=== PATIENT | female | born 1940 | race Caucasian/White ===

== ENCOUNTER → 2018-11-02 14:38 | Outpatient (CLI) | payer MEDICARE, SELFPAY ==
--- NOTE | 2018-11-02 14:49 | BI_ITS ---
MAMMOGRAPHY - BILATERAL SCREENING REASON FOR EXAM: Female, 77 years old. Routine annual screening examination. PERTINENT HISTORY: Sister with breast cancer. TECHNIQUE: Digital bilateral breast lorie (3D mammographic acquisition) in the CC and MLO projections. 2-D mediolateral oblique (MLO) and craniocaudad (CC) views of both breasts were obtained. CAD: Full Field Digital Mammography with Computer Added Detection was performed. COMPARISON: Comparison is made with prior outside examination dated June 12, 2016. FINDINGS: Breast Composition: There are scattered areas of fibroglandular density. There are no dominant masses or suspicious calcifications. 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 No other significant abnormalities are identified. There has been no significant change since the prior study. BI/SCREEN MAMM (CAD) W/LORIE BILAT IMPRESSION: Stable bilateral screening mammogram. Yearly follow-up mammogram recommended. (A) ASSESSMENT CATEGORY: BIRADS Category 2: Benign. A letter regarding these results will be sent to the patient by the facility within 30 days. Approximately 10% of breast cancers are not detected by mammography. A normal mammogram should not delay biopsy of a clinically suspicious abnormality. [id number] Electronically Signed: Oren Hill, at 9:24 EDT , Service support ,
== END ==
DX: Z12.31 Encounter for screening mammogram for malignant neoplasm of breast (principal)
CPT/HCPCS: 77063; 77067

== ENCOUNTER → 2018-11-25 16:44 | Outpatient (CLI) | payer MEDICARE, SELFPAY ==
[2018-11-25 15:30] VITALS: BMI 22.9
[2018-11-25 17:15] LABS: Absolute Lymphocyte Count 1.97 X10^3/uL (0.83-4.51); Absolute Neutrophil Count 2.9 X10^3/uL (2.0-7.7); Basophil# 0.03 X10^3/uL; Basophil% 0.5 % (0-1); Eosinophil# 0.65 X10^3/uL; Eosinophils% 10.4 % (0-5); Hematocrit 36.3 % (37-47); Hemoglobin 11.6 g/dL (12.0-15.0); Lymphocyte # 1.97 X10^3/ul (4.0); Lymphocyte % 31.6 % (19-41); Mean Corpuscular Hgb 31.2 pg (27.0-32.0); Mean Corpuscular Volume 97.6 fL (81-99); Mean Platelet Vol. 9.7 fl (6.2-12.0); Monocyte# 0.65 X10^3/uL; Monocyte% 10.4 % (0-10); NRBC Flagged by Analyzer 0 % (0-5); Neutrophil # 2.91 X10^3/uL (2.7-7.7); Neutrophil % 46.8 % (47-70); Platelet Count 276 K/mm3 (150-450); RBC Distribution Width CV 14.8 % (11.6-14.6); RBC Distribution Width SD 53.1 fl (35.1-43.9); Red Blood Count 3.72 M/mm3 (4.2-5.4); White Blood Count 6.2 K/mm3 (4.4-11.0)
[2018-11-25 17:31] LABS: Anion Gap 2 (5-15); BUN 20 mg/dL (7-18); BUN/Creat Ratio 17.1 RATIO (10-20); Calcium,Total 9.4 mg/dL (8.5-10.1); Chloride 102 mmol/L (98-107); Creatinine, Serum 1.17 mg/dL (0.55-1.02); EST Glomerular Filtration Rate 48 mL/min (>60); Est Glom Filt Rate - Afr Amer 58 mL/min (>60); Glucose 220 mg/dL (74-106); Potassium 4.5 mmol/L (3.5-5.1); Sodium Level 134 mmol/L (136-145)
== END ==
PROVIDERS: Family Provider Family Medicine; PCP Family Medicine; Referring Provider Internal Medicine Cardiovascular Disease; Visit Provider Internal Medicine Cardiovascular Disease
DX: I35.2 Nonrheumatic aortic (valve) stenosis with insufficiency (principal); I10 Essential (primary) hypertension
CPT/HCPCS: 36415; 80048; 85025

== ENCOUNTER 2018-11-30 07:00 | Day surgery (SDC) | payer MEDICARE, SELFPAY ==
[2018-11-25 15:30] VITALS: BMI 22.9
[2018-11-30 07:10] LABS: Prothrombin Time Fingerstick 12.5 SEC (11.9-14.4)
[2018-11-30 07:47] VITALS: BMI 22.6
--- NOTE | 2018-11-30 08:48 | PCM.HP.BLA ---
Problem List (1) Nonrheumatic aortic (valve) stenosis with insufficiency Status: Chronic (2) Hyperlipidemia Status: Chronic (3) Essential hypertension Status: Chronic History and Physical Date of Admission: 11/30/18 HPI History of Present Illness Details: Pleasant 77-year-old with a history of hypertension, hyperlipidemia, known valvular heart disease, history of lupus anticoagulant with previous history of deep vein thrombosis on Coumadin. She presents for an evaluation of her aortic valve as well as the shortness of breath. She is scheduled to undergo a right and left heart cath today to evaluate for severe aortic stenosis. She says that she has been having recent worsening dyspnea. She is also had occasional chest tightness which lasts a few minutes its infrequent it is not necessarily with activity. She is also had some sharp chest discomfort. She has no paroxysmal nocturnal dyspnea or pedal edema. She has been compliant with all her medications. As part of her work-up she underwent an echocardiographic evaluation which demonstrated an ejection fraction of 65 to 70% with mild concentric left ventricular hypertrophy her aortic valve was calcified and narrowed with a max gradient of 72 mmHg and a mean gradient of 47 mmHg. There is mild aortic regurgitation and the valve area was 0.8 cm? suggesting severe aortic stenosis. 2+ aortic regurgitation was noted. Her physical exam here today demonstrates a harsh 3/6 to 4/6 systolic murmur noted left sternal border radiating to both carotids. Intake Vital signs: See chart Allergies codeine Allergy (Intermediate, Verified 11/25/18 12:34) Unknown lisinopril Allergy (Intermediate, Verified 11/25/18 12:34) Unknown Medications acetaminophen 325 mg tablet 325 mg PO Q6H PRN 11/24/18 [History Confirmed 11/25/18] atorvastatin 80 mg tablet 40 mg PO QHS tab 11/24/18 [History Confirmed 11/24/18] cholecalciferol (vitamin D3) 5,000 unit tablet 5,000 unit PO DAILY 11/24/18 [History Confirmed 11/25/18] insulin glargine (U-100) 100 unit/mL subcutaneous solution 5 unit SC QHS ml 11/24/18 [History Confirmed 11/25/18] losartan 50 mg-hydrochlorothiazide 12.5 mg tablet 1 tab PO DAILY 11/24/18 [History Confirmed 11/25/18] metformin 1,000 mg tablet 1,000 mg PO BID 11/24/18 [History Confirmed 11/25/18] nifedipine ER 60 mg tablet,extended release 24 hr 60 mg PO DAILY 11/24/18 [History Confirmed 11/25/18] sertraline 100 mg tablet 200 mg PO DAILY tab 11/24/18 [History Confirmed 11/25/18] warfarin 5 mg tablet 5 mg PO .COMPLEX 11/24/18 [History Confirmed 11/25/18] biotin 1 mg capsule 1 mg PO DAILY 11/25/18 [History Confirmed 11/25/18] docosahexanoic acid 300 mg capsule mg PO cap 11/25/18 [History Confirmed 11/25/18] lactobacillus combination no.8 3 billion cell capsule 6,000 mmu cells PO DAILY cap 11/25/18 [History Confirmed 11/25/18] melatonin 5 mg capsule 5 mg PO QHS cap 11/25/18 [History Confirmed 11/25/18] metoprolol succinate ER 25 mg tablet,extended release 24 hr 25 mg PO DAILY 11/25/18 [History Confirmed 11/25/18] vitamin A palmitate 10,000 unit tablet 10,000 unit PO DAILY 11/25/18 [History Confirmed 11/25/18] PFS Medical History Lupus anticoagulant disorder (Chronic 1994) Nonrheumatic aortic (valve) stenosis with insufficiency (Chronic) History of DVT (deep vein thrombosis) (Chronic) Hyperlipidemia (Chronic) Essential hypertension (Chronic) COPD with emphysema (Chronic) Depression (Chronic) Osteoarthritis (Chronic) Osteoporosis (Chronic) Small bowel intussusception (Chronic) Type 2 diabetes mellitus without complication (Chronic) Vitamin B 12 deficiency (Chronic) Surgical History History of appendectomy (Resolved) History of section (Resolved) History of elbow surgery (Resolved ~2011) History of gastric bypass (Resolved) History of hip surgery (Resolved ~2011) History of open reduction and internal fixation (ORIF) procedure (Resolved ~2009) History of tonsillectomy (Resolved) Family History Mother , Age 86 Alzheimers disease Myocardial infarction, Onset Age: 70 CAD (coronary artery disease) Father , Age 68 CAD (coronary artery disease) Hypertension Alcoholism Sister Diabetes Hypertension Sister , 46 Breast cancer Brother Hypertension Cancer bladder and prostate Brother Heart disease AVR Social History (Updated 11/25/18 @ 16:08 by Robert Contreras MD) Smoking Status: Former smoker how long ago did patient quit smokin years ago alcohol intake: current Alcohol type: wine substance use type: does not use ROS Const Const: Negative for fatigue, weakness, headache(s), frequent falls, difficulty sleeping or excessive sweating Eyes Eyes: Negative for loss of peripheral vision, transient loss of vision, blurry vision, double vision or tunnel vision ENT ENT: Negative for headache(s), dizziness, Nosebleed/epistaxis or balance problems Cardio Chest Pain: No Palpitations: No Edema: None Muscle aches with walking: None Resp Respiratory: Negative for SOB with activity, SOB at rest, SOB orthopnea\SOB lying down, Cough or paroxysmal nocturnal dyspnea GI GI: Negative nausea, vomiting, heartburn or black,tarry stools : Negative for hematuria Musc Musc: Negative for muscle aches/ myalgia, muscle weakness, joint pain or balance problems Skin Skin: Negative non-healing lesions, rash or unusual bruising Neuro Neuro: Negative for dizziness, lightheadedness, near syncope, syncope, orthostatic symptoms, frequent falls, headache(s), weakness, blurry vision, double vision or lack of coordination [place] Hematologic/Lymphatic: Negative for easy bleeding or easy bruising Endo Endo: Negative for fatigue, excessive sweating or increased thirst/drinking Psych Psych: Negative for anxiety or depression Allergy Allergy/Immunology: Negative for hives, Negative for rash Cardiology Exam Const Appearance: cooperative, healthy appearing, no acute distress, well developed and well groomed Nutritional Appearance: average body habitus and well nourished Orientation: alert, awake and oriented x3 Head Head: normal to inspection, normocephalic and atraumatic Ears: hearing grossly normal bilaterally and external ears normal Nose: external nose normal, nares normal, nasal mucous membranes and turbinates normal, septum normal, no nasal discharge Face and Sinus: face symmetric Mouth: oral mucosae normal, tongue normal, oropharynx normal and moist mucous membranes Teeth and gingiva: dentition normal Throat: posterior oropharynx normal, tonsils normal and uvula midline Eyes General: appearance normal, both eyes and all related structures Eyelids: eyelids normal Conjunctivae: conjunctivae normal Pupils: PERRL, normal by confrontation and accommodation normal EOM: EOM intact bilaterally Neck Neck: normal visual inspection, trachea midline and no JVD JVD: +5 Carotids: normal carotid upstroke and bounding pulses Chest Chest inspection: normal inspection of the chest, symmetric chest movement and normal respiratory effort Auscultation: Bilateral: Clear to Auscultation Cardio Palpation: normal PMI Rate: regular rate Rhythm: regular rhythm Heart sounds: S1 normal, S2 normal and normal, physiologic split S2; negative rub, gallop or murmur Murmur: Grade 3/6, harsh, early systolic, crescendo and radiates to carotids GI GI: normal to inspection, soft, no hepatosplenomegaly and bowel sounds present Neuro General: alert, awake, oriented x3, gait normal, moves all extremities and no focal sensory deficit Skin Skin: no rashes or lesions noted Extremities Pulses: Normal: Right Femoral Pulse, Left Femoral Pulse, Right Dorsalis Pedis Pulse, Left Dorsalis Pedis Pulse, Right Posterior Tibial Pulse, Left Posterior Tibial Pulse, Right Radial Pulse, Left Radial Pulse Lower Extremity Edema: None: Bilateral Musculoskel Musculoskeletal: No joint tenderness Psych Psychological: normal affect Assessment & Plan 1. Nonrheumatic aortic (valve) stenosis with insufficiency I35.2 Plan She appears to have severe symptomatic aortic stenosis. It was recommended to proceed with a left and right heart catheterization. This is scheduled for today. The risk benefits alternatives have been explained to her she understands and agrees to proceed. It has suggested to her that should we confirm the severe aortic stenosis and evaluate her coronary anatomy she may be a candidate for a TAVR procedure. 2. Essential hypertension I10 Plan She does have history of hypertension which is well controlled on the current medical therapy. No major changes will be made with respect to the above. 3. Hyperlipidemia E78.5 Plan She does have a history of hyperlipidemia and will remain on current podiatry therapy. No other major changes will be made.
--- NOTE | 2018-11-30 09:32 | CL.D_ITS ---
Patient Name: SONNY HOWARD Study Date: 11/30/2018 Performing: Robert Contreras MD Ht: 64.96 inches 165 cm : 1940 Wt: 135.98 lbs 61.68 kg Age: 77 Gender: female BSA: 1.68 PROCEDURE(S) PERFORMED IF50-TEM/LHC/COR DC11-AO ROOT ANGIO WITH HEART CATH CLINICAL PROFILE AND INDICATIONS Indications: Valvular Disease Heart Failure: None Stress/Imaging Stress/Image Study Performed: No CAD Presentations: No Sxs, no angina. CONCLUSIONS Severe calcific aortic stenosis, mild aortic regurgitation, mitral annular calcification, upper gabby l pulmonary pressures. RECOMMENDATIONS TAVR consideration DESCRIPTION OF PROCEDURE The patient arrived to the procedure lab. The risks and benefits of the procedure as well as a full d escription of our services here and current unavailability of surgical backup were fully explained to the patient and/or their significant other prior to the catheterization. The Timeout was completed, verifying the correct patient and procedure. The patient's procedural site was prepped and draped in the usual fashion. Local anesthetic was given subcutaneously to right groin region with Lidocaine 2%. Using a modified Seldinger technique, arterial access was obtained via the right femoral artery, a 5 Fr sheath was inserted. Venous access was obtained via the right femoral vein, a 7Fr sheath was inser otto. A 7Fr thermal dilution catheter was inserted and right heart pressures were recorded, it was the n advanced to PA position for cardiac outputs. Thermal dilution cardiac outputs were then recorded. O 2 saturations were then obtained. The Thermal dilution catheter was then removed. Left Coronary Artery selective angiography was performed in multiple views using a 5 Fr. JL4 catheter. Rig ht Coronary Artery selective angiography was then performed in multiple views using a 5 Fr. 3DRC ([facility]) catheter.The arterial sheath was pulled and manual compression applied until hemostasis is ach ieved.. The venous sheath was then pulled and manual compression applied until hemostasis achieved CORONARY ANGIOGRAPHY DOMINANCE: Right Dominant LEFT HEART ASSESSMENT Left Ventricular Ejection Fraction: by Echo 65 % Normal LV wall motion Normal Left Ventricular systolic function RIGHT HEART ASSESSMENT Thermal CO: 3.9 Thermal CI: 2.32 Reinier CO: 3.93 Reinier CI: 2.34 PW: 24/17 13 PA: 35/5 15 RV: 30/-2 7 RA: 6/4 3 PVR: 41 SVR: 1662 Right Heart pressures - normal LEFT MAIN: Mild calcification LEFT ANTERIOR DESCENDING ARTERY: Mild luminal irregularities CIRCUMFLEX ARTERY: Mild luminal irregularities RIGHT CORONARY ARTERY: Mild luminal irregularities VALVE FINDINGS: Aortic Valve Stenosis - severe Aortic Valve Insufficiency: Grade 2 Mitral Valve Calcification Moderate COMPLICATIONS No Complications PROCEDURE MEDICATIONS Versed 1 mg IV Oxygen: 2 L/min via nasal cannula SUMMARY OF HEMODYNAMIC DATA Time AIR REST ECG 07:42:16 RA 6/4 (3) SV 09:04:16 RV 30/-2, 7 09:04:29 PA 35/5 (15) PA 09:05:02 PW 24/17 (13) PV 09:05:20 PA 36/7 (19) 09:07:58 RV 34/-2, 5 09:08:11 RA 7/4 (2) 09:08:19 AO 121/56 (84) SA 09:10:22 Type SV CO (l/m) CI (l/m/ HR Time AIR REST Thermal 69.60 3.90 2.32 56 07:42:16 Reinier 70.20 3.93 2.34 56 07:42:16 Label % O2 Pres/Loc Time AIR REST AO 95 PV 09:14:38 RA 59 SV 09:14:56 PA 62 PA 09:15:05 Signed By Robert Contreras MD On 11/30/2018 09:32:07 Robert Contreras MD
[2018-11-30 09:36] LABS: Blood Gas Specimen Type VEN; VBG BASE EXCESS -3 mmol/L (-1.0-3.5); VBG Bicarbonate 23 mmol/L (22-26); VBG Oxygen Content 24 mmol/L (23-33); VBG PO2 34 mmHg (25-40); VBG SO2 62 % (50-70); VBG pH 7.36 (7.32-7.42)
[2018-11-30 09:36] LABS: Blood Gas Specimen Type VEN; VBG BASE EXCESS -2 mmol/L (-1.0-3.5); VBG Bicarbonate 24 mmol/L (22-26); VBG Oxygen Content 25 mmol/L (23-33); VBG PO2 32 mmHg (25-40); VBG SO2 59 % (50-70); VBG pCO2 43.2 mmHg (41-51); VBG pH 7.35 (7.32-7.42)
[2018-11-30 09:36] LABS: Base Excess -3 mmol/L (-2 to +2); Bicarbonate 22.7 mmol/L (22-26); Blood Gas Specimen Type ART; PO2 75 mmHG (75-100); SO2 95 % (95-99); Total Carbon Dioxide 24 mmol/L; pCO2 38.8 mmHg (35-45); pH 7.38 (7.35-7.45)
== END 2018-11-30 14:45 | disposition home or self-care (01) ==
LOC: CLSP 07:02
PROVIDERS: Family Provider Family Medicine; PCP Family Medicine; Referring Provider Internal Medicine Cardiovascular Disease; Visit Provider Internal Medicine Cardiovascular Disease
DX: I35.2 Nonrheumatic aortic (valve) stenosis with insufficiency (principal); I34.8 Other nonrheumatic mitral valve disorders; I10 Essential (primary) hypertension; E78.5 Hyperlipidemia, unspecified; D68.62 Lupus anticoagulant syndrome; E11.9 Type 2 diabetes mellitus without complications; Z86.718 Personal history of other venous thrombosis and embolism; Z79.01 Long term (current) use of anticoagulants; Z79.4 Long term (current) use of insulin; Z79.84 Long term (current) use of oral hypoglycemic drugs; Z87.891 Personal history of nicotine dependence; Z79.899 Other long term (current) drug therapy
CPT/HCPCS: 36416; 82803; 85610; 93456; 93567; 99152; 99153; J7040; C1751; C1769; C1894; Q9967

== ENCOUNTER 2019-01-31 17:18 | Inpatient (IN) | payer MEDICARE, OTHER, SELFPAY ==
[2019-01-31] VITALS (9 sets, daily range): BP systolic 100–179; BP diastolic 46–70; PULSE 58–71; RESP 11–18; TEMP 36.4–37.2; O2SAT 95–100; BMI 23.2; BMI 22.8
[2019-01-31] MEDS: 0.9% Normal Saline 1,000 ML 125 ML IV (17:52)
[2019-01-31 17:54] LABS: Absolute Lymphocyte Count 1.63 X10^3/uL (0.83-4.51); Absolute Neutrophil Count 2.7 X10^3/uL (2.0-7.7); Basophil# 0.03 X10^3/uL; Basophil% 0.6 % (0-1); Eosinophil# 0.33 X10^3/uL; Eosinophils% 6.3 % (0-5); Hematocrit 23.9 % (37-47); Hemoglobin 7.5 g/dL (12.0-15.0); Lymphocyte # 1.63 X10^3/ul (4.0); Lymphocyte % 31.2 % (19-41); Mean Corp Hgb Conc 31.4 g/dL (32-36); Mean Corpuscular Hgb 30.2 pg (27.0-32.0); Mean Corpuscular Volume 96.4 fL (81-99); Mean Platelet Vol. 9.4 fl (6.2-12.0); Monocyte# 0.54 X10^3/uL; Monocyte% 10.3 % (0-10); NRBC Flagged by Analyzer 0 % (0-5); Neutrophil # 2.68 X10^3/uL (2.7-7.7); Neutrophil % 51.4 % (47-70); Platelet Count 258 K/mm3 (150-450); RBC Distribution Width SD 52.3 fl (35.1-43.9); Red Blood Count 2.48 M/mm3 (4.2-5.4); White Blood Count 5.2 K/mm3 (4.4-11.0)
[2019-01-31 18:06] LABS: International Normalized Ratio 2.2; Prothrombin Time (Protime)PT. 24.2 SECONDS (11.7-14.9)
[2019-01-31 18:09] LABS: Anion Gap 9 (5-15); BUN 23 mg/dL (7-18); BUN/Creat Ratio 16.7 RATIO (10-20); Calcium,Total 8.5 mg/dL (8.5-10.1); Chloride 106 mmol/L (98-107); Creatinine, Serum 1.38 mg/dL (0.55-1.02); EST Glomerular Filtration Rate 40 mL/min (>60); Est Glom Filt Rate - Afr Amer 48 mL/min (>60); Estimated Creatinine Clearance 31.21 ml/min; Glucose 150 mg/dL (74-106); Potassium 4.3 mmol/L (3.5-5.1); Sodium Level 139 mmol/L (136-145)
--- NOTE | 2019-01-31 18:16 | ED.VISSUMM ---
- ER Visit Summary Date of Service: 01/31/19 Chief Complaint: [Rectal bleeding History of present illness: The patient is a 78-year-old female who presents to the emergency department with rectal bleeding that started 1 week ago. Patient states that time she has a bowel movement she noticed that there is blood in her stool. She denies any abdominal pain. Patient notes feeling lightheaded and somewhat weak. Patient states that with activity her heart started to race. Patient is scheduled to have a TAVR procedure next week at [facility]. Patient's last INR was 3 days ago and it was 2.2. Patient has history of prior DVT, aortic stenosis, COPD, diabetes, hypertension, and high cholesterol.] Physical Examination: [HEENT-PERRLA, EOMI. Cranial nerves II through XII grossly intact. TMs clear. Mucous membranes moist. No adenopathy. Cardiovascular-regular rate and rhythm without murmur or ectopy Lungs-clear to auscultation, chest wall stable without crepitus or subcu emphysema Abdomen-normoactive bowel sounds, soft, nontender, no rebound or rigidity, no peritoneal signs. Rectal exam-patient has maroon stool. No rectal masses noted. No hemorrhoids. No fissures. Extremities-intact ?4, normal range of motion, normal pulses, atraumatic] Test Results: [CBC with differential obtained showed a white count of 5.2, hemoglobin 7.5. Chemistries unremarkable. BUN was 23 and creatinine 1.38. INR was 2.2.] Emergency Department Course and Treatment: [ Stable she was given a liter normal same fluid bolus. Case was discussed with general surgeon on-call Dr. Kenyon Higuera. I will discuss with hospitalist for admission.] Treatment Plan: [Admit] Disposition: [Admit] Impression: [Lower GI bleed Anemia] This note was generated with [employer] dictation software. It may contain incorrect words, spelling, and punctuation that were not noted in review of the chart prior to signing ED Disposition - Plan for ED Patient: [facility]: [facility] [Primary Care Provider] -
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
[2019-01-31 20:57] LABS: Hematocrit 23.3 % (37-47); Hemoglobin 7.6 g/dL (12.0-15.0)
[2019-01-31] MEDS: Atorvastatin Calcium 40 MG Tablet PO (21:08)
[2019-01-31] MEDS: hydroCHLOROthiazide 12.5mg 12.5 MG PO (21:08)
[2019-01-31] MEDS: Losartan Potassium 50 MG Tablet PO (21:08)
[2019-01-31] MEDS: MELATONIN 10 MG TABLET PO (21:15)
--- NOTE | 2019-01-31 22:25 | NURSING ---
21:12 vital signs in the TAR were taken at 22:20. Unable to edit the time.
[2019-02-01] VITALS (16 sets, daily range): BP systolic 150–178; BP diastolic 50–78; PULSE 54–80; RESP 14–18; TEMP 36.6–37.1; O2SAT 95–100
[2019-02-01] MEDS: 0.9% Normal Saline 1,000 ML 125 ML IV ×3 (00:15→17:17)
[2019-02-01] MEDS: Acetaminophen 325 MG Tablet 650 MG PO ×2 (00:21→10:02)
[2019-02-01 00:31] LABS: Bedside Glucose 94 mg/dL (70-110)
--- NOTE | 2019-02-01 01:34 | NURSING ---
On admission, pt reports difficulty swallowing. D/T pt being NPO, unable to complete a traditional bedside dysphagia screen using applesauce. This RN had pt take water from a spoon and take water from a cup. No swallowing issues noted.
[2019-02-01 02:21] LABS: Bedside Glucose 99 mg/dL (70-110)
[2019-02-01 02:28] LABS: Hematocrit 27.1 % (37-47); Hemoglobin 8.8 g/dL (12.0-15.0)
[2019-02-01 05:56] LABS: Absolute Neutrophil Count 2.1 X10^3/uL (2.0-7.7); Basophil# 0.03 X10^3/uL; Basophil% 0.6 % (0-1); Eosinophil# 0.45 X10^3/uL; Eosinophils% 9.1 % (0-5); Hematocrit 27.3 % (37-47); Hemoglobin 8.9 g/dL (12.0-15.0); Lymphocyte % 38.5 % (19-41); Mean Corp Hgb Conc 32.6 g/dL (32-36); Mean Corpuscular Hgb 29.9 pg (27.0-32.0); Mean Corpuscular Volume 91.6 fL (81-99); Mean Platelet Vol. 9.6 fl (6.2-12.0); Monocyte# 0.44 X10^3/uL; Monocyte% 8.9 % (0-10); NRBC Flagged by Analyzer 0 % (0-5); Neutrophil # 2.12 X10^3/uL (2.7-7.7); Neutrophil % 42.9 % (47-70); Platelet Count 235 K/mm3 (150-450); RBC Distribution Width CV 14.7 % (11.6-14.6); RBC Distribution Width SD 49.2 fl (35.1-43.9); Red Blood Count 2.98 M/mm3 (4.2-5.4); White Blood Count 4.9 K/mm3 (4.4-11.0)
[2019-02-01 06:05] LABS: Bedside Glucose 89 mg/dL (70-110)
[2019-02-01 06:15] LABS: Anion Gap 7 (5-15); BUN 20 mg/dL (7-18); BUN/Creat Ratio 18.7 RATIO (10-20); Chloride 110 mmol/L (98-107); Creatinine, Serum 1.07 mg/dL (0.55-1.02); EST Glomerular Filtration Rate 53 mL/min (>60); Est Glom Filt Rate - Afr Amer 64 mL/min (>60); Estimated Creatinine Clearance 40.25 ml/min; Glucose 88 mg/dL (74-106); Potassium 4.1 mmol/L (3.5-5.1); Sodium Level 144 mmol/L (136-145)
[2019-02-01 06:17] LABS: International Normalized Ratio 1.8; Prothrombin Time (Protime)PT. 20.6 SECONDS (11.7-14.9)
[2019-02-01] MEDS: NIFEdipine 60 MG Tablet PO (09:59)
[2019-02-01] MEDS: Sertraline 100 MG Tablet PO ×2 (10:02→21:48)
[2019-02-01] MEDS: Metoprolol(XL)Succ 25 MG Tablet PO (10:04)
--- NOTE | 2019-02-01 10:04 | PN_ITS ---
Patient Problems: Active and Suspected Problems (Last Reviewed 11/25/18 @ 16:01 by Robert Contreras MD) GI bleed (Acute) Acute blood loss anemia (Acute) Subjective: Patient seen and examined. She was admitted with a complaint of weakness, fatigue and maroon colored stools. She symptoms have been going on for about a week. She had assisted palpitations and shortness of breath which worsened with exertion. She has been managed for lower GI bleed. General surgery is on board. Patient has no complaints this morning. States rectal bleeding has not recurred since admission. She still feels weak but denies any lightheadedness, dizziness, palpitation, abdominal pain, diarrhea vomiting. Patient states she is scheduled to have TAVR done at [facility] on account of aortic stenosis in a week's time. Labs and vitals reviewed. Vitals/I&O's: Vital Signs Temp Pulse Resp BP Pulse Ox 98.7 F 54 L 16 178/50 H 98 02/01/19 09:25 02/01/19 09:25 02/01/19 09:25 02/01/19 09:25 02/01/19 09:25 Oxygen Delivery Method Room Air Weight: 136 lb 14.513 oz Body Mass Index (BMI) 22.8 Intake and Output for Last 24 Hours 01/30/19 01/31/19 02/01/19 23:59 23:59 23:59 Intake Total 451.25 / 451.25 1456.00 / 1456.00 Balance 451.25 / 451.25 1456.00 / 1456.00 General: Alert, Oriented x3, Cooperative, No apparent distress, Lethargic HEENT: Atraumatic, PERRLA, EOMI, Normocephalic Oral: Moist Mucosa Neck: Supple, No JVD, Negative Carotid Bruits Lungs: Clear to auscultation, Normal air movement, No rhonchi, No wheeze, No rales Cardiovascular: Regular rate, Regular Rhythm, Normal S1, Normal S2, - - grade 3- 4 ejection systolic murmur loudest in the aortic and pulmonary areas Abdomen: Bowel Sounds Present, Soft, Non Tender, Non-Distended, No Hepato- splenomegaly Extremities: No clubbing, No cyanosis, No edema, Capillary Refill Less than 3 Seconds Skin: No rashes, No breakdown Musculoskeletal: No Tenderness to Palpation of Joints or Extremities Lymphatic: No Cervical, Supraclavicular, or Inguinal Adenopathy Neurological: Cranial nerves II-XII grossly intact, Neuro grossly intact, Motor Exam 5/5 strength throughout Psych/Mental Status: Normal Affect, Appropriate, Alert and oriented to time, place, person, mood and affect Microbiology Past 72 Hours 01/31/19 17:35 Stool Stool Occult Blood (KETAN) - Final Laboratory Results 01/31/19 17:45: WBC 5.2, RBC 2.48 L, Hgb 7.5 L, Hct 23.9 L, MCV 96.4, MCH 30.2, MCHC 31.4 L, RDW Std Deviation 52.3 H, RDW Coeff of Adria 15.0 H, Plt Count 258, MPV 9.4, Immature Gran % (Auto) 0.200, Neut % (Auto) 51.4, Lymph % (Auto) 31.2, [place] % (Auto) 10.3 H, Eos % (Auto) 6.3 H, Baso % (Auto) 0.6, Absolute Neuts (auto) 2.7, Absolute Lymphs (auto) 1.63, Nucleated RBC % 0 01/31/19 17:45: Sodium 139, Potassium 4.3, Chloride 106, Carbon Dioxide 24.0, Anion Gap 9, BUN 23 H, Creatinine 1.38 H, Estim Creat Clear Calc 31.21, Est GFR (MDRD) Af Amer 48 L, Est GFR (MDRD) Non-Af 40 L, BUN/Creatinine Ratio 16.7, Glucose 150 H, Calcium 8.5 01/31/19 17:45: PT 24.2 H, INR 2.2 01/31/19 17:45: Blood Type AB POSITIVE, Antibody Screen NEGATIVE 01/31/19 17:45: Crossmatch See Detail 01/31/19 20:37: Hgb 7.6 L, Hct 23.3 L 01/31/19 21:06: POC Glucose 99 02/01/19 00:24: POC Glucose 94 02/01/19 01:34: Hgb 8.8 L, Hct 27.1 L 02/01/19 05:10: WBC 4.9, RBC 2.98 L, Hgb 8.9 L, Hct 27.3 L, MCV 91.6, MCH 29.9, MCHC 32.6, RDW Std Deviation 49.2 H, RDW Coeff of Adria 14.7 H, Plt Count 235, MPV 9.6, Immature Gran % (Auto) 0.000, Neut % (Auto) 42.9 L, Lymph % (Auto) 38.5, [place] % (Auto) 8.9, Eos % (Auto) 9.1 H, Baso % (Auto) 0.6, Absolute Neuts (auto) 2.1, Absolute Lymphs (auto) 1.90, Nucleated RBC % 0 02/01/19 05:10: PT 20.6 H, INR 1.8 02/01/19 05:10: Sodium 144, Potassium 4.1, Chloride 110 H, Carbon Dioxide 27.0, Anion Gap 7, BUN 20 H, Creatinine 1.07 H, Estim Creat Clear Calc 40.25, Est GFR (MDRD) Af Amer 64, Est GFR (MDRD) Non-Af 53 L, BUN/Creatinine Ratio 18.7, Glucose 88, Calcium 8.0 L 02/01/19 05:10: POC Glucose 89 Current Medications Acetaminophen (Tylenol) 650 mg PO Q6H PRN PRN PRN Reason: Non-cardiac pain (mod-severe) Last Admin: 02/01/19 00:21 Dose: 650 mg Documented by: Albuterol Sulfate (Ventolin Aerosols) 2.5 mg INHALATION Q2H PRN PRN PRN Reason: dyspnea, wheezing Atorvastatin Calcium (Lipitor) 40 mg PO QHS [facility] Last Admin: 01/31/19 21:08 Dose: 40 mg Documented by: Dextrose (D50w Syringe) 0 gm IV X1 PRN; Protocol PRN Reason: Hypoglycemia Glucagon () 1 mg IM .X1 PRN PRN Reason: Hypoglycemia Hydralazine HCl (Apresoline Iv) 10 mg IV Q4H PRN PRN PRN Reason: SBP > 160 Hydrochlorothiazide () 12.5 mg PO QHS [facility] Last Admin: 01/31/19 21:08 Dose: 12.5 mg Documented by: Sodium Chloride () 1,000 mls @ 125 mls/hr IV .Q8H [facility] Last Admin: 02/01/19 09:15 Dose: 125 mls/hr Documented by: Pantoprazole Sodium 40 mg/ (Sodium Chloride) 110 mls @ 330 mls/hr IV Q12 [facility] Last Infusion: 02/01/19 00:40 Dose: Infused Documented by: Sodium Chloride () 250 mls @ 15 mls/hr IV .[id number] PRN PRN Reason: SALINE FLUSH Sodium Chloride () 500 mls @ 15 mls/hr IV .[id number] PRN PRN Reason: SALINE FLUSH Insulin Glargine (Lantus (Bk)) 5 units SC QHS [facility] Last Admin: 01/31/19 21:06 Dose: Not Given Documented by: Insulin Human Lispro (Humalog Kwikpen ([facility])) 0 unit SC Q6 [facility]; Protocol Last Admin: 02/01/19 05:11 Dose: Not Given Documented by: Losartan Potassium (Cozaar) 50 mg PO QHS [facility] Last Admin: 01/31/19 21:08 Dose: 50 mg Documented by: Melatonin (Melatonin) 10 mg PO QHS [facility] Last Admin: 01/31/19 21:15 Dose: 10 mg Documented by: Metoprolol Succinate (Toprol Xl (Beta Mona)) 25 mg PO DAILY [facility] Nifedipine (Procardia Xl) 60 mg PO DAILY [facility] Nitroglycerin (Nitrostat) 0.4 mg SUBLINGUAL Q5M PRN PRN Reason: CARDIAC/CHEST PAIN Ondansetron HCl (Zofran) 4 mg IV Q8H PRN PRN PRN Reason: NAUSEA/VOMITING Sertraline HCl (Zoloft) 100 mg PO BID [facility] Last Admin: 01/31/19 21:12 Dose: Not Given Documented by: Sodium Chloride () 10 - 40 ml IV UD PRN PRN Reason: SALINE FLUSH Medical Necessity - Tobacco Use Smoking Status: Former smoker Tobacco Use: Non-smoker Assessment/Plan All Active Problems (Last Reviewed 11/25/18 @ 16:01 by Robert Contreras MD) GI bleed (Acute) Acute blood loss anemia (Acute) 1. Acute blood loss anemia due to acute upper GI bleed * Hb was 7.5 on admission, and is now 8.9. s/p transfusion of 1 unit of PRBC * on IV pantoprazole 40mg bid * has never had a colonoscopy * general surgery on board; awaiting rec's * 2. Acute upper GI bleed * in light of her moderate to severe aortic stenosis requiring TAVR, Heyde's syndrome is a consideration for the acute GI bleed. * findings of angiodysplasia will strengthen suspicion for Heyde's syndrome, though she will need diagnosis of Von Willebran disease to confirm this. * as under 1. * 3. 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 * INR today is 1.8 * 4. Aortic valve stenosis: * 2D echo(10/23/18) showed moderate to severe aortic stenosis and mild to moderate aortic regurgitation. * scheduled for TAVR in ~ 1 week. Will monitor 5. Type 2 diabetes mellitus: on ISS. Accuchecks ACHS 6. Hypertension: on metoprolol, losartan, hydrochlorothiazide and ferritin. IV hydralazine PRN. 7. CKD stage III: * Creatinine is 1.07 today with a baseline of around 1.1. Will monitor. 8. Hyperlipidemia: On statin. 9. Anxiety and depression: On sertraline. DVT prophylaxis: SCDs. Coumadin on hold. Code Visit Inpatient E&M: 38718 Subs Hosp L3
--- NOTE | 2019-02-01 10:14 | EKG12_ITS ---
Test Reason : TIGHTNESS Blood Pressure : / mmHG Vent. Rate : 061 BPM Atrial Rate : 061 BPM P-R Int : 130 ms QRS Dur : 076 ms QT Int : 446 ms P-R-T Axes : 053 020 067 degrees QTc Int : 448 ms Sinus rhythm with Premature atrial complexes Nonspecific ST abnormality Abnormal ECG Confirmed by DOMINGO GERONIMO, JAIMEE ([id number]), science editor SONG CAO ([id number]) on 02/03/2019 10:56:49 AM Referred By: Lisa Haynes Confirmed By:JAIMEE LANE MD
[2019-02-01 12:20] LABS: Bedside Glucose 106 mg/dL (70-110)
--- NOTE | 2019-02-01 12:56 | CASEMGMT ---
AMINA SAUCEDO assessment: Face to Face with patient for initial transition planning/care coordination assessment. AMINA SAUCEDO introduced self and role at [facility], pt voices understanding and consents to assessment at this time. Pt is lying in bed in no distress at this time. Pt is A/Ox4 at this time and answers all questions appropriately at this time. Pt's daughter is at bedside during assessment. Care providers, pharmacy, and demographics verified at this time. PCP: [facility] Specialists: Diane, cardio; Mike, cardio at [facility]; podiatry and opthamology at [place] Preferred Pharmacy: [facility] Insurance: [facility], [place] Prescription Benefit: [place], [facility] Living Will/HPOA: Pt states has a LW but not HPOA and is aware that the LW is not on file at [facility] at this time. LNOK: Deyanira Best, daughter; Ayaan Reyes, son Living Arrangements: Pt states lives alone on main level of 2 story home and states no concerns at home at this time. Pt states is independent with ADL's. Transportation: Pt states drives self and states no transportation concerns at this time. DME/HHC: Pt states has a cane, grab bars, and shower chair at this time. Pt states no need for any further DME at this time. Pt states has had HHC and been to a SNF while she lived in [place]. Pt states no concerns with going home at time of discharge. Pt states is retired. Pt states does not smoke but does drink a glass of wine daily. Pt states no further concerns/needs at this time. CM to follow for any further discharge planning/needs. Advised pt to ask for CM if any further questions/concerns/needs arise, voices understanding. Pt is inquiring about diet at this time and per Brenda, pt is written to have clear liquid diet at this time and can call cafeteria to order, pt updated and voices understanding. Pt Goal: Home Plan: [place] AMINA SAUCEDO
--- NOTE | 2019-02-01 13:11 | CASEMGMT ---
Clinicals faxed to the [place] transfer center at this time. This RN LEWIS spoke with Cele at [place] transfer center to notify of pt admission to [facility] and that clinicals already faxed, voices understanding. Shawn HUYNH CM
[2019-02-01] MEDS: Electrolyte Solution/Peg's 4000 ML PO (15:55)
[2019-02-01 17:11] LABS: Bedside Glucose 198 mg/dL (70-110)
[2019-02-01] MEDS: Insulin Lispro 100 UNIT/ML INSULN.PEN SC (17:13)
[2019-02-01] MEDS: hydroCHLOROthiazide 12.5mg 12.5 MG PO (21:48)
[2019-02-01] MEDS: MELATONIN 10 MG TABLET PO (21:48)
[2019-02-01] MEDS: Atorvastatin Calcium 40 MG Tablet PO (21:48)
[2019-02-01] MEDS: Losartan Potassium 50 MG Tablet PO (21:49)
[2019-02-01 22:40] LABS: Bedside Glucose 147 mg/dL (70-110)
[2019-02-02] VITALS (16 sets, daily range): BP systolic 113–173; BP diastolic 45–86; PULSE 60–71; RESP 14–18; TEMP 35.8–37.2; O2SAT 95–100; BMI 23.0
[2019-02-02] MEDS: 0.9% Normal Saline 1,000 ML 125 ML IV (01:38)
[2019-02-02 05:09] LABS: Absolute Lymphocyte Count 2.58 X10^3/uL (0.83-4.51); Absolute Neutrophil Count 3.4 X10^3/uL (2.0-7.7); Basophil# 0.04 X10^3/uL; Basophil% 0.6 % (0-1); Eosinophil# 0.47 X10^3/uL; Eosinophils% 6.6 % (0-5); Hematocrit 30.9 % (37-47); Lymphocyte # 2.58 X10^3/ul (4.0); Lymphocyte % 36.4 % (19-41); Mean Corp Hgb Conc 32.4 g/dL (32-36); Mean Corpuscular Volume 92.8 fL (81-99); Mean Platelet Vol. 9.1 fl (6.2-12.0); Monocyte# 0.61 X10^3/uL; Monocyte% 8.6 % (0-10); NRBC Flagged by Analyzer 0 % (0-5); Neutrophil # 3.36 X10^3/uL (2.7-7.7); Neutrophil % 47.5 % (47-70); Platelet Count 266 K/mm3 (150-450); RBC Distribution Width CV 15.3 % (11.6-14.6); RBC Distribution Width SD 51.8 fl (35.1-43.9); Red Blood Count 3.33 M/mm3 (4.2-5.4); White Blood Count 7.1 K/mm3 (4.4-11.0)
[2019-02-02 05:21] LABS: International Normalized Ratio 1.4; Prothrombin Time (Protime)PT. 17.2 SECONDS (11.7-14.9)
[2019-02-02 05:22] LABS: Partial Thromboplast Time 38.5 Seconds (24.1-36.2)
[2019-02-02 05:40] LABS: AST(SGOT) 40 U/L (15-37); Alanine Aminotransfer ALT/SGPT 14 U/L (13-56); Albumin, Serum 3.7 g/dL (3.2-5.0); Alkaline Phosphatase 35 U/L (45-117); Anion Gap 8 (5-15); BUN 12 mg/dL (7-18); BUN/Creat Ratio 11.8 RATIO (10-20); Bilirubin, Direct 0.11 mg/dL (0.00-0.30); Calcium,Total 8.4 mg/dL (8.5-10.1); Chloride 108 mmol/L (98-107); Creatinine, Serum 1.02 mg/dL (0.55-1.02); EST Glomerular Filtration Rate 56 mL/min (>60); Est Glom Filt Rate - Afr Amer 68 mL/min (>60); Estimated Creatinine Clearance 42.22 ml/min; Globulin 3.9 g/dL (2.2-4.2); Glucose 124 mg/dL (74-106); Potassium 3.6 mmol/L (3.5-5.1); Protein, Total 7.6 g/dL (6.4-8.2); Sodium Level 142 mmol/L (136-145)
--- NOTE | 2019-02-02 05:55 | EKG12_ITS ---
Test Reason : AM Blood Pressure : / mmHG Vent. Rate : 070 BPM Atrial Rate : 070 BPM P-R Int : 132 ms QRS Dur : 080 ms QT Int : 428 ms P-R-T Axes : 059 020 060 degrees QTc Int : 462 ms Sinus rhythm with Premature atrial complexes Left ventricular hypertrophy with repolarization abnormality Abnormal ECG When compared with ECG of 01-FEB-2019 10:20, MANUAL COMPARISON REQUIRED, DATA IS UNCONFIRMED Confirmed by ANGÉLICA GERONIMO, SAMIRA ([id number]), clinical editor SONG CAO ([id number]) on 02/05/2019 10:37:00 A M Referred By: Lisa Haynes Confirmed By:PETTY LINDSAY MD
[2019-02-02 06:35] LABS: Bedside Glucose 105 mg/dL (70-110)
--- NOTE | 2019-02-02 07:15 | EGD_PTH ---
PATIENT: SONNY HOWARD LOC: PCU U#:[id number] AGE/SX: 78/F ROOM: [facility] RE01/31/[address]: Dr. Brinda Artis MD : [id number] BED: 1 DIS: 02/03/2019 SPEC #: [id number] RECD: 02/02/19 10:22 STATUS: KALINA PAZ #: [id number] CAREY: 02/02/19 07:[address]: Kenyon Higuera DEPT: SURGICAL PATHOLOGY RECD BY: Joel Brooke ENTERED: 02/02/19 13:36 SP TYPE: EGD BIOPSY [facility] DR: MD Dr. Brinda Albarran MD [facility] Tissues: A - Gastric mucous membrane B - Cecum, NOS Procedures: Surgery Specimen Level IV HEADER OPERATION: Colonoscopy, EGD ([facility]) PRE-OP DIAGNOSIS: GI bleed, anemia TISSUE SUBMITTED: A - Gastric polyp biopsy, B - Cecal polyp biopsy MICROSCOPIC DIAGNOSIS A. Gastric polyp, biopsy: Fundic gland polyp. B. Cecal polyp, biopsy: Polypoid fragment of benign colonic polyp. See comment. AM:gaetano 02/03/19 COMMENT B. Neither hyperplastic nor adenomatous change is identified. Clinical correlation is suggested. MICROSCOPIC DESCRIPTION Slides are reviewed. GROSS DESCRIPTION A - Received in fixative is one container labeled with the patient's name and designated gastric polyp biopsy. The specimen consists of one irregular fragment of light silva soft tissue that measures 0.3 x 0.3 x 0.1 cm. The specimen is totally submitted in one cassette. B - Received in fixative is one container labeled with the patient's name and designated cecal polyp biopsy. The specimen consists of one irregular fragment of light silva soft tissue that measures 0.3 x 0.3 x 0.1 cm. The specimen is totally submitted in one cassette. / SJ:gaetano 02/02/19 TC: CPT: 02756 x2
--- NOTE | 2019-02-02 07:40 | OP.ENDO_ITS ---
02/02/2019 [facility] Re : Upper GI endoscopy procedure for Angy [facility] This procedure was performed on Saturday, February 02, 2019. My impressions and recommendations are as follows: Impressions : - Gastric bypass with a normal-sized pouch and intact staple line. Gastrojejunal anastomosis characterized by healthy appearing mucosa. - A single gastric polyp. Resected and retrieved. - Non-severe reflux esophagitis. Recommendations : - Discharge patient to home. - Resume previous diet. - Return to my office in 1 week. - Continue present medications. My findings are described in the full procedure note, which is enclosed. If I can be of further assistance, please feel free to contact me at Doctor phone number(s): , Work: . Sincerely, Kenyon Higuera MD 02/02/2019 7:40:33 AM This report has been signed electronically.
--- NOTE | 2019-02-02 07:42 | PN.SURG_ITS ---
Patient Problems: Active and Suspected Problems (Last Reviewed 11/25/18 @ 16:01 by Robert Contreras MD) GI bleed (Acute) Acute blood loss anemia (Acute) Subjective: no complaints - Physical Exam General: Alert, Oriented x3, Cooperative Lungs: Clear to auscultation, Normal air movement Cardiovascular: Regular rate, Murmur Abdomen: Bowel Sounds Present, Soft, Non Tender Vital Signs Temp Pulse Resp BP Pulse Ox 98.8 F 63 16 152/65 H 100 02/02/19 06:37 02/02/19 06:37 02/02/19 06:37 02/02/19 06:37 02/02/19 06:37 Oxygen Delivery Method Room Air Weight: 62.823 kg Body Mass Index (BMI) 23.0 Intake and Output for Last 24 Hours 01/31/19 02/01/19 02/02/19 23:59 23:59 23:59 Intake Total 451.25 / 451.25 7426.84 / 7426.84 812.49 / 812.49 Balance 451.25 / 451.25 7426.84 / 7426.84 812.49 / 812.49 Microbiology Past 72 Hours 01/31/19 17:35 Stool Occult Blood (KETAN) - Final Stool Laboratory Tests Past 24 Hrs 02/01/19 02/01/19 02/01/19 10:30 12:55 16:25 WBC RBC Hgb Hct MCV MCH MCHC RDW Std Deviation RDW Coeff of Adria Plt Count MPV Immature Gran % (Auto) Neut % (Auto) Lymph % (Auto) [place] % (Auto) Eos % (Auto) Baso % (Auto) Absolute Neuts (auto) Absolute Lymphs (auto) Nucleated RBC % PT INR APTT Sodium Potassium Chloride Carbon Dioxide Anion Gap BUN Creatinine Estim Creat Clear Calc Est GFR (MDRD) Af Amer Est GFR (MDRD) Non-Af BUN/Creatinine Ratio Glucose Hemoglobin A1c Calcium Total Bilirubin Direct Bilirubin AST ALT Alkaline Phosphatase Troponin I < 0.015 < 0.015 < 0.015 Total Protein Albumin Globulin 02/02/19 02/02/19 02/02/19 04:58 04:58 04:58 WBC 7.1 RBC 3.33 L Hgb 10.0 L Hct 30.9 L MCV 92.8 MCH 30.0 MCHC 32.4 RDW Std Deviation 51.8 H RDW Coeff of Adria 15.3 H Plt Count 266 MPV 9.1 Immature Gran % (Auto) 0.300 Neut % (Auto) 47.5 Lymph % (Auto) 36.4 [place] % (Auto) 8.6 Eos % (Auto) 6.6 H Baso % (Auto) 0.6 Absolute Neuts (auto) 3.4 Absolute Lymphs (auto) 2.58 Nucleated RBC % 0 PT 17.2 H INR 1.4 APTT 38.5 H Sodium 142 Potassium 3.6 Chloride 108 H Carbon Dioxide 26.0 Anion Gap 8 BUN 12 Creatinine 1.02 Estim Creat Clear Calc 42.22 Est GFR (MDRD) Af Amer 68 Est GFR (MDRD) Non-Af 56 L BUN/Creatinine Ratio 11.8 Glucose 124 H Hemoglobin A1c Calcium 8.4 L Total Bilirubin 0.40 Direct Bilirubin 0.11 AST 40 H ALT 14 Alkaline Phosphatase 35 L Troponin I Total Protein 7.6 Albumin 3.7 Globulin 3.9 02/02/19 04:58 WBC RBC Hgb Hct MCV MCH MCHC RDW Std Deviation RDW Coeff of Adria Plt Count MPV Immature Gran % (Auto) Neut % (Auto) Lymph % (Auto) [place] % (Auto) Eos % (Auto) Baso % (Auto) Absolute Neuts (auto) Absolute Lymphs (auto) Nucleated RBC % PT INR APTT Sodium Potassium Chloride Carbon Dioxide Anion Gap BUN Creatinine Estim Creat Clear Calc Est GFR (MDRD) Af Amer Est GFR (MDRD) Non-Af BUN/Creatinine Ratio Glucose Hemoglobin A1c Pending Calcium Total Bilirubin Direct Bilirubin AST ALT Alkaline Phosphatase Troponin I Total Protein Albumin Globulin POC Glucose 02/02/19 02/01/19 02/01/19 06:28 21:37 17:06 POC Glucose 105 147 H 198 H 02/01/19 12:10 POC Glucose 106 Medical Necessity - Tobacco Use Smoking Status: Former smoker Tobacco Use: Non-smoker Assessment/Plan All Active Problems (Last Reviewed 11/25/18 @ 16:01 by Robert Contreras MD) GI bleed (Acute) Acute blood loss anemia (Acute) hematochezia - severe aortic stenosis UPper and lower endoscopy completed - unremarkable post gastric bypass with small polyp in stomach. unremarkable colon with small cecal polyp - no signs of blood or obvious source. would restart diet. if additional bleeding recommend bleeding scan.
--- NOTE | 2019-02-02 07:42 | OP.ENDO_ITS ---
02/02/2019 [facility] Re : Colonoscopy procedure for Angy [facility] This procedure was performed on Saturday, February 02, 2019. My impressions and recommendations are as follows: Impressions : - One small polyp in the cecum, removed with a cold biopsy forceps. Resected and retrieved. - The examination was otherwise normal. - The distal rectum and anal verge are normal on retroflexion view. Recommendations : - Discharge patient to home. - Resume previous diet. - Continue present medications. - Repeat colonoscopy for surveillance based on pathology results. - Return to my office in 1 week. My findings are described in the full procedure note, which is enclosed. If I can be of further assistance, please feel free to contact me at Doctor phone number(s): , Work: . Sincerely, Kenyon Higuera MD 02/02/2019 7:42:18 AM This report has been signed electronically.
[2019-02-02] MEDS: Acetaminophen 325 MG Tablet 650 MG PO (08:51)
[2019-02-02] MEDS: NIFEdipine 60 MG Tablet PO (08:53)
[2019-02-02] MEDS: Sertraline 100 MG Tablet PO ×2 (08:53→21:52)
[2019-02-02] MEDS: Metoprolol(XL)Succ 25 MG Tablet PO (08:54)
--- NOTE | 2019-02-02 11:45 | PN_ITS ---
Patient Problems: Active and Suspected Problems (Last Reviewed 11/25/18 @ 16:01 by Robert Contreras MD) GI bleed (Acute) Acute blood loss anemia (Acute) Subjective: Patient seen and examined this morning. She had no complaints. Melena like stools have not recurred. Review of systems otherwise negative. She had EGD and colonoscopy this morning which was negative and showed unremarkable post gastric bypass with small polyp in stomach and unremarkable colon with small cecal polyp and no evidence of blood obvious source. Labs and vitals reviewed. Vitals/I&O's: Vital Signs Temp Pulse Resp BP Pulse Ox 97.9 F 60 14 155/54 H 97 02/02/19 08:36 02/02/19 08:54 02/02/19 08:36 02/02/19 08:54 02/02/19 11:30 Oxygen Delivery Method Room Air Weight: 138 lb 8 oz Body Mass Index (BMI) 23.0 Intake and Output for Last 24 Hours 01/31/19 02/01/19 02/02/19 23:59 23:59 23:59 Intake Total 451.25 / 451.25 7426.84 / 7426.84 922.49 / 922.49 Balance 451.25 / 451.25 7426.84 / 7426.84 922.49 / 922.49 General: Alert, Oriented x3, Cooperative, No apparent distress HEENT: Atraumatic, PERRLA, EOMI, Normocephalic Oral: Moist Mucosa Neck: Supple, No JVD, Negative Carotid Bruits Lungs: Clear to auscultation, Normal air movement, No rhonchi, No wheeze, No rales Cardiovascular: Regular rate, Regular Rhythm, Normal S1, Normal S2, - - grade 3- 4 ejection systolic murmur loudest in the aortic and pulmonary areas Abdomen: Bowel Sounds Present, Soft, Non Tender, Non-Distended, No Hepato- splenomegaly Extremities: No clubbing, No cyanosis, No edema, Capillary Refill Less than 3 Seconds Skin: No rashes, No breakdown Musculoskeletal: No Tenderness to Palpation of Joints or Extremities Lymphatic: No Cervical, Supraclavicular, or Inguinal Adenopathy Neurological: Cranial nerves II-XII grossly intact, Neuro grossly intact, Motor Exam 5/5 strength throughout Psych/Mental Status: Normal Affect, Appropriate, Alert and oriented to time, place, person, mood and affect Microbiology Past 72 Hours 01/31/19 17:35 Stool Stool Occult Blood (KETAN) - Final Laboratory Results 02/01/19 12:10: POC Glucose 106 02/01/19 12:55: Troponin I < 0.015 02/01/19 16:25: Troponin I < 0.015 02/01/19 17:06: POC Glucose 198 H 02/01/19 21:37: POC Glucose 147 H 02/02/19 04:58: WBC 7.1, RBC 3.33 L, Hgb 10.0 L, Hct 30.9 L, MCV 92.8, MCH 30.0, MCHC 32.4, RDW Std Deviation 51.8 H, RDW Coeff of Adria 15.3 H, Plt Count 266, MPV 9.1, Immature Gran % (Auto) 0.300, Neut % (Auto) 47.5, Lymph % (Auto) 36.4, [place] % (Auto) 8.6, Eos % (Auto) 6.6 H, Baso % (Auto) 0.6, Absolute Neuts (auto) 3.4, Absolute Lymphs (auto) 2.58, Nucleated RBC % 0 02/02/19 04:58: Sodium 142, Potassium 3.6, Chloride 108 H, Carbon Dioxide 26.0, Anion Gap 8, BUN 12, Creatinine 1.02, Estim Creat Clear Calc 42.22, Est GFR (MDRD) Af Amer 68, Est GFR (MDRD) Non-Af 56 L, BUN/Creatinine Ratio 11.8, Glucose 124 H, Calcium 8.4 L, Total Bilirubin 0.40, Direct Bilirubin 0.11, AST 40 H, ALT 14, Alkaline Phosphatase 35 L, Total Protein 7.6, Albumin 3.7, Globulin 3.9 02/02/19 04:58: PT 17.2 H, INR 1.4, APTT 38.5 H 02/02/19 04:58: Hemoglobin A1c 7.0 H 02/02/19 06:28: POC Glucose 105 Current Medications Acetaminophen (Tylenol) 650 mg PO Q6H PRN PRN PRN Reason: Non-cardiac pain (mod-severe) Last Admin: 02/02/19 08:51 Dose: 650 mg Documented by: Albuterol Sulfate (Ventolin Aerosols) 2.5 mg INHALATION Q2H PRN PRN PRN Reason: dyspnea, wheezing Atorvastatin Calcium (Lipitor) 40 mg PO QHS [facility] Last Admin: 02/01/19 21:48 Dose: 40 mg Documented by: Dextrose (D50w Syringe) 0 gm IV X1 PRN; Protocol PRN Reason: Hypoglycemia Glucagon () 1 mg IM .X1 PRN PRN Reason: Hypoglycemia Hydralazine HCl (Apresoline Iv) 10 mg IV Q4H PRN PRN PRN Reason: SBP > 160 Hydrochlorothiazide () 12.5 mg PO QHS [facility] Last Admin: 02/01/19 21:48 Dose: 12.5 mg Documented by: Sodium Chloride () 1,000 mls @ 125 mls/hr IV .Q8H [facility] Last Infusion: 02/02/19 09:28 Dose: 125 mls/hr Documented by: Pantoprazole Sodium 40 mg/ (Sodium Chloride) 110 mls @ 330 mls/hr IV Q12 [facility] Last Infusion: 02/02/19 09:26 Dose: Infused Documented by: Sodium Chloride () 250 mls @ 15 mls/hr IV .[id number] PRN PRN Reason: SALINE FLUSH Sodium Chloride () 500 mls @ 15 mls/hr IV .[id number] PRN PRN Reason: SALINE FLUSH Last Admin: 02/02/19 06:58 Dose: 15 mls/hr Documented by: Insulin Glargine (Lantus (Bkc)) 5 units SC QHS [facility] Last Admin: 02/01/19 21:49 Dose: 5 u Documented by: Insulin Human Lispro (Humalog Kwikpen (Bk)) [facility]; Protocol Last Admin: 02/02/19 06:31 Dose: Not Given Documented by: Losartan Potassium (Cozaar) 50 mg PO QHS [facility] Last Admin: 02/01/19 21:49 Dose: 50 mg Documented by: Melatonin (Melatonin) 10 mg PO QHS [facility] Last Admin: 02/01/19 21:48 Dose: 10 mg Documented by: Metoprolol Succinate (Toprol Xl (Beta Mona)) 25 mg PO DAILY [facility] Last Admin: 02/02/19 08:54 Dose: 25 mg Documented by: Nifedipine (Procardia Xl) 60 mg PO DAILY [facility] Last Admin: 02/02/19 08:53 Dose: 60 mg Documented by: Nitroglycerin (Nitrostat) 0.4 mg SUBLINGUAL Q5M PRN PRN Reason: CARDIAC/CHEST PAIN Ondansetron HCl (Zofran) 4 mg IV Q8H PRN PRN PRN Reason: NAUSEA/VOMITING Sertraline HCl (Zoloft) 100 mg PO BID [facility] Last Admin: 02/02/19 08:53 Dose: 100 mg Documented by: Sodium Chloride () 10 - 40 ml IV UD PRN PRN Reason: SALINE FLUSH Medical Necessity - Tobacco Use Smoking Status: Former smoker Tobacco Use: Non-smoker Assessment/Plan All Active Problems (Last Reviewed 11/25/18 @ 16:01 by Robert Contreras MD) GI bleed (Acute) Acute blood loss anemia (Acute) 1. Acute blood loss anemia due to acute upper GI bleed * source of bleeding is unclear; EGD today showed unremarkable post gastric bypass with small polyp in stomach; colonoscopy showed unremarkable colon with small cecal polyp and no signs of blood or obvious source * swith PPI to PO pantoprazole 40mg daily * to resume diet today; if bleeding recurs, to get bleeding scan. * * 2. Acute upper GI bleed * s/p transfusion of 1 unit of PRBC. * management as under 1. * * 3. 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 * INR today is 1.4 * 4. Aortic valve stenosis: * 2D echo(10/23/18) showed moderate to severe aortic stenosis and mild to moderate aortic regurgitation. * scheduled for TAVR in ~ 1 week. Will monitor 5. Type 2 diabetes mellitus: on ISS. Accuchecks ACHS 6. Hypertension: on metoprolol, losartan, hydrochlorothiazide and ferritin. IV hydralazine PRN. 7. CKD stage III: * Creatinine is 1.02 today with a baseline of around 1.1. Will monitor. 8. Hyperlipidemia: On statin. 9. Anxiety and depression: On sertraline. DVT prophylaxis: SCDs. Coumadin on hold. Code Visit Inpatient E&M: 13140 Subs Hosp L2
[2019-02-02 12:40] LABS: Bedside Glucose 178 mg/dL (70-110)
--- NOTE | 2019-02-02 13:32 | CASEMGMT ---
Call to Sejal at [facility] center to notify her that plan is for pt to be discharged tomorrow and updated clinicals faxed at this time, voices understanding. Shawn HUYNH CM
[2019-02-02] MEDS: Losartan Potassium 50 MG Tablet PO (17:10)
[2019-02-02 17:21] LABS: Bedside Glucose 197 mg/dL (70-110)
[2019-02-02] MEDS: Insulin Lispro 100 UNIT/ML INSULN.PEN SC ×2 (17:30→21:51)
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
--- NOTE | 2019-02-02 20:26 | PCM.PN.SRG ---
Patient Problems: Active and Suspected Problems (Last Reviewed 11/25/18 @ 16:01 by Robert Contreras MD) GI bleed (Acute) Acute blood loss anemia (Acute) Subjective: missed note for 02/01-patient tolerated transfusion well no shortness of breath or chest pain. - Physical Exam General: Alert, Oriented x3, Cooperative HEENT: Atraumatic, PERRLA, EOMI, Normocephalic Neck: Supple, No JVD Lungs: Clear to auscultation, Normal air movement Cardiovascular: Regular rate, Murmur Abdomen: Bowel Sounds Present, Soft, Non Tender Extremities: No edema, Capillary Refill Less than 3 Seconds Skin: No rashes, No breakdown Musculoskeletal: No Tenderness to Palpation of Joints or Extremities Neurological: Cranial nerves II-XII grossly intact Psych/Mental Status: Normal Affect, Appropriate Vital Signs Temp Pulse Resp BP Pulse Ox 98.4 F 66 15 173/86 H 99 02/02/19 17:02 02/02/19 19:08 02/02/19 17:02 02/02/19 17:02 02/02/19 17:02 Oxygen Delivery Method Room Air Weight: 62.823 kg Body Mass Index (BMI) 23.0 Intake and Output for Last 24 Hours 01/31/19 02/01/19 02/02/19 23:59 23:59 23:59 Intake Total 451.25 / 451.25 7426.84 / 7426.84 1650.49 / 1650.49 Balance 451.25 / 451.25 7426.84 / 7426.84 1650.49 / 1650.49 Microbiology Past 72 Hours 01/31/19 17:35 Stool Occult Blood (KETAN) - Final Stool Laboratory Tests Past 24 Hrs 02/02/19 02/02/19 02/02/19 04:58 04:58 04:58 WBC 7.1 RBC 3.33 L Hgb 10.0 L Hct 30.9 L MCV 92.8 MCH 30.0 MCHC 32.4 RDW Std Deviation 51.8 H RDW Coeff of Adria 15.3 H Plt Count 266 MPV 9.1 Immature Gran % (Auto) 0.300 Neut % (Auto) 47.5 Lymph % (Auto) 36.4 Ellis % (Auto) 8.6 Eos % (Auto) 6.6 H Baso % (Auto) 0.6 Absolute Neuts (auto) 3.4 Absolute Lymphs (auto) 2.58 Nucleated RBC % 0 PT 17.2 H INR 1.4 APTT 38.5 H Sodium 142 Potassium 3.6 Chloride 108 H Carbon Dioxide 26.0 Anion Gap 8 BUN 12 Creatinine 1.02 Estim Creat Clear Calc 42.22 Est GFR (MDRD) Af Amer 68 Est GFR (MDRD) Non-Af 56 L BUN/Creatinine Ratio 11.8 Glucose 124 H Hemoglobin A1c Calcium 8.4 L Total Bilirubin 0.40 Direct Bilirubin 0.11 AST 40 H ALT 14 Alkaline Phosphatase 35 L Total Protein 7.6 Albumin 3.7 Globulin 3.9 02/02/19 04:58 WBC RBC Hgb Hct MCV MCH MCHC RDW Std Deviation RDW Coeff of Adria Plt Count MPV Immature Gran % (Auto) Neut % (Auto) Lymph % (Auto) Ellis % (Auto) Eos % (Auto) Baso % (Auto) Absolute Neuts (auto) Absolute Lymphs (auto) Nucleated RBC % PT INR APTT Sodium Potassium Chloride Carbon Dioxide Anion Gap BUN Creatinine Estim Creat Clear Calc Est GFR (MDRD) Af Amer Est GFR (MDRD) Non-Af BUN/Creatinine Ratio Glucose Hemoglobin A1c 7.0 H Calcium Total Bilirubin Direct Bilirubin AST ALT Alkaline Phosphatase Total Protein Albumin Globulin POC Glucose 02/02/19 02/02/19 02/02/19 17:15 12:26 06:28 POC Glucose 197 H 178 H 105 02/01/19 21:37 POC Glucose 147 H Medical Necessity - Tobacco Use Smoking Status: Former smoker Tobacco Use: Non-smoker Assessment/Plan All Active Problems (Last Reviewed 11/25/18 @ 16:01 by Robert Contreras MD) GI bleed (Acute) Acute blood loss anemia (Acute) hematochezia - severe aortic stenosis the patient hemoglobin responded appropriately to transfusion. She notes no further significant bleeding we will plan for bowel preparation today and plan for upper and lower endoscopy in the morning. The patient does have risk, benefits, possible competition alternatives and consents to the planned procedure. This will be performed with monitored anesthetic care.
[2019-02-02] MEDS: Atorvastatin Calcium 40 MG Tablet PO (21:52)
[2019-02-02] MEDS: hydroCHLOROthiazide 12.5mg 12.5 MG PO (21:52)
[2019-02-02] MEDS: MELATONIN 10 MG TABLET PO (21:56)
[2019-02-02 22:11] LABS: Bedside Glucose 229 mg/dL (70-110)
[2019-02-03] VITALS (7 sets, daily range): BP systolic 131–148; BP diastolic 60–73; PULSE 61–90; RESP 14–18; TEMP 36.6–36.9; O2SAT 95–97
[2019-02-03 05:40] LABS: Absolute Lymphocyte Count 1.47 X10^3/uL (0.83-4.51); Basophil# 0.03 X10^3/uL; Basophil% 0.7 % (0-1); Eosinophil# 0.51 X10^3/uL; Eosinophils% 11.4 % (0-5); Hematocrit 25.8 % (37-47); Hemoglobin 8.3 g/dL (12.0-15.0); Lymphocyte # 1.47 X10^3/ul (4.0); Lymphocyte % 32.9 % (19-41); Mean Corp Hgb Conc 32.2 g/dL (32-36); Mean Corpuscular Hgb 29.9 pg (27.0-32.0); Mean Corpuscular Volume 92.8 fL (81-99); Mean Platelet Vol. 9.5 fl (6.2-12.0); Monocyte# 0.45 X10^3/uL; Monocyte% 10.1 % (0-10); NRBC Flagged by Analyzer 0 % (0-5); Neutrophil % 44.7 % (47-70); Platelet Count 214 K/mm3 (150-450); RBC Distribution Width CV 15.2 % (11.6-14.6); RBC Distribution Width SD 51.8 fl (35.1-43.9); Red Blood Count 2.78 M/mm3 (4.2-5.4); White Blood Count 4.5 K/mm3 (4.4-11.0)
[2019-02-03 05:56] LABS: Anion Gap 7 (5-15); BUN 11 mg/dL (7-18); Calcium,Total 8.3 mg/dL (8.5-10.1); Chloride 109 mmol/L (98-107); EST Glomerular Filtration Rate 58 mL/min (>60); Est Glom Filt Rate - Afr Amer 70 mL/min (>60); Estimated Creatinine Clearance 43.07 ml/min; Glucose 145 mg/dL (74-106); Potassium 3.7 mmol/L (3.5-5.1); Sodium Level 141 mmol/L (136-145)
[2019-02-03 06:41] LABS: Bedside Glucose 112 mg/dL (70-110)
[2019-02-03] MEDS: NIFEdipine 60 MG Tablet PO (09:34)
[2019-02-03] MEDS: Metoprolol(XL)Succ 25 MG Tablet PO (09:34)
[2019-02-03] MEDS: Sertraline 100 MG Tablet PO (09:34)
[2019-02-03] MEDS: 0.9% NaCl Peripheral Flush Adult/Peds IV (09:47)
--- NOTE | 2019-02-03 09:48 | PCM.DC ---
- Discharge Diagnoses Current Active Problems: Current Active and Chronic Problems (Last Reviewed 11/25/18 @ 16:01 by Robert Contreras MD) GI bleed (Acute) Acute blood loss anemia (Acute) Diabetes mellitus, type II (Chronic) Allergies/Adverse Reactions: Allergies codeine Allergy (Intermediate, Verified 01/31/19 17:23) Unknown lisinopril Allergy (Intermediate, Verified 01/31/19 17:23) Unknown seasonal Allergy (Uncoded 01/31/19 19:48) Other Medications to take at Discharge atorvastatin 80 mg tablet 40 mg PO QHS tab 11/24/18 cholecalciferol (vitamin D3) 5,000 unit tablet 5,000 unit PO DAILY 11/24/18 insulin glargine (U-100) 100 unit/mL subcutaneous solution 5 unit SC QHS ml 11/24/18 losartan 50 mg-hydrochlorothiazide 12.5 mg tablet 1 tab PO QHS 11/24/18 metformin 1,000 mg tablet 1,000 mg PO BID 11/24/18 nifedipine ER 60 mg tablet,extended release 24 hr 60 mg PO DAILY 11/24/18 sertraline 100 mg tablet 100 mg PO BID tab 11/24/18 warfarin 5 mg tablet 7.5 mg PO QHS 11/24/18 biotin 1 mg capsule 1 mg PO DAILY 11/25/18 metoprolol succinate ER 25 mg tablet,extended release 24 hr 25 mg PO DAILY 11/25/18 Acetaminophen [Tylenol] 1,000 mg PO PRN PRN 01/31/19 DiphenhydrAMINE [Benadryl] 10 mg PO QHS 01/31/19 Melatonin 10 mg PO QHS 01/31/19 Vitamin A 10,000 unit PO DAILY 01/31/19 Primary Care Physician: [facility],[place] [Primary Care Provider] - Test Results: Test results from this visit will be discussed in further detail at your follow-up appointment, if applicable.
--- NOTE | 2019-02-03 10:00 | PCM.DC ---
- Discharge Diagnoses Current Active Problems: Current Active and Chronic Problems (Last Reviewed 11/25/18 @ 16:01 by Robert Contreras MD) GI bleed (Acute) Acute blood loss anemia (Acute) Diabetes mellitus, type II (Chronic) You will use the following diet at home:: Cardiac Your food should be the consistency of: Regular Your liquids should be the consistency of: Regular/Thin Discharge Activity: Return to Normal Activity Weight Bearing Status: Weight bearing as tolerated Instructions: When You Have Gastrointestinal (GI) Bleeding, Anemia Additional Instructions: please follow up with the cardiac surgeons for your TAVR surgery. If bleeding recurs, stop coumadin, call your primary doctor and go to the nearest ED Allergies/Adverse Reactions: Allergies codeine Allergy (Intermediate, Verified 01/31/19 17:23) Unknown lisinopril Allergy (Intermediate, Verified 01/31/19 17:23) Unknown seasonal Allergy (Uncoded 01/31/19 19:48) Other Medications to take at Discharge atorvastatin 80 mg tablet 40 mg PO QHS tab 11/24/18 cholecalciferol (vitamin D3) 5,000 unit tablet 5,000 unit PO DAILY 11/24/18 insulin glargine (U-100) 100 unit/mL subcutaneous solution 5 unit SC QHS ml 11/24/18 losartan 50 mg-hydrochlorothiazide 12.5 mg tablet 1 tab PO QHS 11/24/18 metformin 1,000 mg tablet 1,000 mg PO BID 11/24/18 nifedipine ER 60 mg tablet,extended release 24 hr 60 mg PO DAILY 11/24/18 sertraline 100 mg tablet 100 mg PO BID tab 11/24/18 warfarin 5 mg tablet 7.5 mg PO QHS 11/24/18 biotin 1 mg capsule 1 mg PO DAILY 11/25/18 metoprolol succinate ER 25 mg tablet,extended release 24 hr 25 mg PO DAILY 11/25/18 Acetaminophen [Tylenol] 1,000 mg PO PRN PRN 01/31/19 DiphenhydrAMINE [Benadryl] 10 mg PO QHS 01/31/19 Melatonin 10 mg PO QHS 01/31/19 Vitamin A 10,000 unit PO DAILY 01/31/19 Primary Care Physician: [facility],[place] [Primary Care Provider] - Please follow up with your Primary Care Physician in: one week Test Results: Test results from this visit will be discussed in further detail at your follow-up appointment, if applicable. Please Follow Up With: Kenyon Higuera MD When: 1-2 weeks Proposed Discharge Date: 02/03/19
--- NOTE | 2019-02-03 10:04 | DS.PCM_ITS ---
Discharge Date and Diagnosis - Problem List Patient Problems: Active and Suspected Problems (Last Reviewed 11/25/18 @ 16:01 by Robert Contreras MD) GI bleed (Acute) Acute blood loss anemia (Acute) Date of Admission: 01/31/19 Date of Discharge: 02/03/19 - Primary Discharge Diagnosis Active and Suspected Problems (Last Reviewed 11/25/18 @ 16:01 by Robert Contreras MD) GI bleed (Acute) Acute blood loss anemia (Acute) - Secondary Discharge Diagnosis Chronic Problems (Last Reviewed 11/25/18 @ 16:01 by Robert Contreras MD) Diabetes mellitus, type II (Chronic) Lupus anticoagulant disorder (Chronic 1994) Nonrheumatic aortic (valve) stenosis with insufficiency (Chronic) History of DVT (deep vein thrombosis) (Chronic) Hyperlipidemia (Chronic) Essential hypertension (Chronic) Hospital Course and Treatment general surgery- DR Higuera Operations: None Procedures: None, Colonoscopy, EGD Summary of Care Provided: The patient is a 78 year old F with a PMH as listed. She was admitted through the ED on 01/31/19 with a complaint of weakness, fatigue, maroon colored stools and bright red bleeding per rectum. Symptoms had been ongoing for a few days prior to admission. She had associated shortness of breath with worsening fatigue and weakness. Hemoglobin was 7.5 on admission. She was admitted and managed for lower GI bleed of unclear etiology. General surgery was consulted and she was started on IV pantoprazole 40 mg twice daily. She was transfused 1 unit of packed red blood cells and hemoglobin went up to 8.9. Coumadin was held on admission. She had EGD and colonoscopy on 02/02/2019. EGD showed unremarkable post gastric bypass with small polyp in stomach and unremarkable colon. Colonoscopy was small cecal polyp and no evidence of obvious bleeding source. Patient remained stable and hemoglobin remained stable as well. Hemoglobin was 8.3 on day of discharge. Her Coumadin was resumed on day of discharge. INR was 1.8 on day of discharge. She is follow-up with her primary care doctor and general surgery within 1 week. Of note, patient said she was scheduled to have a TAVR procedure at [place] and has had to cancel her pre-op appointment as she was in hospital. She was counseled to reschedule the preop appointment in order to be able to go for the TAVR procedure. Patient was discharged on 02/03/2019. Patient seen and examined prior to discharge. She had no complaints and felt well. She was eager to go home. Review of systems otherwise negative. Labs and vitals reviewed. Home medication reviewed and reconciled. On Examination Vital Signs Height 5 ft 5 in Weight: 138 lb 8 oz Weight in Pounds 138.5 lbs Pulse Ox 97 Temperature 98.3 F Pulse Rate 72 Respiratory Rate 14 Blood Pressure [BP] 150/57 Blood Pressure 131/60 Blood Pressure Position [BP] Sitting Blood Pressure Position Semi-Fowlers [] General: Alert, Oriented x3, Cooperative, No apparent distress HEENT: Atraumatic, PERRLA, EOMI, Normocephalic Oral: Moist Mucosa Neck: Supple, No JVD, Negative Carotid Bruits Lungs: Clear to auscultation, Normal air movement, No rhonchi, No wheeze, No rales Cardiovascular: Regular rate, Regular Rhythm, Normal S1, Normal S2, - - grade 3- 4 ejection systolic murmur loudest in the aortic and pulmonary areas Abdomen: Bowel Sounds Present, Soft, Non Tender, Non-Distended, No Hepato- splenomegaly Extremities: No clubbing, No cyanosis, No edema, Capillary Refill Less than 3 Seconds Skin: No rashes, No breakdown Musculoskeletal: No Tenderness to Palpation of Joints or Extremities Lymphatic: No Cervical, Supraclavicular, or Inguinal Adenopathy Neurological: Cranial nerves II-XII grossly intact, Neuro grossly intact, Motor Exam 5/5 strength throughout Psych/Mental Status: Normal Affect, Appropriate, Alert and oriented to time, place, person, mood and affect Plan as above. Patient counselled that the source of her bleeding could not be adduced from the EGD or colonoscopy; general surgery ok with resuming coumadin; if bleeding recurred, patient would benefit from a GI bleeding scan. Patient also counseled to stop Coumadin immediately if bleeding gastric care and to call her primary care doctor and/or go to the nearest emergency room. Patient Problems: Active and Suspected Problems (Last Reviewed 11/25/18 @ 16:01 by Robert Contreras MD) GI bleed (Acute) Acute blood loss anemia (Acute) - Physical Exam Vital Signs Temp Pulse Resp BP Pulse Ox 98.3 F 72 14 131/60 H 97 02/03/19 09:27 02/03/19 09:34 02/03/19 09:27 02/03/19 09:34 02/03/19 09:27 Oxygen Delivery Method Room Air Weight: 138 lb 8 oz Body Mass Index (BMI) 23.0 Intake and Output for Last 24 Hours 02/01/19 02/02/19 02/03/19 23:59 23:59 23:59 Intake Total 7426.84 / 7426.84 2120.49 / 2120.49 240 / 240 Balance 7426.84 / 7426.84 2120.49 / 2120.49 240 / 240 Microbiology Past 72 Hours 01/31/19 17:35 Stool Occult Blood (KETAN) - Final Stool Laboratory Tests Past 24 Hrs 02/03/19 02/03/19 04:52 04:52 WBC 4.5 RBC 2.78 L Hgb 8.3 L Hct 25.8 L MCV 92.8 MCH 29.9 MCHC 32.2 RDW Std Deviation 51.8 H RDW Coeff of Adria 15.2 H Plt Count 214 MPV 9.5 Immature Gran % (Auto) 0.200 Neut % (Auto) 44.7 L Lymph % (Auto) 32.9 [place] % (Auto) 10.1 H Eos % (Auto) 11.4 H Baso % (Auto) 0.7 Absolute Neuts (auto) 2.0 Absolute Lymphs (auto) 1.47 Nucleated RBC % 0 Sodium 141 Potassium 3.7 Chloride 109 H Carbon Dioxide 25.0 Anion Gap 7 BUN 11 Creatinine 1.00 Estim Creat Clear Calc 43.07 Est GFR (MDRD) Af Amer 70 Est GFR (MDRD) Non-Af 58 L BUN/Creatinine Ratio 11.0 Glucose 145 H Calcium 8.3 L POC Glucose 02/03/19 02/02/19 02/02/19 06:35 21:38 17:15 POC Glucose 112 H 229 H 197 H 02/02/19 12:26 POC Glucose 178 H Discharge Diet: Low fat/ Low Cholesterol Discharge Activity: Return to Normal Activity Weight Bearing Status: Weight bearing as tolerated Home Medications: Medications to take at Discharge atorvastatin 80 mg tablet 40 mg PO QHS tab 11/24/18 cholecalciferol (vitamin D3) 5,000 unit tablet 5,000 unit PO DAILY 11/24/18 insulin glargine (U-100) 100 unit/mL subcutaneous solution 5 unit SC QHS ml 11/24/18 losartan 50 mg-hydrochlorothiazide 12.5 mg tablet 1 tab PO QHS 11/24/18 metformin 1,000 mg tablet 1,000 mg PO BID 11/24/18 nifedipine ER 60 mg tablet,extended release 24 hr 60 mg PO DAILY 11/24/18 sertraline 100 mg tablet 100 mg PO BID tab 11/24/18 warfarin 5 mg tablet 7.5 mg PO QHS 11/24/18 biotin 1 mg capsule 1 mg PO DAILY 11/25/18 metoprolol succinate ER 25 mg tablet,extended release 24 hr 25 mg PO DAILY 11/25/18 Acetaminophen [Tylenol] 1,000 mg PO PRN PRN 01/31/19 DiphenhydrAMINE [Benadryl] 10 mg PO QHS 01/31/19 Melatonin 10 mg PO QHS 01/31/19 Vitamin A 10,000 unit PO DAILY 01/31/19 [facility] Physician: [facility] [Primary Care Provider] - Please follow up with your Primary Care Physician in: one week Please Follow Up With: Kenyon Higuera MD When: 1-2 weeks Patient Instructions: When You Have Gastrointestinal (GI) Bleeding, Anemia Disposition: Home Minutes spent on discharge:: 40 Patient Condition:: Stable Medical Necessity - Tobacco Use Smoking Status: Former smoker Tobacco Use: Non-smoker Meaningful Use Info Meaningful Use Diagnoses (Choose all that apply): None applicable Code Visit Inpatient E&M: 43774 Disch Hosp
[2019-02-03] MEDS: Mag Hydrox/Al Hydrox/Simeth 30 ML UDC PO (10:47)
[2019-02-03] MEDS: Acetaminophen 325 MG Tablet 650 MG PO (10:49)
--- NOTE | 2019-02-03 11:15 | PHA.DC.MR ---
Pharmacy Service has performed discharge medication reconciliation for this patient. Home Medications atorvastatin 80 mg tablet 40 mg PO QHS tab 11/24/18 cholecalciferol (vitamin D3) 5,000 unit tablet 5,000 unit PO DAILY 11/24/18 insulin glargine (U-100) 100 unit/mL subcutaneous solution 5 unit SC QHS ml 11/24/18 losartan 50 mg-hydrochlorothiazide 12.5 mg tablet 1 tab PO QHS 11/24/18 metformin 1,000 mg tablet 1,000 mg PO BID 11/24/18 nifedipine ER 60 mg tablet,extended release 24 hr 60 mg PO DAILY 11/24/18 sertraline 100 mg tablet 100 mg PO BID tab 11/24/18 warfarin 5 mg tablet 7.5 mg PO QHS 11/24/18 biotin 1 mg capsule 1 mg PO DAILY 11/25/18 metoprolol succinate ER 25 mg tablet,extended release 24 hr 25 mg PO DAILY 11/25/18 Acetaminophen [Tylenol] 1,000 mg PO PRN PRN 01/31/19 DiphenhydrAMINE [Benadryl] 10 mg PO QHS 01/31/19 Melatonin 10 mg PO QHS 01/31/19 Vitamin A 10,000 unit PO DAILY 01/31/19 The patient's discharge medication list was reviewed for discrepancies and discrepancies were resolved.
[2019-02-03] MEDS: Insulin Lispro 100 UNIT/ML INSULN.PEN SC (11:43)
[2019-02-03 11:46] LABS: Bedside Glucose 219 mg/dL (70-110)
--- NOTE | 2019-02-03 13:39 | PN.SURG_ITS ---
Patient Problems: Active and Suspected Problems (Last Reviewed 11/25/18 @ 16:01 by Robert Contreras MD) GI bleed (Acute) Acute blood loss anemia (Acute) Subjective: no complaints, no further bleeding - Physical Exam Neck: Supple, No JVD, Negative Carotid Bruits Lungs: Clear to auscultation, Normal air movement Cardiovascular: Regular rate, Murmur Abdomen: Bowel Sounds Present, Soft, Non Tender Vital Signs Temp Pulse Resp BP Pulse Ox 98.3 F 72 14 131/60 H 97 02/03/19 09:27 02/03/19 09:34 02/03/19 09:27 02/03/19 09:34 02/03/19 09:27 Oxygen Delivery Method Room Air Weight: 62.823 kg Body Mass Index (BMI) 23.0 Intake and Output for Last 24 Hours 02/01/19 02/02/19 02/03/19 23:59 23:59 23:59 Intake Total 7426.84 / 7426.84 2543.16 / 2543.16 870 / 870 Balance 7426.84 / 7426.84 2543.16 / 2543.16 870 / 870 Microbiology Past 72 Hours 01/31/19 17:35 Stool Occult Blood (KETAN) - Final Stool Laboratory Tests Past 24 Hrs 02/03/19 02/03/19 04:52 04:52 WBC 4.5 RBC 2.78 L Hgb 8.3 L Hct 25.8 L MCV 92.8 MCH 29.9 MCHC 32.2 RDW Std Deviation 51.8 H RDW Coeff of Adria 15.2 H Plt Count 214 MPV 9.5 Immature Gran % (Auto) 0.200 Neut % (Auto) 44.7 L Lymph % (Auto) 32.9 Stewart % (Auto) 10.1 H Eos % (Auto) 11.4 H Baso % (Auto) 0.7 Absolute Neuts (auto) 2.0 Absolute Lymphs (auto) 1.47 Nucleated RBC % 0 Sodium 141 Potassium 3.7 Chloride 109 H Carbon Dioxide 25.0 Anion Gap 7 BUN 11 Creatinine 1.00 Estim Creat Clear Calc 43.07 Est GFR (MDRD) Af Amer 70 Est GFR (MDRD) Non-Af 58 L BUN/Creatinine Ratio 11.0 Glucose 145 H Calcium 8.3 L POC Glucose 02/03/19 02/03/19 02/02/19 11:39 06:35 21:38 POC Glucose 219 H 112 H 229 H 02/02/19 17:15 POC Glucose 197 H Medical Necessity - Tobacco Use Smoking Status: Former smoker Tobacco Use: Non-smoker Assessment/Plan All Active Problems (Last Reviewed 11/25/18 @ 16:01 by Robert Contreras MD) GI bleed (Acute) Acute blood loss anemia (Acute) hematochezia - severe aortic stenosis Upper and lower endoscopy completed - unremarkable post gastric bypass with small polyp in stomach. unremarkable colon with small cecal polyp - no signs of blood or obvious source. would restart diet. if additional bleeding recommend bleeding scan. Ok to restart anticoagulants
== END 2019-02-03 17:02 | disposition home or self-care (01) | DRG 378 ==
LOC: ED 18:47 → PCU 18:50
PROVIDERS: Anesthesiology; Surgery; Admitting Provider Family Medicine; Emergency Provider Emergency Medicine; Referring Provider Family Medicine; Visit Provider Student in an Organized Health Care Education/Training Program
PROC: 0DJD8ZZ Inspection of Lower Intestinal Tract, Via Natural or Artificial Opening Endoscopic (ICD-10-PCS; CPT 45378; principal; 2019-02-02 07:10)
DX: K92.1 Melena (principal); D62 Acute posthemorrhagic anemia; D68.62 Lupus anticoagulant syndrome; K31.7 Polyp of stomach and duodenum; D12.0 Benign neoplasm of cecum; K21.0 Gastro-esophageal reflux disease with esophagitis; I12.9 Hypertensive chronic kidney disease with stage 1 through stage 4 chronic kidney disease, or unspecified chronic kidney disease; N18.3 Chronic kidney disease, stage 3 (moderate); E11.22 Type 2 diabetes mellitus with diabetic chronic kidney disease; I35.2 Nonrheumatic aortic (valve) stenosis with insufficiency; E78.5 Hyperlipidemia, unspecified; F32.9 Major depressive disorder, single episode, unspecified; F41.9 Anxiety disorder, unspecified; J43.9 Emphysema, unspecified; Z86.718 Personal history of other venous thrombosis and embolism; Z98.84 Bariatric surgery status; Z87.891 Personal history of nicotine dependence; Z79.4 Long term (current) use of insulin; Z79.84 Long term (current) use of oral hypoglycemic drugs; Z79.01 Long term (current) use of anticoagulants; Z79.899 Other long term (current) drug therapy
CPT/HCPCS: 36415; 80048; 80076; 82274; 82962; 83036; 84484; 85014; 85018; 85025; 85610; 85730; 86850; 86900; 86901; 86920; 88305; 93005; 97116; 97162; 97166; 97802; 99284; J7030; J7040; P9016; A4216; J2405

== ENCOUNTER → 2019-03-16 12:27 | Outpatient (CLI) | payer MEDICARE, SELFPAY ==
[2019-03-16 07:57] VITALS: BMI 22.6
[2019-03-16 13:38] LABS: Absolute Lymphocyte Count 1.73 X10^3/uL (0.83-4.51); Absolute Neutrophil Count 3.2 X10^3/uL (2.0-7.7); Basophil# 0.04 X10^3/uL; Basophil% 0.7 % (0-1); Eosinophils% 6.7 % (0-5); Hematocrit 30.6 % (37-47); Hemoglobin 9.7 g/dL (12.0-15.0); Lymphocyte # 1.73 X10^3/ul (4.0); Lymphocyte % 28.8 % (19-41); Mean Corp Hgb Conc 31.7 g/dL (32-36); Mean Corpuscular Volume 88.4 fL (81-99); Mean Platelet Vol. 10.1 fl (6.2-12.0); Monocyte# 0.63 X10^3/uL; Monocyte% 10.5 % (0-10); NRBC Flagged by Analyzer 0 % (0-5); Neutrophil # 3.19 X10^3/uL (2.7-7.7); Platelet Count 221 K/mm3 (150-450); RBC Distribution Width SD 51.2 fl (35.1-43.9); Red Blood Count 3.46 M/mm3 (4.2-5.4)
[2019-03-16 14:01] LABS: Anion Gap 8 (5-15); BUN 18 mg/dL (7-18); BUN/Creat Ratio 14.6 RATIO (10-20); Calcium,Total 9.1 mg/dL (8.5-10.1); Chloride 105 mmol/L (98-107); Creatinine, Serum 1.23 mg/dL (0.55-1.02); EST Glomerular Filtration Rate 45 mL/min (>60); Est Glom Filt Rate - Afr Amer 55 mL/min (>60); Glucose 140 mg/dL (74-106); Potassium 4.5 mmol/L (3.5-5.1); Sodium Level 138 mmol/L (136-145)
== END ==
PROVIDERS: Referring Provider Internal Medicine Cardiovascular Disease; Visit Provider Internal Medicine Cardiovascular Disease
DX: R55 Syncope and collapse (principal)
CPT/HCPCS: 36415; 80048; 85025

== ENCOUNTER 2019-06-06 04:27 | Emergency (ER) | payer MEDICARE, SELFPAY ==
[2019-03-16 07:57] VITALS: BMI 22.6
[2019-06-06 04:28] VITALS: BP 208/90; PULSE 72; RESP 18; TEMP 36.8; O2SAT 95; BMI 23.2
--- NOTE | 2019-06-06 04:55 | ED.VISSUMM ---
- ER Visit Summary Date of Service: 06/06/19 Chief Complaint: Fall History of Present Illness: The patient is a 78 F who presents after a fall that occurred tonight. Patient states she fell in her bathroom and hit the left side of her chest on the toilet. Patient states she was unable to get up after the fall. Patient complains of pain over the left side of her chest. Patient describes it as sharp, aching, and throbbing. Patient states the pain is worse with breathing. Patient denies any paresthesias or weakness. Patient denies any head injury or loss of consciousness. Patient denies any cough. Physical Examination: Vital signs are stable except for an elevated blood pressure of 208/90. Patient is afebrile. Patient is in no acute distress. Oral mucosa is pink and moist. Neck is supple. Trachea is midline. There is no JVD. Heart was regular rate and rhythm. Lungs are diminished bilaterally. There is reproducible tenderness over the left lateral chest wall. There is no bony crepitance or step-off. There is no deformity. Abdomen is soft. Bowel sounds are normal. There is no tenderness. Cranial nerves II through XII are intact. There are no focal motor or sensory deficits noted. Test Results: X-rays of left ribs were obtained. There are fractures of the fifth through ninth ribs. These were interpreted by the radiologist and reviewed by myself. Emergency Department Course and Treatment: Patient was given 2 doses of morphine here. Patient was still having some pain on reevaluation. Patient was given a dose of fentanyl and morphine. Patient's blood pressure elevation was felt to be due to her pain. Due to the multiple rib fractures, patient will need to be transferred for a trauma evaluation. Patient requested to go to [place]. Case was discussed with the emergency physician at [place]. Patient will be transferred there. Patient and family understand and are agreeable with the plan. All questions were answered. Disposition: Transfer to [place] Impression: 1. Acute multiple rib fractures This note was generated with Piazza dictation software. It may contain incorrect words, spelling, and punctuation that were not noted in review of the chart prior to signing ED Disposition - Plan for ED Patient: Disposition: [facility] Diagnosis: Multiple rib fractures involving four or more ribs Instructions: FALL, Mechanical Referrals: [facility] [Primary Care Provider] -
[2019-06-06] MEDS: Morphine 4 MG/ML Syringe IV ×2 (05:01→05:30)
--- NOTE | 2019-06-06 05:05 | RAD_ITS ---
STUDY: X-RAY - UNILATERAL RIBS ( LEFT ) WITH CHEST REASON FOR EXAM: Female, 78 years old. fall, hit left side on toilet, rib pain TECHNIQUE - RIBS: 2 view(s) of the ribs. TECHNIQUE - CHEST: Single frontal view of the chest. COMPARISON: None. FINDINGS - RIBS: There are acute traumatic fractures in the lateral segments of the left fifth through ninth ribs. There is minimal lateral displacement at the fifth and seventh rib fracture sites and more prominent lateral displacement at the sixth rib fracture site. There is no significant displacement of the eighth or ninth ribs. FINDINGS - CHEST: The lungs are clear and expanded. There is no demonstrated pleural abnormality. There is mild cardiac enlargement. There is an aortic valve prosthesis (TAVR). Normal mediastinum and kathie. Normal visualized pulmonary arteries. There is atherosclerotic calcification of the aortic arch with tortuosity. There is thoracic dextroscoliosis. Normal visualized clavicles and shoulders. There is no demonstrated abnormality of the visualized soft tissue structures of the upper abdomen. RAD/Ribs Uni Min 3V w/PA Chest IMPRESSION: RIBS: Acute fractures of the left fifth through ninth ribs. CHEST: Mild cardiomegaly. No evidence for acute cardiopulmonary pathology. No visualized pneumothorax or pleural effusion. Electronically Signed: Jose J Aguirre MD at 6:03 EST , Service support ,
--- NOTE | 2019-06-06 06:09 | ED.RN ---
pt wants glucose checked as she thinks it's getting low. Results recorded. PT also request more pain meds. MD to reeval.
[2019-06-06 06:15] LABS: Bedside Glucose 252 mg/dL (70-110)
[2019-06-06] MEDS: Morphine 2 MG/ML Syringe IV (06:45)
[2019-06-06] MEDS: 0.9% Normal Saline 1,000 ML 1000 ML IV (06:45)
[2019-06-06] MEDS: fentaNYL 100 MCG/2 ML Ampul 50 MCG IV (06:45)
[2019-06-06 06:46] VITALS: BP 202/92; PULSE 85; RESP 16; O2SAT 93
[2019-06-06 06:58] VITALS: BP 202/94; PULSE 82; RESP 16; O2SAT 93
== END 2019-06-06 07:48 | disposition short-term general hospital (02) ==
PROVIDERS: Emergency Provider Emergency Medicine
DX: S22.42XA Multiple fractures of ribs, left side, initial encounter for closed fracture (principal); W18.39XA Other fall on same level, initial encounter; Y93.9 Activity, unspecified; Y92.002 Bathroom of unspecified non-institutional (private) residence as the place of occurrence of the external cause
CPT/HCPCS: 71101; 82962; 96361; 96374; 96375; 96376; 99285; J7030; A4216

== ENCOUNTER → 2019-07-15 16:12 | Outpatient (CLI) | payer MEDICARE, SELFPAY ==
[2019-07-15 15:26] VITALS: BMI 23.2
[2019-07-15 17:30] LABS: Absolute Lymphocyte Count 2.24 X10^3/uL (0.83-4.51); Absolute Neutrophil Count 3.4 X10^3/uL (2.0-7.7); Basophil# 0.04 X10^3/uL; Basophil% 0.6 % (0-1); Eosinophil# 0.71 X10^3/uL; Eosinophils% 9.8 % (0-5); Hematocrit 40.7 % (37-47); Hemoglobin 12.9 g/dL (12.0-15.0); Lymphocyte # 2.24 X10^3/ul (4.0); Lymphocyte % 30.8 % (19-41); Mean Corp Hgb Conc 31.7 g/dL (32-36); Mean Corpuscular Hgb 30.9 pg (27.0-32.0); Mean Corpuscular Volume 97.6 fL (81-99); Mean Platelet Vol. 10.5 fl (6.2-12.0); Monocyte# 0.81 X10^3/uL; Monocyte% 11.1 % (0-10); NRBC Flagged by Analyzer 0 % (0-5); Neutrophil # 3.44 X10^3/uL (2.7-7.7); Neutrophil % 47.3 % (47-70); POSITIVE MORPHOLOGY YES; Platelet Count 248 K/mm3 (150-450); RBC Distribution Width CV 18.6 % (11.6-14.6); RBC Distribution Width SD 66.9 fl (35.1-43.9); Red Blood Count 4.17 M/mm3 (4.2-5.4); White Blood Count 7.3 K/mm3 (4.4-11.0)
[2019-07-15 17:41] LABS: Differential Indicated SCAN CRITERIA MET
[2019-07-15 18:06] LABS: ALB/GLOB Ratio 0.7 RATIO (0.9-2.4); AST(SGOT) 69 U/L (15-37); Alanine Aminotransfer ALT/SGPT 17 U/L (13-56); Albumin, Serum 3.3 g/dL (3.2-5.0); Alkaline Phosphatase 91 U/L (45-117); Anion Gap 7 (5-15); BUN 18 mg/dL (7-18); BUN/Creat Ratio 14.5 RATIO (10-20); Calcium,Total 8.8 mg/dL (8.5-10.1); Chloride 103 mmol/L (98-107); Creatinine, Serum 1.24 mg/dL (0.55-1.02); EST Glomerular Filtration Rate 45 mL/min (>60); Est Glom Filt Rate - Afr Amer 54 mL/min (>60); Globulin 4.5 g/dL (2.2-4.2); Glucose 218 mg/dL (74-106); Potassium 4.5 mmol/L (3.5-5.1); Protein, Total 7.8 g/dL (6.4-8.2); Sodium Level 137 mmol/L (136-145); Thyroid Stim Hormone (TSH) 7.78 uIU/mL (0.358-3.74)
[2019-07-15 18:58] LABS: Anisocytosis 1+; Platelet Estimate ADEQUATE (ADEQ); Red Cell Morphology N CHROM NORMAL (NORM C&C)
== END ==
PROVIDERS: PCP Family Medicine; Referring Provider Physician Assistant Medical; Visit Provider Physician Assistant Medical
DX: I10 Essential (primary) hypertension (principal); E78.5 Hyperlipidemia, unspecified; K92.2 Gastrointestinal hemorrhage, unspecified; Z95.3 Presence of xenogenic heart valve
CPT/HCPCS: 36415; 80053; 84443; 85025

== ENCOUNTER → 2020-01-19 17:05 | Outpatient (CLI) | payer MEDICARE, SELFPAY ==
[2019-07-15 15:26] VITALS: BMI 23.2
--- NOTE | 2020-01-19 15:45 | EMB_PTH ---
PATIENT: SONNY HOWARD [facility] U#:[id number] AGE/SX: 84/F ROOM: RE01/19/[address]: Dr. Dilip Oconnell MD : [id number] BED: DIS: SPEC #: [id number] RECD: 01/19/20 17:27 STATUS: KALINA PAZ #: [id number] CAREY: 01/19/20 15:[address]: Dilip Oconnell DEPT: SURGICAL PATHOLOGY RECD BY: Matt Adame ENTERED: 01/20/20 08:18 SP TYPE: ENDOM BX/C MISAEL DR: Dr. Alonzo Collado, DO Tissues: Endometrium, NOS Procedures: Surgery Specimen Level IV HEADER OPERATION: Endometrial biopsy PRE-OP DIAGNOSIS: N95.0 TISSUE SUBMITTED: Endometrial biopsy MICROSCOPIC DIAGNOSIS Endometrial biopsy: Fragments of benign endometrial tissue with marked acute and chronic inflammation, consistent with pyometra and chronic endometritis. SJ:gaetano 01/21/20 COMMENT Case has been reviewed in consultation with Dr. Byrd who concurs with the above diagnosis. IDC:AM MICROSCOPIC DESCRIPTION Slides are reviewed. GROSS DESCRIPTION Received in fixative is one container labeled with the patient's name and designated endometrial biopsy. The specimen consists of multiple irregular fragments of white to chalky yellow tissue that in aggregate measure 2 x 1 x <0.1 cm. The specimen is totally submitted in one cassette. / AM:gaetano 01/20/20 TC:2 CPT: 35345
== END ==
PROVIDERS: PCP Family Medicine; Visit Provider Obstetrics & Gynecology
DX: N95.0 Postmenopausal bleeding (principal)
CPT/HCPCS: 88305

== ENCOUNTER → 2020-02-15 14:15 | Outpatient (CLI) | payer MEDICARE, SELFPAY ==
[2019-07-15 15:26] VITALS: BMI 23.2
--- NOTE | 2020-02-15 14:16 | ECHOCS_ITS ---
Reason For Study: Valve replacement eval Procedure This was a 2D Doppler, Color Flow transthoracic echocardiogram. The study was technically difficult. Contrast injection was performed. Exam performed in department. Left Ventricle Normal LV size. Moderate concentric left ventricular hypertrophy. Left ventricular systolic function is normal. The estimated ejection fraction is 65 %. Stage 1 diastolic dysfunction. No regional wall motion abnormalities noted. Right Ventricle Normal right ventricle. Normal systolic function. Atria Normal left atrium. Normal right atrium. Mitral Valve There is moderate mitral annular calcification. Tricuspid Valve Normal tricuspid valve. Mild (1+) tricuspid valve insufficiency. Pulmonary artery systolic pressure is 34 mmHg. Aortic Valve Calculated aortic valve area (continuity equation) is 1.6 cm2. Stable appearing bioprosthetic aortic valve apparatus. Pulmonic Valve Normal pulmonic valve. Great Vessels Mildly dilated aortic root. The pulmonary artery is normal size. Normal inferior vena cava. Pericardium/Pleural No pericardial effusion. Medication 22 gauge I.V. with prn adaptor inserted into right arm. Diluted definity 3ml given slow IV push to enhance endocardial definition. MMode/2D Measurements & Calculations LVIDd: 3.9 cm IVSd: 1.4 cm LVOT diam: 1.8 cm LVIDs: 2.3 cm LVPWd: 1.5 cm RVDd: 3.9 cm FS: 39.4 % LVOT area: 2.6 cm2 Ao root diam: 3.5 cm LAV(MOD-bp): 77.3 ml LVAd ap4: 18.0 cm2 LA dimension: 4.0 cm LAV(MOD-bp) Indexed: 49.3 ml/m2 EDV(MOD-sp4): 43.6 ml LAV(MOD-sp2): 81.7 ml EDV(sp4-el): 44.2 ml LAV(MOD-sp4): 62.0 ml LVAs ap4: 8.9 cm2 ESV(MOD-sp4): 13.6 ml ESV(sp4-el): 12.7 ml EF(MOD-sp4): 68.8 % EF(sp4-el): 71.3 % SV(MOD-sp4): 30.0 ml SV(sp4-el): 31.5 ml LA A4 area: 19.6 cm2 RA A4 area: 16.7 cm2 Time Measurements MV dec time: 0.60 sec Doppler Measurements & Calculations MV E max sam: 101.4 cm/sec Lat Peak E' Sam: 3.7 cm/sec Med Peak E' Sam: 3.3 cm/sec MV A max sam: 148.8 cm/sec E/E' lat: 27.6 E/E' med: 30.8 MV E/A: 0.68 MV V2 max: 196.5 cm/sec MV P1/2t max sam: 153.1 cm/sec Ao V2 max: 199.9 cm/sec MV max P.4 mmHg MV P1/2t: 131.2 msec Ao max P.0 mmHg MV V2 mean: 86.8 cm/sec MV dec slope: 341.9 cm/sec2 Ao V2 mean: 132.0 cm/sec MV mean P.9 mmHg MVA(P1/2t): 1.7 cm2 Ao mean P.2 mmHg MV V2 VTI: 70.6 cm Ao V2 VTI: 44.0 cm MVA(VTI): 1.1 cm2 KAMERON(I,D): 1.8 cm2 KAMERON(V,D): 1.6 cm2 LV V1 max: 125.6 cm/sec SV(LVOT): 79.3 ml PA V2 max: 85.7 cm/sec LV V1 max P.3 mmHg LV V1 mean P.5 mmHg LV V1 mean: 87.9 cm/sec LV V1 VTI: 30.8 cm TR max sam: 268.2 cm/sec PI dec slope: 92.5 cm/sec2 TR max P.8 mmHg Interpretation Summary Normal LV size. Moderate concentric left ventricular hypertrophy. Left ventricular systolic function is normal. The estimated ejection fraction is 65 %. Stage 1 diastolic dysfunction. Stable appearing bioprosthetic aortic valve apparatus. Ordering Physician: Robert Contreras Referring Physician: blair oviedo Performed By: Bharath Acevedo RCS
== END ==
PROVIDERS: PCP Family Medicine; Referring Provider Internal Medicine Cardiovascular Disease; Visit Provider Internal Medicine Cardiovascular Disease
DX: R55 Syncope and collapse (principal); I35.2 Nonrheumatic aortic (valve) stenosis with insufficiency; I10 Essential (primary) hypertension; E78.5 Hyperlipidemia, unspecified; D68.62 Lupus anticoagulant syndrome; K92.2 Gastrointestinal hemorrhage, unspecified; Z95.3 Presence of xenogenic heart valve; Z86.718 Personal history of other venous thrombosis and embolism
CPT/HCPCS: 93306; Q9957; A4216; C8929

== ENCOUNTER 2020-02-21 11:48 | Day surgery (SDC) | payer MEDICARE, SELFPAY ==
[2019-07-15 15:26] VITALS: BMI 23.2
[2020-02-15 13:48] VITALS: BMI 20.5
[2020-02-17 11:20] LABS: Hematocrit 35.6 % (37-47); Mean Corp Hgb Conc 30.9 g/dL (32-36); Platelet Count 177 K/mm3 (150-450); RBC Distribution Width CV 14.6 % (11.6-14.6); RBC Distribution Width SD 52.5 fl (35.1-43.9); Red Blood Count 3.67 M/mm3 (4.2-5.4); White Blood Count 4.9 K/mm3 (4.4-11.0)
[2020-02-17 11:43] LABS: International Normalized Ratio 2.1; Prothrombin Time (Protime)PT. 23.1 SECONDS (11.7-14.9)
[2020-02-17 11:56] LABS: Partial Thromboplast Time 41.4 Seconds (24.1-36.2)
[2020-02-17 12:08] LABS: ALB/GLOB Ratio 0.7 RATIO (0.9-2.4); AST(SGOT) 161 U/L (15-37); Alanine Aminotransfer ALT/SGPT 57 U/L (13-56); Albumin, Serum 3.4 g/dL (3.2-5.0); Alkaline Phosphatase 65 U/L (45-117); Anion Gap 5 (5-15); BUN 29 mg/dL (7-18); BUN/Creat Ratio 19.2 RATIO (10-20); Chloride 106 mmol/L (98-107); Creatinine, Serum 1.51 mg/dL (0.55-1.02); EST Glomerular Filtration Rate 36 mL/min (>60); Est Glom Filt Rate - Afr Amer 43 mL/min (>60); Globulin 4.6 g/dL (2.2-4.2); Glucose 86 mg/dL (74-106); Potassium 3.8 mmol/L (3.5-5.1); Sodium Level 140 mmol/L (136-145)
--- NOTE | 2020-02-19 12:08 | PCM.HP.BLA ---
History and Physical Date of Admission: 02/21/20 Surgical History and Physical Angy Reyes, a 79 year old female 2 0 0 0 2, presents for D and C and hysteroscopy on February 21, 2020 at 11:00. -- [employer] Bleeding -- Angy presents here today with concerns regarding post menopausal bleeding periodically since May 2019. 79 y.o. G 2 P 2 post-menopausal non-smoker reports that she fell in May and broke 5 ribs and while in the hospital had her first episode of a yellow/brownish colored vaginal discharge and since that time has had periodic reddish colored vaginal discharge. PMB which began . Angy claims it started suddenly and has been present after a fall(broke 5 ribs). It occurs intermittantly. It is located in the vagina. Angy characterizes it to be non-radiating. Angy characterizes the quality spotting to light flow. Severity is moderate and very concerned. Additional comments are: Recent EMBx benign and inconclusive. MEDICATIONS HISTORY: Current medications prescribed by our practice are: 1. Lovenox 30 mg/0.3 mL subcutaneous syringe, as directed 1 dose sq every morning and stop after Friday then one dose on Friday Patient is also takin. atorvastatin 40 mg tablet, One tablet by mouth once daily 2. biotin 1,000 mcg chewable tablet, 1 to 3 tablets daily 3. chromium picolinate 1,000 mcg tablet, One tablet by mouth daily 4. folic acid 400 mcg tablet, One tablet by mouth daily 5. Lantus U-100 Insulin 100 unit/mL subcutaneous solution, 10 units in am 6. levothyroxine 25 mcg tablet, One tablet by mouth once daily 7. losartan 50 mg-hydrochlorothiazide 12.5 mg tablet, half a pill daily 8. metoprolol succinate ER 25 mg tablet,extended release 24 hr, One tablet by mouth once daily 9. Reclast 5 mg/100 mL intravenous piggyback, Infusion 01/12/2020 10. ropinirole 0.25 mg tablet, One tablet by mouth at bedtime 11. sertraline 100 mg tablet, One tablet by mouth 2 x daily 12. Vitamin D3 125 mcg (5,000 unit) tablet, One tablet by mouth daily 13. warfarin 7.5 mg tablet, One tablet by mouth daily 14. 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),Osteoporosis Accidents - None Hospitalizations - surgery Review of Systems: GENERAL - Denies fever, or chills SKIN - Denies skin changes EYES - Denies visual changes EARS - Denies difficulty hearing NOSE - Denies nasal congestion or bleeding MOUTH - Denies sore throat or difficulty swallowing NECK - Denies pain or swelling RESPIRATORY - Denies shortness of breath or wheezing CARDIOVASCULAR - Denies palpitations or chest pain GASTROINTESTINAL - Denies nausea, vomiting, diarrhea, constipation GENITOURINARY - Denies dysuria, frequency of urination, incontinence of urine MUSCULOSKELETAL - Denies joint or muscle pain NEUROLOGICAL - Denies localized numbness or weakness PSYCHIATRIC - Denies depression or anxiety ENDOCRINE - Denies heat or cold intolerance, weight loss or gain HEMATO-IMMUNOLOGIC - Denies excesive bleeding with cuts SOCIAL HISTORY: Alcohol Use - wine Smoking - Never Diet - no special diet Lifestyle - moderate stress lifestyle and Exercise - active Seat Belt Use - always Employer - Retired Illicit Drug Use - None Sexual Activity - Children Name(s) - 2 children Control - postmenopausal FAMILY HISTORY: MENSTRUAL HISTORY: LMP Known?- Postmenopausal PAST PREGNANCIES: Total Pregnancies - 2; Full Term Pregnancies - 2; Premature - 0; Abortions, Induced - 0; Abortions, Spontaneous - 0; Ectopics - 0; Multiple Births - 0; Living Children - 2 SURGICAL HISTORY: 1. Appendectomy 1952 2. Tonsillectomy + Adenoidectomy 1947 3. Gastric Bypass 2000 4. C-Sections 1995, 1997 5. 5 fractured Ribs with one Rib perforating L Lung 05/2019 ; - Fell in her bathroom hitting her toilet 6. Aortic Valve Replacement 02/2019 7. Fractured Left Wrist -- pins placed 2008 ; - Post Fall 8. Fractured L Femur and L Elbow repaired w/ pins + plates 2011 ; - Post Fall PHYSICAL EXAM BP- 140/90 Sitting, Right arm, regular cuff Temp- 98.2 Weight- 122.19668 lbs Height- 63.50 inch BMI:21.35 CONSTITUTIONAL - NAD, well nourished, and well developed SKIN - No rash, lesions, or ulcers HEENT - Normocephalic, PERRLA, EOMI NECK - No nodes, no nuchal rigidity and thyroid normal size and texture LYMPH NODES - Palpation of lymph nodes in neck and groins within normal limits LUNGS - CTA x2 without wheezes, crackles or rales CARDIAC - Regular rate and rhythm without rubs, murmurs, or gallops BREAST - No dominant masses, no tenderness, no axillary adenopathy, no nipple discharge, no skin changes ABDOMEN - Without hepatosplenomegaly, distention, masses, rebound, or guarding; normal bowel sounds; no hernias EXTREMITIES - No edema or calf tenderness NEUROLOGICAL - Cranial nerves II-XII grossly intact PSYCHIATRIC - A and O to time, place, person, mood and affect External Genitial Vagina - non-tender without lesions Urethra/Urethral Meatus - non-tender Bladder - non-tender Vagina - loss of rugae Cervix - without cervical motion tenderness and has normal size and features without evident lesions and small caliiper upper vagina Uterus - 5-6 cm in size, mobile and nontender Adnexa - clear without massess or tenderness ASSESSMENT/PLAN: 1. Postmenopausal Bleeding Reviewed benign EMBx. Reviewed pelvic u/s showing fluid in uterus with possible mass. Discussed options of repeating EMBx or u/s or D and C and pt desires the D and C and H/S. Discussed surgery and RBAs and all questions answered. Will need cardiac clearance. On coumadin for aortic valve replacement. Lovenox bridge started 5 days ago.
[2020-02-21] VITALS (8 sets, daily range): BP systolic 130–174; BP diastolic 61–78; PULSE 57–71; RESP 14–16; TEMP 36.4–36.9; O2SAT 97–100; BMI 22.4
[2020-02-21 12:16] LABS: Prothrombin Time Fingerstick 15.2 SEC (11.9-14.4)
[2020-02-21 13:10] LABS: Bedside Glucose 132 mg/dL (70-110)
--- NOTE | 2020-02-21 13:30 | EMB_PTH ---
PATIENT: SONNY HOWARD [place] [facility] [place][id number] AGE/SX: 79/F ROOM: RE02/21/[address]: Dr. Dilip Oconnell MD : [id number] BED: DIS: 02/21/2020 SPEC #: [id number] RECD: 02/21/20 15:06 STATUS: KALINA PAZ #: [id number] CAREY: 02/21/20 13:[address]: Dilip Oconnell DEPT: SURGICAL PATHOLOGY RECD BY: Matt Adame ENTERED: 02/22/20 08:15 SP TYPE: ENDOM BX/C MISAEL DR: Dr. Alonzo Collado, DO Tissues: A - Endometrium, NOS B - Endocervical Procedures: Surgery Specimen Level IV HEADER OPERATION: Hysteroscopy, D & C PRE-OP DIAGNOSIS: Postmenopausal bleeding TISSUE SUBMITTED: A - Endometrial cervical curettings, B - Endocervical curettings MICROSCOPIC DIAGNOSIS A. Endometrial curettings: Fragments of benign endometrial tissue showing inactive endometrium with marked chronic inflammation consistent with marked chronic endometritis. Fragments of blood clots. B. Endocervical curettings: Fragments of benign endometrial tissue showing inactive endometrium with marked chronic inflammation and mild acute inflammation consistent with marked chronic endometritis and mild acute endometritis. Detached fragments of purulent material consistent with pyometra. SJ:gaetano 02/23/20 COMMENT Please make reference to previous specimen ([id number]) endometrial biopsy with diagnosis of fragments of benign endometrial tissue with marked acute and chronic inflammation consistent with pyometra and chronic endometritis. Case has been reviewed in consultation with Dr. Byrd who concurs with the above diagnosis. IDC:AM MICROSCOPIC DESCRIPTION Slides are reviewed. GROSS DESCRIPTION A - Received in fixative is one container labeled with the patient's name and designated endometrial curettings. The specimen consists of multiple irregular fragments of red-silva soft tissue that in aggregate measure 1.2 x 1 x <0.1 cm. The specimen is totally submitted in one cassette. B - Received in fixative is one container labeled with the patient's name and designated endocervical curettings. The specimen consists of multiple irregular fragments of light silva soft tissue that in aggregate measure 1.6 x 0.5 x <0.1 cm. The specimen is totally submitted in one cassette. / AM:gaetano 02/22/20 TC:2 CPT: 62623 x2
[2020-02-21] MEDS: Cefotetan 2 GM in 0.9% NS 100 ML IV (14:12)
--- NOTE | 2020-02-21 14:17 | PCM.OPRPT ---
Report of Operation Date of Procedure: 02/21/20 Pre-Operative Diagnosis: Postmenopausal Bleeding Post-Operative Diagnosis: Postmenopausal Bleeding Surgery/Procedure Performed:: Diagnostic Hysteroscopy, Dilation and Curettage Description of Surgical Findings:: 6 cm atrophic endometrial cavity, small cervix, small vagina with atrophy. Some purulent discharge noted from the cervix upon dilation before the curetting. Type of Anesthesia:: MAC Anesthesiologist: Dorothy Dhillon Specimen's removed: Endocervical and endometrial curettings Estimated Blood Loss (mL): Minimal Fluids Replaced: Crystalloid Description of Procedure: Surgeon: Dilip Oconnell MD, FACOG Indications: This is a 79 year old patient who has the above diagnosis. The patient has been counseled regarding the risk and indications of this procedure including the possibility of bleeding, infection, and injury to surrounding structures such as bowel bladder. All questions were answered and we consider the patient well-informed. Procedure: The patient was taken to the operating room where after induction of general anesthesia, she was placed in the dorsolithotomy position and prepped and draped in the usual sterile fashion. The bladder was drained of approximately 100 cc of clear yellow urine with a catheter. Anterior cervix was grasped with the tenaculum and dilated to about 4-5 mm. Endocervical curettings were obtained. A 3 mm hysteroscope was placed in the uterus of the above findings were noted. Cervix was dilated to about 5-6 mm and uterus was gently curetted removing all contents. Hysteroscope was reinserted and all material was noted to be removed. In the course of the procedure approximately 100 cc of saline distending media was used and virtually all of this was recovered. Patient tolerated procedure well was taken to recovery room in satisfactory condition sponge instrument and needle counts were all reportedly correct. Estimated blood loss for the case was minimal. Specimens to pathology was endometrial and endocervical curettings Complications: None Grafts/Implants Used: None - Complications None - Admit VTE Documentation VTE Present on Admission: Yes VTE Mechan Device Prophylaxis: SCD's VTE Pharm Prophylaxis ordered?: Yes
[2020-02-21] MEDS: Lactated Ringers 1,000 ML 100 ML IV (14:44)
--- NOTE | 2020-02-21 14:46 | DCINST_ITS ---
Discharge Diet: No Restrictions Discharge Activity: Return to Normal Activity, May Shower, May Take a Tub Bath May resume sexual activity in: 2 weeks Call your doctor if you observe: Fever of 101 or Higher, Inability to urinate, Inability to have a bowel movement, Using more than one pad per hour Additional Instructions: Restart Coumadin this evening. Last dose of Lovenox in a.m. tomorrow. Allergies/Adverse Reactions: Allergies codeine Allergy (Intermediate, Verified 02/21/20 12:12) Unknown lisinopril Allergy (Intermediate, Verified 02/21/20 12:12) Unknown seasonal Allergy (Uncoded 02/21/20 12:12) Other Medications to take at Discharge atorvastatin 80 mg tablet 40 mg PO QHS tab 11/24/18 cholecalciferol (vitamin D3) 125 mcg (5,000 unit) tablet 5,000 unit PO DAILY 11/24/18 warfarin 5 mg tablet 7.5 mg PO QHS 11/24/18 Acetaminophen [Tylenol] 1,000 mg PO PRN PRN 01/31/19 sertraline 100 mg tablet 200 mg PO BID tab 03/15/19 metoprolol succinate 25 mg tablet,extended release 24 hr 25 mg PO DAILY #90 tab 03/16/19 alogliptin 6.25 mg tablet 6.25 mg PO DAILY 02/15/20 insulin glargine 100 unit/mL subcutaneous solution 10 unit SC QAM ml 02/15/20 losartan 50 mg-hydrochlorothiazide 12.5 mg tablet 0.5 tab PO QHS tab 02/15/20 zoledronic kurf-ngsmjqeh-ldhud 5 mg/100 mL in mannitol 5 %-water intravenous piggybck See Rx Instructions .ROUTE .COMPLEX 02/15/20 Biotin 1 mg PO DAILY 02/17/20 Bromfenac Sodium [Bromsite] 5 ml OP DAILY 02/17/20 Calcium Carb/Mag Ox/Zinc Sulf [Cvs Wwlvtft-Fzdraaxcv-Wpr Cplt] 2 ea PO DAILY 02/17/20 Chromium Picolinate 200 mcg PO DAILY 02/17/20 Levothyroxine [Synthroid] 25 mcg PO DAILY 02/17/20 Ropinirole HCl [Requip] 0.25 mg PO QHS 02/17/20 Vit A/Vit C/Vit E/Zinc/Copper [Preservision Areds Softgel] 2 ea PO DAILY 02/17/20 Primary Care Physician: Alonzo Collado DO [Primary Care Provider] - Test Results: Test results from this visit will be discussed in further detail at your follow- up appointment, if applicable. Please Follow Up With: Dilip Oconnell MD When: 2 to 3 weeks
== END 2020-02-21 16:59 | disposition home or self-care (01) ==
LOC: SDC 11:49 → AC 11:50
PROVIDERS: Anesthesiology; PCP Family Medicine; Referring Provider Obstetrics & Gynecology; Visit Provider Obstetrics & Gynecology
PROC: 0UDB8ZZ Extraction of Endometrium, Via Natural or Artificial Opening Endoscopic (ICD-10-PCS; CPT 58558; principal; 2020-02-21 13:20)
DX: N95.0 Postmenopausal bleeding (principal); Z20.828 Contact with and (suspected) exposure to other viral communicable diseases; M81.0 Age-related osteoporosis without current pathological fracture; I10 Essential (primary) hypertension; E11.9 Type 2 diabetes mellitus without complications; D68.62 Lupus anticoagulant syndrome; Z98.84 Bariatric surgery status; Z79.899 Other long term (current) drug therapy; Z79.01 Long term (current) use of anticoagulants; Z79.4 Long term (current) use of insulin; Z86.718 Personal history of other venous thrombosis and embolism; Z95.2 Presence of prosthetic heart valve; K21.9 Gastro-esophageal reflux disease without esophagitis; E78.00 Pure hypercholesterolemia, unspecified; Z87.891 Personal history of nicotine dependence
CPT/HCPCS: 00952; 58558; 36415; 36416; 80053; 82962; 85027; 85610; 85730; 86850; 86900; 86901; 87635; 88305; C9803; J7120; U0003

== ENCOUNTER → 2020-04-18 14:05 | Outpatient (CLI) | payer MEDICARE, SELFPAY ==
[2020-02-21 12:17] VITALS: BMI 22.4
--- NOTE | 2020-04-18 14:09 | US_ITS ---
STUDY: RENAL ULTRASOUND - COMPLETE REASON FOR EXAM: Female, 79 years old. UTI TECHNIQUE: Ultrasound evaluation of the kidneys was performed with real-time and static ledesma-scale imaging. COMPARISON: None available. FINDINGS: RIGHT KIDNEY: The right kidney is atrophic. The right kidney measures 8.7 cm. There is diffuse thinning of the renal cortex. There is no right renal mass or cyst. There is small nonobstructing right renal stones, measuring up to 3 mm. There is no right hydronephrosis. DISTAL RIGHT URETER: There is non-visualization of the distal right ureter. There is no demonstrated right ureterovesical junction calculus. There is a visualized right ureteral jet. LEFT KIDNEY: The left kidney is atrophic. The left kidney measures 8.9 cm. There is diffuse thinning of the renal cortex. There is no left renal mass or cyst. There is small nonobstructing left renal stones, measuring up to 3 mm. There is no left hydronephrosis. DISTAL LEFT URETER: There is non-visualization of the distal left ureter. There is no demonstrated left ureterovesical junction calculus. There is a visualized left ureteral jet. AORTA: No evidence of abdominal aortic aneurysm. I.V.C.: The IVC is patent. BLADDER: Urinary bladder wall appears thickened, but this is likely due to underdistention. US/Kidney and Bladder IMPRESSION: Bilateral atrophic kidneys. Bilateral subcentimeter nonobstructing renal collecting system stones. No hydronephrosis. Thickened appearance of the urinary bladder wall which is likely due to underdistention. However, cystitis cannot be excluded. Electronically Signed: Janak Lozano, at 22:40 EST Tel , Service support ,
== END ==
PROVIDERS: PCP Family Medicine; Referring Provider Urology; Visit Provider Urology
DX: N39.0 Urinary tract infection, site not specified (principal)
CPT/HCPCS: 76770

== ENCOUNTER 2021-01-14 18:40 | Observation (INO) | payer MEDICARE, SELFPAY ==
[2021-01-14 18:41] VITALS: BP 137/66; PULSE 82; RESP 16; TEMP 36.6; O2SAT 97; BMI 233.7
--- NOTE | 2021-01-14 19:13 | EKG12_ITS ---
Test Reason : BLOODY STOL Blood Pressure : / mmHG Vent. Rate : 069 BPM Atrial Rate : 069 BPM P-R Int : 136 ms QRS Dur : 078 ms QT Int : 434 ms P-R-T Axes : 067 028 060 degrees QTc Int : 465 ms Normal sinus rhythm Normal ECG Confirmed by DOMINGO GERONIMO, JAIMEE ([id number]), website/blog editor SONG CAO ([id number]) on 01/16/2021 8:53:41 AM Referred By: NASIMA Confirmed By:JAIMEE LANE MD
--- NOTE | 2021-01-14 19:51 | ED.VIS.GI ---
HPI HPI - GI History of Present Illness Chief Complaint: GI Bleed Narrative Narrative: 80-year-old female presenting with concern for blood in her stool. She states she has had 3 bloody bowel movements over the last 24 hours. She states she feels generally weak and rundown. She denies lightheadedness or dizziness. Patient states that she was recently treated for a sinusitis with a Z-Rojelio. Patient states this started about 2 weeks ago. Currently she feels improved but she does have a little bit of a cough leftover. She states it has clear sputum. She states she initially had body aches but these have resolved. She denies chest pain or shortness of breath. Patient has not had a fever. She states he was vaccinated for COVID-19. [facility] Medical History (Updated 01/14/21 @ 21:[address] Davidson Dial MD) COPD with emphysema Depression Diabetes mellitus, type II Essential hypertension GI bleed (01/2019) History of DVT (deep vein thrombosis) Hyperlipidemia Lupus anticoagulant disorder (1994) Nonrheumatic aortic (valve) stenosis with insufficiency Osteoarthritis Osteoporosis Small bowel intussusception Type 2 diabetes mellitus without complication Vitamin B 12 deficiency Home Medications atorvastatin 80 mg tablet 40 mg PO QHS tab 11/24/18 [History Last Taken 01/29/19 23:00] cholecalciferol (vitamin D3) 125 mcg (5,000 unit) tablet 5,000 unit PO DAILY 11/24/18 [History Last Taken 01/30/19 11:00] warfarin 5 mg tablet 7.5 mg PO QHS 11/24/18 [History Last Taken 01/30/19 23:00] acetaminophen 1,000 mg PO PRN PRN 01/31/19 [History Last Taken 01/30/19 23:00] sertraline 100 mg tablet 200 mg PO BID tab 03/15/19 [History Last Taken Unknown] metoprolol succinate 25 mg tablet,extended release 24 hr 25 mg PO DAILY #90 tab 03/16/19 [Rx Last Taken 02/21/20 09:00 25 MG] alogliptin 6.25 mg tablet 6.25 mg PO DAILY 02/15/20 [History Last Taken Unknown] insulin glargine 100 unit/mL subcutaneous solution 10 unit SC QAM ml 02/15/20 [History Last Taken Unknown] losartan 50 mg-hydrochlorothiazide 12.5 mg tablet 0.5 tab PO QHS tab 02/15/20 [History Last Taken Unknown] zoledronic acid 5 mg/100 mL in mannitol 5 %-water intravenous piggybck See Rx Instructions .ROUTE .COMPLEX 02/15/20 [History Last Taken Unknown] biotin 1 mg PO DAILY 02/17/20 [History Last Taken Unknown] bromfenac 5 ml OP DAILY 02/17/20 [History Last Taken Unknown] calcium carb-mag ox-zinc sulf 2 ea PO DAILY 02/17/20 [History Last Taken Unknown] chromium picolinate 200 mcg PO DAILY 02/17/20 [History Last Taken Unknown] levothyroxine 25 mcg PO DAILY 02/17/20 [History Last Taken 02/21/20 09:00 25 MCG] ropinirole 0.25 mg PO QHS 02/17/20 [History Last Taken Unknown] vitamins A,C,D-gmip-hwlusx 2 ea PO DAILY 02/17/20 [History Last Taken Unknown] Allergy/AdvReac Type Severity Reaction Status Date / Time codeine Allergy Intermediate Unknown Verified 01/14/21 18:41 lisinopril Allergy Intermediate Unknown Verified 01/14/21 18:41 seasonal Allergy Other Uncoded 01/14/21 18:41 Family History Mother , Age 86 Alzheimers disease Myocardial infarction, Onset Age: 70 CAD (coronary artery disease) Father , Age 68 CAD (coronary artery disease) Hypertension Alcoholism Sister Diabetes Hypertension Sister , 46 Breast cancer Brother Hypertension Cancer bladder and prostate Brother Heart disease AVR Surgical History History of aortic valve replacement with bioprosthetic valve (02/15/19) History of appendectomy History of section History of elbow surgery (2011) History of gastric bypass History of hip surgery (2011) History of open reduction and internal fixation (ORIF) procedure (2009) History of right and left heart catheterization (11/30/18) History of tonsillectomy Social History Smoking Status: Former smoker how long ago did patient quit smokin years ago alcohol intake: current Alcohol type: wine substance use type: does not use ROS ROS ED Constitutional Constitutional ED: Denies chills or fever(s) ENT ENT ED: Denies rhinorrhea or sore throat Cardiovascular Cardiovascular: Denies chest pain or palpitations Respiratory/Chest Respiratory/Chest: Reports cough; Denies dyspnea Gastrointestinal Gastrointestinal: Reports melena and other Details: Blood in stool ; Denies abdominal pain, nausea or vomiting Genitourinary Genitourinary ED: Denies dysuria or hematuria Musculoskeletal Musculoskeletal: Reports myalgias; Denies arthralgias Integumentary Denies Abrasions or rash Neurologic Neurologic: Denies headache(s) or paresthesias EXAM Physical Exam Const Vital Signs: 01/14/21 18:41 Temperature 97.8 F Temperature Source Temporal Pulse Rate 82 Respiratory Rate 16 Blood Pressure 137/66 H Blood Pressure Mean 89 Pulse Ox 97 Oxygen Delivery Method Room Air Positive well nourished General Appearance ED: NAD and pallor HEENT Reports moist mucous membranes normocephalic and atraumatic Eyes PERRL and EOMs intact bilaterally Resp normal respiratory effort and clear to auscultation bilaterally Cardio regular rate and regular rhythm GI non-tender and non-distended GI Narrative: Small amount of maroon stool on digital rectal exam. No hemorrhoids palpated or visualized. Palpation: soft Neuro Sensorium / Orientation: alert, oriented to person, oriented to place and oriented to time Motor Exam: strength 5/5 throughout Psych mental status grossly normal and thought process normal Skin General Skin Exam: pallor Rashes: no rashes MDM MDM MDM Narrative Medical decision making narrative: Patient presented for concern for GI bleed. She states she is had bloody stools at home. She is on Coumadin. She also describes a sinusitis that was recently treated with a Z-Rojelio. She still has a mild cough however this is improved. She was not tested for COVID-19 at that time. I did obtain a chest x-ray which on my interpretation shows a probable left retrocardiac opacity and the radiologist does agree. This could be infiltrate. Patient is coughing but she does not have an elevated white count. Her vital signs are completely normal. Hemoglobin is down to 8.4. Renal function is at baseline. Discussed with Dr. Barron who stated that it was okay for the patient to stay at [facility]. Since the patient has normal vitals and is not actively having bloody stools here in the ED we will withhold her Coumadin and monitor her. Discussed with the hospitalist that if she has any bloody stools or drops her hemoglobin that her Coumadin should be reversed. Based on patient's lab work I do not believe she needs antibiotics. Her Covid testing was negative. Patient will be admitted in stable condition. Impression: 1. Left retrocardiac opacity 2. Lower GI bleed stable 3. Blood loss anemia Lab Data Attestation: I reviewed the patient's lab results. Labs: Laboratory Results - last 24 hr 01/14/21 01/14/21 01/14/21 19:15 19:55 19:55 WBC RBC Hgb Hct MCV MCH MCHC RDW Std Deviation RDW Coeff of Adria Plt Count MPV Immature Gran % (Auto) Neut % (Auto) Lymph % (Auto) [place] % (Auto) Eos % (Auto) Baso % (Auto) Absolute Neuts (auto) Absolute Lymphs (auto) Nucleated RBC % Differential Comment Hypochromasia Anisocytosis PT 50.4 H INR 5.7 H* Sodium Potassium Chloride Carbon Dioxide Anion Gap BUN Creatinine Estim Creat Clear Calc Est GFR (MDRD) Af Amer Est GFR (MDRD) Non-Af BUN/Creatinine Ratio Glucose Calcium Total Bilirubin AST ALT Alkaline Phosphatase Troponin I High Sens Total Protein Albumin Globulin Albumin/Globulin Ratio Procalcitonin 0.06 Blood Type AB POSITIVE Antibody Screen NEGATIVE 01/14/21 01/14/21 19:55 19:55 WBC 6.7 RBC 3.17 L Hgb 8.4 L Hct 27.1 L MCV 85.5 MCH 26.5 L MCHC 31.0 L RDW Std Deviation 63.5 H RDW Coeff of Adria 20.5 H Plt Count 283 MPV 9.9 Immature Gran % (Auto) 1.000 H Neut % (Auto) 64.0 Lymph % (Auto) 21.3 [place] % (Auto) 8.7 Eos % (Auto) 4.9 Baso % (Auto) 0.1 Absolute Neuts (auto) 4.3 Absolute Lymphs (auto) 1.43 Nucleated RBC % 0 Differential Comment SCANNED Hypochromasia 1+ Anisocytosis 2+ PT INR Sodium 137 Potassium 3.6 Chloride 103 Carbon Dioxide 25.0 Anion Gap 9 BUN 29 H Creatinine 1.30 H Estim Creat Clear Calc 29.50 Est GFR (MDRD) Af Amer 51 L Est GFR (MDRD) Non-Af 42 L BUN/Creatinine Ratio 22.3 H Glucose 219 H Calcium 8.7 Total Bilirubin 0.30 AST 49 H ALT 20 Alkaline Phosphatase 82 Troponin I High Sens 29 Total Protein 7.7 Albumin 2.9 L Globulin 4.8 H Albumin/Globulin Ratio 0.6 L Procalcitonin Blood Type Antibody Screen Radiography Diagnostic Testing: Radiology Impression Chest X-Ray 01/14/21 20:20 IMPRESSION: Small patchy left retrocardiac opacity concerning for pneumonia in the appropriate setting. Hyperexpanded lungs compatible with chronic obstructive pulmonary disease. at 2055 Reported and signed by: Latrell Joshi MD Electronically Signed: Latrell Joshi MD at 20:53 EDT Tel , Service support , Discharge Plan Disposition Disposition: Acute Care Hospital [facility] Discharge Date/Time: 01/14/21 23:10
[2021-01-14 20:15] LABS: Absolute Lymphocyte Count 1.43 X10^3/uL (0.83-4.51); Absolute Neutrophil Count 4.3 X10^3/uL (2.0-7.7); Basophil# 0.01 X10^3/uL; Basophil% 0.1 % (0-1); Eosinophil# 0.33 X10^3/uL; Eosinophils% 4.9 % (0-5); Hematocrit 27.1 % (37-47); Hemoglobin 8.4 g/dL (12.0-15.0); Lymphocyte # 1.43 X10^3/ul (0.83-4.51); Lymphocyte % 21.3 % (19-41); Mean Corpuscular Hgb 26.5 pg (27.0-32.0); Mean Corpuscular Volume 85.5 fL (81-99); Mean Platelet Vol. 9.9 fl (6.2-12.0); Monocyte# 0.58 X10^3/uL; Monocyte% 8.7 % (0-10); NRBC Flagged by Analyzer 0 % (0-5); Neutrophil # 4.28 X10^3/uL (2.7-7.7); POSITIVE MORPHOLOGY YES; Platelet Count 283 K/mm3 (150-450); RBC Distribution Width CV 20.5 % (11.6-14.6); RBC Distribution Width SD 63.5 fl (35.1-43.9); Red Blood Count 3.17 M/mm3 (4.2-5.4); White Blood Count 6.7 K/mm3 (4.4-11.0)
--- NOTE | 2021-01-14 20:20 | RAD_ITS ---
HISTORY: cough EXAMINATION/TECHNIQUE: XR Chest 1 View: COMPARISON: 06/06/2019 FINDINGS: LINES/DEVICES: None. LUNGS: Lungs symmetrically hyperexpanded. Small patchy left retrocardiac opacity. Unremarkable interstitium. No effusion. No pneumothorax. MEDIASTINUM: No cardiomegaly. Aortic atherosclersosis. MUSCULOSKELETAL: No acute osseous finding. Lateral curvature of the thoracolumbar spine. RAD/Chest 1 View (Portable) IMPRESSION: Small patchy left retrocardiac opacity concerning for pneumonia in the appropriate setting. Hyperexpanded lungs compatible with chronic obstructive pulmonary disease. at 2055 Reported and signed by: Latrell Joshi MD Electronically Signed: Latrell Joshi MD at 20:53 EDT Tel , Service support ,
[2021-01-14 20:30] LABS: Prothrombin Time (Protime)PT. 50.4 SECONDS (11.7-14.9)
[2021-01-14 20:37] LABS: ALB/GLOB Ratio 0.6 RATIO (0.9-2.4); AST(SGOT) 49 U/L (15-37); Alanine Aminotransfer ALT/SGPT 20 U/L (13-56); Albumin, Serum 2.9 g/dL (3.2-5.0); Alkaline Phosphatase 82 U/L (45-117); Anion Gap 9 (5-15); BUN 29 mg/dL (7-18); BUN/Creat Ratio 22.3 RATIO (10-20); Calcium,Total 8.7 mg/dL (8.5-10.1); Chloride 103 mmol/L (98-107); EST Glomerular Filtration Rate 42 mL/min (>60); Est Glom Filt Rate - Afr Amer 51 mL/min (>60); Globulin 4.8 g/dL (2.2-4.2); Glucose 219 mg/dL (74-106); Potassium 3.6 mmol/L (3.5-5.1); Protein, Total 7.7 g/dL (6.4-8.2); Sodium Level 137 mmol/L (136-145); Troponin-I HS 29 pg/mL (3.0-54.0)
--- NOTE | 2021-01-14 21:36 | HP.PCM.HOS_ITS ---
HPI - General General Date of Admission: 01/14/21 HPI Narrative SONNY HOWARD, is a 80 F with a significant history of bovine aortic valve replacement; lupus anticoagulant and DVT who presents to emergency department with bloody bowel movements. Last 24 hours prior to presentation patient has had 3 bowel movements. She has had nausea that she attributed to Ozempic that she was put on a few weeks ago. Associated with her symptoms is fatigue. Of further she has a productive cough that was started about a week ago. Also about 2 weeks ago she had a sinus infection and body aches. She was started on Z-Rojelio that was later discontinued. In 2018 she had an episode of GI bleed. Colonoscopy by Dr. Higuera showed polyps that was removed. [facility] Medical History (Updated 01/14/21 @ 23:35 by Keena Fink) Depression Diabetes mellitus, type II Essential hypertension GI bleed (01/2019) History of DVT (deep vein thrombosis) Hyperlipidemia Lupus anticoagulant disorder (1994) Nonrheumatic aortic (valve) stenosis with insufficiency Osteoarthritis Osteoporosis Small bowel intussusception Vitamin B 12 deficiency Home Medications atorvastatin 80 mg tablet 40 mg PO QHS tab 11/24/18 [History Last Taken 01/29/19 23:00] cholecalciferol (vitamin D3) 125 mcg (5,000 unit) tablet 5,000 unit PO DAILY 11/24/18 [History Last Taken 01/30/19 11:00] warfarin 5 mg tablet 7.5 mg PO QHS 11/24/18 [History Last Taken 01/30/19 23:00] acetaminophen 1,000 mg PO PRN PRN 01/31/19 [History Last Taken 01/30/19 23:00] sertraline 100 mg tablet 200 mg PO BID tab 03/15/19 [History Last Taken Unknown] metoprolol succinate 25 mg tablet,extended release 24 hr 25 mg PO DAILY #90 tab 03/16/19 [Rx Last Taken 02/21/20 09:00 25 MG] alogliptin 6.25 mg tablet 6.25 mg PO DAILY 02/15/20 [History Last Taken Unknown] insulin glargine 100 unit/mL subcutaneous solution 10 unit SC QAM ml 02/15/20 [History Last Taken Unknown] losartan 50 mg-hydrochlorothiazide 12.5 mg tablet 0.5 tab PO QHS tab 02/15/20 [History Last Taken Unknown] zoledronic acid 5 mg/100 mL in mannitol 5 %-water intravenous piggybck See Rx Instructions .ROUTE .COMPLEX 02/15/20 [History Last Taken Unknown] biotin 1 mg PO DAILY 02/17/20 [History Last Taken Unknown] bromfenac 5 ml OP DAILY 02/17/20 [History Last Taken Unknown] calcium carb-mag ox-zinc sulf 2 ea PO DAILY 02/17/20 [History Last Taken Unknown] chromium picolinate 200 mcg PO DAILY 02/17/20 [History Last Taken Unknown] levothyroxine 25 mcg PO DAILY 02/17/20 [History Last Taken 02/21/20 09:00 25 MCG] ropinirole 0.25 mg PO QHS 02/17/20 [History Last Taken Unknown] vitamins A,C,Y-cmhr-soeqxo 2 ea PO DAILY 02/17/20 [History Last Taken Unknown] Allergy/AdvReac Type Severity Reaction Status Date / Time codeine Allergy Intermediate Unknown Verified 01/14/21 18:41 lisinopril Allergy Intermediate Unknown Verified 01/14/21 18:41 seasonal Allergy Other Uncoded 01/14/21 18:41 Family History Mother , Age 86 Alzheimers disease Myocardial infarction, Onset Age: 70 CAD (coronary artery disease) Father , Age 68 CAD (coronary artery disease) Hypertension Alcoholism Sister Diabetes Hypertension Sister , 46 Breast cancer Brother Hypertension Cancer bladder and prostate Brother Heart disease AVR Surgical History History of aortic valve replacement with bioprosthetic valve (02/15/19) History of appendectomy History of section History of elbow surgery (2011) History of gastric bypass History of hip surgery (2011) History of open reduction and internal fixation (ORIF) procedure (2009) History of right and left heart catheterization (11/30/18) History of tonsillectomy Social History Smoking Status: Former smoker how long ago did patient quit smokin years ago alcohol intake: current Alcohol type: wine substance use type: does not use ROS ROS Narrative Constitutional: Denies anorexia and change in weight Eyes: Reports redness of her right eye that she noticed when at emergency department. Denies blurry vision, change in vision, discharge from eye(s), double vision, eye pain, loss of vision or other HEENT: Denies abnormal hearing, dysphagia, ear pain, epistaxis, headache(s), hearing loss, nasal congestion, nasal discharge, post nasal drip, sinus pressure, sore throat or other Cardiovascular: Denies chest pain. Denies dyspnea on exertion, orthopnea and paroxysmal nocturnal dyspnea Respiratory/Chest: Reports productive cough. Denies shortness of breath Gastrointestinal: Reports nausea without vomiting. Denies abdominal pain, coffee ground emesis, dyspepsia, hematemesis. Reports hematochezia Genitourinary: Denies burning urination, difficulty urinating, dysuria, hematuria, nocturia, urinary frequency, urinary hesitancy, urinary incontinence, urinary urgency or other Musculoskeletal: Denies arthralgias, back pain, joint pain, joint stiffness, joint swelling, myalgias, neck pain or other Neurologic: Denies abnormal gait, abnormal speech, confusion, disequilibrium, dizziness, focal weakness, headache(s), numbness, paresthesias, seizure-like activity, seizures, syncope, tingling, tremor(s) or other Psychiatric: Denies anxiety, depression, homicidal ideation, suicidal ideation or other Endocrinology: Denies change in body appearance, cold intolerance, excessive sweating, heat intolerance, polydipsia, polyuria or other Hematologic/Lymphatic: Denies anemia, easy bruising, lymphadenopathy or other Integumentary: Denies rashes Allergic/Immunologic: Denies rhinitis, hives, eczema, asthma or other Vital Signs Vital Signs Vital Signs: 01/14/21 18:41 Temperature 97.8 F Temperature Source Temporal Pulse Rate 82 Respiratory Rate 16 Blood Pressure 137/66 H Blood Pressure Mean 89 Pulse Ox 97 Oxygen Delivery Method Room Air Weight Weight: 598.747 kg Body Mass Index (BMI) 233.7 Physical Exam Narrative Physical exam: General: Well-nourished, well-developed. Head: Normocephalic, atraumatic, no tenderness Eyes: Injection of right conjunctiva. PERRLA, EOMI ENT, no trauma, moist mucous membranes, no rhinorrhea Neck: Nontender, full range of motion, no spinal tenderness, deformities, step- off CVS: Regular rate and rhythm. S1-S2 present. No murmur, gallop or rub. Respiratory : clear to auscultation bilaterally, chest wall nontender, no wheezing Abdomen: Soft, nontender, nondistended, normal bowel sounds, no masses : Deferred Back: Nontender, no CVA tenderness, no midline spinal tenderness, deformities, step-offs Extremities: Nontender full range of motion, no trauma Skin: Normal color, no trauma, abrasions Neuro: Alert, oriented, cranial nerves II through XII grossly intact. Psychiatry: Normal mood. Normal affect. Not depressed. Not anxious. Results Lab / Micro Data Result Diagrams: 01/14/21 19:55 01/14/21 19:55 Radiology Impression Chest X-Ray 01/14/21 20:20 IMPRESSION: Small patchy left retrocardiac opacity concerning for pneumonia in the appropriate setting. Hyperexpanded lungs compatible with chronic obstructive pulmonary disease. at 2055 Reported and signed by: Latrell Joshi MD Electronically Signed: Latrell Joshi MD at 20:53 EDT Tel , Service support , Assessment & Plan Assessment/Plan (1) Acute GI bleeding: PLAN: Acute GI bleed Emergent department doctor denies any hemorrhoids or masses on rectal examination. H&H is 8.4/1.1. Her H&H in 2019 was 12.9/40.7 and 11.0/35.6. MCV is 85.5 Her BUN is 29. Her BUN a year ago was 29. With normal blood pressure and no lightheadedness, near-syncope or syncope it is more likely lower GI bleed. Will trend H&H. Admit pending significantly case with general surgery who recommended against reversing INR unless patient begins to have ion rectal bleeding or unless H&H drops significantly again. Hold Coumadin. Trend H&H. Gentle IV fluids. N.p.o. except meds. General surgery consult. CKD stage IIIa Likely secondary diabetes mellitus Stable Trend BMP. Diabetes mellitus Patient with hyperglycemia on presentation Home basal insulin held. Accu-Chek every 6 hours correction scale insulin ordered. N.p.o. this time. Resume basal insulin if blood glucose remains persistently high. DVT prophylaxis: Not indicated since patient is supratherapeutic on Coumadin. Charges/Coding Visit Charges Inpatient E&M: 35647 Init Hosp L3
[2021-01-14 22:42] LABS: International Normalized Ratio 5.7
[2021-01-14 22:44] VITALS: BP 139/71; PULSE 63; RESP 16; TEMP 36.1; O2SAT 100
[2021-01-14 22:58] LABS: Differential Indicated SCAN CRITERIA MET
[2021-01-14 22:59] LABS: Anisocytosis 2+; Differential Comment SCANNED; Hypochromasia 1+
[2021-01-14 23:06] VITALS: BMI 22.8
[2021-01-14 23:06] LABS: Procalcitonin 0.06 ng/mL (0.00-0.09)
[2021-01-14 23:10] VITALS: BP 172/79; PULSE 69; RESP 18; TEMP 37.1; O2SAT 99
[2021-01-15] VITALS (16 sets, daily range): BP systolic 130–176; BP diastolic 59–80; PULSE 57–82; RESP 16–18; TEMP 36.3–37.7; O2SAT 96–99
[2021-01-15] MEDS: 0.9% Normal Saline 1,000 ML 75 ML IV ×2 (00:26→16:30)
[2021-01-15] MEDS: MELATONIN 3 MG TABLET PO (00:26)
[2021-01-15 00:41] LABS: Bedside Glucose 126 mg/dL (70-110)
[2021-01-15] MEDS: Ondansetron 4 MG/2 ML Vial IV (00:44)
[2021-01-15] MEDS: Benzonatate 100 MG Capsule PO ×3 (00:44→21:46)
[2021-01-15] MEDS: Levothyroxine 25 MCG TABLET PO (05:04)
[2021-01-15] MEDS: Acetaminophen 500 MG Tablet 1000 MG PO ×4 (05:04→21:43)
[2021-01-15 06:25] LABS: Hematocrit 24.1 % (37-47); Hemoglobin 7.4 g/dL (12.0-15.0)
[2021-01-15 06:32] LABS: Prothrombin Time (Protime)PT. 38.9 SECONDS (11.7-14.9)
[2021-01-15 06:41] LABS: Bedside Glucose 126 mg/dL (70-110)
[2021-01-15 06:42] LABS: International Normalized Ratio 4.1
[2021-01-15 06:58] LABS: Anion Gap 7 (5-15); BUN 26 mg/dL (7-18); BUN/Creat Ratio 23.2 RATIO (10-20); Calcium,Total 8.3 mg/dL (8.5-10.1); Chloride 106 mmol/L (98-107); Creatinine, Serum 1.12 mg/dL (0.55-1.02); EST Glomerular Filtration Rate 50 mL/min (>60); Est Glom Filt Rate - Afr Amer 61 mL/min (>60); Estimated Creatinine Clearance 34.24 ml/min; Glucose 152 mg/dL (74-106); Potassium 3.9 mmol/L (3.5-5.1); Sodium Level 136 mmol/L (136-145)
--- NOTE | 2021-01-15 07:52 | EX.PCM.CON.S ---
Assessment & Plan Assessment/Plan (1) Acute GI bleeding: (2) Supratherapeutic INR: (3) Lupus anticoagulant disorder: (4) History of DVT (deep vein thrombosis): (5) History of aortic valve replacement with bioprosthetic valve: PLAN: Due to patient's hemoglobin dropped from 11-8 0.4-7.4 and INR 4.1 we will plan to reverse her INR with vitamin K/FFP in order 1 unit packed red blood cells. We will plan to do colonoscopy once patient has been closer to 1.4. We will not plan to do the prep until she receives the FFP/vitamin K as likely she could just bleed more with the prep before to reverse. Patient is agreeable with plan. If unable to do any prep today okay for full's today then clears tomorrow. I have discussed the above with the patient. I have offered the patient EGD & colonoscopy for evaluation. I have explained the risks/benefits of the procedure and described the procedure. I have discussed the risks with the patient, including but not limited to: infection, bleeding, perforation of the GI tract requiring emergency surgery, inability to complete the procedure, injury to any internal organs, complications of anesthesia, etc. - the patient understands and agrees to proceed. I have answered all the patient's questions to the patient's satisfaction and the patient has no further questions. Will await repeat INR prior to any bowel prep. Jaky Barron M.D. Pager: [phone] [facility] [address] [place] [address], [address] [place] [address] Office: [phone] HPI Consult Data Date of Consult: 01/16/21 HPI Narrative HPI Narrative: SONNY HOWARD, is a 80 F who presents to the ER due to blood per rectum. Patient states she had 2 bowel movements on Friday and one yesterday states there is quite a bit of blood maroon in color. Patient states she previously had something like this few years ago and did have an EGD and colonoscopy at that time by Dr. Higuera (01/2019) and only had a couple polyps no obvious cause of bleeding. Patient arrived to the ER her INR was 5.7, hemoglobin 11. Currently INR is 4.1 and hemoglobin is down to 7.4. Patient denies any bowel movements overnight. Patient is on Coumadin due to DVT in the mid and patient was found to have lupus anticoagulant at that time and has been on Coumadin since then. Patient denies any abdominal pain nausea or vomiting. [facility] Medical History (Updated 01/15/21 @ 08:[address] Jaky Barron MD) Depression Diabetes mellitus, type II Essential hypertension GI bleed (01/2019) History of DVT (deep vein thrombosis) Hyperlipidemia Lupus anticoagulant disorder (1994) Nonrheumatic aortic (valve) stenosis with insufficiency Osteoarthritis Osteoporosis Small bowel intussusception Vitamin B 12 deficiency Home Medications atorvastatin 80 mg tablet 40 mg PO QHS tab 11/24/18 [History Last Taken 01/13/21 22:00] warfarin 5 mg tablet 7.5 mg PO SUMOWETHFRSA 11/24/18 [History Last Taken 01/12/21 20:00] acetaminophen 1,000 mg PO Q6H 01/31/19 [History Last Taken 01/13/21 22:00] sertraline 100 mg tablet 100 mg PO BID tab 03/15/19 [History Last Taken 01/14/21 12:00] calcium carb-mag ox-zinc sulf 3 tab PO DAILY 02/17/20 [History Last Taken 01/13/21 08:00] levothyroxine 25 mcg PO DAILY 02/17/20 [History Last Taken 01/14/21 08:00] ropinirole 0.25 mg PO QHS PRN 02/17/20 [History Last Taken Unknown] ascorbate calcium (vitamin C) 500 mg PO DAILY 01/14/21 [History Last Taken Unknown] cholecalciferol (vitamin D3) [Vitamin D3] 2,000 unit PO DAILY 01/14/21 [History Last Taken 01/13/21 08:00] d-mannose 500 mg PO TID 01/14/21 [History Last Taken 01/13/21 08:00] insulin glargine [Lantus U-100 Insulin] 10 unit SUBCUT DAILY 01/14/21 [History Last Taken 01/14/21 17:00] losartan-hydrochlorothiazide 1 tab PO DAILY 01/14/21 [History Last Taken 01/14/21 08:00] melatonin 5 mg PO QHS 01/14/21 [History Last Taken 01/13/21 22:00] metoprolol succinate 25 mg PO DAILY 01/14/21 [History Last Taken 01/14/21 08:00] vit C,T-Dt-pasng-lutein-zeaxan [PreserVision AREDS-2] 2 tab PO DAILY 01/14/21 [History Last Taken 01/13/21 08:00] warfarin 5 mg PO TU 01/14/21 [History Last Taken Unknown] tramadol 50 mg PO Q6H PRN 01/15/21 [History Last Taken Unknown] zoledronic owhv-ufphxujr-kvvwa [Reclast] ea IV Q12M 01/15/21 [History Last Taken Unknown] Allergy/AdvReac Type Severity Reaction Status Date / Time codeine Allergy Intermediate itchy Verified 01/14/21 23:59 lisinopril Allergy Intermediate coughing Verified 01/14/21 23:59 seasonal Allergy Other Uncoded 01/14/21 18:41 Family History (Updated 01/14/21 @ 23:37 by Keena Fink) Mother , Age 86 CAD (coronary artery disease) Alzheimers disease Myocardial infarction, Onset Age: 70 Father , Age 68 CAD (coronary artery disease) Alcoholism Hypertension Sister Diabetes Hypertension Breast cancer Sister , 46 No problems noted. Brother Cancer bladder and prostate Hypertension Heart disease Brother No problems noted. Surgical History History of aortic valve replacement with bioprosthetic valve (02/15/19) History of appendectomy History of section History of elbow surgery (2011) History of gastric bypass History of hip surgery (2011) History of open reduction and internal fixation (ORIF) procedure (2009) History of right and left heart catheterization (11/30/18) History of tonsillectomy Social History (Updated 01/14/21 @ 23:43 by Keena Fink) adopted: No household members: none housing: assisted living facility number of children: 2 financial difficulty paying for basics: not very hard service: Yes current occupational status: retired current occupational exposures/hazards: No pets and animals: No leisure activities: reading and other history of recent travel: No sexually active: No do you think of yourself as: straight/heterosexual current gender identity: female Smoking Status: Former smoker Tobacco: How many years used: 8 how long ago did patient quit smokin years ago alcohol intake: current Alcohol type: wine details: wine substance use type: does not use diet: diabetic well-balanced diet: about half the time during the past year weight has: remained stable what type of physical activity do you participate in: none mitali/anabaptism: Pentecostalism do you feel safe at home: Yes ROS Constitutional Constitutional: Denies chills ENT HEENT: Denies headache(s) Cardiovascular Cardiovascular: Denies chest pain Respiratory/Chest Respiratory/Chest: Denies shortness of breath at rest Gastrointestinal Gastrointestinal: Reports melena and rectal bleeding; Denies abdominal pain, constipation, diarrhea, heartburn or hematemesis Genitourinary Genitourinary: Denies burning urination Musculoskeletal Musculoskeletal: Denies joint pain Integumentary Integumentary: Denies rash Neurologic Neurologic: Denies focal weakness Endocrine Endocrinology: Denies palpitations Hematologic/Lymphatic Hematologic/Lymphatic: Reports anemia, easy bleeding and easy bruising Physical Exam Const alert, oriented x3 and no apparent distress HEENT normocephalic and head/scalp atraumatic Resp normal respiratory effort Cardio regular rate GI soft to palpation and non-tender; Negative for non-distended Palpation: Negative for guarding Extremity no clubbing, cyanosis or edema Neuro CN's II-XII intact bilaterally Psych mental status grossly normal Lab / Micro Data Result Diagrams: 01/16/21 05:44 01/16/21 05:44 Labs: Laboratory Results - last 24 hr 01/14/21 19:15: Procalcitonin 0.06 01/14/21 19:55: PT 50.4 H, INR 5.7 H* 01/14/21 19:55: Blood Type AB POSITIVE, Antibody Screen NEGATIVE 01/14/21 19:55: WBC 6.7, RBC 3.17 L, Hgb 8.4 L, Hct 27.1 L, MCV 85.5, MCH 26.5 L, MCHC 31.0 L, RDW Std Deviation 63.5 H, RDW Coeff of Adria 20.5 H, Plt Count 283, MPV 9.9, Immature Gran % (Auto) 1.000 H, Neut % (Auto) 64.0, Lymph % (Auto) 21.3, [place] % (Auto) 8.7, Eos % (Auto) 4.9, Baso % (Auto) 0.1, Absolute Neuts (auto) 4.3, Absolute Lymphs (auto) 1.43, Nucleated RBC % 0, Differential Comment SCANNED, Hypochromasia 1+, Anisocytosis 2+ 01/14/21 19:55: Sodium 137, Potassium 3.6, Chloride 103, Carbon Dioxide 25.0, Anion Gap 9, BUN 29 H, Creatinine 1.30 H, Estim Creat Clear Calc 29.50, Est GFR (MDRD) Af Amer 51 L, Est GFR (MDRD) Non-Af 42 L, BUN/Creatinine Ratio 22.3 H, Glucose 219 H, Calcium 8.7, Total Bilirubin 0.30, AST 49 H, ALT 20, Alkaline Phosphatase 82, Troponin I High Sens 29, Total Protein 7.7, Albumin 2.9 L, Globulin 4.8 H, Albumin/Globulin Ratio 0.6 L 01/15/21 00:32: POC Glucose 126 H 01/15/21 05:56: PT 38.9 H, INR 4.1 H* 01/15/21 05:56: Sodium 136, Potassium 3.9, Chloride 106, Carbon Dioxide 23.0, Anion Gap 7, BUN 26 H, Creatinine 1.12 H, Estim Creat Clear Calc 34.24, Est GFR (MDRD) Af Amer 61, Est GFR (MDRD) Non-Af 50 L, BUN/Creatinine Ratio 23.2 H, Glucose 152 H, Calcium 8.3 L 01/15/21 05:56: Hgb 7.4 L, Hct 24.1 L 01/15/21 06:31: POC Glucose 126 H Micro: Microbiology 01/14/21 Unknown Stool Stool Occult Blood (KETAN) - Final Occult Blood Positive 01/14/21 19:15 Nasal Secretion SARS-CoV-2 Antigen (Rapid) - Final Radiology Impression Chest X-Ray 01/14/21 20:20 IMPRESSION: Small patchy left retrocardiac opacity concerning for pneumonia in the appropriate setting. Hyperexpanded lungs compatible with chronic obstructive pulmonary disease. at 2054 Reported and signed by: Latrell Joshi MD Electronically Signed: Latrell Joshi MD at 20:53 EDT Tel , Service support , Procedure Criteria Type of Procedure Procedure Type: Elective Elective Risks - COVID COVID Risk Discussion: The surgeon/proceduralist and patient have discussed in detail the risk of exposure to and/or potential harm posed by the COVID-19 virus with having a surgery/procedure at this time versus the risk of delaying the surgery/procedure. It is not possible to know either the risk of delaying the surgery or procedure or chance of getting an infection with perfect accuracy, but a joint decision was made between the patient and the surgeon/proceduralist to proceed at this time with the scheduled surgery/procedure as indicated on the consent form. Charges/Coding Visit Charges Inpatient E&M: 53056 Init Hosp L3
[2021-01-15] MEDS: Multivitamin (Healthy Eyes) Capsule 2 CAP PO (09:37)
[2021-01-15] MEDS: hydroCHLOROthiazide 12.5mg 12.5 MG PO (09:37)
[2021-01-15] MEDS: Cholecalciferol (VIT D3) 25 MCG TABLET (1,000 UNITS) 50 MCG PO (09:37)
[2021-01-15] MEDS: Sertraline 100 MG Tablet PO ×2 (09:37→21:42)
[2021-01-15] MEDS: Losartan Potassium 25 MG Tablet PO (09:37)
[2021-01-15] MEDS: Metoprolol(XL)Succ 25 MG Tablet PO (09:37)
--- NOTE | 2021-01-15 11:14 | PN.HOSP_ITS ---
Subjective Subjective Patient seen and examined. She was admitted with a complaint of painless lower GI bleed in the setting of supratherapeutic INR. She still complains of lower GI bleed this morning and had several episodes overnight and this morning. There was no associated clots and was painless. She denies any lightheadedness or dizziness, palpitations, chest pain, nausea vomiting. Review of systems is otherwise negative. Hemoglobin is dropped to 7.4 today from 8.4 yesterday. INR is still elevated at 4.1 today. Objective Data Objective Data Vital Signs: Vital Signs Temp Pulse Resp BP Pulse Ox 98.9 F 82 18 130/66 H 96 01/15/21 10:27 01/15/21 10:27 01/15/21 10:27 01/15/21 10:27 01/15/21 10:27 Oxygen Delivery Method Room Air Weight: 129 lb 3.054 oz Body Mass Index (BMI) 22.8 Intake & Output: Intake and Output for Last 24 Hours 01/13/21 01/14/21 01/15/21 23:59 23:59 23:59 Intake Total 767.25 / 767.25 Output Total 450 / 450 Balance 317.25 / 317.25 Lab / Micro Data Result Diagrams: 01/15/21 05:56 01/15/21 05:56 Labs: Laboratory Results - last 24 hr 01/14/21 19:15: Procalcitonin 0.06 01/14/21 19:55: PT 50.4 H, INR 5.7 H* 01/14/21 19:55: Blood Type AB POSITIVE, Antibody Screen NEGATIVE 01/14/21 19:55: WBC 6.7, RBC 3.17 L, Hgb 8.4 L, Hct 27.1 L, MCV 85.5, MCH 26.5 L , MCHC 31.0 L, RDW Std Deviation 63.5 H, RDW Coeff of Adria 20.5 H, Plt Count 283, MPV 9.9, Immature Gran % (Auto) 1.000 H, Neut % (Auto) 64.0, Lymph % (Auto) 21.3, [place] % (Auto) 8.7, Eos % (Auto) 4.9, Baso % (Auto) 0.1, Absolute Neuts (auto) 4.3, Absolute Lymphs (auto) 1.43, Nucleated RBC % 0, Differential Comment SCANNED, Hypochromasia 1+, Anisocytosis 2+ 01/14/21 19:55: Sodium 137, Potassium 3.6, Chloride 103, Carbon Dioxide 25.0, Anion Gap 9, BUN 29 H, Creatinine 1.30 H, Estim Creat Clear Calc 29.50, Est GFR (MDRD) Af Amer 51 L, Est GFR (MDRD) Non-Af 42 L, BUN/Creatinine Ratio 22.3 H, Glucose 219 H, Calcium 8.7, Total Bilirubin 0.30, AST 49 H, ALT 20, Alkaline Phosphatase 82, Troponin I High Sens 29, Total Protein 7.7, Albumin 2.9 L, Globulin 4.8 H, Albumin/Globulin Ratio 0.6 L 01/14/21 19:55: Crossmatch See Detail 01/15/21 00:32: POC Glucose 126 H 01/15/21 05:56: PT 38.9 H, INR 4.1 H* 01/15/21 05:56: Sodium 136, Potassium 3.9, Chloride 106, Carbon Dioxide 23.0, Anion Gap 7, BUN 26 H, Creatinine 1.12 H, Estim Creat Clear Calc 34.24, Est GFR (MDRD) Af Amer 61, Est GFR (MDRD) Non-Af 50 L, BUN/Creatinine Ratio 23.2 H, Glucose 152 H, Calcium 8.3 L 01/15/21 05:56: Hgb 7.4 L, Hct 24.1 L 01/15/21 06:31: POC Glucose 126 H Micro: Microbiology 01/14/21 Unknown Stool Stool Occult Blood (KETAN) - Final Occult Blood Positive 01/14/21 19:15 Nasal Secretion SARS-CoV-2 Antigen (Rapid) - Final Radiography Diagnostic Testing: Radiology Impression Chest X-Ray 01/14/21 20:20 IMPRESSION: Small patchy left retrocardiac opacity concerning for pneumonia in the appropriate setting. Hyperexpanded lungs compatible with chronic obstructive pulmonary disease. at 2055 Reported and signed by: Latrell Joshi MD Electronically Signed: Latrell Joshi MD at 20:53 EDT Tel , Service support , Physical Exam Const alert, oriented x3 and no apparent distress Exam Limitations: no limitations HEENT head/scalp atraumatic and moist oral mucous membranes Head and Scalp: normocephalic Eyes PERRL, EOMs intact bilaterally and conjunctivae normal Resp normal respiratory effort, no retractions, no use of accessory muscles and clear to auscultation bilaterally Cardio regular rate, regular rhythm, S1 normal heart sound, S2 normal heart sound, no murmurs and no gallops GI normal to inspection, nondistended, normoactive bowel sounds, soft to palpation, non-tender and non-distended Extremity normal to inspection, full ROM and no clubbing, cyanosis or edema Peripheral Pulses: Yes pulses 2+ throughout Skin no rashes or lesions noted Neuro oriented x3, CN's II-XII intact bilaterally and moves all extremities Sensorium / Orientation: awake and alert Psych affect normal Assessment & Plan Assessment/Plan (1) Acute GI bleeding: (2) Supratherapeutic INR: PLAN: #Acute lower GI bleed * etiology is unclear. She does have an elevated INR; it was 5.7 on admission and is now down to 4.1 * to receive FFPs and IV vitamin K today * patient typed and crossed. Transfuse if Hb <7 * general surgery on board. coumadin on hold * IV PPI * hydrate with IVF * will need colonoscopy #Hypertension: on losartan HCTZ as well as metoprolol #CKD stage 3A: stable #Type 2 Diabetes mellitus * lantus held. ISS. Accuchecks ACHS * #Acute on chronic anemia * Hb today is 7.4, was 8.4 on admission. * type and screen. Transfuse if Hb <7 * coumadin on hold. * DVT prophylaxis: not indicated o/a of supratherapeutic INR. Charges/Coding Visit Charges Inpatient E&M: 32064 [facility] Hosp L3
[2021-01-15 12:20] LABS: Bedside Glucose 169 mg/dL (70-110)
[2021-01-15] MEDS: Insulin Lispro 100 UNIT/ML INSULN.PEN SC (12:21)
[2021-01-15] MEDS: DiphenhydrAMINE 50 MG/ML Syringe 25 MG IV (13:37)
[2021-01-15] MEDS: 0.9% Saline Lock 10 ML Syringe IV (13:37)
[2021-01-15 16:30] LABS: Bedside Glucose 93 mg/dL (70-110)
[2021-01-15 17:29] LABS: Hematocrit 27.8 % (37-47); Hemoglobin 8.7 g/dL (12.0-15.0)
[2021-01-15] MEDS: MELATONIN 10 MG TABLET 5 MG PO (21:42)
[2021-01-15] MEDS: Atorvastatin Calcium 40 MG Tablet PO (21:42)
[2021-01-15 22:41] LABS: Bedside Glucose 165 mg/dL (70-110)
--- NOTE | 2021-01-15 23:51 | PCS.PANDOC ---
PANDEMIC DOCUMENTATION INITIATED: Date: 12/25/2020 Time: 190
[2021-01-16 00:39] LABS: Hemoglobin 9.1 g/dL (12.0-15.0)
[2021-01-16] MEDS: 0.9% Normal Saline 1,000 ML 75 ML IV (05:10)
[2021-01-16] MEDS: Levothyroxine 25 MCG TABLET PO (05:10)
[2021-01-16] MEDS: Acetaminophen 500 MG Tablet 1000 MG PO ×3 (05:11→21:09)
[2021-01-16 05:15] VITALS: BP 165/61; PULSE 63; RESP 18; TEMP 36.8; O2SAT 96
[2021-01-16 05:26] LABS: Bedside Glucose 151 mg/dL (70-110)
[2021-01-16 06:30] LABS: Absolute Lymphocyte Count 0.95 X10^3/uL (0.83-4.51); Absolute Neutrophil Count 3.5 X10^3/uL (2.0-7.7); Basophil# 0.02 X10^3/uL; Basophil% 0.4 % (0-1); Eosinophil# 0.29 X10^3/uL; Eosinophils% 5.5 % (0-5); Hematocrit 27.7 % (37-47); Hemoglobin 8.7 g/dL (12.0-15.0); Lymphocyte # 0.95 X10^3/ul (0.83-4.51); Lymphocyte % 18.1 % (19-41); Mean Corp Hgb Conc 31.4 g/dL (32-36); Mean Corpuscular Hgb 27.5 pg (27.0-32.0); Mean Corpuscular Volume 87.7 fL (81-99); Mean Platelet Vol. 9.9 fl (6.2-12.0); Monocyte# 0.44 X10^3/uL; Monocyte% 8.4 % (0-10); NRBC Flagged by Analyzer 0 % (0-5); Neutrophil # 3.53 X10^3/uL (2.7-7.7); Platelet Count 242 K/mm3 (150-450); RBC Distribution Width CV 19.4 % (11.6-14.6); Red Blood Count 3.16 M/mm3 (4.2-5.4); White Blood Count 5.3 K/mm3 (4.4-11.0)
[2021-01-16 07:06] LABS: Anion Gap 4 (5-15); BUN 19 mg/dL (7-18); Calcium,Total 8.4 mg/dL (8.5-10.1); Chloride 108 mmol/L (98-107); EST Glomerular Filtration Rate 64 mL/min (>60); Est Glom Filt Rate - Afr Amer 77 mL/min (>60); Estimated Creatinine Clearance 42.62 ml/min; Glucose 140 mg/dL (74-106); Sodium Level 137 mmol/L (136-145)
[2021-01-16 07:07] LABS: International Normalized Ratio 1.3; Prothrombin Time (Protime)PT. 15.4 SECONDS (11.7-14.9)
--- NOTE | 2021-01-16 08:33 | PCM.PN.SRG ---
Subjective Subjective Patient did get vitamin K and 1 unit FFP and 1 unit packed red blood cells. Patient's INR is 1.4, no further bowel movements overnight. Patient's hemoglobin is 8.7. Objective Data Objective Data Vital Signs: Vital Signs Temp Pulse Resp BP Pulse Ox 98.2 F 63 18 165/61 H 96 01/16/21 05:15 01/16/21 05:15 01/16/21 05:15 01/16/21 05:15 01/16/21 05:15 Oxygen Delivery Method Room Air Weight: 129 lb 3.054 oz Body Mass Index (BMI) 22.8 Intake & Output: Intake and Output for Last 24 Hours 01/14/21 01/15/21 01/16/21 23:59 23:59 23:59 Intake Total 3462.25 / 3462.25 1700 / 1700 Output Total 1575 / 1575 500 / 500 Balance 1887.25 / 1887.25 1200 / 1200 Lab / Micro Data Result Diagrams: 01/16/21 05:44 01/16/21 05:44 Labs: Laboratory Results - last 24 hr 01/14/21 19:55: Crossmatch See Detail 01/15/21 12:14: POC Glucose 169 H 01/15/21 16:24: POC Glucose 93 01/15/21 17:15: Hgb 8.7 L, Hct 27.8 L 01/15/21 21:38: POC Glucose 165 H 01/16/21 00:22: Hgb 9.1 L, Hct 29.0 L 01/16/21 05:13: POC Glucose 151 H 01/16/21 05:44: PT 15.4 H, INR 1.3 01/16/21 05:44: WBC 5.3, RBC 3.16 L, Hgb 8.7 L, Hct 27.7 L, MCV 87.7, MCH 27.5, MCHC 31.4 L, RDW Std Deviation 61.0 H, RDW Coeff of Adria 19.4 H, Plt Count 242, MPV 9.9, Immature Gran % (Auto) 0.600, Neut % (Auto) 67.0, Lymph % (Auto) 18.1 L, [place] % (Auto) 8.4, Eos % (Auto) 5.5 H, Baso % (Auto) 0.4, Absolute Neuts (auto) 3.5, Absolute Lymphs (auto) 0.95, Nucleated RBC % 0 01/16/21 05:44: Sodium 137, Potassium 4.0, Chloride 108 H, Carbon Dioxide 25.0, Anion Gap 4 L, BUN 19 H, Creatinine 0.90, Estim Creat Clear Calc 42.62, Est GFR (MDRD) Af Amer 77, Est GFR (MDRD) Non-Af 64, BUN/Creatinine Ratio 21.0 H, Glucose 140 H, Calcium 8.4 L Micro: Microbiology 01/14/21 Unknown Stool Stool Occult Blood (KETAN) - Final Occult Blood Positive 01/14/21 19:15 Nasal Secretion SARS-CoV-2 Antigen (Rapid) - Final Physical Exam Narrative Abdomen: Soft, nondistended, nontender, no peritoneal signs. Assessment & Plan Assessment/Plan (1) Acute GI bleeding: (2) Supratherapeutic INR: (3) Lupus anticoagulant disorder: (4) History of DVT (deep vein thrombosis): (5) History of aortic valve replacement with bioprosthetic valve: PLAN: We will plan for bowel prep today for EGD and colonoscopy for tomorrow. Discussed procedure with patient patient no further question this time. Jaky Barron M.D. Pager: [phone] [facility] [address] [place] [address], [facility], [address] [place] [address] Office: [phone] Charges/Coding Visit Charges Inpatient E&M: 04709 Subs Hosp L2
--- NOTE | 2021-01-16 10:09 | CASEMGMT ---
Social Work Note YUMIKO reviewed chart. Pt is listed as being from [facility]. SW in to speak with pt. SW introduced self and role at [facility]. Pt confirms she came from [facility], states she moved there in November 09, 2020. Pt confirms plan is to return when medically cleared. Pt states her daughter will be able to transport her back. SW faxed clinicals to [facility]. Plan: Return to [facility] when medically cleared Minnie Foote [employer]
[2021-01-16 10:17] VITALS: BP 156/73; PULSE 63; RESP 17; TEMP 37.1; O2SAT 94
[2021-01-16 10:26] VITALS: PULSE 64
[2021-01-16] MEDS: Sertraline 100 MG Tablet PO ×2 (10:26→21:09)
[2021-01-16] MEDS: Cholecalciferol (VIT D3) 25 MCG TABLET (1,000 UNITS) 50 MCG PO (10:26)
[2021-01-16] MEDS: Metoprolol(XL)Succ 25 MG Tablet PO (10:26)
[2021-01-16] MEDS: hydroCHLOROthiazide 12.5mg 12.5 MG PO (10:27)
[2021-01-16] MEDS: Losartan Potassium 25 MG Tablet PO (10:27)
[2021-01-16] MEDS: Multivitamin (Healthy Eyes) Capsule 2 CAP PO (10:27)
[2021-01-16 11:55] LABS: Bedside Glucose 176 mg/dL (70-110)
--- NOTE | 2021-01-16 13:08 | PN.HOSP_ITS ---
Subjective Subjective Patient seen and examined. She didnt have any more rectal bleeding overnight. She has no other complaints. Review of systems otherwise negative. Objective Data Objective Data Vital Signs: Vital Signs Temp Pulse Resp BP Pulse Ox 98.7 F 64 17 156/73 H 94 01/16/21 10:17 01/16/21 10:26 01/16/21 10:17 01/16/21 10:17 01/16/21 10:17 Oxygen Flow Rate (L/min) 95 Oxygen Delivery Method Room Air Weight: 129 lb 3.054 oz Body Mass Index (BMI) 22.8 Intake & Output: Intake and Output for Last 24 Hours 01/14/21 01/15/21 01/16/21 23:59 23:59 23:59 Intake Total 3462.25 / 3462.25 1700 / 1700 Output Total 1575 / 1575 500 / 500 Balance 1887.25 / 1887.25 1200 / 1200 Lab / Micro Data Result Diagrams: 01/16/21 05:44 01/16/21 05:44 Labs: Laboratory Results - last 24 hr 01/14/21 19:55: Crossmatch See Detail 01/15/21 16:24: POC Glucose 93 01/15/21 17:15: Hgb 8.7 L, Hct 27.8 L 01/15/21 21:38: POC Glucose 165 H 01/16/21 00:22: Hgb 9.1 L, Hct 29.0 L 01/16/21 05:13: POC Glucose 151 H 01/16/21 05:44: PT 15.4 H, INR 1.3 01/16/21 05:44: WBC 5.3, RBC 3.16 L, Hgb 8.7 L, Hct 27.7 L, MCV 87.7, MCH 27.5, MCHC 31.4 L, RDW Std Deviation 61.0 H, RDW Coeff of Adria 19.4 H, Plt Count 242, MPV 9.9, Immature Gran % (Auto) 0.600, Neut % (Auto) 67.0, Lymph % (Auto) 18.1 L , [place] % (Auto) 8.4, Eos % (Auto) 5.5 H, Baso % (Auto) 0.4, Absolute Neuts (auto) 3.5, Absolute Lymphs (auto) 0.95, Nucleated RBC % 0 01/16/21 05:44: Sodium 137, Potassium 4.0, Chloride 108 H, Carbon Dioxide 25.0, Anion Gap 4 L, BUN 19 H, Creatinine 0.90, Estim Creat Clear Calc 42.62, Est GFR (MDRD) Af Amer 77, Est GFR (MDRD) Non-Af 64, BUN/Creatinine Ratio 21.0 H, Glucose 140 H, Calcium 8.4 L 01/16/21 11:47: POC Glucose 176 H Micro: Microbiology 01/14/21 Unknown Stool Stool Occult Blood (KETAN) - Final Occult Blood Positive 01/14/21 19:15 Nasal Secretion SARS-CoV-2 Antigen (Rapid) - Final Physical Exam Const alert, oriented x3 and no apparent distress Exam Limitations: no limitations HEENT head/scalp atraumatic and moist oral mucous membranes Head and Scalp: normocephalic Eyes PERRL, EOMs intact bilaterally and conjunctivae normal Neck no lymphadenopathy Resp normal respiratory effort, no retractions, no use of accessory muscles and clear to auscultation bilaterally Cardio regular rate, regular rhythm, S1 normal heart sound, S2 normal heart sound, no murmurs and no gallops GI normal to inspection, nondistended, normoactive bowel sounds, soft to palpation, non-tender and non-distended Extremity normal to inspection, full ROM and no clubbing, cyanosis or edema Skin no rashes or lesions noted Neuro oriented x3, CN's II-XII intact bilaterally and moves all extremities Sensorium / Orientation: awake and alert Psych affect normal Assessment & Plan Assessment/Plan (1) Acute GI bleeding: (2) Supratherapeutic INR: PLAN: #Acute lower GI bleed * etiology is unclear; INR was supratherapeutic so this could be the etiology * INR is down to 1.3 now * Hb today is 8.7 * to receive FFPs and IV vitamin K * patient typed and crossed. Transfuse if Hb <7 * general surgery on board. coumadin on hold * IV PPI * hydrate with IVF * to be prepped for colonoscopy tomorrow #Supratherapeutic INR * INR was 5.7 on admission, and trended down to 4.1; is down to 1.3. * #Hypertension: on losartan HCTZ as well as metoprolol #CKD stage 3A: stable #Type 2 Diabetes mellitus * lantus held. ISS. Accuchecks ACHS * #History of DVT: * coumadin on hold. * Says she was told she has a history of lupus anticoagulant, and needed to continue anticoagulation. * continue holding coumadin for now. #Acute on chronic anemia * Hb today is 8.7 * type and screen. Transfuse if Hb <7 * coumadin on hold. * DVT prophylaxis: SCDs Charges/Coding Visit Charges Inpatient E&M: 13548 Subs Hosp L2
[2021-01-16] MEDS: Bisacodyl 5 MG Tablet 20 MG PO (14:51)
[2021-01-16] MEDS: Benzonatate 100 MG Capsule PO ×2 (14:54→21:08)
--- NOTE | 2021-01-16 15:20 | CASEMGMT ---
Pt screened using [facility] Palliative Care Screening Tool due to strata 3, pt did not meet criteria.
[2021-01-16] MEDS: Polyethylene Glycol 3350 BOWEL PREP PO (16:13)
[2021-01-16] MEDS: Insulin Lispro 100 UNIT/ML INSULN.PEN SC ×2 (17:01→21:15)
[2021-01-16 17:03] VITALS: BP 154/73; PULSE 66; RESP 18; TEMP 36.8; O2SAT 97
[2021-01-16 17:10] LABS: Bedside Glucose 249 mg/dL (70-110)
[2021-01-16 20:40] VITALS: PULSE 58
[2021-01-16] MEDS: Atorvastatin Calcium 40 MG Tablet PO (21:09)
[2021-01-16 21:21] LABS: Bedside Glucose 267 mg/dL (70-110)
[2021-01-16 21:30] VITALS: BP 172/86; PULSE 58; RESP 18; TEMP 36.8; O2SAT 96
[2021-01-17] VITALS (12 sets, daily range): BP systolic 137–192; BP diastolic 63–91; PULSE 65–98; RESP 16–18; TEMP 36.4–36.8; O2SAT 95–100
[2021-01-17] MEDS: MELATONIN 10 MG TABLET 5 MG PO (00:07)
[2021-01-17] MEDS: 0.9% Normal Saline 1,000 ML 75 ML IV ×2 (03:12→10:45)
[2021-01-17] MEDS: hydrALAZINE 20 MG/ML Vial 10 MG IV (04:21)
--- NOTE | 2021-01-17 06:00 | EKG12_ITS ---
Test Reason : AM EKG Blood Pressure : / mmHG Vent. Rate : 078 BPM Atrial Rate : 078 BPM P-R Int : 140 ms QRS Dur : 078 ms QT Int : 416 ms P-R-T Axes : 064 004 044 degrees QTc Int : 474 ms Normal sinus rhythm Nonspecific ST abnormality Abnormal ECG Confirmed by DOMINGO GERONIMO, JAIMEE ([id number]), editor school photograph SONG CAO ([id number]) on 01/18/2021 9:40:12 AM Referred By: DURGA Confirmed By:JAIMEE LANE MD
[2021-01-17 06:34] LABS: Absolute Lymphocyte Count 1.43 X10^3/uL (0.83-4.51); Basophil# 0.03 X10^3/uL; Basophil% 0.5 % (0-1); Eosinophil# 0.34 X10^3/uL; Eosinophils% 5.5 % (0-5); Hematocrit 30.6 % (37-47); Hemoglobin 9.7 g/dL (12.0-15.0); Lymphocyte # 1.43 X10^3/ul (0.83-4.51); Mean Corp Hgb Conc 31.7 g/dL (32-36); Mean Corpuscular Hgb 27.5 pg (27.0-32.0); Mean Corpuscular Volume 86.7 fL (81-99); Mean Platelet Vol. 9.7 fl (6.2-12.0); Monocyte# 0.41 X10^3/uL; Monocyte% 6.6 % (0-10); NRBC Flagged by Analyzer 0 % (0-5); Neutrophil # 3.95 X10^3/uL (2.7-7.7); Neutrophil % 63.6 % (47-70); Platelet Count 301 K/mm3 (150-450); RBC Distribution Width CV 19.3 % (11.6-14.6); RBC Distribution Width SD 59.9 fl (35.1-43.9); Red Blood Count 3.53 M/mm3 (4.2-5.4); White Blood Count 6.2 K/mm3 (4.4-11.0)
[2021-01-17 06:41] LABS: Bedside Glucose 175 mg/dL (70-110)
[2021-01-17 06:54] LABS: Anion Gap 6 (5-15); BUN 11 mg/dL (7-18); BUN/Creat Ratio 11.6 RATIO (10-20); Calcium,Total 8.7 mg/dL (8.5-10.1); Chloride 108 mmol/L (98-107); Creatinine, Serum 0.95 mg/dL (0.55-1.02); EST Glomerular Filtration Rate 60 mL/min (>60); Est Glom Filt Rate - Afr Amer 73 mL/min (>60); Estimated Creatinine Clearance 40.37 ml/min; Glucose 199 mg/dL (74-106); International Normalized Ratio 1.1; Potassium 3.8 mmol/L (3.5-5.1); Prothrombin Time (Protime)PT. 13.7 SECONDS (11.7-14.9); Sodium Level 137 mmol/L (136-145)
[2021-01-17 07:03] LABS: Partial Thromboplast Time 43.2 Seconds (24.1-36.2)
[2021-01-17 07:09] LABS: Thyroid Stim Hormone (TSH) 3.48 uIU/mL (0.358-3.74)
[2021-01-17 08:16] LABS: Hemoglobin A1c 7.8 % (3.8-5.6)
--- NOTE | 2021-01-17 09:35 | NURSING ---
pt remains off unit
--- NOTE | 2021-01-17 09:54 | OP.CCLET_ITS ---
01/17/2021 Alonzo Collado Re : Upper GI endoscopy procedure for Angy Reyes Stephanie Collado This procedure was performed on Sunday, January 17, 2021. My impressions and recommendations are as follows: Impressions : - Z-line variable, 40 cm from the incisors. - Normal examined jejunum. - No gross lesions in the stomach. - Normal esophagus. - No specimens collected. Recommendations : - Discharge patient to home. - Resume previous diet. - Continue present medications. My findings are described in the full procedure note, which is enclosed. If I can be of further assistance, please feel free to contact me at Doctor phone number(s): , Work: . Sincerely, MD Jaky Conti MD 01/17/2021 9:54:24 AM This report has been signed electronically.
--- NOTE | 2021-01-17 09:54 | OP.EGD_ITS ---
Patient Name: Angy Reyes Procedure Date: 01/17/2021 9:05 AM Date of : 1940 Age: 80 Procedure: Upper GI endoscopy Indications: Occult blood in stool Providers: Jaky Barron MD Medicines: Monitored Anesthesia Care Patient Profile: This is a 80 year old female. She is status post laparoscopic gastric bypass. Complications: No immediate complications. Procedure: Pre-Anesthesia Assessment: - Prior to the procedure, a History and Physical was performed, and patient medications and allergies were reviewed. The patient's tolerance of previous anesthesia was also reviewed. The risks and benefits of the procedure and the sedation options and risks were discussed with the patient. All questions were answered, and informed consent was obtained. Prior Anticoagulants: The patient has taken Coumadin (warfarin), last dose was 3 days prior to procedure. ASA Grade Assessment: Per anesthesia. After reviewing the risks and benefits, the patient was deemed in satisfactory condition to undergo the procedure. After obtaining informed consent, the endoscope was passed under direct vision. Throughout the procedure, the patient's blood pressure, pulse, and oxygen saturations were monitored continuously. The Endoscope was introduced through the mouth, and advanced to the jejunum. The upper GI endoscopy was accomplished without difficulty. The patient tolerated the procedure well. Scope In: 9:15:57 AM Scope Out: 9:17:21 AM Total Procedure Duration Time 0 hours 1 minute 24 seconds Findings: The Z-line was variable and was found 40 cm from the incisors. The examined jejunum was normal. No gross lesions were noted in the anastomosis. The examined esophagus was normal. Impression: - Z-line variable, 40 cm from the incisors. - Normal examined jejunum. - No gross lesions in the stomach. - Normal esophagus. - No specimens collected. Recommendation: - Discharge patient to home. - Resume previous diet. - Continue present medications. Procedure Code(s): --- Professional --- 24193, Esophagogastroduodenoscopy, flexible, transoral; diagnostic, including collection of specimen(s) by brushing or washing, when performed (separate procedure) Diagnosis Code(s): --- Professional --- K22.8, Other specified diseases of esophagus R19.5, Other fecal abnormalities CPT copyright 2017 [employer] [place] [employer]. All rights reserved. The codes documented in this report are preliminary and upon instructional materials director review may be revised to meet current compliance requirements. MD Jaky Conti MD 01/17/2021 9:54:24 AM This report has been signed electronically. Number of Addenda: 0 Note Initiated On: 01/17/2021 9:05 AM
--- NOTE | 2021-01-17 09:59 | OP.CCLET_ITS ---
01/17/2021 Alonzo Collado Re : Colonoscopy procedure for Angy Peoplesjimmy Collado This procedure was performed on Sunday, January 17, 2021. My impressions and recommendations are as follows: Impressions : - Hemorrhoids found on perianal exam. - One less than 5 mm polyp in the cecum, removed with a cold biopsy forceps. Resected and retrieved. - Non-bleeding internal hemorrhoids. - The examination was otherwise normal. Recommendations : - Discharge patient to home. - Resume previous diet. - Continue present medications. - Await pathology results. - Repeat colonoscopy in 5 years for surveillance based on pathology results. My findings are described in the full procedure note, which is enclosed. If I can be of further assistance, please feel free to contact me at Doctor phone number(s): , Work: . Sincerely, MD Jaky Conti MD 01/17/2021 9:58:29 AM This report has been signed electronically.
--- NOTE | 2021-01-17 09:59 | OP.COLON_ITS ---
Patient Name: Angy Reyes Procedure Date: 01/17/2021 9:19 AM Date of : 1940 Age: 80 Procedure: Colonoscopy Indications: Gastrointestinal occult blood loss, Acute post hemorrhagic anemia Providers: Jaky Barron MD Medicines: Monitored Anesthesia Care Patient Profile: This is a 80 year old female. She is status post laparoscopic gastric bypass. Last Colonoscopy: January 2019. Complications: No immediate complications. Procedure: Pre-Anesthesia Assessment: - Prior to the procedure, a History and Physical was performed, and patient medications and allergies were reviewed. The patient's tolerance of previous anesthesia was also reviewed. The risks and benefits of the procedure and the sedation options and risks were discussed with the patient. All questions were answered, and informed consent was obtained. Prior Anticoagulants: The patient has taken Coumadin (warfarin), last dose was 3 days prior to procedure. ASA Grade Assessment: Per anesthesia. After reviewing the risks and benefits, the patient was deemed in satisfactory condition to undergo the procedure. After I obtained informed consent, the scope was passed under direct vision. Throughout the procedure, the patient's blood pressure, pulse, and oxygen saturations were monitored continuously. The colonoscope was introduced through the anus and advanced to the cecum, identified by the appendiceal orifice, ileocecal valve and palpation. The colonoscopy was performed without difficulty. The patient tolerated the procedure well. The quality of the bowel preparation was good. Scope In: 9:20:09 AM Scope Withdrawal Time 0 hours 9 minutes 15 seconds Scope Out: 9:47:25 AM Total Procedure Duration Time 0 hours 27 minutes 16 seconds Findings: Hemorrhoids were found on perianal exam. A less than 5 mm polyp was found in the cecum. The polyp was sessile. The polyp was removed with a cold biopsy forceps. Resection and retrieval were complete. Non-bleeding internal hemorrhoids were found. The hemorrhoids were Grade I (internal hemorrhoids that do not prolapse). The exam was otherwise without abnormality. Impression: - Hemorrhoids found on perianal exam. - One less than 5 mm polyp in the cecum, removed with a cold biopsy forceps. Resected and retrieved. - Non-bleeding internal hemorrhoids. - The examination was otherwise normal. Recommendation: - Discharge patient to home. - Resume previous diet. - Continue present medications. - Await pathology results. - Repeat colonoscopy in 5 years for surveillance based on pathology results. Procedure Code(s): --- Professional --- 72248, Colonoscopy, flexible; with biopsy, single or multiple Diagnosis Code(s): --- Professional --- K64.0, First degree hemorrhoids D12.0, Benign neoplasm of cecum R19.5, Other fecal abnormalities D62, Acute posthemorrhagic anemia CPT copyright 2017 [employer]. All rights reserved. The codes documented in this report are preliminary and upon computational geneticist review may be revised to meet current compliance requirements. MD Jaky Conti MD 01/17/2021 9:58:29 AM This report has been signed electronically. Number of Addenda: 0 Note Initiated On: 01/17/2021 9:19 AM
--- NOTE | 2021-01-17 10:15 | COLBX_PTH ---
PATIENT: SONNY HOWARD LOC: MS3 U#:[id number] AGE/SX: 80/F [place] [facility] [place]14[place]: Dr. Brinda Artis MD : 1940 BED: 1 DIS: 01/17/2021 SPEC #: [id number] RECD: 01/17/21 11:10 STATUS: KALINA MULLEN #: [id number] CAREY: 01/17/21 10:[address]: Brinda Artis DEPT: SURGICAL PATHOLOGY RECD BY: Keila Cuevas ENTERED: 01/17/21 12:57 SP TYPE: COLON BX OTHR DR: DO Dr. Davidson Saba MD Dr. Tamera Robotham, MD Tissues: Cecum, NOS Procedures: Surgery Specimen Level IV HEADER OPERATION: Colonoscopy, EGD ([facility] [place]) PRE-OP DIAGNOSIS: Acute GI bleeding TISSUE SUBMITTED: Cecum MICROSCOPIC DIAGNOSIS Cecum, biopsy: Fragments of tubular adenoma. AM:am 01/18/21 MICROSCOPIC DESCRIPTION Slides are reviewed. GROSS DESCRIPTION Received is one container labeled with the patient name and designated cecum. The specimen consists of one irregular fragment of light silva soft tissue that measures x x cm. The specimen is totally submitted in one cassette. /AM:am 01/17/21 TC:5 CPT:05928
[2021-01-17] MEDS: Losartan Potassium 25 MG Tablet PO (10:37)
[2021-01-17] MEDS: Multivitamin (Healthy Eyes) Capsule 2 CAP PO (10:37)
[2021-01-17] MEDS: Metoprolol(XL)Succ 25 MG Tablet PO (10:37)
[2021-01-17] MEDS: Sertraline 100 MG Tablet PO (10:38)
[2021-01-17] MEDS: Cholecalciferol (VIT D3) 25 MCG TABLET (1,000 UNITS) 50 MCG PO (10:38)
[2021-01-17] MEDS: hydroCHLOROthiazide 12.5mg 12.5 MG PO (10:38)
[2021-01-17] MEDS: Acetaminophen 500 MG Tablet 1000 MG PO (10:39)
--- NOTE | 2021-01-17 11:03 | NURSING ---
bp elevated, started back on scheduled b/p meds (npo since midnight) pt given yogurt to eat and meds-taking water without difficulty amb to BR for void/stool-no visible blood
[2021-01-17 11:10] LABS: Bedside Glucose 164 mg/dL (70-110)
--- NOTE | 2021-01-17 11:58 | CASEMGMT ---
Addendum entered by Minnie Foote 01/17/21 14:41: Pt is being discharged back to [facility] today, pt will need new COVID test. YUMIKO placed a call to [facility] and spoke with Jayleen and updated her that pt will be discharged back to [facility] today. Jayleen states understanding. SW in to speak with pt. Pt's daughter Deyanira present at [facility]. YUMIKO updated pt and Deyanira that pt can discharge back to [facility] today and Deyanira is able to transport pt once pt's COVID test results are available. Pt and Deyanira state understanding. YUMIKO faxed discharge summary, COVID test/tool to Jayleen at [facility]. YUMIKO wrote on fax coversheet that pt's daughter is here at [facility] to transport pt. Plan: Return to [facility], daughter to transport pt. Original Note: Social Work Note YUMIKO placed a call to [facility] and spoke with Jayleen. Jayleen states pt will need COVID test on day of discharge and states that it is ok for pt's daughter to transport her back to [facility]. YUMIKO faxed updated clinicals to [facility]. Plan: Return to [facility] once medically cleared Minnie Foote NAVAL DESIGNER, WAREHOUSE ANALYST
--- NOTE | 2021-01-17 13:49 | PCM.DC.SUM ---
Providers Date of Admission: 01/14/21 Primary Care Physician: Dr. Alonzo Collado, Consultations 01/14/21 23:47 Consult: General Surgery Routine Consulting Provider: Jaky Barron Reason for Consult: GI bleed EMERGENT Consult: No MD Notified: Yes Date Notified: 01/14/21 Time Notified: 21:34 Method of Notification: Provider Initiated Comments:: notified by ER MD per report Reason For Visit: ACUTE LOWER GI BLEED Diagnosis Discharge Diagnosis (1) Acute GI bleeding: Status: Acute Code(s): K92.2 - Gastrointestinal hemorrhage, unspecified (2) Supratherapeutic INR: Status: Acute Code(s): R79.1 - Abnormal coagulation profile Medications at Discharge Home Medications atorvastatin 80 mg tablet 40 mg PO QHS tab 11/24/18 warfarin 5 mg tablet 7.5 mg PO SUMOWETHFRSA 11/24/18 acetaminophen 1,000 mg PO Q6H 01/31/19 sertraline 100 mg tablet 100 mg PO BID tab 03/15/19 calcium carb-mag ox-zinc sulf 3 tab PO DAILY 02/17/20 levothyroxine 25 mcg PO DAILY 02/17/20 ropinirole 0.25 mg PO QHS PRN 02/17/20 PreserVision AREDS-2 2 tab PO DAILY 01/14/21 ascorbate calcium (vitamin C) 500 mg PO DAILY 01/14/21 cholecalciferol (vitamin D3) [Vitamin D3] 2,000 unit PO DAILY 01/14/21 d-mannose 500 mg PO TID 01/14/21 insulin glargine 10 unit SUBCUT DAILY 01/14/21 losartan-hydrochlorothiazide 1 tab PO DAILY 01/14/21 melatonin 5 mg PO QHS 01/14/21 metoprolol succinate 25 mg PO DAILY 01/14/21 warfarin 5 mg PO TU 01/14/21 tramadol 50 mg PO Q6H PRN 01/15/21 zoledronic [id number]-[id number] [Reclast] ea IV Q12M 01/15/21 Hospital Course Operations None Procedures Colonoscopy Summary of Care Provided Minutes Spent on Discharge: 45 Hospital Course: Patient is a 80 y/o F with a PMH as outlined who was admitted via the ED with a complaint of bloody bowel movement which started about 24 hours prior to admission. She had associated nausea adn fatigue as well as a productive cough. SHe was on coumadin. She was admitted and managed for acute lower GI bleed. General surgery was consulted. INR was also supratherapeutic. INR was subsequently reversed with vitamin K and FFPs as bleeding continued. She was also transfused with 2 units of PRBCs. She had colonoscopy and EGD on 01/17/2021: EGD was normal, and colonoscopy showed hemorrhoids <5mm in the polyp which was removed with a cold biopsy forcep, but was otherwise normal. Patient remained stable and was discharged home. Per general surgery, she could resume her coumadin due to her history of blood clots due to lupus anticoagulant. If bleeding recurred, then anticoagulant may need to be stopped. Patient seen and examined. She had no complaints and felt well after procedure. Review of systems was otherwise negative. Labs and vitals reviewed. Home meds reviewed and reconciled. Physical Exam Const alert, oriented x3 and no apparent distress General Appearance: cooperative, comfortable and well kempt Exam Limitations: no limitations HEENT normocephalic, head/scalp atraumatic and moist oral mucous membranes Eyes PERRL, EOMs intact bilaterally and conjunctivae normal Neck no lymphadenopathy Resp normal respiratory effort, no retractions, no use of accessory muscles and clear to auscultation bilaterally Cardio regular rate, regular rhythm, S1 normal heart sound, S2 normal heart sound, no murmurs and no gallops GI normal to inspection, nondistended, normoactive bowel sounds, soft to palpation, non-tender and non-distended Extremity normal to inspection, full ROM and no clubbing, cyanosis or edema Skin no rashes or lesions noted Neuro oriented x3, CN's II-XII intact bilaterally and moves all extremities Sensorium / Orientation: awake and alert Psych affect normal Weight / BMI Weight Weight: 129 lb 3.054 oz Body Mass Index (BMI) 22.8 ABG / Lab / Microbiology Data Result Diagrams: 01/17/21 06:05 01/17/21 06:05 Laboratory: Laboratory Results - last 24 hr 01/16/21 17:00: POC Glucose 249 H 01/16/21 21:13: POC Glucose 267 H 01/17/21 06:03: POC Glucose 175 H 01/17/21 06:05: PT 13.7, INR 1.1 01/17/21 06:05: WBC 6.2, RBC 3.53 L, Hgb 9.7 L, Hct 30.6 L, MCV 86.7, MCH 27.5, MCHC 31.7 L, RDW Std Deviation 59.9 H, RDW Coeff of Adria 19.3 H, Plt Count 301, MPV 9.7, Immature Gran % (Auto) 0.800, Neut % (Auto) 63.6, Lymph % (Auto) 23.0, [place] % (Auto) 6.6, Eos % (Auto) 5.5 H, Baso % (Auto) 0.5, Absolute Neuts (auto) 4.0, Absolute Lymphs (auto) 1.43, Nucleated RBC % 0 01/17/21 06:05: Sodium 137, Potassium 3.8, Chloride 108 H, Carbon Dioxide 23.0, Anion Gap 6, BUN 11, Creatinine 0.95, Estim Creat Clear Calc 40.37, Est GFR (MDRD) Af Amer 73, Est GFR (MDRD) Non-Af 60, BUN/Creatinine Ratio 11.6, Glucose 199 H, Calcium 8.7 01/17/21 06:05: APTT 43.2 H 01/17/21 06:05: TSH 3.48 01/17/21 06:05: Hemoglobin A1c 7.8 H 01/17/21 10:41: POC Glucose 164 H Microbiology: Microbiology 01/14/21 Unknown Stool Stool Occult Blood (KETAN) - Final Occult Blood Positive 01/14/21 19:15 Nasal Secretion SARS-CoV-2 Antigen (Rapid) - Final D/C Instructions Discharge Diet: Low fat / Low cholesterol Discharge Activity: Return to Normal Activity Weight Bearing Status: Weight bearing as tolerated Call your doctor if you observe: Shortness of breath, Dizziness, Chest pain and - (rectal bleeding) Meaningful Use Info Meaningful Use Diagnoses (Choose all that apply): None applicable Discharge Plan Admission Admit Date/Time: 01/14/21 21:35 Primary Reason for Your Visit: lower GI bleed Attending Provider: Brinda Artis Primary Care Provider: Alonzo Collado Consulting Providers: Jaky Barron Instructions Patient Instructions: Bleeding Gastrointestinal, Understanding Rectal Bleeding, ED Lower GI Bleeding (Stable) Additional Instructions / Restrictions: resume coumadin today. Follow up with PCP in 1-2 days to check INR. Target INR is 2-3. If bleeding recurs, to call PCP or go to the ED Discharge Orders/Prescriptions Prescriptions: Continued atorvastatin 80 mg tablet 40 mg PO QHS RF: 0 warfarin 5 mg tablet 7.5 mg PO SUMOWETHFR RF: 0 sertraline 100 mg tablet 100 mg PO BID RF: 0 acetaminophen 500 MG tablet 1,000 mg PO Q6H RF: 0 levothyroxine 25 MCG tablet 25 mcg PO DAILY RF: 0 ropinirole 0.25 MG tablet 0.25 mg PO QHS PRN (Reason: restless legs) RF: 0 calcium carb-mag ox-zinc sulf 1 EACH tablet 3 tab PO DAILY RF: 0 warfarin 5 mg Tablet 5 mg PO TU RF: 0 losartan-hydrochlorothiazide 50-12.5 mg Tablet 1 tab PO DAILY RF: 0 ascorbate calcium (vitamin C) 500 mg Capsule 500 mg PO DAILY RF: 0 insulin glargine 100 unit/mL Cartridge 10 unit SUBCUT DAILY RF: 0 cholecalciferol (vitamin D3) [Vitamin D3] 25 mcg (1,000 unit) Tablet 2,000 unit PO DAILY RF: 0 PreserVision AREDS-2 250-90-40-1 mg Capsule 2 tab PO DAILY RF: 0 d-mannose 500 mg Capsule 500 mg PO TID RF: 0 melatonin 5 mg Tablet 5 mg PO QHS RF: 0 metoprolol succinate 25 mg tablet extended release 24 hr 25 mg PO DAILY RF: 0 zoledronic fehc-wkvwetws-roora [Reclast] 5 mg/100 mL Piggyback IV Q12M RF: 0 tramadol 50 mg tablet 50 mg PO Q6H PRN (Reason: Pain) RF: 0 Referrals / Follow Up: Alonzo Collado DO [Primary Care Provider] - Within 2 Weeks Jaky Barron MD [STAFF PHYSICIAN] - Within 2 Weeks Disposition Disposition (needs filled in before D/C Order can be placed): Home, Self Care Charges/Coding Visit Charges Inpatient E&M: 96528 Disch Hosp
== END 2021-01-17 17:00 | disposition home or self-care (01) | DRG 378 ==
LOC: ED 20:07 → MS3 22:29
PROVIDERS: Anesthesiology; Surgery; Admitting Provider Hospitalist; Emergency Provider Student in an Organized Health Care Education/Training Program; PCP Family Medicine; Visit Provider Student in an Organized Health Care Education/Training Program
PROC: 0DJD8ZZ Inspection of Lower Intestinal Tract, Via Natural or Artificial Opening Endoscopic (ICD-10-PCS; CPT 45378; principal; 2021-01-17 10:10)
DX: K92.1 Melena (principal); J43.9 Emphysema, unspecified; E11.22 Type 2 diabetes mellitus with diabetic chronic kidney disease; E11.65 Type 2 diabetes mellitus with hyperglycemia; K56.1 Intussusception; D68.32 Hemorrhagic disorder due to extrinsic circulating anticoagulants; D68.62 Lupus anticoagulant syndrome; Z79.4 Long term (current) use of insulin; N18.31 Chronic kidney disease, stage 3a; D62 Acute posthemorrhagic anemia; T45.515A Adverse effect of anticoagulants, initial encounter; M19.90 Unspecified osteoarthritis, unspecified site; F32.9 Major depressive disorder, single episode, unspecified; E78.5 Hyperlipidemia, unspecified; I12.9 Hypertensive chronic kidney disease with stage 1 through stage 4 chronic kidney disease, or unspecified chronic kidney disease; D12.0 Benign neoplasm of cecum; K64.0 First degree hemorrhoids; Z79.899 Other long term (current) drug therapy; Z86.718 Personal history of other venous thrombosis and embolism; Z79.01 Long term (current) use of anticoagulants; Z87.891 Personal history of nicotine dependence; Z95.3 Presence of xenogenic heart valve; Z98.84 Bariatric surgery status
CPT/HCPCS: 43235; 45380; 36415; 71045; 80048; 80053; 82274; 82962; 83036; 84145; 84443; 84484; 85014; 85018; 85025; 85610; 85730; 86850; 86900; 86901; 86920; 87426; 88305; 93005; 96361; 96365; 96375; 97802; 99218; 99284; J7030; J7040; P9016; P9017; A4216; G0378; J2405; J3490

== ENCOUNTER 2021-04-09 14:32 | Inpatient (IN) | payer OTHER, SELFPAY ==
[2021-04-09] VITALS (10 sets, daily range): BP systolic 123–161; BP diastolic 47–107; PULSE 63–86; RESP 13–20; TEMP 36.4–36.7; O2SAT 97–100; BMI 23.9; BMI 23.4
--- NOTE | 2021-04-09 16:12 | EKG12_ITS ---
Test Reason : GENERAL Blood Pressure : / mmHG Vent. Rate : 066 BPM Atrial Rate : 066 BPM P-R Int : 134 ms QRS Dur : 080 ms QT Int : 448 ms P-R-T Axes : 002 032 057 degrees QTc Int : 469 ms Normal sinus rhythm Nonspecific ST and T wave abnormality Abnormal ECG Confirmed by DOMINGO GERONIMO, JAIMEE ([id number]), writer editor SONG CAO ([id number]) on 04/10/2021 8:35:48 AM Referred By: EDITH Confirmed By:JAIMEE LANE MD
--- NOTE | 2021-04-09 16:13 | EX.ED.DYSGE1 ---
HPI History of Present Illness Chief Complaint: General Illness Informant: patient and family Onset/Context/Timing Onset: Weeks Context: Gradual Onset Timing: Continuous Current Severity: Mild Maximum Severity: Mild Narrative Narrative: 72-year-old female extensive past medical history of diabetes, hypertension, prior GI bleed requiring transfusion for which they did endoscopy and could not find a specific source. She had a prior DVT many years ago for which she is on Coumadin due to lupus anticoagulant. She is also had a prior cardiac valve repaired. Patient states she just been generally weak. She says been going on for quite some times weeks to months she is gotten worse. Last couple days she has felt somewhat dizzy. No headache. No chest pain. No shortness of breath. No cough. No fever or chills. No vomiting or diarrhea. No dysuria. No shortness of breath. Prior similar symptoms: Yes Recent Illness/Hospitalization: No PFSH PFS Medical History Acute GI bleeding Depression Diabetes mellitus, type II Essential hypertension GI bleed (01/2019) History of DVT (deep vein thrombosis) HTN (hypertension) Hyperlipidemia Lupus anticoagulant disorder (1994) Nonrheumatic aortic (valve) stenosis with insufficiency Osteoarthritis Osteoporosis Small bowel intussusception Supratherapeutic INR Vitamin B 12 deficiency Home Medications atorvastatin 80 mg tablet 40 mg PO QHS tab 11/24/18 [History Last Taken 01/13/21 22:00] warfarin 5 mg tablet 7.5 mg PO SUMOWETHFRSA 11/24/18 [History Last Taken 01/12/21 20:00] acetaminophen 1,000 mg PO Q6H 01/31/19 [History Last Taken 01/13/21 22:00] sertraline 100 mg tablet 100 mg PO BID tab 03/15/19 [History Last Taken 01/14/21 12:00] calcium carb-mag ox-zinc sulf 3 tab PO DAILY 02/17/20 [History Last Taken 01/13/21 08:00] levothyroxine 25 mcg PO DAILY 02/17/20 [History Last Taken 01/14/21 08:00] ropinirole 0.25 mg PO QHS PRN 02/17/20 [History Last Taken Unknown] PreserVision AREDS-2 2 tab PO DAILY 01/14/21 [History Last Taken 01/13/21 08:00] ascorbate calcium (vitamin C) 500 mg PO DAILY 01/14/21 [History Last Taken Unknown] cholecalciferol (vitamin D3) [Vitamin D3] 2,000 unit PO DAILY 01/14/21 [History Last Taken 01/13/21 08:00] d-mannose 500 mg PO TID 01/14/21 [History Last Taken 01/13/21 08:00] insulin glargine 10 unit SUBCUT DAILY 01/14/21 [History Last Taken 01/14/21 17:00] losartan-hydrochlorothiazide 1 tab PO DAILY 01/14/21 [History Last Taken 01/14/21 08:00] melatonin 5 mg PO QHS 01/14/21 [History Last Taken 01/13/21 22:00] metoprolol succinate 25 mg PO DAILY 01/14/21 [History Last Taken 01/14/21 08:00] warfarin 5 mg PO TU 01/14/21 [History Last Taken Unknown] tramadol 50 mg PO Q6H PRN 01/15/21 [History Last Taken Unknown] zoledronic [id number]-[id number] [Reclast] ea IV Q12M 01/15/21 [History Last Taken Unknown] Allergy/AdvReac Type Severity Reaction Status Date / Time codeine Allergy Intermediate itchy Verified 04/09/21 14:36 lisinopril Allergy Intermediate coughing Verified 04/09/21 14:36 seasonal Allergy Other Uncoded 04/09/21 14:36 Family History Mother , Age 86 CAD (coronary artery disease) Alzheimers disease Myocardial infarction, Onset Age: 70 Father , Age 68 CAD (coronary artery disease) Alcoholism Hypertension Sister Diabetes Hypertension Breast cancer Sister , 46 No problems noted. Brother Cancer bladder and prostate Hypertension Heart disease Brother No problems noted. Surgical History History of aortic valve replacement with bioprosthetic valve (02/15/19) History of appendectomy History of section History of elbow surgery (2011) History of gastric bypass History of hip surgery (2011) History of open reduction and internal fixation (ORIF) procedure (2009) History of right and left heart catheterization (11/30/18) History of tonsillectomy Social History adopted: No household members: none housing: assisted living facility number of children: 2 current occupational status: retired current occupational exposures/hazards: No pets and animals: No leisure activities: reading and other history of recent travel: No sexually active: No Smoking Status: Former smoker Tobacco: How many years used: 8 how long ago did patient quit smokin years ago alcohol intake: current Alcohol type: wine details: wine substance use type: does not use diet: diabetic well-balanced diet: about half the time during the past year weight has: remained stable what type of physical activity do you participate in: none mitali/restoration: [employer] do you feel safe at home: Yes ROS ROS ED ROS Narrative Fatigue. Review of Systems ROS Unobtainable: Denies due to encephalopathy Constitutional Constitutional ED: Denies fever(s) Eyes Eyes: Denies change in vision ENT ENT ED: Denies ear pain Cardiovascular Cardiovascular: Denies chest pain Respiratory/Chest Respiratory/Chest: Denies cough or dyspnea Gastrointestinal Gastrointestinal: Denies abdominal pain, diarrhea, nausea or vomiting Genitourinary Genitourinary ED: Denies dysuria Musculoskeletal Musculoskeletal: Denies myalgias Integumentary Denies rash Neurologic Neurologic: Denies headache(s) Psychiatric Psychiatric: Denies depression Endocrine Endocrinology: Denies polyuria Allergic/Immunologic Allergic/Immunologic ED: Denies urticaria EXAM Physical Exam Narrative Exam Narrative: 72-year-old female no acute distress vital signs stable afebrile. Pulse ox 9% on room air no hypoxia. HEENT exam unremarkable. Moist remembers. Neck nontender no JVD. Lungs clear to auscultation bilaterally. Heart regular rate and rhythm. Rate about 80. Abdomen soft nontender normal bowel sounds no peritoneal signs. Moving all 4 extremities. Calves are nontender without edema or cords. Neurologically she is awake and alert with no focal motor deficits. Benign exam. She is slightly pale. Const Vital Signs: 04/09/21 14:33 04/09/21 16:34 04/09/21 16:54 Temperature 97.5 F L Temperature Source Temporal Pulse Rate 79 64 Respiratory Rate 20 H 18 Respiratory Effort Normal Non-Labored Respiratory Pattern Normal Blood Pressure 130/47 H 136/56 H Blood Pressure Mean 74 82 Pulse Ox 100 100 Oxygen Delivery Method Room Air Room Air Positive well nourished and well developed; Negative for obese, cachectic, contractures or unkempt General Appearance ED: well developed, NAD and pallor; Negative for unkempt, cachectic, contractures, cyanotic or diaphoretic Nutritional Appearance: Negative for cachectic or obese HEENT Reports moist mucous membranes Negative for trauma Eyes PERRL and EOMs intact bilaterally General Eye ED: Yes pale conjunctiva Neck no lymphadenopathy, supple and no JVD General: Negative for tenderness Chest Wall inspection of chest normal and palpation of chest normal Resp normal respiratory effort and clear to auscultation bilaterally Effort and Inspection: Negative for pain with movement Auscultation: Negative for rales, rhonchi or wheezes Cardio regular rate, regular rhythm, S1 normal heart sound, S2 normal heart sound and no murmurs GI normal to inspection, nondistended, normoactive bowel sounds, non-tender, non-distended and no masses Inspection: Negative for abdominal distention Auscultation: normoactive bowel sounds Palpation: soft; Negative for tender, guarding or rebound tenderness present Back/Spine no CVA tenderness General Back: Negative for CVA tenderness Cervical Spine: Negative for cervical spine tenderness Thoracic Spine / Upper Back: Negative for thoracic spinal tenderness Extremity normal to inspection General Extremety ED: Negative for edema or tenderness General Extremity: Negative for edema Psych mental status grossly normal Appearance: Negative for unkempt Mood & Affect: Negative for depressed or tearful Skin no rashes or lesions noted and no wounds General Skin Exam: pallor; Negative for jaundice MDM MDM MDM Narrative Medical decision making narrative: 80-year-old female no acute distress. Complaining of generalized fatigue. Sterile prior history of similar with anemia. You should be worked screening labs. Her physical exam is benign. Repeat patient is doing well at 5:40 PM. Rectal exam is grossly negative no black or melanotic stool. Patient will be given 2 units of packed red blood cells. Hospitalist will admit the patient. And we did give her vitamin K due to her coagulopathy due to being on Coumadin. Lab Data Attestation: I reviewed the patient's lab results. Lab results narrative: CBC showed a white count 6.3. Hemoglobin was 5.4 with hematocrit of 18.5 and platelets of 242. Electrolytes showed a gap of 8 BUN of 33 creatinine 1.54. Glucose of 160. Liver enzymes unremarkable. Urinalysis negative. Patient is on Coumadin her INR is 3.9. Labs: Laboratory Results - last 24 hr 04/09/21 04/09/21 04/09/21 16:10 16:30 16:30 WBC 6.3 RBC 2.45 L Hgb 5.4 L* Hct 18.5 L MCV 75.5 L MCH 22.0 L MCHC 29.2 L RDW Std Deviation 47.4 H RDW Coeff of Adria 17.3 H Plt Count 242 MPV 10.4 Immature Gran % (Auto) 0.500 Neut % (Auto) 67.5 Lymph % (Auto) 18.3 L Calloway % (Auto) 9.9 Eos % (Auto) 3.5 Baso % (Auto) 0.3 Absolute Neuts (auto) 4.3 Absolute Lymphs (auto) 1.16 Nucleated RBC % 0.6 Differential Comment SCANNED Diff Path Review May foll Polychromasia 1+ Hypochromasia 2+ Anisocytosis 2+ Microcytosis 1+ Macrocytosis 1+ PT INR Sodium 137 Potassium 3.5 Chloride 106 Carbon Dioxide 23.0 Anion Gap 8 BUN 33 H Creatinine 1.54 H Estim Creat Clear Calc 24.91 Est GFR (MDRD) Af Amer 42 L Est GFR (MDRD) Non-Af 35 L BUN/Creatinine Ratio 21.4 H Glucose 160 H Calcium 8.7 Total Bilirubin 0.40 AST 26 ALT 16 Alkaline Phosphatase 84 Total Protein 7.5 Albumin 3.2 Globulin 4.3 H Albumin/Globulin Ratio 0.7 L Urine Color Yellow Urine Clarity Clear Urine pH 5.0 Ur Specific Dennison 1.015 Urine Protein 15 H Urine Glucose (UA) Normal Urine Ketones Negative Urine Occult Blood Negative Urine Nitrite Negative Urine Bilirubin Negative Urine Urobilinogen Normal Ur Leukocyte Esterase 25 H Urine RBC 0 SEEN Urine WBC 0 SEEN Ur Squamous Epith Cells 0 SEEN Urine Bacteria 0 SEEN Urine Mucus 0 SEEN Crossmatch 04/09/21 04/09/21 16:30 16:30 WBC RBC Hgb Hct MCV MCH MCHC RDW Std Deviation RDW Coeff of Adria Plt Count MPV Immature Gran % (Auto) Neut % (Auto) Lymph % (Auto) Calloway % (Auto) Eos % (Auto) Baso % (Auto) Absolute Neuts (auto) Absolute Lymphs (auto) Nucleated RBC % Differential Comment Diff Path Review Polychromasia Hypochromasia Anisocytosis Microcytosis Macrocytosis PT 37.2 H INR 3.9 Sodium Potassium Chloride Carbon Dioxide Anion Gap BUN Creatinine Estim Creat Clear Calc Est GFR (MDRD) Af Amer Est GFR (MDRD) Non-Af BUN/Creatinine Ratio Glucose Calcium Total Bilirubin AST ALT Alkaline Phosphatase Total Protein Albumin Globulin Albumin/Globulin Ratio Urine Color Urine Clarity Urine pH Ur Specific Dennison Urine Protein Urine Glucose (UA) Urine Ketones Urine Occult Blood Urine Nitrite Urine Bilirubin Urine Urobilinogen Ur Leukocyte Esterase Urine RBC Urine WBC Ur Squamous Epith Cells Urine Bacteria Urine Mucus Crossmatch See Detail Radiography Chest X-Ray - ED: 1 View, Read by ED Physician, Heart, Lungs, Mediastinum, Bony Structures, No Acute Disease and Chronic Changes Diagnostic Testing: Clinical Impression(s) from Imaging Studies Chest X-Ray 04/09/21 17:05 IMPRESSION: There are no acute findings. Electronically Signed: Nagi Harper MD at 17:21 EST , Service support , Chest x-ray, portable, single view shows no acute abnormality. Normal cardiac silhouette mediastinum. No infiltrate. No CHF. Interpreted by myself. Rhythm Strip Rhythm Strip: Sinus Rhythm Rate: 66 Ectopy: None EKG Initial EKG: Attestation: I personally reviewed and interpreted this EKG as follows: Interpretation: Sinus Rhythm and No Acute Injury Pattern Comments: Normal sinus rhythm rate of 66 no acute signs of [place] nor ischemia. Prior EKG tracings: not available for review Discharge Plan Dx/Rx/DC Orders Clinical Impression: Fatigue, Acute anemia, Transfusion of blood during current hospitalisation Disposition Disposition: Acute Care Hospital [facility]
[2021-04-09 16:48] LABS: Absolute Lymphocyte Count 1.16 X10^3/uL (0.83-4.51); Absolute Neutrophil Count 4.3 X10^3/uL (2.0-7.7); Basophil# 0.02 X10^3/uL; Basophil% 0.3 % (0-1); Eosinophil# 0.22 X10^3/uL; Eosinophils% 3.5 % (0-5); Hematocrit 18.5 % (37-47); Lymphocyte # 1.16 X10^3/ul (0.83-4.51); Lymphocyte % 18.3 % (19-41); Mean Corp Hgb Conc 29.2 g/dL (32-36); Mean Corpuscular Volume 75.5 fL (81-99); Mean Platelet Vol. 10.4 fl (6.2-12.0); Monocyte# 0.63 X10^3/uL; Monocyte% 9.9 % (0-10); NRBC Flagged by Analyzer 0.6 % (0-5); Neutrophil # 4.28 X10^3/uL (2.7-7.7); Neutrophil % 67.5 % (47-70); POSITIVE COUNT YES; Platelet Count 242 K/mm3 (150-450); RBC Distribution Width CV 17.3 % (11.6-14.6); RBC Distribution Width SD 47.4 fl (35.1-43.9); Red Blood Count 2.45 M/mm3 (4.2-5.4); White Blood Count 6.3 K/mm3 (4.4-11.0)
[2021-04-09 16:53] LABS: Bacteria 0 SEEN /hpf (None Seen); Mucous, Urine 0 SEEN /hpf (<or=2+); Red Blood Cells-Urine 0 SEEN /hpf (0-5); Squamous Epithelial Cells - UA 0 SEEN /hpf (5-10); White Blood Cells 0 SEEN /hpf (0-5)
[2021-04-09 16:55] LABS: Differential Indicated SCAN CRITERIA MET; Hemoglobin 5.4 g/dL (12.0-15.0)
[2021-04-09 16:55] LABS: Color, Urine Yellow (Yellow); Glucose, Dipstick Normal (Normal); Ketone-Dipstick Negative (Negative); Leukocyte Esterase-Dipstick 25 /ul (Negative); Nitrite-Dipstick Negative (Negative); Occult Blood-Urine Negative /ul (Negative); Protein-Dipstick 15 mg/dl (Negative); Specific Gravity, Urine 1.015 (1.002-1.030); Urine Bilirubin Dipstick Negative (Negative); Urine Clarity Clear (Clear); Urine Urobilinogen Normal (Normal)
[2021-04-09 16:56] LABS: ALB/GLOB Ratio 0.7 RATIO (0.9-2.4); AST(SGOT) 26 U/L (15-37); Alanine Aminotransfer ALT/SGPT 16 U/L (13-56); Albumin, Serum 3.2 g/dL (3.2-5.0); Alkaline Phosphatase 84 U/L (45-117); Anion Gap 8 (5-15); BUN 33 mg/dL (7-18); BUN/Creat Ratio 21.4 RATIO (10-20); Calcium,Total 8.7 mg/dL (8.5-10.1); Chloride 106 mmol/L (98-107); Creatinine, Serum 1.54 mg/dL (0.55-1.02); EST Glomerular Filtration Rate 35 mL/min (>60); Est Glom Filt Rate - Afr Amer 42 mL/min (>60); Estimated Creatinine Clearance 24.91 ml/min; Globulin 4.3 g/dL (2.2-4.2); Glucose 160 mg/dL (74-106); Potassium 3.5 mmol/L (3.5-5.1); Protein, Total 7.5 g/dL (6.4-8.2); Sodium Level 137 mmol/L (136-145)
[2021-04-09 16:57] LABS: International Normalized Ratio 3.9; Prothrombin Time (Protime)PT. 37.2 SECONDS (11.7-14.9)
--- NOTE | 2021-04-09 17:05 | RAD_ITS ---
STUDY: X-RAY CHEST REASON FOR EXAM: Female, 80 years old. CHEST PAIN weakness TECHNIQUE: XR Chest 1 View COMPARISON: 9.5. FINDINGS: There is no demonstrated pleural abnormality. Healed left rib fractures. TAVR. Normal size heart. Normal mediastinum and kathie. Normal visualized pulmonary arteries. There is atherosclerotic calcification of the aortic arch with tortuosity. There are diffuse degenerative changes of the visualized thoracic spine. There is degenerative osteoarthritis of the bilateral shoulders. There is no demonstrated abnormality of the visualized soft tissue structures of the upper abdomen. RAD/Chest 1 View (Portable) IMPRESSION: There are no acute findings. Electronically Signed: Nagi Harper MD at 17:21 EST , Service support ,
[2021-04-09 17:15] LABS: Anisocytosis 2+; Differential Comment SCANNED; Hypochromasia 2+; Macrocytosis 1+; Microcytosis 1+; Polychromasia 1+
--- NOTE | 2021-04-09 17:32 | HP.PCM.HOS_ITS ---
HPI - General General Date of Admission: 04/09/21 Date of Service: 04/09/21 Chief Complaint: Dyspnea, fatigue, dizziness x 2 weeks. HPI Narrative The patient is a 80 y/o F w/ PMHx: Hypothyroidism, HTN, HLD, Diabetes mellitus type II, Anxiety and Depression, Hx lupus anticoagulant disorder with Hx VTE, Valvular Heart Disease s/p AV replacement with bioprosthetic valve who presents to the [facility] ED on 04/09/21 with history of 2 weeks of significantly progressing worsened shortness of breath, worse with any exertion and significantly incre ased fatigue with on day of presentation patient inability to even go to her doctor's visit secondary to the severity of her symptoms prompting eventual ED evaluation. She denies any history of any black or bright red blood in her stools. She denies any hematemesis. She does not chronically take iron. She has had admissions similar to her current presentation and been scoped previously with 8 most recent follow-up in December [address] Barron with no acute findings per report at that time. Work-up in the ED included T 97.5, heart rate 79, BP 130/47, respiratory rate 20, on her percent room air, CBC with WBC 6.3, hemoglobin 5.4, MCV 75.5, platelet 242 without marked shift, coags with INR 3.9, PT 37.2, CMP with BUN/creat 33/1.54, glucose 160 otherwise not marked, hepatic profile, urinalysis unremarkable, chest x-ray with no acute cardiopulmonary findings. T+C 4 units w/ planned 2 u to be initiated initially as well as IV vitamin K for reversal. ED physician did discuss case with gastroenterology who will evaluate the patient and agreed with reversal as well as PRBC administration. [facility] Medical History Acute GI bleeding Depression Diabetes mellitus, type II Essential hypertension GI bleed (01/2019) History of DVT (deep vein thrombosis) HTN (hypertension) Hyperlipidemia Lupus anticoagulant disorder (1994) Nonrheumatic aortic (valve) stenosis with insufficiency Osteoarthritis Osteoporosis Small bowel intussusception Supratherapeutic INR Vitamin B 12 deficiency Home Medications atorvastatin 80 mg tablet 40 mg PO QHS tab 11/24/18 [History Last Taken 01/13/21 22:00] warfarin 5 mg tablet 7.5 mg PO SUMOWETHFRSA 11/24/18 [History Last Taken 01/12/21 20:00] acetaminophen 1,000 mg PO Q6H 01/31/19 [History Last Taken 01/13/21 22:00] sertraline 100 mg tablet 100 mg PO BID tab 03/15/19 [History Last Taken 01/14/21 12:00] calcium carb-mag ox-zinc sulf 3 tab PO DAILY 02/17/20 [History Last Taken 01/13/21 08:00] levothyroxine 25 mcg PO DAILY 02/17/20 [History Last Taken 01/14/21 08:00] ropinirole 0.25 mg PO QHS PRN 02/17/20 [History Last Taken Unknown] PreserVision AREDS-2 2 tab PO DAILY 01/14/21 [History Last Taken 01/13/21 08:00] ascorbate calcium (vitamin C) 500 mg PO DAILY 01/14/21 [History Last Taken Unknown] cholecalciferol (vitamin D3) [Vitamin D3] 2,000 unit PO DAILY 01/14/21 [History Last Taken 01/13/21 08:00] d-mannose 500 mg PO TID 01/14/21 [History Last Taken 01/13/21 08:00] insulin glargine 10 unit SUBCUT DAILY 01/14/21 [History Last Taken 01/14/21 17:00] losartan-hydrochlorothiazide 1 tab PO DAILY 01/14/21 [History Last Taken 01/14/21 08:00] melatonin 5 mg PO QHS 01/14/21 [History Last Taken 01/13/21 22:00] metoprolol succinate 25 mg PO DAILY 01/14/21 [History Last Taken 01/14/21 08:00] warfarin 5 mg PO TU 01/14/21 [History Last Taken Unknown] tramadol 50 mg PO Q6H PRN 01/15/21 [History Last Taken Unknown] zoledronic fray-hdpfhrlj-aieve [Reclast] ea IV Q12M 01/15/21 [History Last Taken Unknown] Allergy/AdvReac Type Severity Reaction Status Date / Time codeine Allergy Intermediate itchy Verified 04/09/21 14:36 lisinopril Allergy Intermediate coughing Verified 04/09/21 14:36 seasonal Allergy Other Uncoded 11/29/21 14:36 Family History Mother , Age 86 CAD (coronary artery disease) Alzheimers disease Myocardial infarction, Onset Age: 70 Father , Age 68 CAD (coronary artery disease) Alcoholism Hypertension Sister Diabetes Hypertension Breast cancer Sister , 46 No problems noted. Brother Cancer bladder and prostate Hypertension Heart disease Brother No problems noted. Surgical History History of aortic valve replacement with bioprosthetic valve (02/15/19) History of appendectomy History of section History of elbow surgery (2011) History of gastric bypass History of hip surgery (2011) History of open reduction and internal fixation (ORIF) procedure (2009) History of right and left heart catheterization (11/30/18) History of tonsillectomy Social History adopted: No household members: none housing: assisted living facility number of children: 2 current occupational status: retired current occupational exposures/hazards: No pets and animals: No leisure activities: reading and other history of recent travel: No sexually active: No Smoking Status: Former smoker Tobacco: How many years used: 8 how long ago did patient quit smokin years ago alcohol intake: current Alcohol type: wine details: wine substance use type: does not use diet: diabetic well-balanced diet: about half the time during the past year weight has: remained stable what type of physical activity do you participate in: none mitali/adventism: Anabaptism do you feel safe at home: Yes ROS ROS Narrative Admission Review of Systems: CONSTITUTIONAL: No weight loss, fever, chills, + weakness or fatigue. HEENT: Eyes: No visual loss, blurred vision, double vision or yellow sclerae. Ears, Nose, Throat: No hearing loss, sneezing, congestion, runny nose or sore throat. SKIN: No rash or itching, lesions, wounds. CARDIOVASCULAR: No chest pain, chest pressure or chest discomfort, palpitations, edema, orthopnea, syncopal events. RESPIRATORY:+ shortness of breath, No cough or sputum, wheezing, hemoptysis. GASTROINTESTINAL: No anorexia, nausea, vomiting or diarrhea, abdominal pain, melena, BRBPR. GENITOURINARY: No dysuria, frequency, urgency or retention. NEUROLOGICAL: + LH, Dizziness. No headache, syncope, paralysis, ataxia, numbness or tingling in the extremities, focal weakness, change in bowel or bladder control, seizure. MUSCULOSKELETAL: + muscle, back pain, joint pain or stiffness. HEMATOLOGIC: + anemia, bleeding or bruising. LYMPHATICS: No enlarged nodes. No history of splenectomy. PSYCHIATRIC: + history of depression or anxiety. ENDOCRINOLOGIC: No reports of sweating, cold or heat intolerance. No polyuria or polydipsia. ALLERGIES: No history of asthma, hives, eczema or rhinitis. Vital Signs Vital Signs Vital Signs: 04/09/21 14:33 04/09/21 16:34 04/09/21 16:54 Temperature 97.5 F L Temperature Source Temporal Pulse Rate 79 64 Respiratory Rate 20 H 18 Respiratory Effort Normal Non-Labored Respiratory Pattern Normal Blood Pressure 130/47 H 136/56 H Blood Pressure Mean 74 82 Pulse Ox 100 100 Oxygen Delivery Method Room Air Room Air Weight Weight: 135 lb Body Mass Index (BMI) 23.9 Physical Exam Narrative Physical Examination: General: Awake, alert, oriented x 3 and cooperative, seated upright in the ED bed, significantly pale appearing. Skin: Pale color, normal turgor, no icterus, no cyanosis. HEENT: AT/NC, EOMI, PERRLA, moderately dry MM, no carotid bruits or JVD noted. Lungs: CTA bilaterally, moderate effort, mild decrease BL bases, no rales, ronchi or wheezing. Heart: Regular rate and rhythm; no gallop, rub audible, + SM. Abdomen: Soft, NTTP, ND, mildly hyperactive BS, no HSM. Extremities: No cyanosis, clubbing, or edema. Neurological: Patient awake, alert, oriented as noted, cognitive function appears baseline intact; pupils equally reactive to light and accommodation, cranial nerves II-XII grossly normal, moving all 4 extremities, no focal deficits, strength moderately to severely global decrease secondary to acute presentation. Psychiatric: Affect appears fatigued, flat, no acute evidence of depressive or anxiety feelings. Results Lab / Micro Data Result Diagrams: 04/09/21 16:30 04/09/21 16:30 Labs: Laboratory Results - last 24 hr 04/09/21 16:10: Urine Color Yellow, Urine Clarity Clear, Urine pH 5.0, Ur Specific [place] 1.015, Urine Protein 15 H, Urine Glucose (UA) Normal, Urine Ketones Negative, Urine Occult Blood Negative, Urine Nitrite Negative, Urine Bilirubin Negative, Urine Urobilinogen Normal, Ur Leukocyte Esterase 25 H, Urine RBC 0 SEEN, Urine WBC 0 SEEN, Ur Squamous Epith Cells 0 SEEN, Urine Bacteria 0 SEEN, Urine Mucus 0 SEEN 04/09/21 16:30: WBC 6.3, RBC 2.45 L, Hgb 5.4 L*, Hct 18.5 L, MCV 75.5 L, MCH 22.0 L, MCHC 29.2 L, RDW Std Deviation 47.4 H, RDW Coeff of Adria 17.3 H, Plt Count 242, MPV 10.4, Immature Gran % (Auto) 0.500, Neut % (Auto) 67.5, Lymph % (Auto) 18.3 L, [place] % (Auto) 9.9, Eos % (Auto) 3.5, Baso % (Auto) 0.3, Absolute Neuts (auto) 4.3, Absolute Lymphs (auto) 1.16, Nucleated RBC % 0.6, Differential Comment SCANNED, Diff Path Review May foll, Polychromasia 1+, Hypochromasia 2+, Anisocytosis 2+, Microcytosis 1+, Macrocytosis 1+ 04/09/21 16:30: Sodium 137, Potassium 3.5, Chloride 106, Carbon Dioxide 23.0, Anion Gap 8, BUN 33 H, Creatinine 1.54 H, Estim Creat Clear Calc 24.91, Est GFR (MDRD) Af Amer 42 L, Est GFR (MDRD) Non-Af 35 L, BUN/Creatinine Ratio 21.4 H, Glucose 160 H, Calcium 8.7, Total Bilirubin 0.40, AST 26, ALT 16, Alkaline Phosphatase 84, Total Protein 7.5, Albumin 3.2, Globulin 4.3 H, Albumin/Globulin Ratio 0.7 L 04/09/21 16:30: PT 37.2 H, INR 3.9 04/09/21 16:30: Crossmatch See Detail Rhythm Strip Rhythm Strip: Sinus Rhythm Rate: 66 Ectopy: None Radiology Impression Chest X-Ray 04/09/21 17:05 IMPRESSION: There are no acute findings. Electronically Signed: Nagi Harper MD at 17:21 EST , Service support , Assessment & Plan Assessment/Plan (1) Acute anemia: PLAN: The patient is a 80 y/o F w/ PMHx: Hypothyroidism, HTN, HLD, Diabetes mellitus type II, Anxiety and Depression, Hx lupus anticoagulant disor teressa with Hx VTE, Valvular Heart Disease s/p AV replacement with bioprosthetic valve who presents to the [facility] ED on 04/09/21 with history of 2 weeks of significantly progressing worsened shortness of breath, worse with any exertion and significantly increased fatigue with on day of presentation patient inability to even go to her doctor's visit secondary to the severity of her symptoms prompting eventual ED evaluation. #1. Acute GI Bleed w/ resultant Acute Blood Loss Anemia on Chronic: Admission Hgb 5.4, most recently prior 01/17/2021 9.7, will admit to PCU given stable VS, maintain on IVFs. Admission INR 3.9, ED initiating reversal with IV vitamin K, will trend INRs, obtain serial H+Hs, obtain T+S w/ cross for PRBC administration to be continued per ED initiation, maintain on IV PPI, gastroenterology consulted and pending. #2. Acute renal insufficiency on CKD stage III, unclear subtype: Secondary to #1 does note. Admission BUN/Cr [], prior baseline creatinine noted to be 0.9-1.0 primarily although has been elevated transiently up to 1.2,. Will administer blood as noted above #1, hydrate with IV fluids in the interim, will temporarily hold any nephrotoxic regimen and repeat CMP in AM. Resume medications if function appropriate at that time. #3. Hx Remote DVT (30 years prior) w/ Lupus Anticoagulant disorder: Holding Coumadin, reversing, given serial episodes of GI bleed may require discontinuation. Given history of several presentations with significant anemia, depending on GI evaluation may need to consider deferral of anticoagulant therapy and potential filter if appropriate. #4. Diabetes mellitus type II: Hold oral home regimen, continue home insulin regimen however if concern with lower blood sugars may decrease by one half, n.p.o. status secondary to #1, given presentation every 6 hours accu checks w/ ISS. #5. Hypertension: Continue home regimen including metoprolol with hold parameters as needed, holding patient losartan hydrochlorothiazide given mild renal function increase, resume once appropriate, PRN hydralazine. #6. Hyperlipidemia: We will continue patient on statin therapy. #7. Valvular heart disease: 02/15/2020 echocardiogram with normal LV size, moderate concentric LVH, LV systolic function normal, EF 65%, stage I diastolic dysfunction, stable appearing bioprosthetic aortic valve apparatus. #8. Hypothyroidism: We will continue patient home Synthroid regimen. #9. Anxiety and depression: We will continue patient home sertraline regimen. #10. Restless leg syndrome: We will continue patient home nightly Requip regimen regimen. #11. DVT prophylaxis: SCDs, reversing Coumadin as noted, trend INR. #12. CODE status: Patient ALEJANDRA is her daughter who is present and living will is not currently in place but recommended she discuss these items with case management/social work for assistance in setting up to which she is amenable. Discussed CODE status at length including difference between FULL code, DNR-CCA and DNR-CC status. Following discussions about the differences in these status, requested DNR-CCA, no intubation status. Advanced Care Planning Face to Face Time: 16 minutes. Charges/Coding Visit Charges Inpatient E&M: 64941 Init Hosp L3 Procedures Hospitalists Procedures: 72639 Advncd Care Plan 30 Min
--- NOTE | 2021-04-09 18:52 | EX.PCM.CON.G ---
HPI Consult Data Date of Consult: 04/09/21 HPI Narrative HPI Narrative: SONNY HOWARD, is a 80 F who presents with worsening shortness of breath and fatigue. She has a history of lupus anticoagulant disorder, type 2 diabetes, DVT, CAD, anxiety, valvular heart disease status post AV replacement with bioprosthetic valve. She has had 2 other presentations like this and when she was discovered to be severely anemic causing her shortness of breath and fatigue. However at that time she had lower GI bleeding. She underwent evaluation back in December 2020 with an EGD and colonoscopy. No etiology of her acute blood loss anemia was seen. She is that is post gastric bypass but does not know what type of gastric bypass procedure she had. In the ED her INR was discovered to be 3.9 with a PTT of 37.2. BUN/creatinine ratio is 33/1.5, hemoglobin 5.4 with a low MCV of 75.5 and a platelet count of 242. PFSH Medical History Acute GI bleeding Depression Diabetes mellitus, type II Essential hypertension GI bleed (01/2019) History of DVT (deep vein thrombosis) HTN (hypertension) Hyperlipidemia Lupus anticoagulant disorder (1994) Nonrheumatic aortic (valve) stenosis with insufficiency Osteoarthritis Osteoporosis Small bowel intussusception Supratherapeutic INR Vitamin B 12 deficiency Home Medications acetaminophen 1,000 mg PO Q6H 01/31/19 [History Last Taken 04/09/21 12:00] sertraline 100 mg tablet 100 mg PO BID tab 03/15/19 [History Last Taken 04/09/21] calcium carb-mag ox-zinc sulf 3 tab PO DAILY 02/17/20 [History Last Taken 04/08/21] levothyroxine 25 mcg PO DAILY 02/17/20 [History Last Taken 04/09/21] ropinirole 0.25 mg PO QHS PRN 02/17/20 [History Last Taken Unknown] PreserVision AREDS-2 1 tab PO BID 01/14/21 [History Last Taken 04/09/21] losartan-hydrochlorothiazide 1 tab PO DAILY 01/14/21 [History Last Taken 04/09/21] metoprolol succinate 25 mg PO DAILY 01/14/21 [History Last Taken 04/09/21] atorvastatin 20 mg PO QHS 04/09/21 [History Last Taken 04/08/21] cholecalciferol (vitamin D3) 25 mcg PO BID 04/09/21 [History Last Taken 04/09/21] glipizide 2.5 mg PO DAILY 04/09/21 [History Last Taken 04/09/21] insulin glargine [Lantus Solostar U-100 Insulin] 10 unit SUBCUT DAILY 04/09/21 [History Last Taken 04/09/21] warfarin 7.5 mg PO DAILY 04/09/21 [History Last Taken 04/08/21] Allergy/AdvReac Type Severity Reaction Status Date / Time codeine Allergy Intermediate itchy Verified 04/09/21 14:36 lisinopril Allergy Intermediate coughing Verified 04/09/21 14:36 seasonal Allergy Other Uncoded 04/09/21 14:36 Family History Mother , Age 86 CAD (coronary artery disease) Alzheimers disease Myocardial infarction, Onset Age: 70 Father , Age 68 CAD (coronary artery disease) Alcoholism Hypertension Sister Diabetes Hypertension Breast cancer Sister , 46 No problems noted. Brother Cancer bladder and prostate Hypertension Heart disease Brother No problems noted. Surgical History History of aortic valve replacement with bioprosthetic valve (02/15/19) History of appendectomy History of section History of elbow surgery (2011) History of gastric bypass History of hip surgery (2011) History of open reduction and internal fixation (ORIF) procedure (2009) History of right and left heart catheterization (11/30/18) History of tonsillectomy Social History adopted: No household members: none housing: assisted living facility number of children: 2 current occupational status: retired current occupational exposures/hazards: No pets and animals: No leisure activities: reading and other history of recent travel: No sexually active: No Smoking Status: Former smoker Tobacco: How many years used: 8 how long ago did patient quit smokin years ago alcohol intake: current Alcohol type: wine details: wine substance use type: does not use diet: diabetic well-balanced diet: about half the time during the past year weight has: remained stable what type of physical activity do you participate in: none mitali/confucianist: Religious do you feel safe at home: Yes ROS Review of Systems ROS Unobtainable: other Constitutional Constitutional: Denies fatigue, fever(s), poor appetite, weight gain or weight loss ENT HEENT: Denies mouth lesions Cardiovascular Cardiovascular: Denies abdominal bloating, abdominal edema or abdominal pain Respiratory/Chest Respiratory/Chest: Denies change in mental status, change in phlegm color, chest congestion or chest tightness Gastrointestinal Gastrointestinal: Denies belching, bloating, change in bowel habits, change in stool character, chewing difficulty, coffee ground emesis, constipation, cramping, diarrhea, dyspepsia, dysphagia, early satiety, excessive flatus, fecal incontinence, heartburn, hematemesis, hematochezia, hemorrhoids, loose stools, melena, nausea, odynophagia, rectal bleeding, tenesmus, vomiting or weight changes Genitourinary Genitourinary: Denies abdominal discomfort, burning urination or itching Musculoskeletal Musculoskeletal: Reports as per HPI; Denies muscle weakness or myalgias Integumentary Integumentary: Denies jaundice Neurologic Neurologic: Denies lack of coordination or weakness Psychiatric Psychiatric: Denies confusion, depression, memory loss, mood swings, paranoia or suicidal ideation Endocrine Endocrinology: Denies systems reviewed and no addt'l complaints, except as documented Hematologic/Lymphatic Hematologic/Lymphatic: Denies anemia, easy bleeding, easy bruising or lymphadenopathy Allergic/Immunologic Allergic/Immunologic: Denies systems reviewed and no addt'l complaints, except as documented Physical Exam Const alert General Appearance: cooperative Orientation / Consciousness: oriented to person HEENT hearing grossly normal bilaterally Head and Scalp: normal to inspection Face and Sinus: face symmetric Nose: external nose normal Mouth: oral and palatal mucosa normal Eyes conjunctivae normal General Eye: normal appearance of both eyes Neck full ROM General: normal visual inspection Lymph Lymphatic: no lymphadenopathy noted Chest inspection of chest normal and palpation of chest normal Chest: symmetrical chest wall rise Resp normal respiratory effort Effort and Inspection: able to speak in complete sentences Cardio regular rate GI non-distended Percussion: normal to percussion Rectal Exam: deferred Neuro Speech: speech normal Gait (Neuro): normal gait Lab / Micro Data Result Diagrams: 04/09/21 16:30 04/09/21 16:30 Labs: Laboratory Results - last 24 hr 04/09/21 16:10: Urine Color Yellow, Urine Clarity Clear, Urine pH 5.0, Ur Specific [place] 1.015, Urine Protein 15 H, Urine Glucose (UA) Normal, Urine Ketones Negative, Urine Occult Blood Negative, Urine Nitrite Negative, Urine Bilirubin Negative, Urine Urobilinogen Normal, Ur Leukocyte Esterase 25 H, Urine RBC 0 SEEN, Urine WBC 0 SEEN, Ur Squamous Epith Cells 0 SEEN, Urine Bacteria 0 SEEN, Urine Mucus 0 SEEN 04/09/21 16:30: WBC 6.3, RBC 2.45 L, Hgb 5.4 L*, Hct 18.5 L, MCV 75.5 L, MCH 22.0 L, MCHC 29.2 L, RDW Std Deviation 47.4 H, RDW Coeff of Adria 17.3 H, Plt Count 242, MPV 10.4, Immature Gran % (Auto) 0.500, Neut % (Auto) 67.5, Lymph % (Auto) 18.3 L, [place] % (Auto) 9.9, Eos % (Auto) 3.5, Baso % (Auto) 0.3, Absolute Neuts (auto) 4.3, Absolute Lymphs (auto) 1.16, Nucleated RBC % 0.6, Differential Comment SCANNED, Diff Path Review May foll, Polychromasia 1+, Hypochromasia 2+, Anisocytosis 2+, Microcytosis 1+, Macrocytosis 1+ 04/09/21 16:30: Sodium 137, Potassium 3.5, Chloride 106, Carbon Dioxide 23.0, Anion Gap 8, BUN 33 H, Creatinine 1.54 H, Estim Creat Clear Calc 24.91, Est GFR (MDRD) Af Amer 42 L, Est GFR (MDRD) Non-Af 35 L, BUN/Creatinine Ratio 21.4 H, Glucose 160 H, Calcium 8.7, Total Bilirubin 0.40, AST 26, ALT 16, Alkaline Phosphatase 84, Total Protein 7.5, Albumin 3.2, Globulin 4.3 H, Albumin/Globulin Ratio 0.7 L 04/09/21 16:30: Blood Type AB POSITIVE, Antibody Screen NEGATIVE 04/09/21 16:30: PT 37.2 H, INR 3.9 04/09/21 16:30: Crossmatch See Detail Rhythm Strip Rhythm Strip: Sinus Rhythm Rate: 66 Ectopy: None Radiology Impression Chest X-Ray 04/09/21 17:05 IMPRESSION: There are no acute findings. Electronically Signed: Nagi Harper MD at 17:21 EST , Service support , Assessment & Plan Assessment/Plan (1) Near syncope: PLAN: Likely secondary to blood loss anemia. 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 This will need to be treated. I will discuss this with the patient and patient's family to see if they want any endoscopic procedures during this hospital stay..
--- NOTE | 2021-04-09 20:26 | PCS.PANDOC ---
PANDEMIC DOCUMENTATION INITIATED: Date: 12/25/2020 Time: 190
[2021-04-09 20:41] LABS: Bedside Glucose 96 mg/dL (70-110)
[2021-04-09] MEDS: MELATONIN 3 MG TABLET PO (22:01)
[2021-04-09] MEDS: Sertraline 100 MG Tablet PO (22:01)
[2021-04-09] MEDS: 0.9% Normal Saline 1,000 ML 100 ML IV (22:35)
[2021-04-09] MEDS: DiphenhydrAMINE 25 MG Capsule PO (22:43)
[2021-04-10] VITALS (19 sets, daily range): BP systolic 130–180; BP diastolic 52–83; PULSE 62–77; RESP 16–18; TEMP 36.1–36.9; O2SAT 95–100
[2021-04-10 00:26] LABS: Bedside Glucose 207 mg/dL (70-110)
[2021-04-10] MEDS: 0.9% Saline Lock 10 ML Syringe IV ×5 (02:14→21:13)
[2021-04-10] MEDS: hydrALAZINE 20 MG/ML Vial 10 MG IV ×2 (02:19→15:44)
[2021-04-10] MEDS: Acetaminophen 325 MG Tablet 650 MG PO ×3 (03:21→15:44)
[2021-04-10 03:59] LABS: Hematocrit 29.5 % (37-47); Hemoglobin 9.5 g/dL (12.0-15.0)
[2021-04-10 04:04] LABS: International Normalized Ratio 1.5; Prothrombin Time (Protime)PT. 17.7 SECONDS (11.7-14.9)
[2021-04-10 04:16] LABS: ALB/GLOB Ratio 0.8 RATIO (0.9-2.4); AST(SGOT) 25 U/L (15-37); Alanine Aminotransfer ALT/SGPT 15 U/L (13-56); Albumin, Serum 3.1 g/dL (3.2-5.0); Alkaline Phosphatase 64 U/L (45-117); Anion Gap 8 (5-15); BUN 30 mg/dL (7-18); BUN/Creat Ratio 23.8 RATIO (10-20); Calcium,Total 8.6 mg/dL (8.5-10.1); Chloride 109 mmol/L (98-107); Creatinine, Serum 1.26 mg/dL (0.55-1.02); EST Glomerular Filtration Rate 44 mL/min (>60); Est Glom Filt Rate - Afr Amer 53 mL/min (>60); Estimated Creatinine Clearance 30.44 ml/min; Globulin 4.1 g/dL (2.2-4.2); Glucose 126 mg/dL (74-106); Potassium 3.8 mmol/L (3.5-5.1); Protein, Total 7.2 g/dL (6.4-8.2); Sodium Level 139 mmol/L (136-145)
[2021-04-10] MEDS: Levothyroxine 25 MCG TABLET PO (05:37)
[2021-04-10 06:06] LABS: Bedside Glucose 97 mg/dL (70-110)
--- NOTE | 2021-04-10 06:34 | PCM.PN.HOSP ---
Subjective Subjective Patient overnight with no acute events per self and per nursing report. Patient notes feeling improved with less dyspnea and fatigue since initial presentation status post PRBC administration with admission hemoglobin 5.4 and repeat following administration 9.5, this a.m. 8.8. Patient did have evaluation per gastroenterology with planned endoscopy. Patient denies fevers, chills, nausea, emesis, abdominal pain, chest pain. Objective Data Objective Data Vital Signs: Vital Signs Temp Pulse Resp BP Pulse Ox 98.1 F 74 16 154/60 H 96 04/10/21 05:36 04/10/21 05:36 04/10/21 05:36 04/10/21 05:36 04/10/21 05:36 Oxygen Delivery Method Room Air Weight: 133 lb 13.129 oz Body Mass Index (BMI) 23.4 Intake & Output: Intake and Output for Last 24 Hours 04/08/21 04/09/21 04/10/21 23:59 23:59 23:59 Intake Total 567.17 / 667.17 500 / 500 Balance 567.17 / 667.17 500 / 500 Lab / Micro Data Result Diagrams: 04/10/21 06:42 04/10/21 03:15 Labs: Laboratory Results - last 24 hr 04/09/21 16:10: Urine Color Yellow, Urine Clarity Clear, Urine pH 5.0, Ur Specific Tolar 1.015, Urine Protein 15 H, Urine Glucose (UA) Normal, Urine Ketones Negative, Urine Occult Blood Negative, Urine Nitrite Negative, Urine Bilirubin Negative, Urine Urobilinogen Normal, Ur Leukocyte Esterase 25 H, Urine RBC 0 SEEN, Urine WBC 0 SEEN, Ur Squamous Epith Cells 0 SEEN, Urine Bacteria 0 SEEN, Urine Mucus 0 SEEN 04/09/21 16:30: WBC 6.3, RBC 2.45 L, Hgb 5.4 L*, Hct 18.5 L, MCV 75.5 L, MCH 22.0 L, MCHC 29.2 L, RDW Std Deviation 47.4 H, RDW Coeff of Adria 17.3 H, Plt Count 242, MPV 10.4, Immature Gran % (Auto) 0.500, Neut % (Auto) 67.5, Lymph % (Auto) 18.3 L, Navarro % (Auto) 9.9, Eos % (Auto) 3.5, Baso % (Auto) 0.3, Absolute Neuts (auto) 4.3, Absolute Lymphs (auto) 1.16, Nucleated RBC % 0.6, Differential Comment SCANNED, Diff Path Review May foll, Polychromasia 1+, Hypochromasia 2+, Anisocytosis 2+, Microcytosis 1+, Macrocytosis 1+ 04/09/21 16:30: Sodium 137, Potassium 3.5, Chloride 106, Carbon Dioxide 23.0, Anion Gap 8, BUN 33 H, Creatinine 1.54 H, Estim Creat Clear Calc 24.91, Est GFR (MDRD) Af Amer 42 L, Est GFR (MDRD) Non-Af 35 L, BUN/Creatinine Ratio 21.4 H, Glucose 160 H, Calcium 8.7, Total Bilirubin 0.40, AST 26, ALT 16, Alkaline Phosphatase 84, Total Protein 7.5, Albumin 3.2, Globulin 4.3 H, Albumin/Globulin Ratio 0.7 L 04/09/21 16:30: Blood Type AB POSITIVE, Antibody Screen NEGATIVE 04/09/21 16:30: PT 37.2 H, INR 3.9 04/09/21 16:30: Crossmatch See Detail 04/09/21 20:32: POC Glucose 96 04/10/21 00:19: POC Glucose 207 H 04/10/21 03:15: Hgb 9.5 L, Hct 29.5 L 04/10/21 03:15: PT 17.7 H, INR 1.5 04/10/21 03:15: Sodium 139, Potassium 3.8, Chloride 109 H, Carbon Dioxide 22.0, Anion Gap 8, BUN 30 H, Creatinine 1.26 H, Estim Creat Clear Calc 30.44, Est GFR (MDRD) Af Amer 53 L, Est GFR (MDRD) Non-Af 44 L, BUN/Creatinine Ratio 23.8 H, Glucose 126 H, Calcium 8.6, Total Bilirubin 0.30, AST 25, ALT 15, Alkaline Phosphatase 64, Total Protein 7.2, Albumin 3.1 L, Globulin 4.1, Albumin/Globulin Ratio 0.8 L 04/10/21 05:35: POC Glucose 97 Radiography Diagnostic Testing: Radiology Impression Chest X-Ray 04/09/21 17:05 IMPRESSION: There are no acute findings. Electronically Signed: Nagi Harper MD at 17:21 EST , Service support , Rhythm Strip Rhythm Strip: Sinus Rhythm Rate: 66 Ectopy: None Physical Exam Narrative Physical Examination: General: Awake, alert, oriented x 3 and cooperative, seated upright in the PCU bed, improved appearance. Skin: Improved normalized color, normal turgor, no icterus, no cyanosis. HEENT: AT/NC, EOMI, PERRLA, MMM. Lungs: CTA bilaterally, moderate effort, mild decrease BL bases, no rales, ronchi or wheezing. Heart: Regular rate and rhythm; no gallop, rub audible, + SM. Abdomen: Soft, NTTP, ND, normalized BS. Extremities: No cyanosis, clubbing, or edema. Neurological: Patient awake, alert, oriented as noted, cognitive function appears baseline intact; pupils equally reactive to light and accommodation, cranial nerves II-XII grossly normal, moving all 4 extremities, no focal deficits, strength improved, moderately to severely global decrease secondary to acute presentation. Psychiatric: Affect appears less fatigued, more interactive, no acute evidence of depressive or anxiety feelings. Assessment & Plan Assessment/Plan (1) Acute anemia: PLAN: The patient is a 80 y/o F w/ PMHx: Hypothyroidism, HTN, HLD, Diabetes mellitus type II, Anxiety and Depression, Hx lupus anticoagulant disorder with Hx VTE, Valvular Heart Disease s/p AV replacement with bioprosthetic valve who presents to the [facility] ED on 04/09/21 with history of 2 weeks of significantly progressing worsened shortness of breath, worse with any exertion and significantly increased fatigue with on day of presentation patient inability to even go to her doctor's visit secondary to the severity of her symptoms prompting eventual ED evaluation. #1. Acute GI Bleed w/ resultant Acute Blood Loss Anemia on Chronic: Admission Hgb 5.4, most recently prior 01/17/2021 9.7. Patient admitted to PCU, maintained on monitor, judicious hydration, admission INR 3.9 with vitamin K administered in the ED, a.m. 04/10/2021 INR repeat 1.5, administered 2 unit PRBC, will continue serial H+Hs, maintain on IV PPI, gastroenterology consulted and following with planned endoscopy. #2. Acute renal insufficiency on CKD stage III, unclear subtype: Secondary to #1 does note. Admission BUN/Cr 33/1.54, prior baseline creatinine noted to be 0.9-1.0 primarily although has been elevated transiently up to 1.2. Administered blood as noted above #1, hydrated judiciously with IV fluids in the interim, temporarily held nephrotoxic regimen. 04/10/21 BUN/Cr 30/1.26. #3. 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 Given history of several presentations with significant anemia, depending on GI evaluation may need to consider deferral of anticoagulant therapy and potential filter if appropriate. #4. Diabetes mellitus type II: Hold oral home regimen, continue home insulin regimen however if concern with lower blood sugars may decrease by one half, n.p.o. status secondary to #1, given presentation every 6 hours accu checks w/ ISS. #5. Hypertension: Continue home regimen including metoprolol with hold parameters as needed, holding patient losartan hydrochlorothiazide given mild renal function increase, resume once appropriate, PRN hydralazine. #6. Hyperlipidemia: We will continue patient on statin therapy. #7. Valvular heart disease: 02/15/2020 echocardiogram with normal LV size, moderate concentric LVH, LV systolic function normal, EF 65%, stage I diastolic dysfunction, stable appearing bioprosthetic aortic valve apparatus. #8. Hypothyroidism: We will continue patient home Synthroid regimen. #9. Anxiety and depression: We will continue patient home sertraline regimen. #10. Restless leg syndrome: We will continue patient home nightly Requip regimen regimen. #11. DVT prophylaxis: SCDs, reversedCoumadin as noted, 04/10/21 repeat INR 1.5. #12. CODE status: Patient ALEJANDRA is her daughter who is present. DNR-CCA, no intubation status. Charges/Coding Visit Charges Inpatient E&M: 30572 Subs Hosp L2
[2021-04-10] MEDS: 0.9% Normal Saline 1,000 ML 100 ML IV ×2 (09:53→21:11)
[2021-04-10] MEDS: Sertraline 100 MG Tablet PO ×2 (09:54→21:11)
[2021-04-10] MEDS: Metoprolol(XL)Succ 25 MG Tablet PO (10:02)
[2021-04-10 10:34] LABS: Absolute Lymphocyte Count 1.09 X10^3/uL (0.83-4.51); Absolute Neutrophil Count 2.6 X10^3/uL (2.0-7.7); Basophil# 0.03 X10^3/uL; Basophil% 0.6 % (0-1); Eosinophils% 8.6 % (0-5); Hematocrit 29.3 % (37-47); Hemoglobin 8.8 g/dL (12.0-15.0); Lymphocyte # 1.09 X10^3/ul (0.83-4.51); Lymphocyte % 23.4 % (19-41); Mean Corpuscular Hgb 25.3 pg (27.0-32.0); Mean Corpuscular Volume 84.2 fL (81-99); Mean Platelet Vol. 9.7 fl (6.2-12.0); Monocyte% 10.7 % (0-10); NRBC Flagged by Analyzer 0.4 % (0-5); Neutrophil # 2.63 X10^3/uL (2.7-7.7); Neutrophil % 56.5 % (47-70); Platelet Count 175 K/mm3 (150-450); RBC Distribution Width CV 18.8 % (11.6-14.6); RBC Distribution Width SD 58.1 fl (35.1-43.9); Red Blood Count 3.48 M/mm3 (4.2-5.4); White Blood Count 4.7 K/mm3 (4.4-11.0)
[2021-04-10 10:40] LABS: Bedside Glucose 91 mg/dL (70-110)
[2021-04-10 12:31] LABS: Bedside Glucose 81 mg/dL (70-110)
[2021-04-10 13:15] LABS: Pathologist Review Reviewed
--- NOTE | 2021-04-10 14:12 | CASEMGMT ---
Patient is from [facility]. YUMIKO faxed updates to [facility]. YUMIKO spoke with patient and her daughter and they confirmed the [facility] Patient's daughter will transport her via private vehicle. YUMIKO will keep [facility] updated. Plan: d/c back to [facility] Laine Whitmore MSW [facility]
--- NOTE | 2021-04-10 15:41 | SUR.PREOP ---
This RN spoke with Director at [facility] pt had negative result rapid COVID test completed on 04/07
--- NOTE | 2021-04-10 18:02 | NURSING ---
off floor for scope at this time
[2021-04-10 18:30] LABS: Bedside Glucose 91 mg/dL (70-110)
--- NOTE | 2021-04-10 19:28 | OP.EGD_ITS ---
Patient Name: Angy Reyes Procedure Date: 04/10/2021 6:57 PM Date of : 1940 Age: 80 Procedure: Upper GI endoscopy Indications: Hematochezia Providers: Ulysses Parker DO Medicines: See the Anesthesia note for documentation of the administered medications Patient Profile: This is a 80 year old female. Refer to note in patient chart for documentation of history and physical. Patient has symptoms. She is status post colonoscopy (normal) within the past three months. The patient is status-post Lea-en-Y surgery. Complications: No immediate complications. Procedure: Pre-Anesthesia Assessment: - Prior to the procedure, a History and Physical was performed, and patient medications and allergies were reviewed. The patient is competent. The risks and benefits of the procedure and the sedation options and risks were discussed with the patient. All questions were answered and informed consent was obtained. Patient identification and proposed procedure were verified by the physician in the pre-procedure area. Mental Status Examination: alert and oriented. Airway Examination: normal oropharyngeal airway and neck mobility. Respiratory Examination: clear to auscultation. CV Examination: normal. Prophylactic Antibiotics: The patient does not require prophylactic antibiotics. Prior Anticoagulants: The patient has taken no previous anticoagulant or antiplatelet agents. ASA Grade Assessment: II - A patient with mild systemic disease. After reviewing the risks and benefits, the patient was deemed in satisfactory condition to undergo the procedure. The anesthesia plan was to use moderate sedation / analgesia (conscious sedation). Immediately prior to administration of medications, the patient was re-assessed for adequacy to receive sedatives. The heart rate, respiratory rate, oxygen saturations, blood pressure, adequacy of pulmonary ventilation, and response to care were monitored throughout the procedure. The physical status of the patient was re-assessed after the procedure. After obtaining informed consent, the endoscope was passed under direct vision. Throughout the procedure, the patient's blood pressure, pulse, and oxygen saturations were monitored continuously. The Endoscope was introduced through the and advanced to the. The gastroscope was introduced through the mouth, and advanced to the afferent and efferent jejunal loops. The upper GI endoscopy was accomplished without difficulty. The patient tolerated the procedure well. Moderate Sedation: Moderate (conscious) sedation was administered by the endoscopy nurse and supervised by the endoscopist. The patient's oxygen saturation, heart rate, blood pressure and response to care were monitored. Total physician intraservice time was 15 minutes. Moderate (conscious) sedation was administered by the endoscopy nurse and supervised by the endoscopist. The patient's oxygen saturation, heart rate, blood pressure and response to care were monitored. Total physician intraservice time was 15 minutes. Scope In: 7:08:14 PM Scope Out: 7:18:52 PM Total Procedure Duration Time 0 hours 10 minutes 38 seconds Findings: The examined esophagus was normal. 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 The gastrojejunal anastomosis was characterized by friable mucosa. This was traversed. The jejunojejunal anastomosis was characterized by erythema, friable mucosa, a hemorrhagic appearance and ulceration. The qgcfjqkv-mi-cgdjwgu limb was examined 120 cm from anastomosis and was characterized by ulceration. Coagulation for hemostasis using heater probe was successful. Estimated blood loss was minimal. The examined jejunum was normal. Impression: - Normal esophagus. - Lea-en-Y gastrojejunostomy with gastrojejunal anastomosis characterized by friable mucosa. Treated with a heater probe. - Normal examined jejunum. - No specimens collected. Recommendation: - [facility]. - Resume previous diet today. - Continue present medications. - Return to my office in 2 weeks. Procedure Code(s): --- Professional --- 21246, Esophagogastroduodenoscopy, flexible, transoral; with control of bleeding, any method G0500, Moderate sedation services provided by the same physician or other qualified health home care physical therapist performing a gastrointestinal endoscopic service that sedation supports, requiring the presence of an independent trained observer to assist in the monitoring of the patient's level of consciousness and physiological status; initial 15 minutes of intra-service time; patient age 5 years or older (additional time may be reported with 23833, as appropriate) G0500, Moderate sedation services provided by the same physician or other qualified health home care physical therapist performing a gastrointestinal endoscopic service that sedation supports, requiring the presence of an independent trained observer to assist in the monitoring of the patient's level of consciousness and physiological status; initial 15 minutes of intra-service time; patient age 5 years or older (additional time may be reported with 71337, as appropriate) CPT copyright 2017 [employer] [employer]. All rights reserved. The codes documented in this report are preliminary and upon vegetable inspector review may be revised to meet current compliance requirements. Ulysses Parker DO 04/10/2021 7:27:35 PM This report has been signed electronically. Number of Addenda: 1 Note Initiated On: 04/10/2021 6:57 PM Addendum Number: 1 Addendum Date: 01/11/2022 6:38:16 AM MAC was used instead of moderate sedation for this patient. Ulysses Parker DO 01/11/2022 6:38:20 AM This report has been signed electronically.
[2021-04-10] MEDS: Atorvastatin Calcium 20 MG Tablet PO (21:11)
[2021-04-10] MEDS: DiphenhydrAMINE 25 MG Capsule PO (21:11)
[2021-04-10] MEDS: MELATONIN 3 MG TABLET PO (21:11)
[2021-04-10 21:12] LABS: Hematocrit 28.5 % (37-47)
[2021-04-11] VITALS (7 sets, daily range): BP systolic 142–179; BP diastolic 58–67; PULSE 62–72; RESP 16; TEMP 36.7–36.9; O2SAT 96–97
[2021-04-11 00:25] LABS: Hematocrit 27.2 % (37-47); Hemoglobin 8.7 g/dL (12.0-15.0)
[2021-04-11] MEDS: Insulin Lispro 100 UNIT/ML INSULN.PEN SC ×2 (01:40→11:16)
[2021-04-11 01:45] LABS: Bedside Glucose 208 mg/dL (70-110)
[2021-04-11] MEDS: Levothyroxine 25 MCG TABLET PO (05:15)
[2021-04-11] MEDS: 0.9% Normal Saline 1,000 ML 100 ML IV (05:27)
[2021-04-11 05:40] LABS: Bedside Glucose 149 mg/dL (70-110)
[2021-04-11 06:55] LABS: Absolute Lymphocyte Count 0.98 X10^3/uL (0.83-4.51); Absolute Neutrophil Count 3.2 X10^3/uL (2.0-7.7); Basophil# 0.04 X10^3/uL; Basophil% 0.8 % (0-1); Eosinophils% 7.7 % (0-5); Hematocrit 27.3 % (37-47); Hemoglobin 8.6 g/dL (12.0-15.0); Lymphocyte # 0.98 X10^3/ul (0.83-4.51); Lymphocyte % 18.9 % (19-41); Mean Corp Hgb Conc 31.5 g/dL (32-36); Mean Corpuscular Hgb 25.7 pg (27.0-32.0); Mean Corpuscular Volume 81.5 fL (81-99); Mean Platelet Vol. 9.3 fl (6.2-12.0); Monocyte# 0.53 X10^3/uL; Monocyte% 10.2 % (0-10); NRBC Flagged by Analyzer 0.4 % (0-5); Neutrophil # 3.22 X10^3/uL (2.7-7.7); Platelet Count 161 K/mm3 (150-450); RBC Distribution Width CV 18.4 % (11.6-14.6); RBC Distribution Width SD 54.9 fl (35.1-43.9); Red Blood Count 3.35 M/mm3 (4.2-5.4); White Blood Count 5.2 K/mm3 (4.4-11.0)
[2021-04-11 07:04] LABS: International Normalized Ratio 1.3; Prothrombin Time (Protime)PT. 15.5 SECONDS (11.7-14.9)
[2021-04-11 07:24] LABS: ALB/GLOB Ratio 0.8 RATIO (0.9-2.4); AST(SGOT) 26 U/L (15-37); Alanine Aminotransfer ALT/SGPT 13 U/L (13-56); Albumin, Serum 2.7 g/dL (3.2-5.0); Alkaline Phosphatase 54 U/L (45-117); Anion Gap 9 (5-15); BUN 19 mg/dL (7-18); BUN/Creat Ratio 19.3 RATIO (10-20); Calcium,Total 8.2 mg/dL (8.5-10.1); Chloride 111 mmol/L (98-107); Creatinine, Serum 0.98 mg/dL (0.55-1.02); EST Glomerular Filtration Rate 58 mL/min (>60); Est Glom Filt Rate - Afr Amer 70 mL/min (>60); Estimated Creatinine Clearance 39.14 ml/min; Globulin 3.6 g/dL (2.2-4.2); Glucose 128 mg/dL (74-106); Protein, Total 6.3 g/dL (6.4-8.2); Sodium Level 140 mmol/L (136-145)
--- NOTE | 2021-04-11 08:35 | NURSING ---
Patient took 1000mg tylenol from her purse at this time without RN knowing. Educated patient on the importance of not taking home medications while in the hospital. Patient agrees and understands.
[2021-04-11] MEDS: Metoprolol(XL)Succ 25 MG Tablet PO (09:08)
[2021-04-11] MEDS: hydrALAZINE 20 MG/ML Vial 10 MG IV (09:08)
[2021-04-11] MEDS: Sertraline 100 MG Tablet PO (09:08)
--- NOTE | 2021-04-11 09:10 | CASEMGMT ---
YUMIKO faxed updated clinicals including PT/OT to [facility]
[2021-04-11 11:30] LABS: Bedside Glucose 265 mg/dL (70-110)
--- NOTE | 2021-04-11 15:06 | CASEMGMT ---
Patient is going to be discharged back to [facility] today. YUMIKO called Meera at [facility] and let her know. YUMIKO will fax d/c instructions as soon as they are in the computer. Laine ABREU
--- NOTE | 2021-04-11 15:45 | PCM.DC.SUM ---
Providers Date of Admission: 04/09/21 Primary Care Physician: Dr. Alonzo Collado, DO Consultations 04/09/21 18:48 Consult: Gastroenterology Routine Consulting Provider: [facility] Reason for Consult: Acute GI bleed suspected, acute anemia (hgb in 5s), on coumadin. EMERGENT Consult: No MD Notified: Yes Date Notified: 04/09/21 Time Notified: 17:42 Method of Notification: called per ED. Reason For Visit: ACUTE GI BLEED, ACUTE BLOOD LOSS ANEMIA Diagnosis Discharge Diagnosis (1) Acute anemia: Status: Acute Code(s): D64.9 - Anemia, unspecified Medications at Discharge Home Medications acetaminophen 1,000 mg PO Q6H 01/31/19 sertraline 100 mg tablet 100 mg PO BID tab 03/15/19 calcium carb-mag ox-zinc sulf 3 tab PO DAILY 02/17/20 levothyroxine 25 mcg PO DAILY 02/17/20 ropinirole 0.25 mg PO QHS PRN 02/17/20 PreserVision AREDS-2 1 tab PO BID 01/14/21 losartan-hydrochlorothiazide 1 tab PO DAILY 01/14/21 metoprolol succinate 25 mg PO DAILY 01/14/21 Lantus Solostar U-100 Insulin 10 unit SUBCUT DAILY 04/09/21 atorvastatin 20 mg PO QHS 04/09/21 cholecalciferol (vitamin D3) 25 mcg PO BID 04/09/21 glipizide 2.5 mg PO DAILY 04/09/21 warfarin 7.5 mg PO DAILY 04/09/21 pantoprazole [Protonix] 40 mg PO BID 30 Days #60 tab 04/11/21 Hospital Course Operations None Procedures Blood transfusion, EGD and EKG Summary of Care Provided Minutes Spent on Discharge: 35 Hospital Course: DISCHARGE NOTE: Discharge Diagnoses: #1. Acute GI Bleed w/ resultant Acute Blood Loss Anemia on Chronic secondary to bleeding with friability at Lea-en-Y anastomotic site while on anticoagulant therapy with Coumadin #2. Acute renal insufficiency on CKD stage III, unclear subtype, secondary to #1 #3. 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 Diabetes mellitus type II #5. Hypertension #6. Hyperlipidemia #7. Valvular heart disease #8. Hypothyroidism #9. Anxiety and depression #10. Restless leg syndrome #11. CODE status: Patient ALEJANDRA is her daughter who is present. DNR-CCA, no intubation status. Discharge Summary: The patient is a 80 y/o F w/ PMHx: Hypothyroidism, HTN, HLD, Diabetes mellitus type II, Anxiety and Depression, Hx lupus anticoagulant disorder with Hx VTE, Valvular Heart Disease s/p AV replacement with bioprosthetic valve who presented to the [facility] ED on 04/09/21 with history of 2 weeks of significantly progressing worsened shortness of breath, worse with any exertion and significantly increased fatigue with on day of presentation patient inability to even go to her doctor's visit secondary to the severity of her symptoms prompting eventual ED evaluation. Admission Hgb 5.4, most recently prior 01/17/2021 9.7. Patient admitted to PCU, maintained on monitor, judiciously hydrated, admission INR 3.9 with vitamin K administered in the ED, a.m. 04/10/2021 INR repeat 1.5, administered 2 unit PRBC, maintained on IV PPI, 04/10/21 EGD w/ Dr. Parker (GI) with notable evidence of a Lea-en-Y gastrojejunostomy friable mucosa at the anastomosis with notable erythema and a hemorrhagic appearance as well as ulceration in addition to the duodenum to jejunum limb examined at 120 cm from the end stenosis with also ulceration with coagulation performed for hemostasis using a heater probe which was noted to be successful with return to floor following, transition to oral high-dose PPI, hold until reevaluation in 2 weeks for patient Coumadin therapy given a significantly remote history of VTE although does have underlying history of lupus anticoagulant disorder which was discussed with gastroenterology. Patient allowed diet which was tolerated. Patient repeat 04/11/21 Hgb 8.6 stable. Patient initial admission BUN/creatinine 33/1.54 with prior baseline 1.2, suspect likely secondary to her acute presentation #1, judiciously hydrated with repeat labs improved, 04/11/2021 BUN/creatinine 19/0.88. Patient discharged home with recommended follow-up with her primary care physician as well as gastroenterology in 2 weeks with hold on Coumadin until reevaluation per his service with additionally recommended continued high-dose PPI with medications sent electronically. DAY OF DISCHARGE PROGRESS NOTE: Subjective: Patient without acute event overnight per self and nursing report. Patient denies fever, chills, nausea, emesis, abdominal pain, chest pain or dyspnea. Patient agreeable to discharge to home given tolerating diet, no further lightheadedness, dizziness or any dyspnea complaints since presentation following PRBC administration. Patient will be discharged with follow-up with primary care physician within 3-5 days in addition to follow-up with gastroenterology in 2 weeks. Objective: T 98.1, heart rate 71, BP 142/58, respiratory rate 16, 97% on room air. Physical Examination: General: Awake, alert, oriented x 3 and cooperative, seated upright in the PCU bed, no acute complaints, waiting her breakfast. Skin: Improved normalized color, normal turgor, no icterus, no cyanosis. HEENT: AT/NC, EOMI, PERRLA, MMM. Lungs: CTA bilaterally, moderate effort, mild decrease BL bases, no rales, ronchi or wheezing. Heart: Regular rate and rhythm; no gallop, rub audible, + SM. Abdomen: Soft, NTTP, ND, normalized BS. Extremities: No cyanosis, clubbing, or edema. Neurological: Patient awake, alert, oriented as noted, cognitive function appears baseline intact; pupils equally reactive to light and accommodation, cranial nerves II-XII grossly normal, moving all 4 extremities, no focal deficits, strength improved, mildly to moderately global decrease. Psychiatric: Affect appears normal, no acute evidence of depressive or anxiety feelings. Assessment and Plan: Please see hospital summary above. Weight / BMI Weight Weight: 133 lb 9.602 oz Body Mass Index (BMI) 23.4 ABG / Lab / Microbiology Data Result Diagrams: 04/11/21 06:45 04/11/21 06:45 Laboratory: Laboratory Results - last 24 hr 04/10/21 18:28: POC Glucose 91 04/10/21 20:50: Hgb 9.0 L, Hct 28.5 L 04/11/21 00:10: Hgb 8.7 L, Hct 27.2 L 04/11/21 01:34: POC Glucose 208 H 04/11/21 05:25: POC Glucose 149 H 04/11/21 06:45: PT 15.5 H, INR 1.3 04/11/21 06:45: WBC 5.2, RBC 3.35 L, Hgb 8.6 L, Hct 27.3 L, MCV 81.5, MCH 25.7 L, MCHC 31.5 L, RDW Std Deviation 54.9 H, RDW Coeff of Adria 18.4 H, Plt Count 161, MPV 9.3, Immature Gran % (Auto) 0.400, Neut % (Auto) 62.0, Lymph % (Auto) 18.9 L, Mcclain % (Auto) 10.2 H, Eos % (Auto) 7.7 H, Baso % (Auto) 0.8, Absolute Neuts (auto) 3.2, Absolute Lymphs (auto) 0.98, Nucleated RBC % 0.4 04/11/21 06:45: Sodium 140, Potassium 4.0, Chloride 111 H, Carbon Dioxide 20.0 L, Anion Gap 9, BUN 19 H, Creatinine 0.98, Estim Creat Clear Calc 39.14, Est GFR (MDRD) Af Amer 70, Est GFR (MDRD) Non-Af 58 L, BUN/Creatinine Ratio 19.3, Glucose 128 H, Calcium 8.2 L, Total Bilirubin 0.50, AST 26, ALT 13, Alkaline Phosphatase 54, Total Protein 6.3 L, Albumin 2.7 L, Globulin 3.6, Albumin/Globulin Ratio 0.8 L 04/11/21 11:16: POC Glucose 265 H D/C Instructions Discharge Diet: 1800 Calorie Control Diet Call your doctor if you observe: Shortness of breath Suture Line Care: - (Any rectal bleeding or dark black tarry stools.) Meaningful Use Info Meaningful Use Diagnoses (Choose all that apply): None applicable Discharge Plan Admission Admit Date/Time: 04/09/21 17:42 Primary Reason for Your Visit: Acute GI bleed, acute blood loss anemia Attending Provider: Lisa Haynes Primary Care Provider: Alonzo Collado Instructions Patient Instructions: ED Upper GI Bleeding (Stable) Additional Instructions / Restrictions: DISCHARGE INSTRUCTIONS: Please continue to hold your Coumadin until you are reevaluated by gastroenterology and cleared to restart with close INR trending to assure you do not become supratherapeutic. If you have recurrent events we may need to consider placement of an IVC filter. Please avoid NSAID therapies including things like ibuprofen and naproxen. Please also avoid significantly acidotic food items that cause stomach upset. Discharge Orders/Prescriptions Prescriptions: New pantoprazole [Protonix] 40 mg tablet,delayed release (DR/EC) 40 mg PO BID 30 Days Qty: 60 RF: 0 Continued sertraline 100 mg tablet 100 mg PO BID RF: 0 acetaminophen 500 MG tablet 1,000 mg PO Q6H RF: 0 levothyroxine 25 MCG tablet 25 mcg PO DAILY RF: 0 ropinirole 0.25 MG tablet 0.25 mg PO QHS PRN (Reason: restless legs) RF: 0 calcium carb-mag ox-zinc sulf 1 EACH tablet 3 tab PO DAILY RF: 0 losartan-hydrochlorothiazide 50-12.5 mg Tablet 1 tab PO DAILY RF: 0 PreserVision AREDS-2 250-90-40-1 mg Capsule 1 tab PO BID RF: 0 metoprolol succinate 25 mg tablet extended release 24 hr 25 mg PO DAILY RF: 0 atorvastatin 20 mg Tablet 20 mg PO QHS RF: 0 glipizide 5 mg Tablet 2.5 mg PO DAILY RF: 0 cholecalciferol (vitamin D3) 25 mcg (1,000 unit) Capsule 25 mcg PO BID RF: 0 Lantus Solostar U-100 Insulin 100 unit/mL (3 mL) Insulin Pen 10 unit SUBCUT DAILY RF: 0 Held warfarin 7.5 mg Tablet 7.5 mg PO DAILY RF: 0 Hold Instructions: Resume on 05/19/21. DO NOT START TAKING YOUR COUMADIN AGAIN UNTIL RE-EVALUATION PER GASTROENTEROLOGY AND CLEARED TO RESTART WITH CLOSE INR TRENDING GIVEN RECENT GI BLEED. Referrals / Follow Up: Alonzo Collado DO [Primary Care Provider] - (Follow-up within 3-5 days to review admission.) FriendUlysses DO [STAFF PHYSICIAN] - (Follow-up in 2 weeks.) Disposition Disposition (needs filled in before D/C Order can be placed): Home, Self Care Charges/Coding Visit Charges Inpatient E&M: 38890 Disch Hosp
--- NOTE | 2021-04-11 15:49 | CASEMGMT ---
Discharge instructions faxed to [facility] [employer]
== END 2021-04-11 16:21 | disposition home or self-care (01) | DRG 378 ==
LOC: ED 17:43 → PCU 18:02
PROVIDERS: Internal Medicine Gastroenterology; Admitting Provider Family Medicine; Emergency Provider Emergency Medicine; PCP Family Medicine; Visit Provider Family Medicine
PROC: 0W3P8ZZ Control Bleeding in Gastrointestinal Tract, Via Natural or Artificial Opening Endoscopic (ICD-10-PCS; principal; 2021-04-10 15:55)
DX: K28.4 Chronic or unspecified gastrojejunal ulcer with hemorrhage (principal); D62 Acute posthemorrhagic anemia; D68.62 Lupus anticoagulant syndrome; E11.22 Type 2 diabetes mellitus with diabetic chronic kidney disease; I12.9 Hypertensive chronic kidney disease with stage 1 through stage 4 chronic kidney disease, or unspecified chronic kidney disease; E78.5 Hyperlipidemia, unspecified; M19.90 Unspecified osteoarthritis, unspecified site; J44.9 Chronic obstructive pulmonary disease, unspecified; N28.9 Disorder of kidney and ureter, unspecified; N18.32 Chronic kidney disease, stage 3b; F32.A Depression, unspecified; E03.9 Hypothyroidism, unspecified; G25.81 Restless legs syndrome; F41.9 Anxiety disorder, unspecified; Z79.899 Other long term (current) drug therapy; Z79.4 Long term (current) use of insulin; Z98.84 Bariatric surgery status; Z79.01 Long term (current) use of anticoagulants; Z86.718 Personal history of other venous thrombosis and embolism; Z95.3 Presence of xenogenic heart valve; Z87.891 Personal history of nicotine dependence; Z66 Do not resuscitate
CPT/HCPCS: 36415; 71045; 80053; 81001; 82962; 85014; 85018; 85025; 85610; 86850; 86900; 86901; 86920; 86922; 93005; 97162; 97166; 99251; 99284; J7030; J7120; P9016; A4216; G0463; J3490

== ENCOUNTER 2021-06-29 10:55 | Outpatient (CLI) | payer MEDICARE, OTHER, SELFPAY ==
[2021-06-29 11:20] VITALS: BP 154/63; PULSE 72; RESP 16; TEMP 36.2; O2SAT 98
[2021-06-29] MEDS: 0.9% NaCl IVPB Med Flush (250 mL) 15 ML IV (11:30)
[2021-06-29] MEDS: Sodium Ferric Gluconat 250 MG in 0.9% Normal Saline 250 ML 135 MG IV (11:30)
[2021-06-29] MEDS: 0.9% NaCl Peripheral Flush Adult/Peds IV (11:30)
[2021-06-29 14:14] VITALS: BP 148/64; PULSE 62; RESP 16; TEMP 35.9
== END 2021-06-29 23:59 | disposition home or self-care (01) ==
LOC: MEDOUTP 10:57
PROVIDERS: PCP Family Medicine; Referring Provider Internal Medicine Gastroenterology; Visit Provider Internal Medicine Gastroenterology
DX: K92.2 Gastrointestinal hemorrhage, unspecified (principal); D64.9 Anemia, unspecified
CPT/HCPCS: 96365; 96366; J7050; A4216; J2916

== ENCOUNTER 2021-07-02 14:20 | Outpatient (CLI) | payer MEDICARE, MEDICAID, SELFPAY ==
[2021-07-02 14:44] LABS: Absolute Neutrophil Count 3.5 X10^3/uL (2.0-7.7); Basophil# 0.04 X10^3/uL; Basophil% 0.6 % (0-1); Eosinophil# 0.61 X10^3/uL; Eosinophils% 9.5 % (0-5); Hematocrit 29.3 % (37-47); Hemoglobin 8.7 g/dL (12.0-15.0); Lymphocyte % 24.9 % (19-41); Mean Corp Hgb Conc 29.7 g/dL (32-36); Mean Corpuscular Hgb 24.1 pg (27.0-32.0); Mean Corpuscular Volume 81.2 fL (81-99); Mean Platelet Vol. 10.1 fl (6.2-12.0); Monocyte# 0.62 X10^3/uL; Monocyte% 9.6 % (0-10); NRBC Flagged by Analyzer 0 % (0-5); Neutrophil # 3.54 X10^3/uL (2.7-7.7); Neutrophil % 55.1 % (47-70); Platelet Count 250 K/mm3 (150-450); RBC Distribution Width SD 59.6 fl (35.1-43.9); Red Blood Count 3.61 M/mm3 (4.2-5.4); White Blood Count 6.4 K/mm3 (4.4-11.0)
[2021-07-02 15:30] LABS: ALB/GLOB Ratio 0.8 RATIO (0.9-2.4); AST(SGOT) 65 U/L (15-37); Alanine Aminotransfer ALT/SGPT 30 U/L (13-56); Albumin, Serum 3.5 g/dL (3.2-5.0); Alkaline Phosphatase 81 U/L (45-117); Anion Gap 5 (5-15); BUN 15 mg/dL (7-18); BUN/Creat Ratio 9.1 RATIO (10-20); Calcium,Total 8.7 mg/dL (8.5-10.1); Chloride 104 mmol/L (98-107); Creatinine, Serum 1.64 mg/dL (0.55-1.02); EST Glomerular Filtration Rate 32 mL/min (>60); Est Glom Filt Rate - Afr Amer 39 mL/min (>60); Ferritin 345 ng/mL (8-252); Globulin 4.4 g/dL (2.2-4.2); Glucose 146 mg/dL (74-106); Iron 107 ug/dL (50-170); Iron Binding Capacity,Total 425 ug/dL (250-450); PERCENT IRON SATURATION 25.2 % (15.0-55.0); Potassium 4.2 mmol/L (3.5-5.1); Protein, Total 7.9 g/dL (6.4-8.2); Sodium Level 137 mmol/L (136-145)
[2021-07-04 15:08] LABS: Albumin 3.5 g/dL (2.9-4.4); Alpha-1-Globulins 0.2 g/dL (0.0-0.4); Alpha-2-Globulins 0.9 g/dL (0.4-1.0); Gamma Globulin 1.5 g/dL (0.4-1.8); Immunoglobulin A 451 mg/dL (64-422); Immunoglobulin G 1342 mg/dL (586-1602); Immunoglobulin M 153 mg/dL (26-217); PROEL- TOTAL PROTEIN 7.2 g/dL (6.0-8.5)
== END 2021-07-02 23:59 | disposition home or self-care (01) ==
LOC: LAB 14:25
PROVIDERS: PCP Family Medicine; Referring Provider Internal Medicine Gastroenterology; Visit Provider Internal Medicine Gastroenterology
DX: D64.9 Anemia, unspecified (principal); I10 Essential (primary) hypertension
CPT/HCPCS: 36415; 80053; 82728; 82784; 83540; 83550; 84165; 85025; 86334

== ENCOUNTER 2021-08-10 11:59 | Outpatient (CLI) | payer MEDICARE, MEDICAID, SELFPAY ==
[2021-08-10 12:07] VITALS: BP 160/64; PULSE 76; RESP 16; TEMP 35.8; O2SAT 96
[2021-08-10] MEDS: 0.9% NaCl Peripheral Flush Adult/Peds IV (12:11)
[2021-08-10] MEDS: 0.9% NaCl IVPB Med Flush (250 mL) 15 ML IV (12:16)
[2021-08-10] MEDS: Sodium Ferric Gluconat 250 MG in 0.9% Normal Saline 250 ML 135 MG IV (12:50)
[2021-08-10 15:17] VITALS: BP 157/63; PULSE 54; RESP 16; TEMP 36.1; O2SAT 99
== END 2021-08-10 23:59 | disposition home or self-care (01) ==
LOC: MEDOUTP 12:00
PROVIDERS: PCP Family Medicine; Referring Provider Internal Medicine Gastroenterology; Visit Provider Internal Medicine Gastroenterology
DX: K92.2 Gastrointestinal hemorrhage, unspecified (principal); D64.9 Anemia, unspecified
CPT/HCPCS: 96365; 96366; J7050; A4216; J2916

== ENCOUNTER 2021-08-20 12:59 | Outpatient (CLI) | payer MEDICARE, MEDICAID, SELFPAY ==
[2021-08-20 13:36] VITALS: BP 147/57; PULSE 58; RESP 16; TEMP 35.9; O2SAT 100
[2021-08-20] MEDS: 0.9% NaCl IVPB Med Flush (250 mL) 15 ML IV (13:40)
[2021-08-20] MEDS: Sodium Ferric Gluconat 250 MG in 0.9% Normal Saline 250 ML 135 MG IV (13:40)
[2021-08-20] MEDS: 0.9% NaCl Peripheral Flush Adult/Peds IV (13:40)
[2021-08-20 15:56] VITALS: BP 182/64; PULSE 55; O2SAT 99
== END 2021-08-20 23:59 | disposition home or self-care (01) ==
PROVIDERS: PCP Family Medicine; Referring Provider Internal Medicine Gastroenterology; Visit Provider Internal Medicine Gastroenterology
DX: K92.2 Gastrointestinal hemorrhage, unspecified (principal); D64.9 Anemia, unspecified
CPT/HCPCS: 96365; 96366; J7050; A4216; J2916

== ENCOUNTER 2021-08-27 14:41 | Outpatient (CLI) | payer MEDICARE, MEDICAID, SELFPAY ==
[2021-08-27 15:32] LABS: Absolute Lymphocyte Count 1.35 X10^3/uL (0.83-4.51); Absolute Neutrophil Count 2.4 X10^3/uL (2.0-7.7); Basophil# 0.02 X10^3/uL; Basophil% 0.4 % (0-1); Eosinophil# 0.44 X10^3/uL; Eosinophils% 9.3 % (0-5); Hematocrit 35.2 % (37-47); Hemoglobin 10.8 g/dL (12.0-15.0); Lymphocyte # 1.35 X10^3/ul (0.83-4.51); Lymphocyte % 28.7 % (19-41); Mean Corp Hgb Conc 30.7 g/dL (32-36); Mean Corpuscular Hgb 26.4 pg (27.0-32.0); Mean Corpuscular Volume 86.1 fL (81-99); Mean Platelet Vol. 11.5 fl (6.2-12.0); Monocyte# 0.54 X10^3/uL; Monocyte% 11.5 % (0-10); NRBC Flagged by Analyzer 0 % (0-5); Neutrophil # 2.35 X10^3/uL (2.7-7.7); Neutrophil % 49.9 % (47-70); POSITIVE MORPHOLOGY YES; Platelet Count 171 K/mm3 (150-450); RBC Distribution Width CV 24.7 % (11.6-14.6); RBC Distribution Width SD 77.2 fl (35.1-43.9); Red Blood Count 4.09 M/mm3 (4.2-5.4); White Blood Count 4.7 K/mm3 (4.4-11.0)
[2021-08-27 15:46] LABS: Differential Indicated SCAN CRITERIA MET
[2021-08-27 16:11] LABS: Differential Comment SCANNED
[2021-08-27 16:12] LABS: Immature Platelet Fraction 8.6 % (1.0-7.9); RET-HE 34.6 pg (30-35); Reticulocyte Count 1.54 % (0.5-1.5)
[2021-08-27 16:14] LABS: Ferritin 551 ng/mL (8-252); Iron 98 ug/dL (50-170); Iron Binding Capacity,Total 368 ug/dL (250-450); PERCENT IRON SATURATION 26.6 % (15.0-55.0)
[2021-08-27 17:37] LABS: Vitamin B12 449 pg/mL (211-911)
== END 2021-08-27 23:59 | disposition home or self-care (01) ==
PROVIDERS: Internal Medicine Hematology & Oncology; PCP Family Medicine; Referring Provider Internal Medicine Gastroenterology; Visit Provider Internal Medicine Gastroenterology
DX: D64.9 Anemia, unspecified (principal)
CPT/HCPCS: 36415; 82607; 82728; 82746; 83540; 83550; 85025; 85045

== ENCOUNTER → 2021-09-10 | Outpatient (CLI) | payer MEDICARE, MEDICAID, SELFPAY ==
--- NOTE | 2021-09-10 14:51 | BI_ITS ---
MAMMOGRAPHY - BILATERAL SCREENING REASON FOR EXAM: Female, 80 years old. Routine annual screening examination. PERTINENT HISTORY: Daughter with breast cancer. Sister with breast cancer. TECHNIQUE: Digital bilateral breast lorie (3D mammographic acquisition) in the CC and MLO projections. 2-D mediolateral oblique (MLO) and craniocaudad (CC) views of both breasts were obtained. CAD: Full Field Digital Mammography with Computer Added Detection was performed. COMPARISON: Comparison is made with prior study dated 11/02/2018. FINDINGS: Breast Composition: There are scattered areas of fibroglandular density. There are no dominant masses or suspicious calcifications. Stable bilateral vascular and secretory calcifications. Stable bilateral calcified fibroadenomas. No other significant abnormalities are identified. BI/SCRN MAMM (CAD)W/LORIE BILAT IMPRESSION: Stable bilateral screening mammogram. Yearly follow-up mammogram recommended. (A) ASSESSMENT CATEGORY: BIRADS Category 2: Benign. A letter regarding these results will be sent to the patient by the facility within 30 days. Approximately 10% of breast cancers are not detected by mammography. A normal mammogram should not delay biopsy of a clinically suspicious abnormality. [id number] Electronically Signed: Oren Hill MD at 15:32 EDT ,
== END | disposition home or self-care (01) ==
LOC: OPBI 14:49
PROVIDERS: PCP Family Medicine; Referring Provider Internal Medicine Hematology & Oncology; Visit Provider Internal Medicine Hematology & Oncology
DX: Z12.31 Encounter for screening mammogram for malignant neoplasm of breast (principal)
CPT/HCPCS: 77063; 77067

== ENCOUNTER 2022-04-07 18:06 | Inpatient (IN) | payer OTHER, SELFPAY ==
[2022-04-07 18:07] VITALS: BP 124/66; PULSE 98; RESP 18; TEMP 36.3; O2SAT 98; BMI 25.1
--- NOTE | 2022-04-07 18:31 | EDS_ITS ---
HPI <OMNY Curtis - Last Filed: 04/07/22 19:49> History of Present Illness Chief Complaint: GI Bleed Narrative Narrative: 81-year-old female with PMH of HTN, HLD, GI bleed, anemia, TAVR, Lea-en-Y gastric bypass presents with 2 weeks of melena and a few days of lightheadedness. No chest pain, shortness of breath, palpitations or syncope. No abdominal pain. She is having 1-2 bowel movements per day. A week ago they just change her Coumadin to Eliquis 2.5 mg twice daily due to labile INRs. She is on anticoagulation for history of remote DVT and lupus anticoagulant disorder. She states she had endoscopy about a year ago which showed some friable tissue at her Lea-en-Y junction which is treated. She also had a colonoscopy with Dr. Parker. [facility] <MONY Curtis - Last Filed: 04/07/22 19:49> [facility] Medical History Acute GI bleeding Anemia Depression Diabetes mellitus, type II Essential hypertension History of DVT (deep vein thrombosis) HTN (hypertension) Hyperlipidemia Iron deficiency anemia due to chronic blood loss Lupus anticoagulant disorder (1994) Nonrheumatic aortic (valve) stenosis with insufficiency Osteoarthritis Osteoporosis Small bowel intussusception Supratherapeutic INR Vitamin B 12 deficiency Home Medications acetaminophen 500 mg tablet 1,000 mg PO Q6H pain 01/31/19 [History Last Taken 04/09/21 12:00] sertraline 100 mg tablet 100 mg PO BID depression 03/15/19 [History Last Taken 04/09/21] calcium carbonate 333 mg-magnesium oxide 133 mg-zinc sulf 5 mg tablet 3 tab PO DAILY supplement 02/17/20 [History Last Taken 04/08/21] levothyroxine 25 mcg tablet 25 mcg PO DAILY THYROID 02/17/20 [History Last Taken 04/09/21] ropinirole 0.25 mg tablet 0.25 mg PO QHS PRN restless legs 02/17/20 [History Last Taken Unknown] losartan 50 mg-hydrochlorothiazide 12.5 mg tablet 1 tab PO DAILY heart/BP 01/14/21 [History Last Taken 04/09/21] metoprolol succinate 25 mg tablet,extended release 24 hr 25 mg PO DAILY HTN 01/14/21 [History Last Taken 04/09/21] vit C 250 mg-vit E 90 mg-zinc 40 mg-copper 1 [id number]-uwjkoz capsule (Prese rVision AREDS-2) 1 tab PO BID eyes 01/14/21 [History Last Taken 04/09/21] atorvastatin 20 mg tablet 20 mg PO QHS CHOLESTEROL 04/09/21 [History Last Taken 04/08/21] cholecalciferol (vitamin D3) 25 mcg (1,000 unit) capsule 25 mcg PO BID SUPPLEMENT 04/09/21 [History Last Taken 04/09/21] glipizide 5 mg tablet 2.5 mg PO DAILY DM 04/09/21 [History Last Taken 04/09/21] insulin glargine 100 unit/mL (3 mL) subcutaneous pen (Lantus Solostar U-100 Insulin) 10 unit subcut DAILY DM 04/09/21 [History Last Taken 04/09/21] warfarin 7.5 mg tablet 7.5 mg PO DAILY BLOOD THINNER 04/09/21 [History Last Taken 04/08/21] biotin 1,000 mcg chewable tablet 1,000 mcg PO BID 06/07/21 [History Last Taken Unknown] ferrous sulfate 325 mg (65 mg iron) tablet 325 mg PO BID 06/07/21 [History Last Taken Unknown] famotidine 40 mg tablet 40 mg PO QHS 11/19/21 [History Last Taken Unknown] multivitamin 1 tab PO DAILY 11/19/21 [History Last Taken Unknown] psyllium husk 3.4 gram/5.4 gram oral powder (Metamucil) 1 tbsp PO DAILY 11/19/21 [History Last Taken Unknown] ggyaej-mkkavgmb-irpuybx 36,000-114,000-180,000 unit capsule,delay rel (Creon) 1 cap PO .COMPLEX #320 caps 02/12/22 [Rx Last Taken Unknown] Allergy/AdvReac Type Severity Reaction Status Date / Time codeine Allergy Intermediate itchy Verified 04/07/22 18:06 lisinopril Allergy Intermediate coughing Verified 04/07/22 18:06 Seasonal Allergies: Uncoded Allergy Other Verified 04/07/22 18:06 Family History Mother , Age 86 CAD (coronary artery disease) Alzheimers disease Myocardial infarction, Onset Age: 70 Father , Age 68 CAD (coronary artery disease) Alcoholism Hypertension Sister Diabetes Hypertension Breast cancer Sister , 46 No problems noted. Brother Cancer bladder and prostate Hypertension Heart disease Brother No problems noted. Surgical History History of aortic valve replacement with bioprosthetic valve (02/15/19) History of appendectomy History of section History of elbow surgery (2011) History of gastric bypass History of hip surgery (2011) History of open reduction and internal fixation (ORIF) procedure (2009) History of right and left heart catheterization (11/30/18) History of tonsillectomy Status post gastric bypass for obesity Social History adopted: No household members: none housing: assisted living facility number of children: 2 current occupational status: retired current occupational exposures/hazards: No pets and animals: No leisure activities: reading and other history of recent travel: No sexually active: No Smoking Status: Former smoker Tobacco: How many years used: 8 how long ago did patient quit smokin years ago alcohol intake: current Alcohol type: wine details: wine substance use type: does not use diet: diabetic well-balanced diet: about half the time during the past year weight has: remained stable what type of physical activity do you participate in: none mitali/latter day: Muslim do you feel safe at home: Yes ROS <MONY Curtis - Last Filed: 04/07/22 19:49> ROS ED ROS Narrative Constitutional: Negative for fever, chills, malaise. Eyes: Negative for visual change. ENT: Negative for sore throat, ear pain, rhinorrhea. CVS: Negative for palpitations, chest pain, syncope. Respiratory: Negative for shortness of breath, cough, orthopnea. GI: Positive for melena. Negative for abdominal pain, nausea, vomiting, diarrhea, constipation, hematochezia. : Negative for dysuria, hematuria or frequency. Neuro: Negative for headache, motor/sensory dysfunction. Skin: Negative for rash, abscess, or wound. Musc: Negative for joint pain, swelling, trauma. Heme: Negative for easy bruising, bleeding, lymphadenopathy. EXAM <MONY Curtis - Last Filed: 04/07/22 19:49> Physical Exam Narrative Exam Narrative: CONST: Patient sitting in no acute distress. EYES: Normal inspection. Conjunctival pallor. ENT: Normal inspection, moist mucous membranes. NECK: Normal inspection. RESP: No respiratory distress, CTAB. CVS: Regular rate and rhythm, no murmur, no gallop. ABD: Soft and nontender, no guarding or rebound, nondistended. SAMANTHA: No external hemorrhoids, melanotic stool. SKIN: Color normal, no rash, warm, dry, intact. EXTREMITIES: Normal appearance, no pedal edema. NEURO: Oriented x4. PSYCH: Normal affect. Const Vital Signs: 04/07/22 18:07 Temperature 97.4 F L Temperature Source Temporal Pulse Rate 98 Respiratory Rate 18 Blood Pressure 124/66 H Blood Pressure Mean 85 Pulse Ox 98 Oxygen Delivery Method Room Air <Dr. Edd Gilliland MD - Last Filed: 04/07/22 19:09> Physical Exam Const Vital Signs: 04/07/22 18:07 Temperature 97.4 F L Temperature Source Temporal Pulse Rate 98 Respiratory Rate 18 Blood Pressure 124/66 H Blood Pressure Mean 85 Pulse Ox 98 Oxygen Delivery Method Room Air MDM <MONY Curtis - Last Filed: 04/07/22 19:49> MDM MDM Narrative Medical decision making narrative: 81-year-old female with history of GI bleed, on Eliquis for DVT/lupus anticoagulant presents with 2 weeks of melena. She appears well and nontoxic. Exam is remarkable for conjunctival pallor. Abdomen is soft and nontender and rectal exam shows dark black stool. Hemoglobin is 9.4 down about 3 grams from November 2021. BUN/creatinine is 33/1.75. She does have chronic kidney disease and this is not significantly elevated. INR is 1.4. She was treated with IV Protonix and case will be discussed with the hospitalist for admission for GI bleed. I have personally performed a face to face assessment of the patient and have reviewed the GUILLERMINA Note. I performed a substantive portion of the visit including all aspects of the following. My todd findings include: History is [81-year-old female dark stool for 2 weeks. Currently on Eliquis due to prior blood clots. Previously was on Coumadin. Has had GI bleeds before in the past. Evaluate the patient with our physician teachers' assistant.] Exam is [81-year-old female. No acute distress. Vital signs stable afebrile. Initial blood pressure 124/66. Does not look septic or toxic. H EENT exam unremarkable. Lungs clear. Heart regular rhythm rate about 90. 3/6 systolic ejection murmur. Abdomen soft nontender. Normal bowel sounds no peritoneal signs. Moving all 4 extremities. Neurologically awake and alert.] Medical Decision Making [81-year-old female suspect GI bleed. Screening labs. Typed and screened. Will need admitted.] Other additions or changes: [None] Lab Data Labs: Laboratory Results - last 24 hr 04/07/22 04/07/22 04/07/22 18:45 18:45 18:45 WBC 5.6 RBC 2.95 L Hgb 9.4 L Hct 29.8 L MCV 101.0 H MCH 31.9 MCHC 31.5 L RDW Std Deviation 55.9 H RDW Coeff of Adria 15.2 H Plt Count 175 MPV 10.3 Immature Gran % (Auto) 0.500 Neut % (Auto) 66.5 Lymph % (Auto) 18.6 L [place] % (Auto) 7.0 Eos % (Auto) 7.0 H Baso % (Auto) 0.4 Absolute Neuts (auto) 3.7 Absolute Lymphs (auto) 1.03 Nucleated RBC % 0 PT 16.7 H INR 1.4 Sodium 138 Potassium 3.6 Chloride 104 Carbon Dioxide 26.0 Anion Gap 8 BUN 33 H Creatinine 1.75 H Estim Creat Clear Calc 21.56 Est GFR (MDRD) Af Amer 36 L Est GFR (MDRD) Non-Af 30 L BUN/Creatinine Ratio 18.9 Glucose 193 H Calcium 8.6 Total Bilirubin 0.30 AST 38 H ALT 20 Alkaline Phosphatase 61 Total Protein 7.1 Albumin 3.4 Globulin 3.7 Albumin/Globulin Ratio 0.9 <Dr. Edd Gilliland MD - Last Filed: 04/07/22 19:09> [facility] Narrative Medical decision making narrative: I have personally performed a face to face assessment of the patient and have reviewed the GUILLERMINA Note. I performed a substantive portion of the visit including all aspects of the following. My todd findings include: History is [81-year-old female dark stool for 2 weeks. Currently on Eliquis due to prior blood clots. Previously was on Coumadin. Has had GI bleeds before in the past. Evaluate the patient with our physician teachers' assistant.] Exam is [81-year-old female. No acute distress. Vital signs stable afebrile. Initial blood pressure 124/66. Does not look septic or toxic. H EENT exam unremarkable. Lungs clear. Heart regular rhythm rate about 90. 3/6 systolic ejection murmur. Abdomen soft nontender. Normal bowel sounds no peritoneal signs. Moving all 4 extremities. Neurologically awake and alert.] Medical Decision Making [81-year-old female suspect GI bleed. Screening labs. Typed and screened. Will need admitted.] Other additions or changes: [None] Lab Data Labs: Laboratory Results - last 24 hr 04/07/22 04/07/22 04/07/22 18:45 18:45 18:45 WBC 5.6 RBC 2.95 L Hgb 9.4 L Hct 29.8 L MCV 101.0 H MCH 31.9 MCHC 31.5 L RDW Std Deviation 55.9 H RDW Coeff of Adria 15.2 H Plt Count 175 MPV 10.3 Immature Gran % (Auto) 0.500 Neut % (Auto) 66.5 Lymph % (Auto) 18.6 L [place] % (Auto) 7.0 Eos % (Auto) 7.0 H Baso % (Auto) 0.4 Absolute Neuts (auto) 3.7 Absolute Lymphs (auto) 1.03 Nucleated RBC % 0 PT 16.7 H INR 1.4 Sodium 138 Potassium 3.6 Chloride 104 Carbon Dioxide 26.0 Anion Gap 8 BUN 33 H Creatinine 1.75 H Estim Creat Clear Calc 21.56 Est GFR (MDRD) Af Amer 36 L Est GFR (MDRD) Non-Af 30 L BUN/Creatinine Ratio 18.9 Glucose 193 H Calcium 8.6 Total Bilirubin 0.30 AST 38 H ALT 20 Alkaline Phosphatase 61 Total Protein 7.1 Albumin 3.4 Globulin 3.7 Albumin/Globulin Ratio 0.9 Discharge Plan Triage Chief Complaint: GI Bleed ED Midlevel Provider: Brandi Erazo ED Provider: Edd Gilliland Dx/Rx/DC Orders Clinical Impression: Acute GI bleeding, Anemia Prescriptions: No Action sertraline 100 mg tablet 100 mg PO BID Label Comments: depression biotin 1,000 mcg tablet,chewable 1,000 mcg PO BID ferrous sulfate 325 mg (65 mg iron) tablet 325 mg PO BID famotidine 40 mg tablet 40 mg PO QHS Metamucil 3.4 gram/5.4 gram powder 1 tbsp PO DAILY Rx Instructions: mix into at least 8 oz of water or juice before administering multivitamin Tablet 1 tab PO DAILY acetaminophen 500 MG tablet 1,000 mg PO Q6H Label Comments: pain levothyroxine 25 MCG tablet 25 mcg PO DAILY ropinirole 0.25 MG tablet 0.25 mg PO QHS PRN (Reason: restless legs) calcium carb-mag ox-zinc sulf 1 EACH tablet 3 tab PO DAILY losartan-hydrochlorothiazide 50-12.5 mg Tablet 1 tab PO DAILY PreserVision AREDS-2 250-90-40-1 mg Capsule 1 tab PO BID metoprolol succinate 25 mg tablet extended release 24 hr 25 mg PO DAILY atorvastatin 20 mg Tablet 20 mg PO QHS warfarin 7.5 mg Tablet 7.5 mg PO DAILY Hold Instructions: Resume on 05/19/21. DO NOT START TAKING YOUR COUMADIN AGAIN UNTIL RE-EVALUATION PER GASTROENTEROLOGY AND CLEARED TO RESTART WITH CLOSE INR TRENDING GIVEN RECENT GI BLEED. glipizide 5 mg Tablet 2.5 mg PO DAILY cholecalciferol (vitamin D3) 25 mcg (1,000 unit) Capsule 25 mcg PO BID Lantus Solostar U-100 Insulin 100 unit/mL (3 mL) Insulin Pen 10 unit SUBCUT DAILY Creon 36,000-114,000- 180,000 unit capsule,delayed release(DR/EC) 1 cap PO .COMPLEX Qty: 320 5RF Rx Instructions: 1 cap orally; three with meals and 1-2 with snacks Primary Care Provider: Alonzo Collado Referrals: Alonzo Collado DO [Primary Care Provider] -
[2022-04-07 19:02] LABS: Absolute Lymphocyte Count 1.03 X10^3/uL (0.83-4.51); Absolute Neutrophil Count 3.7 X10^3/uL (2.0-7.7); Basophil# 0.02 X10^3/uL; Basophil% 0.4 % (0-1); Eosinophil# 0.39 X10^3/uL; Hematocrit 29.8 % (37-47); Hemoglobin 9.4 g/dL (12.0-15.0); Lymphocyte # 1.03 X10^3/ul (0.83-4.51); Lymphocyte % 18.6 % (19-41); Mean Corp Hgb Conc 31.5 g/dL (32-36); Mean Corpuscular Hgb 31.9 pg (27.0-32.0); Mean Platelet Vol. 10.3 fl (6.2-12.0); Monocyte# 0.39 X10^3/uL; NRBC Flagged by Analyzer 0 % (0-5); Neutrophil # 3.69 X10^3/uL (2.7-7.7); Neutrophil % 66.5 % (47-70); Platelet Count 175 K/mm3 (150-450); RBC Distribution Width CV 15.2 % (11.6-14.6); RBC Distribution Width SD 55.9 fl (35.1-43.9); Red Blood Count 2.95 M/mm3 (4.2-5.4); White Blood Count 5.6 K/mm3 (4.4-11.0)
[2022-04-07 19:11] LABS: International Normalized Ratio 1.4; Prothrombin Time (Protime)PT. 16.7 SECONDS (11.7-14.9)
[2022-04-07 19:19] LABS: ALB/GLOB Ratio 0.9 RATIO (0.9-2.4); AST(SGOT) 38 U/L (15-37); Alanine Aminotransfer ALT/SGPT 20 U/L (13-56); Albumin, Serum 3.4 g/dL (3.2-5.0); Alkaline Phosphatase 61 U/L (45-117); Anion Gap 8 (5-15); BUN 33 mg/dL (7-18); BUN/Creat Ratio 18.9 RATIO (10-20); Calcium,Total 8.6 mg/dL (8.5-10.1); Chloride 104 mmol/L (98-107); Creatinine, Serum 1.75 mg/dL (0.55-1.02); EST Glomerular Filtration Rate 30 mL/min (>60); Est Glom Filt Rate - Afr Amer 36 mL/min (>60); Estimated Creatinine Clearance 21.56 ml/min; Globulin 3.7 g/dL (2.2-4.2); Glucose 193 mg/dL (74-106); Potassium 3.6 mmol/L (3.5-5.1); Protein, Total 7.1 g/dL (6.4-8.2); Sodium Level 138 mmol/L (136-145)
--- NOTE | 2022-04-07 20:24 | HP.PCM.HOS_ITS ---
HPI - General General Date of Admission: 04/07/22 Date of Service: 04/07/22 Chief Complaint: Melena HPI Narrative SONNY HOWARD, is a 81 F with a significant history of DVT in her leg from lupus anticoagulant; gastric bypass; exocrine pancreatic insufficiency; bioprosthetic aortic valve; diabetes mellitus who presents to the emergency department with persistent melena that started about 2 weeks ago. On the average patient patient has about 1-2 episodes of melena per day. In the past 1 to 2 days patient has been lightheaded. Also she feels weak and she is dry heaving. Of note patient was on Coumadin but her Coumadin was changed to Eliquis about a week ago She report that after a scope previously now she has a big mushy bowel movement 3-4 times per week. Emergency department provider reported dark stools on rectal examination. Per emergency department provider no hemorrhoids or masses were palpated rectally. [facility] Medical History (Updated 04/08/22 @ 03:[address] Davidson Dial MD) Acute GI bleeding Anemia Depression Diabetes mellitus, type II Essential hypertension History of DVT (deep vein thrombosis) HTN (hypertension) Hyperlipidemia Iron deficiency anemia due to chronic blood loss Lupus anticoagulant disorder (1994) Nonrheumatic aortic (valve) stenosis with insufficiency Osteoarthritis Osteoporosis Small bowel intussusception Supratherapeutic INR Vitamin B 12 deficiency Home Medications acetaminophen 500 mg tablet 1,000 mg PO Q6H PRN Pain 01/31/19 [History Last Taken 04/09/21 12:00] sertraline 100 mg tablet 100 mg PO BID depression 03/15/19 [History Last Taken 04/07/22 10:00] levothyroxine 25 mcg tablet 25 mcg PO DAILY THYROID 02/17/20 [History Last Taken 04/07/22] losartan 50 mg-hydrochlorothiazide 12.5 mg tablet 1 tab PO DAILY heart/BP 01/14/21 [History Last Taken 04/07/22] metoprolol succinate 25 mg tablet,extended release 24 hr 25 mg PO DAILY HTN 01/14/21 [History Last Taken 04/07/22] vit C 250 mg-vit E 90 mg-zinc 40 mg-copper 1 [id number]-ckeyqn capsule (PreserVision AREDS-2) 1 tab PO BID eyes 01/14/21 [History Last Taken 04/07/22 10:00] atorvastatin 20 mg tablet 20 mg PO QHS CHOLESTEROL 04/09/21 [History Last Taken 04/06/22] cholecalciferol (vitamin D3) 25 mcg (1,000 unit) capsule 25 mcg PO BID SUPPLEMENT 04/09/21 [History Last Taken 04/07/22] glipizide 5 mg tablet 2.5 mg PO DAILY DM 04/09/21 [History Last Taken 04/07/22] insulin glargine 100 unit/mL (3 mL) subcutaneous pen (Lantus Solostar U-100 Insulin) 10 unit subcut DAILY DM 04/09/21 [History Last Taken 04/06/22] ferrous sulfate 325 mg (65 mg iron) tablet 325 mg PO DAILY supplement 06/07/21 [History Last Taken 04/07/22] famotidine 40 mg tablet 40 mg PO QHS gerd 11/19/21 [History Last Taken 04/06/22] apixaban 2.5 mg tablet (Eliquis) 2.5 mg PO BID blood thinner 04/07/22 [History Last Taken 04/07/22 10:00] diphenhydramine HCl 25 mg capsule (Benadryl) 25 mg PO QHS PRN Sleep 04/07/22 [History Last Taken 04/06/22] fpocvh-wbgugbpu-opitisl 36,000-114,000-180,000 unit capsule,delay rel (Creon) 3 cap PO BID supplement 04/07/22 [History Last Taken 04/07/22 12:00] melatonin 3 mg capsule 3 mg PO QHS sleep 04/07/22 [History Last Taken 04/06/22] Allergy/AdvReac Type Severity Reaction Status Date / Time codeine Allergy Intermediate itchy Verified 04/07/22 18:06 lisinopril Allergy Intermediate coughing Verified 04/07/22 18:06 Seasonal Allergies: Uncoded Allergy Other Verified 04/07/22 18:06 Family History Mother , Age 86 CAD (coronary artery disease) Alzheimers disease Myocardial infarction, Onset Age: 70 Father , Age 68 CAD (coronary artery disease) Alcoholism Hypertension Sister Diabetes Hypertension Breast cancer Sister , 46 No problems noted. Brother Cancer bladder and prostate Hypertension Heart disease Brother No problems noted. Surgical History History of aortic valve replacement with bioprosthetic valve (02/15/19) History of appendectomy History of section History of elbow surgery (2011) History of gastric bypass History of hip surgery (2011) History of open reduction and internal fixation (ORIF) procedure (2009) History of right and left heart catheterization (11/30/18) History of tonsillectomy Status post gastric bypass for obesity Social History adopted: No household members: none housing: assisted living facility number of children: 2 current occupational status: retired current occupational exposures/hazards: No pets and animals: No leisure activities: reading and other history of recent travel: No sexually active: No Smoking Status: Former smoker Tobacco: How many years used: 8 how long ago did patient quit smokin years ago alcohol intake: current Alcohol type: wine details: wine substance use type: does not use diet: diabetic well-balanced diet: about half the time during the past year weight has: remained stable what type of physical activity do you participate in: none mitali/mu-ism: Religious do you feel safe at home: Yes ROS ROS Narrative Pertinent positives and pertinent negatives as noted in HPI. All other systems were reviewed and are negative Vital Signs Vital Signs Vital Signs: 04/07/22 18:07 Temperature 97.4 F L Temperature Source Temporal Pulse Rate 98 Respiratory Rate 18 Blood Pressure 124/66 H Blood Pressure Mean 85 Pulse Ox 98 Oxygen Delivery Method Room Air Weight Weight: 64.41 kg Body Mass Index (BMI) 25.1 Physical Exam Narrative Physical exam: General: Well-nourished, well-developed. Head: Normocephalic, atraumatic, no tenderness Eyes: Vision is grossly intact. EOMI ENT, no trauma, moist mucous membranes, no rhinorrhea Neck: Nontender, full range of motion CVS: Regular rate and rhythm. S1-S2 present. No murmur, gallop or rub. Respiratory : clear to auscultation bilaterally, chest wall nontender, no wheezing Abdomen: Soft, nontender, nondistended, normal bowel sounds, no masses : Deferred Back: Nontender, no CVA tenderness, no midline spinal tenderness, deformities, step-offs Extremities: Nontender full range of motion, no trauma Skin: Pale, no trauma, abrasions Neuro: Alert, oriented, cranial nerves II through XII grossly intact. Psychiatry: Normal mood. Normal affect. Not depressed. Not anxious. Results Lab / Micro Data Result Diagrams: 04/08/22 00:04 04/07/22 18:45 Labs: Laboratory Results - last 24 hr 04/07/22 18:45: WBC 5.6, RBC 2.95 L, Hgb 9.4 L, Hct 29.8 L, MCV 101.0 H, MCH 31.9, MCHC 31.5 L, RDW Std Deviation 55.9 H, RDW Coeff of Adria 15.2 H, Plt Count 175, MPV 10.3, Immature Gran % (Auto) 0.500, Neut % (Auto) 66.5, Lymph % (Auto) 18.6 L, [place] % (Auto) 7.0, Eos % (Auto) 7.0 H, Baso % (Auto) 0.4, Absolute Neuts (auto) 3.7, Absolute Lymphs (auto) 1.03, Nucleated RBC % 0 04/07/22 18:45: PT 16.7 H, INR 1.4 04/07/22 18:45: Sodium 138, Potassium 3.6, Chloride 104, Carbon Dioxide 26.0, Anion Gap 8, BUN 33 H, Creatinine 1.75 H, Estim Creat Clear Calc 21.56, Est GFR (MDRD) Af Amer 36 L, Est GFR (MDRD) Non-Af 30 L, BUN/Creatinine Ratio 18.9, Glu cose 193 H, Calcium 8.6, Total Bilirubin 0.30, AST 38 H, ALT 20, Alkaline Phosphatase 61, Total Protein 7.1, Albumin 3.4, Globulin 3.7, Albumin/Globulin Ratio 0.9 04/07/22 18:45: Blood Type AB POSITIVE, Antibody Screen NEGATIVE Assessment & Plan Assessment/Plan (1) Acute GI bleeding: (2) Anemia: (3) Diabetes mellitus, type II: QUALIFIERS: Diabetes mellitus fpc insulin use: with fpc use Diabetes mellitus complication status: with other specified complication Qualified Code(s): E11.69 - Type 2 diabetes mellitus with other specified complication; Z79.4 - longterm (current) use of insulin (4) HTN (hypertension): PLAN: Plan Acute GI bleed on top of chronic anemia Review of BMP showed elevated BUN of 33; likely upper GI bleed INR presentation was 1.4 Hemoglobin presentation was 9.4. Of note her hemoglobin on 11/19/2021 was 12.4. Hemoglobin on 08/27/2021 was 10.8. And hemoglobin on 07/02/2021 was 8.7. Gastroenterology notes on 02/08/2022 was reviewed. Per gastroenterology capsule endoscopy did not show any acute or chronic blood loss anemia. EGD on 04/10/2021 showed Lea-en-Y gastrojejunostomy with gastrojejunal anastomosis characterized by febrile mucosa that was treated with heater probe. Per Gastroenterology notes on 04/27/2021 colonoscopy was discussed and at that time patient did not want to undergo colonoscopy. IV fluids ordered ordered. H&H every 6 hours Hold Eliquis Protonix GI consult N.p.o. for midnight Diabetes mellitus Patient with hyperglycemia on presentation Home hypoglycemic regimen held. Monitor Accu-Cheks Correction scale insulin ordered. Hypertension Blood pressure is not within goal. And patient is not hypotensive. Home blood pressure medication continued. Trend blood pressure and adjust blood pressure medications. CKD stage IIIb Stable Trend BMP DVT prophylaxis: SCDs ordered Charges/Coding Visit Charges Inpatient E&M: 05622 Init Hosp L3
[2022-04-07 20:59] VITALS: BP 153/64; PULSE 65; RESP 16; TEMP 36.2; O2SAT 100
[2022-04-07 21:04] LABS: Platelet Count 181 K/mm3 (150-450); RET-HE 32.3 pg (30-35); Reticulocyte Count 3.45 % (0.5-1.5)
[2022-04-07 22:02] VITALS: BMI 24.7
[2022-04-07 22:08] VITALS: BP 154/60; PULSE 68; RESP 18; TEMP 36.6; O2SAT 100
[2022-04-07] MEDS: Acetaminophen 500 MG Tablet 1000 MG PO (22:46)
[2022-04-07] MEDS: Sertraline 100 MG Tablet PO (22:46)
[2022-04-07] MEDS: Multivitamin (Healthy Eyes) Capsule 1 CAP PO (22:47)
[2022-04-07] MEDS: 0.9% Normal Saline 1,000 ML 75 ML IV (23:02)
[2022-04-07 23:25] LABS: Ferritin 47 ng/mL (8-252); Iron 34 ug/dL (50-170); Iron Binding Capacity,Total 344 ug/dL (250-450); PERCENT IRON SATURATION 9.9 % (15.0-55.0)
[2022-04-08] VITALS (13 sets, daily range): BP systolic 109–180; BP diastolic 48–64; PULSE 66–80; RESP 16–18; TEMP 36.3–36.9; O2SAT 98–100; BMI 24.7
[2022-04-08 00:14] LABS: Hematocrit 27.3 % (37-47); Hemoglobin 8.7 g/dL (12.0-15.0)
[2022-04-08 01:25] LABS: Bedside Glucose 231 mg/dL (74-106)
[2022-04-08] MEDS: hydrALAZINE 20 MG/ML Vial 10 MG IV (04:56)
[2022-04-08] MEDS: 0.9% Saline Lock 10 ML Syringe IV (04:56)
[2022-04-08] MEDS: Levothyroxine 25 MCG TABLET PO (04:58)
[2022-04-08] MEDS: Acetaminophen 500 MG Tablet 1000 MG PO ×2 (04:58→23:13)
[2022-04-08 05:21] LABS: Bedside Glucose 194 mg/dL (74-106)
[2022-04-08 06:03] LABS: Hematocrit 30.3 % (37-47); Hemoglobin 9.5 g/dL (12.0-15.0)
[2022-04-08 06:20] LABS: International Normalized Ratio 1.3; Prothrombin Time (Protime)PT. 15.4 SECONDS (11.7-14.9)
[2022-04-08 06:28] LABS: Anion Gap 8 (5-15); BUN 27 mg/dL (7-18); BUN/Creat Ratio 19.1 RATIO (10-20); Calcium,Total 8.6 mg/dL (8.5-10.1); Chloride 105 mmol/L (98-107); Creatinine, Serum 1.41 mg/dL (0.55-1.02); EST Glomerular Filtration Rate 38 mL/min (>60); Est Glom Filt Rate - Afr Amer 46 mL/min (>60); Estimated Creatinine Clearance 26.76 ml/min; Glucose 190 mg/dL (74-106); Potassium 3.2 mmol/L (3.5-5.1); Sodium Level 139 mmol/L (136-145)
[2022-04-08 08:12] LABS: Vitamin B12 247 pg/mL (211-911)
[2022-04-08] MEDS: Multivitamin (Healthy Eyes) Capsule 1 CAP PO ×2 (08:58→21:16)
[2022-04-08] MEDS: Sertraline 100 MG Tablet PO ×2 (08:58→21:25)
[2022-04-08] MEDS: Metoprolol(XL)Succ 25 MG Tablet PO (08:58)
[2022-04-08] MEDS: Losartan Potassium 50 MG Tablet PO (09:02)
[2022-04-08] MEDS: hydroCHLOROthiazide 12.5mg 12.5 MG PO (09:03)
--- NOTE | 2022-04-08 09:06 | PN.HOSP_ITS ---
Subjective Subjective Patient seen and examined. She had no complaints and denied having any dark stools overnight. She denies any abdominal pain and review of systems is otherwise negative. Hb today is 9.5. Objective Data Objective Data Vital Signs: Vital Signs Temp Pulse Resp BP Pulse Ox O2 Del Method 98.4 F 75 18 136/48 H 98 Room Air 04/08/22 08:50 04/08/22 08:58 04/08/22 08:50 04/08/22 08:50 04/08/22 08:50 04/08/22 08:50 Oxygen Delivery Method Room Air Weight: 139 lb 5.314 oz Body Mass Index (BMI) 24.7 Intake & Output: Intake and Output for Last 24 Hours 04/06/22 04/07/22 04/08/22 23:59 23:59 23:59 Intake Total 410 / 410 751.25 / 751.25 Balance 410 / 410 751.25 / 751.25 Lab / Micro Data Result Diagrams: 04/08/22 05:13 04/08/22 05:13 Labs: Laboratory Results - last 24 hr 04/07/22 18:45: WBC 5.6, RBC 2.95 L, Hgb 9.4 L, Hct 29.8 L, MCV 101.0 H, MCH 31.9, MCHC 31.5 L, RDW Std Deviation 55.9 H, RDW Coeff of Adria 15.2 H, Plt Count 175, MPV 10.3, Immature Gran % (Auto) 0.500, Neut % (Auto) 66.5, Lymph % (Auto) 18.6 L, Grainger % (Auto) 7.0, Eos % (Auto) 7.0 H, Baso % (Auto) 0.4, Absolute Neuts (auto) 3.7, Absolute Lymphs (auto) 1.03, Nucleated RBC % 0 04/07/22 18:45: PT 16.7 H, INR 1.4 04/07/22 18:45: Sodium 138, Potassium 3.6, Chloride 104, Carbon Dioxide 26.0, Anion Gap 8, BUN 33 H, Creatinine 1.75 H, Estim Creat Clear Calc 21.56, Est GFR (MDRD) Af Amer 36 L, Est GFR (MDRD) Non-Af 30 L, BUN/Creatinine Ratio 18.9, Glucose 193 H, Calcium 8.6, Total Bilirubin 0.30, AST 38 H, ALT 20, Alkaline Phosphatase 61, Total Protein 7.1, Albumin 3.4, Globulin 3.7, Albumin/Globulin Ratio 0.9 04/07/22 18:45: Blood Type AB POSITIVE, Antibody Screen NEGATIVE 04/07/22 18:45: Retic Count 3.45 H, Immature Retic Fraction 29.70 H, Retic Hgb Equivalent 32.3 04/07/22 18:45: Iron 34 L, TIBC 344, Iron Saturation 9.9 L, Ferritin 47, Folate 12.00 04/07/22 22:42: POC Glucose 231 H 04/08/22 00:04: Vitamin B12 247 04/08/22 00:04: Hgb 8.7 L, Hct 27.3 L 04/08/22 04:54: POC Glucose 194 H 04/08/22 05:13: PT 15.4 H, INR 1.3 04/08/22 05:13: Sodium 139, Potassium 3.2 L, Chloride 105, Carbon Dioxide 26.0, Anion Gap 8, BUN 27 H, Creatinine 1.41 H, Estim Creat Clear Calc 26.76, Est GFR (MDRD) Af Amer 46 L, Est GFR (MDRD) Non-Af 38 L, BUN/Creatinine Ratio 19.1, Glucose 190 H, Calcium 8.6 04/08/22 05:13: Hgb 9.5 L, Hct 30.3 L Physical Exam Const alert, oriented x3 and no apparent distress HEENT head/scalp atraumatic and moist oral mucous membranes Head and Scalp: normocephalic Mouth: oral and palatal mucosa normal Eyes PERRL and EOMs intact bilaterally Neck no lymphadenopathy and supple Resp normal respiratory effort, no retractions, no use of accessory muscles and clear to auscultation bilaterally Cardio regular rate, regular rhythm, S1 normal heart sound, S2 normal heart sound and no murmurs GI normal to inspection, nondistended, normoactive bowel sounds, soft to palpation, non-tender and non-distended Extremity normal to inspection and full ROM Neuro oriented x3, CN's II-XII intact bilaterally and moves all extremities Sensorium / Orientation: awake and alert Motor Exam: strength 5/5 throughout Psych affect normal Assessment & Plan Assessment/Plan (1) Acute GI bleeding: PLAN: Plan #Acute GI bleed * admitted with a complaint of melena * Hb was 9.4 on admission, is 9.6 today * had capsule endoscopy ~ 2 months ago which didnt show any acute bleed * had EGD in March 2021 which showed letitia en y gastrojejunostomy with gas trojejunal anastomosis and erythematous mucosa, this was treated with heater probe; refused colonoscopy at that time * GI on board. 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 DVT prophylaxis: SCDs Charges/Coding Visit Charges Inpatient E&M: 60022 Subs Hosp L2
--- NOTE | 2022-04-08 10:28 | EKG12_ITS ---
Test Reason : PRE OP Blood Pressure : / mmHG Vent. Rate : 078 BPM Atrial Rate : 078 BPM P-R Int : 142 ms QRS Dur : 082 ms QT Int : 424 ms P-R-T Axes : 066 027 049 degrees QTc Int : 483 ms Normal sinus rhythm Nonspecific ST and T wave abnormality Abnormal ECG When compared with ECG of 09-APR-2021 16:28, No significant change was found Confirmed by SENDY GERONIMO, ZOE ([id number]), editor newspaper SONG CAO ([id number]) on 04/09/2022 9:09:39 AM Referred By: FRIEND Confirmed By:ZOE KABA MD
[2022-04-08 11:01] LABS: Partial Thromboplast Time 45.2 Seconds (24.1-36.2)
[2022-04-08] MEDS: Lactated Ringers 1,000 ML 15 ML IV (11:06)
[2022-04-08 11:16] LABS: Hemoglobin A1c 7.5 % (3.8-5.6)
[2022-04-08 12:25] LABS: Hematocrit 26.9 % (37-47); Hemoglobin 8.5 g/dL (12.0-15.0)
--- NOTE | 2022-04-08 12:45 | CON.PCM_ITS ---
Assessment & Plan Assessment/Plan (1) Anemia: PLAN: She will undergo an evaluation of upper GI tract to see if we can find the etiology of her recent melanotic stools and acute blood loss anemia. She was explained alternatives, risk, benefits include not withstanding bleeding, infection, sepsis, perforation, need for emergency to . She will have an ASA of 3. HPI Consult Data Date of Consult: 04/07/22 HPI Narrative Reason for Consultation: Anemia HPI Narrative: SONNY HOWARD, is a 81 F with a significant history of DVT in her leg from lupus anticoagulant; gastric bypass; exocrine pancreatic insufficiency; bioprosthetic aortic valve; diabetes mellitus who presents to the emergency department with persistent melena that started about 2 weeks ago.? On the average patient patient has about 1-2 episodes of melena per day.? In the past 1 to 2 days patient has been lightheaded.? Also she feels weak and she is dry heaving. Of note patient was on Coumadin but her Coumadin was changed to Eliquis about a week ago. She report that after a scope previously now she has a big mushy bowel movement 3-4 times per week. Emergency department provider reported dark stools on rectal examination.? She has had 2 other presentations like this and when she was discovered to be severely anemic causing her shortness of breath and fatigue.? However at that time she? had lower GI bleeding. She underwent evaluation back in December 2020 with an EGD and colonoscopy.? No etiology of her acute blood loss anemia was seen.??I was consulted last April 2021 after she came back in the hospital for worsening anemia and performed an upper endoscopy. EGD performed 05.10.21 finding Lea-en-Y gastrojejunostomy with gastrojejunal anastomosis with friable mucosa, treated with heater probe. Her hemoglobin currently is 8.5 which is down from 9.5. She had gotten up to a hemoglobin of 12.4 but is been slowly drifting down. [facility] Medical History (Updated 04/08/22 @ 03:[address] Davidson Dial MD) Acute GI bleeding Anemia Depression Diabetes mellitus, type II Essential hypertension History of DVT (deep vein thrombosis) HTN (hypertension) Hyperlipidemia Iron deficiency anemia due to chronic blood loss Lupus anticoagulant disorder (1994) Nonrheumatic aortic (valve) stenosis with insufficiency Osteoarthritis Osteoporosis Small bowel intussusception Supratherapeutic INR Vitamin B 12 deficiency Home Medications acetaminophen 500 mg tablet 1,000 mg PO Q6H PRN Pain 01/31/19 [History Last Taken 04/09/21 12:00] sertraline 100 mg tablet 100 mg PO BID depression 03/15/19 [History Last Taken 04/07/22 10:00] levothyroxine 25 mcg tablet 25 mcg PO DAILY THYROID 02/17/20 [History Last Taken 04/07/22] losartan 50 mg-hydrochlorothiazide 12.5 mg tablet 1 tab PO DAILY heart/BP 01/14/21 [History Last Taken 04/07/22] metoprolol succinate 25 mg tablet,extended release 24 hr 25 mg PO DAILY HTN 01/14/21 [History Last Taken 04/07/22] vit C 250 mg-vit E 90 mg-zinc 40 mg-copper 1 [id number] capsule (PreserVision AREDS-2) 1 tab PO BID eyes 01/14/21 [History Last Taken 04/07/22 10:00] atorvastatin 20 mg tablet 20 mg PO QHS CHOLESTEROL 04/09/21 [History Last Taken 04/06/22] cholecalciferol (vitamin D3) 25 mcg (1,000 unit) capsule 25 mcg PO BID SUPPLEMENT 04/09/21 [History Last Taken 04/07/22] glipizide 5 mg tablet 2.5 mg PO DAILY DM 04/09/21 [History Last Taken 04/07/22] insulin glargine 100 unit/mL (3 mL) subcutaneous pen (Lantus Solostar U-100 Insulin) 10 unit subcut DAILY DM 04/09/21 [History Last Taken 04/06/22] ferrous sulfate 325 mg (65 mg iron) tablet 325 mg PO DAILY supplement 06/07/21 [History Last Taken 04/07/22] famotidine 40 mg tablet 40 mg PO QHS gerd 11/19/21 [History Last Taken 04/06/22] apixaban 2.5 mg tablet (Eliquis) 2.5 mg PO BID blood thinner 04/07/22 [History Last Taken 04/07/22 10:00] diphenhydramine HCl 25 mg capsule (Benadryl) 25 mg PO QHS PRN Sleep 04/07/22 [History Last Taken 04/06/22] vqlenc-ebpyqwzl-jheycrg 36,000-114,000-180,000 unit capsule,delay rel (Creon) 3 cap PO BID supplement 04/07/22 [History Last Taken 04/07/22 12:00] melatonin 3 mg capsule 3 mg PO QHS sleep 04/07/22 [History Last Taken 04/06/22] Allergy/AdvReac Type Severity Reaction Status Date / Time codeine Allergy Intermediate itchy Verified 04/07/22 18:06 lisinopril Allergy Intermediate coughing Verified 04/07/22 18:06 Seasonal Allergies: Uncoded Allergy Other Verified 04/07/22 18:06 Family History Mother , Age 86 CAD (coronary artery disease) Alzheimers disease Myocardial infarction, Onset Age: 70 Father , Age 68 CAD (coronary artery disease) Alcoholism Hypertension Sister Diabetes Hypertension Breast cancer Sister , 46 No problems noted. Brother Cancer bladder and prostate Hypertension Heart disease Brother No problems noted. Surgical History History of aortic valve replacement with bioprosthetic valve (02/15/19) History of appendectomy History of section History of elbow surgery (2011) History of gastric bypass History of hip surgery (2011) History of open reduction and internal fixation (ORIF) procedure (2009) History of right and left heart catheterization (11/30/18) History of tonsillectomy Status post gastric bypass for obesity Social History adopted: No household members: none housing: assisted living facility number of children: 2 current occupational status: retired current occupational exposures/hazards: No pets and animals: No leisure activities: reading and other history of recent travel: No sexually active: No Smoking Status: Former smoker Tobacco: How many years used: 8 how long ago did patient quit smokin years ago alcohol intake: current Alcohol type: wine details: wine substance use type: does not use diet: diabetic well-balanced diet: about half the time during the past year weight has: remained stable what type of physical activity do you participate in: none mitali/adventism: Anabaptism do you feel safe at home: Yes ROS ROS Narrative Pertinent positives and pertinent negatives as noted in HPI. All other systems were reviewed and are negative Physical Exam Const alert, oriented x3 and no apparent distress HEENT head/scalp atraumatic and moist oral mucous membranes Head and Scalp: normocephalic Mouth: oral and palatal mucosa normal Eyes PERRL and EOMs intact bilaterally Neck no lymphadenopathy and supple Resp normal respiratory effort, no retractions, no use of accessory muscles and clear to auscultation bilaterally Cardio regular rate, regular rhythm, S1 normal heart sound, S2 normal heart sound and no murmurs GI normal to inspection, nondistended, normoactive bowel sounds, soft to palpation, non-tender and non-distended Extremity normal to inspection and full ROM Neuro oriented x3, CN's II-XII intact bilaterally and moves all extremities Sensorium / Orientation: awake and alert Motor Exam: strength 5/5 throughout Psych affect normal Lab / Micro Data Result Diagrams: 04/08/22 12:00 04/08/22 05:13 Labs: Laboratory Results - last 24 hr 04/07/22 18:45: WBC 5.6, RBC 2.95 L, Hgb 9.4 L, Hct 29.8 L, MCV 101.0 H, MCH 31.9, MCHC 31.5 L, RDW Std Deviation 55.9 H, RDW Coeff of Adria 15.2 H, Plt Count 175, MPV 10.3, Immature Gran % (Auto) 0.500, Neut % (Auto) 66.5, Lymph % (Auto) 18.6 L, Parke % (Auto) 7.0, Eos % (Auto) 7.0 H, Baso % (Auto) 0.4, Absolute Neuts (auto) 3.7, Absolute Lymphs (auto) 1.03, Nucleated RBC % 0 04/07/22 18:45: PT 16.7 H, INR 1.4 04/07/22 18:45: Sodium 138, Potassium 3.6, Chloride 104, Carbon Dioxide 26.0, Anion Gap 8, BUN 33 H, Creatinine 1.75 H, Estim Creat Clear Calc 21.56, Est GFR (MDRD) Af Amer 36 L, Est GFR (MDRD) Non-Af 30 L, BUN/Creatinine Ratio 18.9, Glucose 193 H, Calcium 8.6, Total Bilirubin 0.30, AST 38 H, ALT 20, Alkaline Phosphatase 61, Total Protein 7.1, Albumin 3.4, Globulin 3.7, Albumin/Globulin Ratio 0.9 04/07/22 18:45: Blood Type AB POSITIVE, Antibody Screen NEGATIVE 04/07/22 18:45: Retic Count 3.45 H, Immature Retic Fraction 29.70 H, Retic Hgb Equivalent 32.3 04/07/22 18:45: Iron 34 L, TIBC 344, Iron Saturation 9.9 L, Ferritin 47, Folate 12.00 04/07/22 22:42: POC Glucose 231 H 04/08/22 00:04: Vitamin B12 247 04/08/22 00:04: Hgb 8.7 L, Hct 27.3 L 04/08/22 04:54: POC Glucose 194 H 04/08/22 05:13: PT 15.4 H, INR 1.3 04/08/22 05:13: Sodium 139, Potassium 3.2 L, Chloride 105, Carbon Dioxide 26.0, Anion Gap 8, BUN 27 H, Creatinine 1.41 H, Estim Creat Clear Calc 26.76, Est GFR (MDRD) Af Amer 46 L, Est GFR (MDRD) Non-Af 38 L, BUN/Creatinine Ratio 19.1, Glucose 190 H, Calcium 8.6 04/08/22 05:13: Hgb 9.5 L, Hct 30.3 L 04/08/22 05:13: Hemoglobin A1c 7.5 H 04/08/22 10:45: APTT 45.2 H 04/08/22 12:00: Hgb 8.5 L, Hct 26.9 L
--- NOTE | 2022-04-08 13:19 | OP.EGD_ITS ---
Patient Name: Angy Reyes Procedure Date: 04/08/2022 12:54 PM Date of : 1940 Age: 81 Procedure: Upper GI endoscopy Indications: Hematemesis, Melena Providers: Ulysses Parker DO Medicines: Monitored Anesthesia Care Patient Profile: This is a 81 year old female. Refer to note in patient chart for documentation of history and physical. Patient has symptoms of acute dyspepsia and chronic nausea. Complications: No immediate complications. Procedure: Pre-Anesthesia Assessment: - Prior to the procedure, a History and Physical was performed, and patient medications and allergies were reviewed. The patient is competent. The risks and benefits of the procedure and the sedation options and risks were discussed with the patient. All questions were answered and informed consent was obtained. Patient identification and proposed procedure were verified by the physician in the pre-procedure area. Mental Status Examination: alert and oriented. Airway Examination: normal oropharyngeal airway and neck mobility. Respiratory Examination: clear to auscultation. CV Examination: normal. Prophylactic Antibiotics: The patient does not require prophylactic antibiotics. Prior Anticoagulants: The patient has taken no previous anticoagulant or antiplatelet agents. ASA Grade Assessment: II - A patient with mild systemic disease. After reviewing the risks and benefits, the patient was deemed in satisfactory condition to undergo the procedure. The anesthesia plan was to use moderate sedation / analgesia (conscious sedation). Immediately prior to administration of medications, the patient was re-assessed for adequacy to receive sedatives. The heart rate, respiratory rate, oxygen saturations, blood pressure, adequacy of pulmonary ventilation, and response to care were monitored throughout the procedure. The physical status of the patient was re-assessed after the procedure. After obtaining informed consent, the endoscope was passed under direct vision. Throughout the procedure, the patient's blood pressure, pulse, and oxygen saturations were monitored continuously. The colonoscope was introduced through the mouth, and advanced to the second part of duodenum. The upper GI endoscopy was accomplished without difficulty. The patient tolerated the procedure well. Scope In: 1:06:20 PM Scope Out: 1:11:23 PM Total Procedure Duration Time 0 hours 5 minutes 3 seconds Findings: Non-severe esophagitis with no bleeding was found 36 to 39 cm from the incisors. Biopsies were taken with a cold forceps for histology. Verification of patient identification for the specimen was done. Estimated blood loss was minimal. 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 The gastrojejunal anastomosis was characterized by healthy appearing mucosa. This was traversed. The dgvlx-pf-gvavhbr limb was characterized by healthy appearing mucosa. The jejunojejunal anastomosis was characterized by friable mucosa and a hemorrhagic appearance. The ypgtcykl-nn-yqmigvy limb was not examined as it could not be found. Coagulation for hemostasis using heater probe was successful. Estimated blood loss was minimal. The examined jejunum was normal. Impression: - Non-severe chronic and non-erosive esophagitis. Biopsied. - Lea-en-Y gastrojejunostomy with gastrojejunal anastomosis characterized by healthy appearing mucosa. Treated with a heater probe. - Normal examined jejunum. Recommendation: - Discharge patient to home. - Advance diet as tolerated today. - Use Protonix (pantoprazole) 40 mg PO BID for 8 weeks. - Use misoprostol 100 micrograms PO QID for 8 weeks. - Continue present medications. - No aspirin, ibuprofen, naproxen, or other non-steroidal anti-inflammatory drugs for 8 days. - Eliquis can be restarted tomorrow Procedure Code(s): --- Professional --- 49921, 59, Esophagogastroduodenoscopy, flexible, transoral; with control of bleeding, any method 91960, Esophagogastroduodenoscopy, flexible, transoral; with biopsy, single or multiple CPT copyright 2017 [employer]. All rights reserved. The codes documented in this report are preliminary and upon technical sales director review may be revised to meet current compliance requirements. Ulysses Parker DO 04/08/2022 1:19:25 PM This report has been signed electronically. Number of Addenda: 0 Note Initiated On: 04/08/2022 12:54 PM
--- NOTE | 2022-04-08 13:19 | OP.CCLET_ITS ---
04/08/2022 Alonzo Collado Re : Upper GI endoscopy procedure for Angy Reyes Stephanie Collado This procedure was performed on Friday, April 08, 2022. My impressions and recommendations are as follows: Impressions : - Non-severe chronic and non-erosive esophagitis. Biopsied. - Lea-en-Y gastrojejunostomy with gastrojejunal anastomosis characterized by healthy appearing mucosa. Treated with a heater probe. - Normal examined jejunum. Recommendations : - Discharge patient to home. - Advance diet as tolerated today. - Use Protonix (pantoprazole) 40 mg PO BID for 8 weeks. - Use misoprostol 100 micrograms PO QID for 8 weeks. - Continue present medications. - No aspirin, ibuprofen, naproxen, or other non-steroidal anti-inflammatory drugs for 8 days. - Eliquis can be restarted tomorrow My findings are described in the full procedure note, which is enclosed. If I can be of further assistance, please feel free to contact me at . Sincerely, Ulysses Parker, 04/08/2022 1:19:25 PM This report has been signed electronically.
--- NOTE | 2022-04-08 14:36 | CASEMGMT ---
Addendum entered by Yun Rojas 04/08/22 15:32: AMINA SAUCEDO in to pt room, pt sitting up in bed. Pt reports she lives at [facility]. She states she does want to return back. Pt has a cane that she uses. Pt denies any further homegoing needs at this time. Original Note: AMINA SAUCEDO in to complete assessment, pt is off of the floor. AMINA SAUCEDO to complete at later time.
--- NOTE | 2022-04-08 17:34 | NURSING ---
pt already ate her lunch and also her supper. pt states she is not staying one more night
--- NOTE | 2022-04-08 17:41 | NURSING ---
pt educated on md not discharging vs pt leaving AMA risks/ramifications.. pt states she is leaving AMA.
[2022-04-08 17:58] LABS: Hematocrit 30.5 % (37-47); Hemoglobin 9.6 g/dL (12.0-15.0)
--- NOTE | 2022-04-08 19:24 | NURSING ---
pt daughter at bedside and states she is refusing to take pt home. nurse to room- pt states she is agreeable to staying now.
--- NOTE | 2022-04-08 19:33 | NURSING ---
d/t shift change- note left on board for hospitalist on nights regarding pt staying, not wanting IV restarted. cnc machinist 2nd shift charge nurse/RN both aware.
[2022-04-08] MEDS: Pantoprazole Sodium 40 MG Tablet PO (21:16)
[2022-04-08] MEDS: Insulin Lispro 100 UNIT/ML INSULN.PEN SC (21:27)
[2022-04-08 22:50] LABS: Bedside Glucose 288 mg/dL (74-106)
[2022-04-08] MEDS: DiphenhydrAMINE 25 MG Capsule PO (23:13)
[2022-04-08] MEDS: MELATONIN 3 MG TABLET PO (23:13)
[2022-04-09 03:38] VITALS: BP 142/57; PULSE 67; RESP 18; TEMP 36.6; O2SAT 97
[2022-04-09 06:04] LABS: Absolute Lymphocyte Count 1.12 X10^3/uL (0.83-4.51); Absolute Neutrophil Count 3.9 X10^3/uL (2.0-7.7); Basophil# 0.03 X10^3/uL; Basophil% 0.5 % (0-1); Eosinophil# 0.79 X10^3/uL; Eosinophils% 12.1 % (0-5); Hematocrit 28.5 % (37-47); Hemoglobin 8.9 g/dL (12.0-15.0); Lymphocyte # 1.12 X10^3/ul (0.83-4.51); Lymphocyte % 17.2 % (19-41); Mean Corp Hgb Conc 31.2 g/dL (32-36); Mean Corpuscular Hgb 31.7 pg (27.0-32.0); Mean Corpuscular Volume 101.4 fL (81-99); Mean Platelet Vol. 10.2 fl (6.2-12.0); Monocyte# 0.62 X10^3/uL; Monocyte% 9.5 % (0-10); NRBC Flagged by Analyzer 0 % (0-5); Neutrophil # 3.92 X10^3/uL (2.7-7.7); Neutrophil % 60.2 % (47-70); Platelet Count 180 K/mm3 (150-450); RBC Distribution Width CV 15.3 % (11.6-14.6); RBC Distribution Width SD 57.2 fl (35.1-43.9); Red Blood Count 2.81 M/mm3 (4.2-5.4); White Blood Count 6.5 K/mm3 (4.4-11.0)
[2022-04-09] MEDS: Acetaminophen 500 MG Tablet 1000 MG PO ×2 (06:12→11:50)
[2022-04-09] MEDS: Insulin Lispro 100 UNIT/ML INSULN.PEN SC ×2 (06:12→11:43)
[2022-04-09] MEDS: Levothyroxine 25 MCG TABLET PO (06:12)
[2022-04-09 06:33] LABS: Anion Gap 5 (5-15); BUN 21 mg/dL (7-18); BUN/Creat Ratio 15.6 RATIO (10-20); Calcium,Total 8.6 mg/dL (8.5-10.1); Chloride 108 mmol/L (98-107); Creatinine, Serum 1.35 mg/dL (0.55-1.02); EST Glomerular Filtration Rate 40 mL/min (>60); Est Glom Filt Rate - Afr Amer 49 mL/min (>60); Estimated Creatinine Clearance 27.95 ml/min; Glucose 177 mg/dL (74-106); Potassium 4.1 mmol/L (3.5-5.1); Sodium Level 141 mmol/L (136-145)
[2022-04-09 08:27] VITALS: O2SAT 95
[2022-04-09 09:37] VITALS: BP 143/56; PULSE 97; RESP 18; TEMP 36.6; O2SAT 94
--- NOTE | 2022-04-09 10:10 | CASEMGMT ---
Addendum entered by Batool Ko 04/09/22 13:31: YUMIKO called Ke at [facility] again. No answer. YUMIKO called facility directly to attempt speaking with admission. SW asked to speak with Ke or Zoila. [place] transferred call and SW received VM of unnamed field account director. YUMIKO left voicemail with contact information and requested a call back. [place] Original Note: Social work SW attempted second call to [facility] this morning to confirm pt is okay to go back to [place]. No answer. YUMIKO left message requesting a call back. [place]
[2022-04-09] MEDS: hydroCHLOROthiazide 12.5mg 12.5 MG PO (10:24)
[2022-04-09] MEDS: Sertraline 100 MG Tablet PO (10:24)
[2022-04-09 10:25] VITALS: PULSE 97
[2022-04-09] MEDS: Losartan Potassium 50 MG Tablet PO (10:25)
[2022-04-09] MEDS: Pantoprazole Sodium 40 MG Tablet PO (10:25)
[2022-04-09] MEDS: Metoprolol(XL)Succ 25 MG Tablet PO (10:25)
[2022-04-09] MEDS: Multivitamin (Healthy Eyes) Capsule 1 CAP PO (10:25)
[2022-04-09] MEDS: miSOPROStol 100 MCG TABLET PO (11:50)
--- NOTE | 2022-04-09 11:58 | DS.PCM_ITS ---
Providers Date of Admission: 04/07/22 Date of Discharge: 04/09/22 Primary Care Physician: Dr. Alonzo Collado, DO Consultations 04/07/22 22:48 Consult: Gastroenterology Routine Consulting Provider: Ra Keithhsaan Reason for Consult: ABLA EMERGENT Consult: No MD Notified: Yes Date Notified: 04/08/22 Time Notified: 05:59 Method of Notification: Text Reason For Visit: ACUTE GI BLEED Diagnosis Discharge Diagnosis (1) Anemia: Status: Acute Code(s): D64.9 - Anemia, unspecified (2) Acute GI bleeding: Status: Acute Code(s): K92.2 - Gastrointestinal hemorrhage, unspecified Plan #Acute GI bleed * admitted with a complaint of melena * Hb was 9.4 on admission, is 9.6 today * had capsule endoscopy ~ 2 months ago which didnt show any acute bleed * had EGD in March 2021 which showed 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 DVT prophylaxis: SCDs Medications at Discharge Home Medications acetaminophen 500 mg tablet 1,000 mg PO Q6H PRN Pain 01/31/19 sertraline 100 mg tablet 100 mg PO BID depression 03/15/19 levothyroxine 25 mcg tablet 25 mcg PO DAILY THYROID 02/17/20 losartan 50 mg-hydrochlorothiazide 12.5 mg tablet 1 tab PO DAILY heart/BP 01/14/21 metoprolol succinate 25 mg tablet,extended release 24 hr 25 mg PO DAILY HTN 01/14/21 vit C 250 mg-vit E 90 mg-zinc 40 mg-copper 1 [id number]-bbgrcn capsule (PreserVision AREDS-2) 1 tab PO BID eyes 01/14/21 atorvastatin 20 mg tablet 20 mg PO QHS CHOLESTEROL 04/09/21 cholecalciferol (vitamin D3) 25 mcg (1,000 unit) capsule 25 mcg PO BID SUPPLEMENT 04/09/21 glipizide 5 mg tablet 2.5 mg PO DAILY DM 04/09/21 insulin glargine 100 unit/mL (3 mL) subcutaneous pen (Lantus Solostar U-100 I nsulin) 10 unit subcut DAILY DM 04/09/21 ferrous sulfate 325 mg (65 mg iron) tablet 325 mg PO DAILY supplement 06/07/21 apixaban 2.5 mg tablet (Eliquis) 2.5 mg PO BID blood thinner 04/07/22 diphenhydramine HCl 25 mg capsule (Benadryl) 25 mg PO QHS PRN Sleep 04/07/22 xopzqc-pkbneibs-bakwlri 36,000-114,000-180,000 unit capsule,delay rel (Creon) 3 cap PO BID supplement 04/07/22 melatonin 3 mg capsule 3 mg PO QHS sleep 04/07/22 misoprostol 100 mcg tablet 100 mcg PO Q6H 8 weeks #224 tabs 04/09/22 pantoprazole 40 mg tablet,delayed release 40 mg PO BID #60 tabs 04/09/22 Hospital Course Operations None Procedures EGD Summary of Care Provided Minutes Spent on Discharge: 45 Hospital Course: Patient is a 81-year-old female with a past medical history as outlined which includes DVT due to lupus anticoagulant, pancreatic insufficiency and bioprosthetic valve as well as diabetes mellitus. She was admitted with a complaint of melena for about 2 weeks prior to admission, with associated lightheadedness. SHe was on coumadin but this had recently been changed to eliquis. She was admitted and managed for acute GI bleed in the setting of chronic anemia. Hb was 9.4. SHe was placed on PPI. Gastroenterology was consulted. She was hydrated with IVF. 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 She remained stable and was discharged on p.o. Protonix 40 mg twice daily for 8 weeks as well as p.o. misoprostol 200 mg 4 times daily for 8 weeks and no aspirin, ibuprofen naproxen or any NSAIDs for 8 days. Her Eliquis was resumed the day after she had a EGD. She is follow-up with her primary care doctor and follow-up with gastroenterology on outpatient basis. Patient seen and examined prior to discharge. She felt well and had no active complaints. Review of systems otherwise negative. Labs and vitals reviewed. Home medication reviewed and reconciled. Physical Exam Const alert, oriented x3 and no apparent distress General Appearance: cooperative and comfortable Orientation / Consciousness: awake Exam Limitations: no limitations HEENT normocephalic, head/scalp atraumatic, hearing grossly normal bilaterally and moist oral mucous membranes Mouth: oral and palatal mucosa normal Eyes PERRL and EOMs intact bilaterally Neck no lymphadenopathy and supple Resp normal respiratory effort, no retractions, no use of accessory muscles and clear to auscultation bilaterally Cardio regular rate, regular rhythm, S1 normal heart sound, S2 normal heart sound and no murmurs GI normal to inspection, nondistended, normoactive bowel sounds, soft to palpation, non-tender and non-distended Extremity normal to inspection and full ROM Skin no rashes or lesions noted Neuro oriented x3, CN's II-XII intact bilaterally and moves all extremities Sensorium / Orientation: awake and alert Motor Exam: strength 5/5 throughout Psych affect normal Weight / BMI Weight Weight: 139 lb 5.314 oz Body Mass Index (BMI) 24.7 ABG / Lab / Microbiology Data Result Diagrams: 04/09/22 05:51 04/09/22 05:51 Laboratory: Laboratory Results - last 24 hr 04/08/22 12:00: Hgb 8.5 L, Hct 26.9 L 04/08/22 17:50: Hgb 9.6 L, Hct 30.5 L 04/08/22 21:27: POC Glucose 288 H 04/09/22 05:51: WBC 6.5, RBC 2.81 L, Hgb 8.9 L, Hct 28.5 L, MCV 101.4 H, MCH 31.7, MCHC 31.2 L, RDW Std Deviation 57.2 H, RDW Coeff of Adria 15.3 H, Plt Count 180, MPV 10.2, Immature Gran % (Auto) 0.500, Neut % (Auto) 60.2, Lymph % (Auto) 17.2 L, [place] % (Auto) 9.5, Eos % (Auto) 12.1 H, Baso % (Auto) 0.5, Absolute Neuts (auto) 3.9, Absolute Lymphs (auto) 1.12, Nucleated RBC % 0 04/09/22 05:51: Sodium 141, Potassium 4.1, Chloride 108 H, Carbon Dioxide 28.0, Anion Gap 5, BUN 21 H, Creatinine 1.35 H, Estim Creat Clear Calc 27.95, Est GFR (MDRD) Af Amer 49 L, Est GFR (MDRD) Non-Af 40 L, BUN/Creatinine Ratio 15.6, Glucose 177 H, Calcium 8.6 D/C Instructions Discharge Diet: Low fat / Low cholesterol Weight Bearing Status: Weight bearing as tolerated Call your doctor if you observe: Fever of 101 or Higher, Shortness of breath, Di zziness, Swelling in the ankles, Chest pain, Increased palpitations (irregular heartbeat) and - (abdominal pain) Meaningful Use Info Meaningful Use Diagnoses (Choose all that apply): None applicable Discharge Plan Admission Admit Date/Time: 04/07/22 20:11 Primary Reason for Your Visit: acute GI bleed Attending Provider: Brinda Artis Primary Care Provider: Alonzo Collado Consulting Providers: Ulysses Parker ; Davidson Dial Instructions Patient Instructions: Esophagitis Discharge Orders/Prescriptions Prescriptions: New pantoprazole 40 mg tablet,delayed release (DR/EC) 40 mg PO BID Qty: 60 1RF misoprostol 100 mcg tablet 100 mcg PO Q6H 56 Days Qty: 224 0RF Continued sertraline 100 mg tablet 100 mg PO BID Label Comments: depression ferrous sulfate 325 mg (65 mg iron) tablet 325 mg PO DAILY acetaminophen 500 MG tablet 1,000 mg PO Q6H PRN (Reason: Pain) Label Comments: pain levothyroxine 25 MCG tablet 25 mcg PO DAILY losartan-hydrochlorothiazide 50-12.5 mg Tablet 1 tab PO DAILY PreserVision AREDS-2 250-90-40-1 mg Capsule 1 tab PO BID metoprolol succinate 25 mg tablet extended release 24 hr 25 mg PO DAILY atorvastatin 20 mg Tablet 20 mg PO QHS glipizide 5 mg Tablet 2.5 mg PO DAILY cholecalciferol (vitamin D3) 25 mcg (1,000 unit) Capsule 25 mcg PO BID insulin glargine [Lantus Solostar U-100 Insulin] 100 unit/mL (3 mL) Insulin Pen 10 unit SUBCUT DAILY Eliquis 2.5 mg tablet 2.5 mg PO BID diphenhydramine HCl [Benadryl] 25 mg Capsule 25 mg PO QHS PRN (Reason: Sleep) Creon 36,000-114,000- 180,000 unit Capsule,Delayed Release(Dr/Ec) 3 cap PO BID Rx Instructions: administer with meals and/or snacks melatonin 3 mg Capsule 3 mg PO QHS Discontinued famotidine 40 mg tablet 40 mg PO QHS Referrals / Follow Up: Alonzo Collado DO [Primary Care Provider] - Within 2 Weeks Ulysses Parker DO [Med Staff - Active Staff] - Within 2 Weeks Disposition Disposition (needs filled in before D/C Order can be placed): Home, Self Care Charges/Coding Visit Charges Inpatient E&M: 87451 Disch Hosp
--- NOTE | 2022-04-09 12:00 | PN_ITS ---
Subjective Subjective She underwent an upper endoscopy yesterday for an acute GI bleed. She was discovered to have bleeding in the jejunum that was treated endoscopically. Objective Data Objective Data Vital Signs: Vital Signs Temp Pulse Resp BP Pulse Ox O2 Del Method 97.9 F 82 18 152/67 H 96 Room Air 04/09/22 12:54 04/09/22 12:54 04/09/22 12:54 04/09/22 12:54 04/09/22 12:54 04/09/22 12:54 Oxygen Delivery Method Room Air Weight: 139 lb 5.314 oz Body Mass Index (BMI) 24.7 Intake & Output: Intake and Output for Last 24 Hours 04/07/22 04/08/22 04/09/22 23:59 23:59 23:59 Intake Total 410 / 410 1039.50 / 1039.50 Balance 410 / 410 1039.50 / 1039.50 Lab / Micro Data Result Diagrams: 04/09/22 05:51 04/09/22 05:51 Labs: Laboratory Results - last 24 hr 04/08/22 17:50: Hgb 9.6 L, Hct 30.5 L 04/08/22 21:27: POC Glucose 288 H 04/09/22 05:51: WBC 6.5, RBC 2.81 L, Hgb 8.9 L, Hct 28.5 L, MCV 101.4 H, MCH 31.7, MCHC 31.2 L, RDW Std Deviation 57.2 H, RDW Coeff of Adria 15.3 H, Plt Count 180, MPV 10.2, Immature Gran % (Auto) 0.500, Neut % (Auto) 60.2, Lymph % (Auto) 17.2 L, [place] % (Auto) 9.5, Eos % (Auto) 12.1 H, Baso % (Auto) 0.5, Absolute Neuts (auto) 3.9, Absolute Lymphs (auto) 1.12, Nucleated RBC % 0 04/09/22 05:51: Sodium 141, Potassium 4.1, Chloride 108 H, Carbon Dioxide 28.0, Anion Gap 5, BUN 21 H, Creatinine 1.35 H, Estim Creat Clear Calc 27.95, Est GFR (MDRD) Af Amer 49 L, Est GFR (MDRD) Non-Af 40 L, BUN/Creatinine Ratio 15.6, Glucose 177 H, Calcium 8.6 04/09/22 06:11: POC Glucose 186 H 04/09/22 11:42: POC Glucose 246 H Physical Exam Const alert, oriented x3 and no apparent distress General Appearance: cooperative and comfortable Orientation / Consciousness: awake Exam Limitations: no limitations HEENT normocephalic, head/scalp atraumatic, hearing grossly normal bilaterally and moist oral mucous membranes Mouth: oral and palatal mucosa normal Eyes PERRL and EOMs intact bilaterally Neck no lymphadenopathy and supple Resp normal respiratory effort, no retractions, no use of accessory muscles and clear to auscultation bilaterally Cardio regular rate, regular rhythm, S1 normal heart sound, S2 normal heart sound and no murmurs GI normal to inspection, nondistended, normoactive bowel sounds, soft to palpation, non-tender and non-distended Extremity normal to inspection and full ROM Skin no rashes or lesions noted Neuro oriented x3, CN's II-XII intact bilaterally and moves all extremities Sensorium / Orientation: awake and alert Motor Exam: strength 5/5 throughout Psych affect normal Assessment & Plan Assessment/Plan (1) Acute GI bleeding: PLAN: Acute GI bleed possibly secondary to anticoagulation status posttreatment. Her hemoglobin is improving. She will need to be on PPI therapy twice daily and she will need to be on misoprostol 4 times a day for approximately 8 weeks. We will repeat upper endoscopy in approximately 3 to 4 months. Charges/Coding Visit Charges Inpatient E&M: 61504 Subs Hosp L2
[2022-04-09 12:14] LABS: Bedside Glucose 186 mg/dL (74-106)
[2022-04-09 12:15] LABS: Bedside Glucose 246 mg/dL (74-106)
[2022-04-09 12:54] VITALS: BP 152/67; PULSE 82; RESP 18; TEMP 36.6; O2SAT 96
--- NOTE | 2022-04-09 14:06 | NURSING ---
Report called to nurse Geri delgado [facility].
--- NOTE | 2022-04-09 14:09 | CASEMGMT ---
AMINA CM in to pt room as made aware pt has [employer] benefits. Pt states she does. She would like the [facility] to be billed for this hospital stay.
--- NOTE | 2022-04-09 15:51 | PHA.DC.MR ---
Pharmacy Service has performed discharge medication reconciliation for this patient. The patient's discharge medication list was reviewed for discrepancies and discrepancies were resolved. Home Medications acetaminophen 500 mg tablet 1,000 mg PO Q6H PRN Pain 01/31/19 sertraline 100 mg tablet 100 mg PO BID depression 03/15/19 levothyroxine 25 mcg tablet 25 mcg PO DAILY THYROID 02/17/20 losartan 50 mg-hydrochlorothiazide 12.5 mg tablet 1 tab PO DAILY heart/BP 01/14/21 metoprolol succinate 25 mg tablet,extended release 24 hr 25 mg PO DAILY HTN 01/14/21 vit C 250 mg-vit E 90 mg-zinc 40 mg-copper 1 [id number]-xoxcve capsule (PreserVision AREDS-2) 1 tab PO BID eyes 01/14/21 atorvastatin 20 mg tablet 20 mg PO QHS CHOLESTEROL 04/09/21 cholecalciferol (vitamin D3) 25 mcg (1,000 unit) capsule 25 mcg PO BID SUPPLEMENT 04/09/21 glipizide 5 mg tablet 2.5 mg PO DAILY DM 04/09/21 insulin glargine 100 unit/mL (3 mL) subcutaneous pen (Lantus Solostar U-100 Insulin) 10 unit subcut DAILY DM 04/09/21 ferrous sulfate 325 mg (65 mg iron) tablet 325 mg PO DAILY supplement 06/07/21 apixaban 2.5 mg tablet (Eliquis) 2.5 mg PO BID blood thinner 04/07/22 diphenhydramine HCl 25 mg capsule (Benadryl) 25 mg PO QHS PRN Sleep 04/07/22 xydkra-atmjbztn-goabmmb 36,000-114,000-180,000 unit capsule,delay rel (Creon) 3 cap PO BID supplement 04/07/22 melatonin 3 mg capsule 3 mg PO QHS sleep 04/07/22 misoprostol 100 mcg tablet 100 mcg PO Q6H 8 weeks #224 tabs 04/09/22 pantoprazole 40 mg tablet,delayed release 40 mg PO BID #60 tabs 04/09/22
== END 2022-04-09 17:45 | disposition skilled nursing facility (03) | DRG 378 ==
LOC: ED 20:27 → MS3 21:06
PROVIDERS: Anesthesiology; Internal Medicine Gastroenterology; Physician Assistant; Admitting Provider Hospitalist; Emergency Provider Emergency Medicine; PCP Family Medicine; Visit Provider Student in an Organized Health Care Education/Training Program
PROC: 0DJ08ZZ Inspection of Upper Intestinal Tract, Via Natural or Artificial Opening Endoscopic (ICD-10-PCS; CPT 43235; principal; 2022-04-08 12:55)
DX: K28.4 Chronic or unspecified gastrojejunal ulcer with hemorrhage (principal); K86.1 Other chronic pancreatitis; E11.22 Type 2 diabetes mellitus with diabetic chronic kidney disease; E11.65 Type 2 diabetes mellitus with hyperglycemia; D50.0 Iron deficiency anemia secondary to blood loss (chronic); E03.9 Hypothyroidism, unspecified; Z79.4 Long term (current) use of insulin; N18.32 Chronic kidney disease, stage 3b; E78.5 Hyperlipidemia, unspecified; I12.9 Hypertensive chronic kidney disease with stage 1 through stage 4 chronic kidney disease, or unspecified chronic kidney disease; K20.90 Esophagitis, unspecified without bleeding; Z87.891 Personal history of nicotine dependence; Z79.01 Long term (current) use of anticoagulants; F32.A Depression, unspecified; Z95.2 Presence of prosthetic heart valve; Z86.718 Personal history of other venous thrombosis and embolism
CPT/HCPCS: 36415; 80048; 80053; 82607; 82728; 82746; 82962; 83036; 83540; 83550; 85014; 85018; 85025; 85045; 85610; 85730; 86850; 86900; 86901; 93005; 99283; J7030; J7120; A4216; J2405

== ENCOUNTER → 2022-05-23 | Outpatient (CLI) | payer MEDICARE, MEDICAID, SELFPAY ==
[2022-05-23 13:06] LABS: Absolute Lymphocyte Count 1.09 X10^3/uL (0.83-4.51); Absolute Neutrophil Count 3.1 X10^3/uL (2.0-7.7); Basophil# 0.05 X10^3/uL; Basophil% 0.9 % (0-1); Eosinophil# 0.68 X10^3/uL; Eosinophils% 12.5 % (0-5); Hematocrit 28.7 % (37-47); Lymphocyte # 1.09 X10^3/ul (0.83-4.51); Mean Corp Hgb Conc 31.4 g/dL (32-36); Mean Corpuscular Hgb 29.3 pg (27.0-32.0); Mean Corpuscular Volume 93.5 fL (81-99); Mean Platelet Vol. 9.8 fl (6.2-12.0); Monocyte# 0.56 X10^3/uL; Monocyte% 10.3 % (0-10); NRBC Flagged by Analyzer 0 % (0-5); Neutrophil # 3.07 X10^3/uL (2.7-7.7); Neutrophil % 56.1 % (47-70); Platelet Count 229 K/mm3 (150-450); RBC Distribution Width CV 14.6 % (11.6-14.6); RBC Distribution Width SD 49.6 fl (35.1-43.9); Red Blood Count 3.07 M/mm3 (4.2-5.4); White Blood Count 5.5 K/mm3 (4.4-11.0)
[2022-05-23 13:42] LABS: Ferritin 23 ng/mL (8-252); Iron 16 ug/dL (50-170); Iron Binding Capacity,Total 416 ug/dL (250-450); PERCENT IRON SATURATION 3.8 % (15.0-55.0)
== END | disposition home or self-care (01) ==
PROVIDERS: PCP Family Medicine; Referring Provider Internal Medicine Hematology & Oncology; Visit Provider Internal Medicine Hematology & Oncology
DX: D50.0 Iron deficiency anemia secondary to blood loss (chronic) (principal)
CPT/HCPCS: 36415; 82728; 83540; 83550; 85025

== ENCOUNTER 2022-06-07 16:17 | Emergency (ER) | payer OTHER, SELFPAY ==
[2022-06-07] VITALS (9 sets, daily range): BP systolic 132–153; BP diastolic 58–76; PULSE 62–78; RESP 16–19; TEMP 36–36.6; O2SAT 95–100; BMI 25.0
--- NOTE | 2022-06-07 16:45 | EX.ED.DYSGE1 ---
HPI History of Present Illness Chief Complaint: Abn Labs Informant: patient and family Narrative Narrative: Patient resents with symptomatic anemia. She has a long history of this problem. She has had GI bleeding in the past. But she states she watches her stool very closely and has not had black or bloody stools since March when she had cauterization of a bleeding area on endoscopy. She said her blood counts have been slowly trending down for months. She does have worsening tiredness and decreased energy although not really dyspnea on exertion. She has had iron infusions before that were very helpful. They then switched her to oral iron and her hemoglobin seems to just be dropping since. She does take Eliquis due to a DVT in the right lower extremity and lupus anticoagulant. She has had a valve but it is a Bovie and cardiac valve that does not require anticoagulation by itself. She was contacted by her pacs administrator office to present for transfusion. Patient states she does not want to be admitted because she does not feel sick. She is not having black or bloody stools. She would just like to get a blood transfusion and go home. [facility] Medical History Acute GI bleeding Anemia Anemia Depression Diabetes mellitus, type II Essential hypertension History of DVT (deep vein thrombosis) HTN (hypertension) Hyperlipidemia Iron deficiency anemia due to chronic blood loss Lupus anticoagulant disorder (1994) Nonrheumatic aortic (valve) stenosis with insufficiency Osteoarthritis Osteoporosis Small bowel intussusception Supratherapeutic INR Vitamin B 12 deficiency Home Medications acetaminophen 500 mg tablet 1,000 mg PO Q6H PRN Pain 01/31/19 [History Last Taken 04/09/21 12:00] sertraline 100 mg tablet 100 mg PO BID depression 03/15/19 [History Last Taken 04/07/22 10:00] levothyroxine 25 mcg tablet 25 mcg PO DAILY THYROID 02/17/20 [History Last Taken 04/07/22] losartan 50 mg-hydrochlorothiazide 12.5 mg tablet 1 tab PO DAILY heart/BP 01/14/21 [History Last Taken 04/07/22] metoprolol succinate 25 mg tablet,extended release 24 hr 25 mg PO DAILY HTN 01/14/21 [History Last Taken 04/07/22] vit C 250 mg-vit E 90 mg-zinc 40 mg-copper 1 xm-spykdg-vsheid capsule (PreserVision AREDS-2) 1 tab PO BID eyes 01/14/21 [History Last Taken 04/07/22 10:00] atorvastatin 20 mg tablet 20 mg PO QHS CHOLESTEROL 04/09/21 [History Last Taken 04/06/22] cholecalciferol (vitamin D3) 25 mcg (1,000 unit) capsule 25 mcg PO BID SUPPLEMENT 04/09/21 [History Last Taken 04/07/22] glipizide 5 mg tablet 2.5 mg PO DAILY DM 04/09/21 [History Last Taken 04/07/22] insulin glargine 100 unit/mL (3 mL) subcutaneous pen (Lantus Solostar U-100 Insulin) 15 unit subcut DAILY DM 04/09/21 [History Last Taken 04/06/22] ferrous sulfate 325 mg (65 mg iron) tablet 325 mg PO DAILY supplement 06/07/21 [History Last Taken 04/07/22] gmxlad-kddcxjob-zudwtwr 36,000-114,000-180,000 unit capsule,delay rel (Creon) 3 cap PO BID supplement 04/07/22 [History Last Taken 04/07/22 12:00] misoprostol 100 mcg tablet 100 mcg PO Q6H 8 weeks #224 tabs 04/09/22 [Rx Last Taken Unknown] pantoprazole 40 mg tablet,delayed release 40 mg PO BID #60 tabs 05/10/22 [Rx Last Taken Unknown] Allergy/AdvReac Type Severity Reaction Status Date / Time codeine Allergy Intermediate itchy Verified 06/07/22 16:19 lisinopril Allergy Intermediate coughing Verified 06/07/22 16:19 Seasonal Allergies: Uncoded Allergy Other Verified 06/07/22 16:19 Family History Mother , Age 86 CAD (coronary artery disease) Alzheimers disease Myocardial infarction, Onset Age: 70 Father , Age 68 CAD (coronary artery disease) Alcoholism Hypertension Sister Diabetes Hypertension Breast cancer Sister , 46 No problems noted. Brother Cancer bladder and prostate Hypertension Heart disease Brother No problems noted. Surgical History History of aortic valve replacement with bioprosthetic valve (02/15/19) History of appendectomy History of section History of elbow surgery (2011) History of gastric bypass History of hip surgery (2011) History of open reduction and internal fixation (ORIF) procedure (2009) History of right and left heart catheterization (11/30/18) History of tonsillectomy Status post gastric bypass for obesity Social History adopted: No household members: none housing: assisted living facility number of children: 2 current occupational status: retired current occupational exposures/hazards: No pets and animals: No leisure activities: reading and other history of recent travel: No sexually active: No Smoking Status: Former smoker Tobacco: How many years used: 8 how long ago did patient quit smokin years ago alcohol intake: current Alcohol type: wine details: wine substance use type: does not use diet: diabetic well-balanced diet: about half the time during the past year weight has: remained stable what type of physical activity do you participate in: none mitali/restoration: Faith do you feel safe at home: Yes ROS ROS ED Constitutional Constitutional ED: Denies chills or fever(s) Eyes Eyes: Denies change in vision ENT ENT ED: Denies rhinorrhea or sore throat Cardiovascular Cardiovascular: Denies chest pain, palpitations or racing heartbeat Respiratory/Chest Respiratory/Chest: Denies cough or dyspnea Gastrointestinal Gastrointestinal: Denies abdominal pain, constipation, diarrhea, melena, nausea or vomiting Genitourinary Genitourinary ED: Denies hematuria Musculoskeletal Musculoskeletal: Denies back pain or myalgias Integumentary Denies rash Neurologic Neurologic: Denies headache(s) Psychiatric Psychiatric: Denies anxiety Endocrine Endocrinology: Denies polydipsia or polyuria Hematologic/Lymphatic Hematologic/Lymphatic: Reports anemia, easy bleeding and easy bruising Allergic/Immunologic Allergic/Immunologic ED: Denies urticaria EXAM Physical Exam Const Vital Signs: 06/07/22 16:18 06/07/22 16:43 06/07/22 19:00 Temperature 96.8 F L 97.9 F Temperature Source Temporal Temporal Pulse Rate 78 66 Respiratory Rate 18 19 H Respiratory Effort Normal Non-Labored Respiratory Pattern Normal Blood Pressure 144/58 H 146/66 H Blood Pressure Mean 86 92 Blood Pressure Source Monitor Blood Pressure Position Semi-Fowlers Blood Pressure Location Right Arm Pulse Ox 98 100 Oxygen Delivery Method Room Air Room Air 06/07/22 19:03 06/07/22 18:17 06/07/22 19:18 Temperature 97.9 F 97.4 F L Temperature Source Temporal Temporal Pulse Rate 67 62 67 Respiratory Rate 16 18 16 Respiratory Effort Respiratory Pattern Blood Pressure 146/66 H 152/74 H 153/58 H Blood Pressure Mean 92 100 89 Blood Pressure Source Monitor Monitor Blood Pressure Position Semi-Fowlers Semi-Fowlers Blood Pressure Location Left Arm Left Arm Pulse Ox 100 95 96 Oxygen Delivery Method Room Air Room Air Room Air 06/07/22 20:05 06/07/22 20:06 06/07/22 20:18 Temperature 97.1 F L 97.7 F L Temperature Source Temporal Temporal Pulse Rate 66 68 62 Respiratory Rate 19 H 19 H 18 Respiratory Effort Respiratory Pattern Blood Pressure 136/63 H 144/73 H Blood Pressure Mean 87 96 Blood Pressure Source Monitor Blood Pressure Position Semi-Fowlers Blood Pressure Location Left Arm Pulse Ox 100 100 98 Oxygen Delivery Method Room Air Room Air Room Air Positive well developed Constitutional Narrative: Patient does look pale. General Appearance ED: well developed, NAD and pallor; Negative for diaphoretic HEENT Reports moist mucous membranes Eyes General Eye ED: Yes pale conjunctiva Resp normal respiratory effort and clear to auscultation bilaterally Cardio regular rate and regular rhythm; Negative for no murmurs GI normal to inspection, nondistended, normoactive bowel sounds, non-tender and non-distended Back/Spine no CVA tenderness Extremity General Extremety ED: Negative for edema or tenderness General Extremity: Negative for edema Neuro oriented x3 Skin General Skin Exam: elasticity normal and pallor; Negative for jaundice MDM MDM MDM Narrative Medical decision making narrative: Blood work does show hemoglobin low at 7.8. This has been a very slow drift down over time. Electrolytes showed slightly elevated creatinine at 1.49. BUN was 30. These are both within range of her in the past. Blood type was a be positive. Patient was transfused here. No dyspnea. No symptoms or side effect. She does feel better. Plan will be to get her home. Although her hemoglobin was not below 7 she was having symptoms and is older with multiple medical problems and this does contribute to her need for therapy. She does not want to be admitted for this. I think she can be worked up as an outpatient as this has been an ongoing issue and she is reporting no current bleeding Lab Data Attestation: I reviewed the patient's lab results. Labs: Laboratory Results - last 24 hr 06/07/22 06/07/22 06/07/22 16:57 16:57 16:57 WBC 5.5 RBC 2.87 L Hgb 7.8 L Hct 26.2 L MCV 91.3 MCH 27.2 MCHC 29.8 L RDW Std Deviation 52.7 H RDW Coeff of Adria 15.9 H Plt Count 235 MPV 10.3 Immature Gran % (Auto) 0.400 Neut % (Auto) 59.1 Lymph % (Auto) 17.6 L [place] % (Auto) 9.7 Eos % (Auto) 12.8 H Baso % (Auto) 0.4 Absolute Neuts (auto) 3.2 Absolute Lymphs (auto) 0.96 Nucleated RBC % 0 Sodium 137 Potassium 4.2 Chloride 104 Carbon Dioxide 26.0 Anion Gap 7 BUN 30 H Creatinine 1.49 H Estim Creat Clear Calc 25.33 Est GFR (MDRD) Af Amer 43 L Est GFR (MDRD) Non-Af 36 L BUN/Creatinine Ratio 20.1 H Glucose 221 H Calcium 8.5 Blood Type AB POSITIVE Antibody Screen NEGATIVE Crossmatch See Detail Discharge Plan Triage Chief Complaint: Abn Labs ED Provider: Jeremy Elmore Dx/Rx/DC Orders Clinical Impression: Symptomatic anemia Instructions: Anemia Prescriptions: No Action sertraline 100 mg tablet 100 mg PO BID Label Comments: depression ferrous sulfate 325 mg (65 mg iron) tablet 325 mg PO DAILY pantoprazole 40 mg tablet,delayed release (DR/EC) 40 mg PO BID Qty: 60 1RF acetaminophen 500 MG tablet 1,000 mg PO Q6H PRN (Reason: Pain) Label Comments: pain levothyroxine 25 MCG tablet 25 mcg PO DAILY losartan-hydrochlorothiazide 50-12.5 mg Tablet 1 tab PO DAILY PreserVision AREDS-2 250-90-40-1 mg Capsule 1 tab PO BID metoprolol succinate 25 mg tablet extended release 24 hr 25 mg PO DAILY atorvastatin 20 mg Tablet 20 mg PO QHS glipizide 5 mg Tablet 2.5 mg PO DAILY cholecalciferol (vitamin D3) 25 mcg (1,000 unit) Capsule 25 mcg PO BID insulin glargine [Lantus Solostar U-100 Insulin] 100 unit/mL (3 mL) Insulin Pen 15 unit SUBCUT DAILY Creon 36,000-114,000- 180,000 unit Capsule,Delayed Release(Dr/Ec) 3 cap PO BID Rx Instructions: administer with meals and/or snacks misoprostol 100 mcg tablet 100 mcg PO Q6H 56 Days Qty: 224 0RF Primary Care Provider: Alonzo Collado Referrals: Alonzo Collado DO [Primary Care Provider] - As soon as possible FriendUlysses DO [Med Staff - Active Staff] - As soon as possible Disposition Disposition: Home, Self Care
[2022-06-07 17:09] LABS: Absolute Lymphocyte Count 0.96 X10^3/uL (0.83-4.51); Absolute Neutrophil Count 3.2 X10^3/uL (2.0-7.7); Basophil# 0.02 X10^3/uL; Basophil% 0.4 % (0-1); Eosinophils% 12.8 % (0-5); Hematocrit 26.2 % (37-47); Hemoglobin 7.8 g/dL (12.0-15.0); Lymphocyte # 0.96 X10^3/ul (0.83-4.51); Lymphocyte % 17.6 % (19-41); Mean Corp Hgb Conc 29.8 g/dL (32-36); Mean Corpuscular Hgb 27.2 pg (27.0-32.0); Mean Corpuscular Volume 91.3 fL (81-99); Mean Platelet Vol. 10.3 fl (6.2-12.0); Monocyte# 0.53 X10^3/uL; Monocyte% 9.7 % (0-10); NRBC Flagged by Analyzer 0 % (0-5); Neutrophil # 3.22 X10^3/uL (2.7-7.7); Neutrophil % 59.1 % (47-70); Platelet Count 235 K/mm3 (150-450); RBC Distribution Width CV 15.9 % (11.6-14.6); RBC Distribution Width SD 52.7 fl (35.1-43.9); Red Blood Count 2.87 M/mm3 (4.2-5.4); White Blood Count 5.5 K/mm3 (4.4-11.0)
[2022-06-07 17:26] LABS: Anion Gap 7 (5-15); BUN 30 mg/dL (7-18); BUN/Creat Ratio 20.1 RATIO (10-20); Calcium,Total 8.5 mg/dL (8.5-10.1); Chloride 104 mmol/L (98-107); Creatinine, Serum 1.49 mg/dL (0.55-1.02); EST Glomerular Filtration Rate 36 mL/min (>60); Est Glom Filt Rate - Afr Amer 43 mL/min (>60); Estimated Creatinine Clearance 25.33 ml/min; Glucose 221 mg/dL (74-106); Potassium 4.2 mmol/L (3.5-5.1); Sodium Level 137 mmol/L (136-145)
== END 2022-06-07 22:15 | disposition home or self-care (01) ==
PROVIDERS: Emergency Provider Emergency Medicine; PCP Family Medicine; Visit Provider Emergency Medicine
DX: D64.9 Anemia, unspecified (principal); E11.9 Type 2 diabetes mellitus without complications; Z79.4 Long term (current) use of insulin; I10 Essential (primary) hypertension; E78.5 Hyperlipidemia, unspecified; F41.9 Anxiety disorder, unspecified; F32.A Depression, unspecified; Z87.891 Personal history of nicotine dependence; Z86.718 Personal history of other venous thrombosis and embolism; Z79.899 Other long term (current) drug therapy; Z79.84 Long term (current) use of oral hypoglycemic drugs; Z79.01 Long term (current) use of anticoagulants
CPT/HCPCS: 36430; 80048; 85025; 86850; 86900; 86901; 86920; 86922; 99283; J7040; P9016; A4216

== ENCOUNTER 2022-08-07 05:42 | Day surgery (SDC) | payer MEDICARE, MEDICAID, SELFPAY ==
[2022-08-07 06:08] VITALS: BP 144/66; PULSE 66; RESP 18; TEMP 36.4; O2SAT 100; BMI 23.3
[2022-08-07] MEDS: Lactated Ringers 1,000 ML 15 ML IV (06:08)
--- NOTE | 2022-08-07 06:32 | HP.PCM_ITS ---
History and Physical Date of Admission: 08/07/22 81 F who presents to the office today for f/u GI bleed. She was hospitalized 04/07/22-04/09/22 for anemia due to acute upper GI bleed. She had presented with melena. On EGD Dr Parker found friability at jejunojejunal anastomosis (hx Lea en Y), treated with heater probe. Dr Parker recommends repeat EGD after 3-4 mos. She is being treated with 8 wks of pantoprazole 40 mg bid and misoprostol QID. She had a bleed at the same site in 04/2021. Today she reports no melena or hematochezia. She is tolerating the meds w/o any adverse effects. Hgb was 9.4 on admission, low of 8.5, then 8.9 at discharge. She has f/u and labs next wk with Hematology for chronic anemia. She feels well today; denies abd pain, nausea, vomiting, hematemesis, diarrhea, melena, hematochezia, SOB, lightheadedness, weakness. She continues to take Creon with meals for exocrine pancreatic insufficiency. ROS Const Constitutional: No fatigue ENT ENT: No difficulty swallowing Gastro GI: Positive for abdominal pain, bloating and excessive flatus; No belching, change in bowel habits, change in stool character, coffee ground emesis, constipation, cramping, diarrhea, heartburn, difficulty swallowing, feeling full early, incontinent of stools, Vomiting blood/hematemesis, Blood in stool, loose stools, Black,tarry stools, nausea/dyspepsia, pain with swallowing, vomiting or other Musc Musculoskeletal: No joint pain Skin Skin: No yellowing of the eye or itchy eyes Psych Psychiatric: No anxiety and No depression Endo Endocrine: No fatigue Aller/Imm Allergy/Immunologic: No itchy eyes Dameon/Lymp Hematologic/Lymphatic: No easy bleeding or easy bruising Exam Const General: cooperative, healthy appearing and comfortable Nutritional Appearance: average body habitus Orientation: alert, awake and oriented x3 HENMT Head: normal to inspection Resp Effort & Inspection: normal respiratory effort GI Inspection: normal to inspection Palpation: soft, no hepatosplenomegaly, no masses and nontender Quality Reporting Tobacco Screening ([facility] 138) Smoking Status: Former smoker Assessment and Plan Assessment and Plan (1) Iron deficiency anemia due to chronic blood loss: ?Status:?Chronic ?Plan: 81 yo female with recent hospitalization for anemia due to acute GI bleed at jejunojejunal anastamosis. Finish the 8 wks of pantoprazole 40 mg BID and misoprostal QID, then stay on pantoprazole 40mg QAM. She requires eliquis for hx of DVT due to lupus anticoagulant disorder. Repeat EGD in 3mos, f/u in office 2 wks later (2) Status post gastric bypass for obesity: ?Status:?Chronic ?Plan: see above (3) Anemia: ?Status:?Chronic ?Qualifiers: ?Anemia type:?unspecified type? Qualified Code(s):?D64.9 - Anemia, unspecified ?Plan: see above I have examined the patient and the H&P has been reviewed. There are no clinical changes since date of exam.
[2022-08-07 06:36] LABS: Bedside Glucose 84 mg/dL (74-106)
[2022-08-07 06:48] VITALS: BP 104/51; BP 144/66; PULSE 80; RESP 18; TEMP 36; O2SAT 98
--- NOTE | 2022-08-07 06:49 | OP.CCLET_ITS ---
08/07/2022 Alonzo Collado Re : Upper GI endoscopy procedure for Angy Reyes Stephanie Collado This procedure was performed on Sunday, August 07, 2022. My impressions and recommendations are as follows: Impressions : - Normal esophagus. - Lea-en-Y gastrojejunostomy with gastrojejunal anastomosis characterized by healthy appearing mucosa. - Normal examined jejunum. - No specimens collected. Recommendations : - Discharge patient to home. - Resume previous diet. - Continue present medications. My findings are described in the full procedure note, which is enclosed. If I can be of further assistance, please feel free to contact me at . Sincerely, Ulysses Parker, 08/07/2022 6:48:29 AM This report has been signed electronically.
--- NOTE | 2022-08-07 06:49 | OP.EGD_ITS ---
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 Refer to note in patient chart for documentation of history and physical. Patient has symptoms of chronic epigastric abdominal pain and chronic nausea. Complications: No immediate complications. Procedure: Pre-Anesthesia Assessment: - Prior to the procedure, a History and Physical was performed, and patient medications and allergies were reviewed. The patient is competent. The risks and benefits of the procedure and the sedation options and risks were discussed with the patient. All questions were answered and informed consent was obtained. Patient identification and proposed procedure were verified by the physician. Mental Status Examination: normal. Prophylactic Antibiotics: The patient does not require prophylactic antibiotics. Prior Anticoagulants: The patient has taken no previous anticoagulant or antiplatelet agents. ASA Grade Assessment: II - A patient with mild systemic disease. After reviewing the risks and benefits, the patient was deemed in satisfactory condition to undergo the procedure. The anesthesia plan was to use monitored anesthesia care (MAC). Immediately prior to administration of medications, the patient was re-assessed for adequacy to receive sedatives. The heart rate, respiratory rate, oxygen saturations, blood pressure, adequacy of pulmonary ventilation, and response to care were monitored throughout the procedure. The physical status of the patient was re-assessed after the procedure. After obtaining informed consent, the endoscope was passed under direct vision. Throughout the procedure, the patient's blood pressure, pulse, and oxygen saturations were monitored continuously. The gastroscope was introduced through the mouth, and advanced to the second part of duodenum. The upper GI endoscopy was accomplished without difficulty. The patient tolerated the procedure well. Scope In: 6:39:05 AM Scope Out: 6:42:01 AM Total Procedure Duration Time 0 hours 2 minutes 56 seconds Findings: The examined esophagus was normal. 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 The gastrojejunal anastomosis was characterized by healthy appearing mucosa. This was traversed. The tafdl-qr-qfjxvfp limb was characterized by healthy appearing mucosa. The jejunojejunal anastomosis was characterized by healthy appearing mucosa. The ylclrpnu-tn-fvgpxbn limb was examined. The examined jejunum was normal. Impression: - Normal esophagus. - Lea-en-Y gastrojejunostomy with gastrojejunal anastomosis characterized by healthy appearing mucosa. - Normal examined jejunum. - No specimens collected. Recommendation: - Discharge patient to home. - Resume previous diet. - Continue present medications. Procedure Code(s): --- Professional --- 61420, Esophagogastroduodenoscopy, flexible, transoral; diagnostic, including collection of specimen(s) by brushing or washing, when performed (separate procedure) CPT copyright 2017 [employer]. All rights reserved. The codes documented in this report are preliminary and upon remote medical coder review may be revised to meet current compliance requirements. Ulysses Parker DO 08/07/2022 6:48:29 AM This report has been signed electronically. Number of Addenda: 0 Note Initiated On: 08/07/2022 6:15 AM
[2022-08-07 06:50] VITALS: BP 144/66; BP 89/50; PULSE 81; RESP 18; O2SAT 97
[2022-08-07 06:55] VITALS: BP 144/66; BP 94/54; PULSE 80; RESP 18; O2SAT 97
[2022-08-07 06:59] VITALS: BP 125/67; BP 144/66; PULSE 100; RESP 18; TEMP 36.2; O2SAT 100
[2022-08-07 07:18] VITALS: BP 144/66
== END 2022-08-07 07:39 | disposition home or self-care (01) ==
LOC: EN 05:43 → AC 05:44
PROVIDERS: PCP Family Medicine; Referring Provider Family Medicine; Visit Provider Internal Medicine Gastroenterology
PROC: 0DJ08ZZ Inspection of Upper Intestinal Tract, Via Natural or Artificial Opening Endoscopic (ICD-10-PCS; CPT 43235; principal; 2022-08-07 06:25)
DX: D50.0 Iron deficiency anemia secondary to blood loss (chronic) (principal); Z79.4 Long term (current) use of insulin; E11.9 Type 2 diabetes mellitus without complications; I10 Essential (primary) hypertension; E78.00 Pure hypercholesterolemia, unspecified; Z87.891 Personal history of nicotine dependence; Z86.718 Personal history of other venous thrombosis and embolism; Z95.1 Presence of aortocoronary bypass graft; Z79.899 Other long term (current) drug therapy; Z79.84 Long term (current) use of oral hypoglycemic drugs; Z79.01 Long term (current) use of anticoagulants
CPT/HCPCS: 43235; 82962; J7120; J2405

== ENCOUNTER → 2023-10-17 | Outpatient (CLI) | payer MEDICARE, OTHER, SELFPAY ==
--- NOTE | 2023-10-17 15:09 | ECHOD_ITS ---
Reason For Study: VALVE REPLACEMENT Procedure This was a 2D Doppler, Color Flow transthoracic echocardiogram. Exam performed in department. Left Ventricle Normal LV size. Moderate concentric left ventricular hypertrophy. Left ventricular systolic function is hyperdynamic. Resting LV gradient 54 mmHg. The left ventricular ejection fraction is 70 %. No regional wall motion abnormalities noted. Right Ventricle Normal RV size. Normal systolic function. Atria The left atrium is mildly enlarged. Normal right atrium. Mitral Valve There is moderate to severe mitral annular calcification. Mean transmitral valve gradient 6.6 mmHg. Tricuspid Valve Normal tricuspid valve. Mild (1+) tricuspid valve insufficiency. Pulmonary artery systolic pressure is 34 mmHg. Aortic Valve Peak aortic valve gradient 10 mmHg. Mean aortic valve gradient 6 mmHg. Bioprosthetic aortic valve. Pulmonic Valve Normal pulmonic valve. Great Vessels Calcified aortic root. The pulmonary is not well visualized. Normal inferior vena cava. Pericardium/Pleural No pericardial effusion. MMode/2D Measurements & Calculations RVDd: 2.7 cm LVOT diam: 1.7 cm LAV(MOD-bp): 86.0 ml LVOT area: 2.3 cm2 LAV(MOD-bp) Indexed: 56.3 ml/m2 LAV(MOD-sp2): 84.2 ml LAV(MOD-sp4): 78.7 ml SV(MOD-sp4): 22.5 ml SV(sp4-el): 23.7 ml LVAd ap4: 15.5 cm2 LVLd ap4: 6.5 cm EDV(MOD-sp4): 32.1 ml EDV(sp4-el): 31.2 ml LVAs ap4: 6.7 cm2 LVLs ap4: 5.1 cm ESV(MOD-sp4): 9.6 ml ESV(sp4-el): 7.5 ml EF(MOD-sp4): 70.2 % EF(sp4-el): 75.9 % LA A4 area: 24.5 cm2 LA dimension(2D): 3.6 cm RA A4 area: 15.2 cm2 TAPSE: 1.8 cm Time Measurements MV dec time: 0.19 sec Doppler Measurements & Calculations MV E max sam: 87.8 cm/sec Lat Peak E' Sam: 5.5 cm/sec Med Peak E' Sam: 5.6 cm/sec MV A max sam: 178.6 cm/sec E/E' lat: 16.0 E/E' med: 15.8 MV E/A: 0.49 MV V2 max: 204.2 cm/sec Ao V2 max: 160.6 cm/sec MV max P.7 mmHg MV dec slope: 477.0 cm/sec2 Ao max P.4 mmHg MV V2 mean: 116.8 cm/sec Ao V2 mean: 119.8 cm/sec MV mean P.6 mmHg Ao mean P.3 mmHg MV V2 VTI: 43.2 cm Ao V2 VTI: 33.1 cm AV (velocity ratio): 0.68 MVA(VTI): 1.2 cm2 KAMERNO(I,D): 1.5 cm2 KAMERON(V,D): 2.0 cm2 LV V1 max: 141.8 cm/sec SV(LVOT): 50.7 ml PA V2 max: 73.3 cm/sec LV V1 max P.1 mmHg PA V2 mean: 54.0 cm/sec LV V1 mean P.2 mmHg LV V1 mean: 95.4 cm/sec LV V1 VTI: 22.4 cm TR max sam: 276.9 cm/sec TR max P.7 mmHg ECHO/Echo Complete Interpretation Summary Normal LV size. Left ventricular systolic function is hyperdynamic. Moderate concentric left ventricular hypertrophy. The left ventricular ejection fraction is 70 %. Resting LV gradient 54 mmHg. Mean aortic valve gradient 6 mmHg. Bioprosthetic aortic valve. Ordering Physician: Brenda Sanders Referring Physician: Brenda Sanders Performed By: Porsha Hook RCS
== END | disposition home or self-care (01) ==
PROVIDERS: PCP Family Medicine; Referring Provider Physician Assistant Medical; Visit Provider Physician Assistant Medical
DX: I35.2 Nonrheumatic aortic (valve) stenosis with insufficiency (principal)
CPT/HCPCS: 93306

== ENCOUNTER 2024-01-10 14:54 | Emergency (ER) | payer MEDICARE, SELFPAY ==
[2024-01-10 14:55] VITALS: BP 172/81; PULSE 64; RESP 16; TEMP 36.2; O2SAT 99; BMI 21.4
[2024-01-10 15:18] LABS: Absolute Lymphocyte Count 1.07 X10^3/uL (0.83-4.51); Absolute Neutrophil Count 5.4 X10^3/uL (2.0-7.7); Basophil# 0.04 X10^3/uL; Basophil% 0.5 % (0-1); Eosinophil# 0.45 X10^3/uL; Eosinophils% 5.7 % (0-5); Hematocrit 38.6 % (37-47); Hemoglobin 12.5 g/dL (12.0-15.0); Lymphocyte # 1.07 X10^3/ul (0.83-4.51); Lymphocyte % 13.7 % (19-41); Mean Corp Hgb Conc 32.4 g/dL (32-36); Mean Corpuscular Hgb 31.6 pg (27.0-32.0); Mean Corpuscular Volume 97.5 fL (81-99); Mean Platelet Vol. 10.3 fl (6.2-12.0); Monocyte% 10.2 % (0-10); NRBC Flagged by Analyzer 0 % (0-5); Neutrophil # 5.43 X10^3/uL (2.7-7.7); Neutrophil % 69.4 % (47-70); Platelet Count 166 K/mm3 (150-450); RBC Distribution Width CV 14.3 % (11.6-14.6); RBC Distribution Width SD 51.3 fl (35.1-43.9); Red Blood Count 3.96 M/mm3 (4.2-5.4); White Blood Count 7.8 K/mm3 (4.4-11.0)
[2024-01-10 15:33] LABS: ALB/GLOB Ratio 0.9 RATIO (0.9-2.4); AST(SGOT) 57 U/L (15-37); Alanine Aminotransfer ALT/SGPT 27 U/L (13-56); Albumin, Serum 3.6 g/dL (3.2-5.0); Alkaline Phosphatase 57 U/L (45-117); Anion Gap 6 (5-15); BUN 23 mg/dL (7-18); BUN/Creat Ratio 17.2 RATIO (10-20); Calcium,Total 9.2 mg/dL (8.5-10.1); Chloride 101 mmol/L (98-107); Creatinine, Serum 1.34 mg/dL (0.55-1.02); EST Glomerular Filtration Rate 40 mL/min (>60); Est Glom Filt Rate - Afr Amer 49 mL/min (>60); Estimated Creatinine Clearance 27.24 ml/min; Globulin 4.2 g/dL (2.2-4.2); Glucose 268 mg/dL (74-106); Potassium 3.6 mmol/L (3.5-5.1); Protein, Total 7.8 g/dL (6.4-8.2); Sodium Level 135 mmol/L (136-145)
--- NOTE | 2024-01-10 16:11 | CT_ITS ---
STUDY: CT ABDOMEN AND PELVIS WITHOUT CONTRAST REASON FOR EXAM: Female, 83 years old. RLQ abd pain RADIATION DOSAGE (If Supplied By Facility): CTDIvol = ( 6.06 ) mGy, DLP = ( 269.31 ) mGycm TECHNIQUE: Transaxial images were obtained from the dome of the diaphragm to the symphysis pubis without oral contrast, and without intravenous contrast. Sagittal and coronal images were reconstructed. Individualized dose optimization techniques were used for this CT. COMPARISON: None. FINDINGS: The visualized lung bases are unremarkable. The visualized portions of the heart are within normal limits. Normal liver. Status post cholecystectomy. No significant dilatation of the biliary system. Normal spleen. Normal pancreas. Normal bilateral adrenal glands. Up to 3 mm calculi in the right kidney. Mild right perinephric stranding. Right hydronephrosis with a stone measuring 5 mm near the right UPJ. Up to 9 mm calculi in the left kidney. Prior surgery of the stomach and the small intestine. Normal colon. The appendix is visualized and appears normal. Calcified abdominal aorta. Normal inferior vena cava. Normal retroperitoneum. Normal urinary bladder. Normal abdominal wall. Status post ORIF of the left femur. Degenerative vertebral changes and slight scoliosis. Moderate wedge compression of L1. CT/Abdomen/Pelvis without Cont IMPRESSION: Bilateral renal calculi.
[2024-01-10 16:34] LABS: Bacteria 0 SEEN /hpf (None Seen); Mucous, Urine 0 SEEN /hpf (<or=2+)
[2024-01-10 16:36] LABS: Color, Urine Yellow (Yellow); Glucose, Dipstick 100 mg/dl (Normal); Ketone-Dipstick Negative (Negative); Leukocyte Esterase-Dipstick 25 /ul (Negative); Nitrite-Dipstick Negative (Negative); Occult Blood-Urine 250 /ul (Negative); Protein-Dipstick 15 mg/dl (Negative); Specific Gravity, Urine 1.005 (1.002-1.030); Urine Bilirubin Dipstick Negative (Negative); Urine Clarity Clear (Clear); Urine Urobilinogen Normal (Normal)
--- NOTE | 2024-01-10 16:38 | ED.VIS.GI ---
HPI HPI - GI History of Present Illness Chief Complaint: Abd Pain Detail of Chief Complaint: Right flank pain since 6 AM this morning. Abdominal Pain/Flank Pain Onset: Today and Hours Context: Gradual Onset Timing: Continuous Quality: Sharp Location: Right Flank Current Severity: Mild Maximum Severity: Moderate Nausea/Vomiting/Emesis GI Symptom: Negative for Nausea or Vomiting Diarrhea/Melena/Hematochezia GI Symptom: Negative for Diarrhea, Melena or Hematochezia Associated Symptoms Associated Symptoms: Negative for Dysuria, Frequency or Hematuria Narrative Narrative: 83-year-old female complaining of right flank pain since 6 AM this morning. Denies nausea, vomiting or diarrhea. No fever. She had a kidney stone years ago done recently. Denies any dysuria or hematuria. No fall or trauma. She has had a prior appendectomy and cholecystectomy. Prior similar symptoms: No Recent Illness/Hospitalization: No PFSH PFSH Medical History Wears glasses Post-menopausal Alcohol use Insulin dependent diabetes mellitus Diabetes Uses wheelchair Ambulates with cane Arthritis History of renal disease Kidney stones High cholesterol Back pain Heartburn Former smoker Shortness of breath on exertion Cardiology follow-up encounter History of echocardiogram Hx of fracture of femur Anemia Iron deficiency anemia due to chronic blood loss Diarrhea Anemia HTN (hypertension) Supratherapeutic INR Acute GI bleeding Preop cardiovascular exam Diabetes mellitus, type II Small bowel intussusception Lupus anticoagulant disorder (1994) Nonrheumatic aortic (valve) stenosis with insufficiency Osteoporosis Vitamin B 12 deficiency Osteoarthritis Depression History of DVT (deep vein thrombosis) Hyperlipidemia Essential hypertension Home Medications ?Medication ?Instructions ?Recorded ?Last Taken ?Type sertraline 100 mg tablet 100 mg PO BID depression 03/15/19 04/07/22 10:00 History losartan 50 mg-hydrochlorothiazide 1 tab PO DAILY heart/BP 01/14/21 04/07/22 History 12.5 mg tablet metoprolol succinate 25 mg 25 mg PO DAILY HTN 01/14/21 08/07/22 History tablet,extended release 24 hr vit C 250 mg-vit E 90 mg-zinc 40 1 tab PO BID eyes 01/14/21 04/07/22 10:00 History mg-copper 1 [id number] capsule (PreserVision AREDS-2) atorvastatin 20 mg tablet 20 mg PO QHS CHOLESTEROL 04/09/21 04/06/22 History ferrous sulfate 325 mg (65 mg 325 mg PO DAILY supplement 06/07/21 04/07/22 History iron) tablet apixaban 2.5 mg tablet (Eliquis) 2.5 mg PO BID 07/04/22 Unknown History biotin 1 mg capsule 1 mg PO DAILY 07/04/22 Unknown History glipizide 5 mg tablet 5 mg PO DAILY DM 07/04/22 Unknown History semaglutide 0.25 mg or 0.5 mg (2 0.5 mg subcut QWEEK 08/05/22 Unknown History mg/1.5 mL) subcutaneous pen injector (Ozempic) denosumab 60 mg/mL subcutaneous 60 mg subcut [id number] 11/27/22 Unknown History syringe (Prolia) albuterol sulfate 90 mcg/actuation 1 inh inhalation Q4-6H PRN 05/26/23 Unknown History breath activated powder inhaler cholecalciferol (vitamin D3) 25 25 mcg PO DAILY 05/26/23 Unknown History mcg (1,000 unit) capsule amoxicillin 500 mg tablet 2,000 mg (4 x 500 mg) PO ONCE #1 09/05/23 Unknown Rx TAB levothyroxine 25 mcg tablet 50 mcg PO DAILY THYROID 12/22/23 Unknown History pantoprazole 40 mg tablet,delayed 40 mg PO QDAY 12/22/23 Unknown History release insulin glargine 100 unit/mL 10 unit subcut 1200 12/29/23 Unknown History subcutaneous solution (Lantus U-100 Insulin) tramadol 50 mg tablet 50 mg PO QHS PRN 12/29/23 Unknown History oxycodone-acetaminophen 5 mg-325 1 tab PO Q4H PRN pain 4 days #16 01/10/24 Unknown Rx mg tablet (Percocet) tabs Allergy/AdvReac Type Severity Reaction Status Date / Time codeine Allergy Intermediate itchy Verified 01/10/24 14:55 lisinopril Allergy Intermediate coughing Verified 01/10/24 14:55 Seasonal Allergies: Uncoded Allergy Other Verified 01/10/24 14:55 Family History Mother , Age 86 CAD (coronary artery disease) Alzheimers disease Myocardial infarction, Onset Age: 70 Father , Age 68 CAD (coronary artery disease) Alcoholism Hypertension Sister Diabetes Hypertension Breast cancer Sister , 46 No problems noted. Brother Cancer bladder and prostate Hypertension Heart disease Brother No problems noted. Surgical History Hx of aortic valve replacement History of cardiac catheterization Hx of colonoscopy History of esophagogastroduodenoscopy (EGD) Status post gastric bypass for obesity History of aortic valve replacement with bioprosthetic valve (02/15/19) History of right and left heart catheterization (11/30/18) History of gastric bypass History of tonsillectomy History of appendectomy History of section History of open reduction and internal fixation (ORIF) procedure (2009) History of elbow surgery (2011) Social History adopted: No household members: none housing: assisted living facility number of children: 2 current occupational status: retired current occupational exposures/hazards: No pets and animals: No leisure activities: reading and other history of recent travel: No sexually active: No Smoking Status: Former smoker Tobacco: How many years used: 8 how long ago did patient quit smokin years ago alcohol intake: current Alcohol type: wine details: wine substance use type: does not use diet: diabetic well-balanced diet: about half the time during the past year weight has: remained stable what type of physical activity do you participate in: none mitali/catholic: Mosque do you feel safe at home: Yes ROS ROS ED ROS Narrative Right flank pain. Denies nausea, vomiting, diarrhea or fever. Constitutional Constitutional ED: Denies fever(s) ENT ENT ED: Denies ear pain Cardiovascular Cardiovascular: Denies chest pain Respiratory/Chest Respiratory/Chest: Denies cough or dyspnea Gastrointestinal Gastrointestinal: Reports abdominal pain; Denies constipation, diarrhea, melena, nausea or vomiting Genitourinary Genitourinary ED: Denies dysuria, hematuria or urinary frequency Musculoskeletal Musculoskeletal: Reports other Details: Right flank pain ; Denies arthralgias or back pain Integumentary Denies abscess, Abrasions or rash Neurologic Neurologic: Denies headache(s) Psychiatric Psychiatric: Denies anxiety Endocrine Endocrinology: Denies polydipsia Hematologic/Lymphatic Hematologic/Lymphatic: Denies easy bleeding Allergic/Immunologic Allergic/Immunologic ED: Denies mouth swelling, tongue swelling or urticaria EXAM Physical Exam Narrative Exam Narrative: Well-appearing 83-year-old female. Vital signs stable afebrile. H EENT exam unremarkable. Lungs clear. Heart regular rhythm no murmur. Chest wall ribs nontender. Abdomen soft nontender. No reproducible pain. No McBurney's point tenderness. She is more right flank pain. Is not reproducible. There is no rash. There is no bruising. Back nontender. No hernia or mass. No distention or obstruction. Soft. Positive bowel sounds. Moving all 4 extremities. Nontender. Normal strength. She is awake and alert. Const Vital Signs: 01/10/24 14:55 01/10/24 16:55 01/10/24 18:00 Temperature 97.1 F L Temperature Source Temporal Pulse Rate 64 60 62 Respiratory Rate 16 16 16 Blood Pressure 172/81 H 178/72 H 177/69 H Blood Pressure Mean 111 107 105 Pulse Ox 99 97 94 Oxygen Delivery Method Room Air Room Air Positive well nourished and well developed; Negative for cachectic, contractures or unkempt General Appearance ED: well developed and NAD; Negative for unkempt, cachectic, contractures or pallor Nutritional Appearance: Negative for cachectic HEENT Reports moist mucous membranes; Denies dry mucous membranes normocephalic and atraumatic; Negative for trauma or tenderness Mouth ED: No dry mucous membranes Mouth: No dry mucous membranes Eyes PERRL and EOMs intact bilaterally General Eye ED: Negative for pale conjunctiva or scleral icterus Neck no lymphadenopathy, supple and no JVD General: Negative for tenderness Carotids: Negative for other Lymph Lymphatic: Negative for other Resp normal respiratory effort and clear to auscultation bilaterally Effort and Inspection: Negative for respiratory distress Auscultation: Negative for rales, rhonchi, wheezes or diminished lung sounds Cardio regular rate, regular rhythm, S1 normal heart sound, S2 normal heart sound and no murmurs Rate: Negative for bradycardia or tachycardic Rhythm: Negative for abnormal rhythm GI non-tender, non-distended and no masses Inspection: Negative for abdominal distention Auscultation: normoactive bowel sounds Palpation: soft; Negative for tender, guarding, mass, pulsatile mass or rebound tenderness present Back/Spine no CVA tenderness General Back: Negative for CVA tenderness Cervical Spine: Negative for cervical spine tenderness Thoracic Spine / Upper Back: Negative for thoracic spinal tenderness Lumbar Spine / Lower Back: Negative for lumbar spinal tenderness Coccyx: Negative for other Extremity full ROM General Extremety ED: Negative for edema or tenderness General Extremity: Negative for edema Neuro CN's II-XII intact bilaterally and moves all extremities Sensorium / Orientation: alert, oriented to person, oriented to place and oriented to time; Negative for orientation impaired, confused, lethargic or stuporous Motor Exam: strength 5/5 throughout Psych mental status grossly normal and thought process normal Appearance: Negative for unkempt Attitude: No agitated Mood & Affect: Negative for depressed, anxious or tearful Skin no wounds General Skin Exam: Negative for jaundice or pallor Lesions: no lesions Rashes: no rashes MDM MDM MDM Narrative Medical decision making narrative: 83-year-old female right flank pain history of prior kidney stone none recently. Prior appendectomy and cholecystectomy. Will be treated with for morphine and Zofran. Normal saline. Screening labs and a CAT scan. Repeat exam patient is doing well. She has had morphine 2 additional dosages of 4 mg from the original. We went over her test results. She will be treated for right sided kidney stone. It is 5 mm. Should pass. She was instructed to return if increasing pain, fever or intractable vomiting. Urine be sent for culture. She will be prescribed Percocet for pain. Follow-up with Dr. Hein urology. History & Record Review Discussion w/independent historian: Patient Additional record(s) reviewed:: Prior inpatient record, Prior outpatient record, Prior ED visit and Prior labs Lab Data Attestation: I reviewed the patient's lab results. Lab results narrative: CBC shows white count 7.8. H&H 12.5 and 30.6. Platelets 166. Electrolytes showed sodium 135. Gap 6. BUN/creatinine 23 and 1.34. Glucose 268. Liver enzymes are normal. Urinalysis shows 250 occult blood. 25-50 red cells. 5-10 white cells no bacteria no nitrates. Labs: Laboratory Results - last 24 hr 01/10/24 01/10/24 15:09 16:20 WBC 7.8 RBC 3.96 L Hgb 12.5 Hct 38.6 MCV 97.5 MCH 31.6 MCHC 32.4 RDW Std Deviation 51.3 H RDW Coeff of Adria 14.3 Plt Count 166 MPV 10.3 Immature Gran % (Auto) 0.500 Neut % (Auto) 69.4 Lymph % (Auto) 13.7 L Dare % (Auto) 10.2 H Eos % (Auto) 5.7 H Baso % (Auto) 0.5 Absolute Neuts (auto) 5.4 Absolute Lymphs (auto) 1.07 Nucleated RBC % 0 Sodium 135 L Potassium 3.6 Chloride 101 Carbon Dioxide 28.0 Anion Gap 6 BUN 23 H Creatinine 1.34 H Estim Creat Clear Calc 27.24 Est GFR (MDRD) Af Amer 49 L Est GFR (MDRD) Non-Af 40 L BUN/Creatinine Ratio 17.2 Glucose 268 H Calcium 9.2 Total Bilirubin 0.40 AST 57 H ALT 27 Alkaline Phosphatase 57 Total Protein 7.8 Albumin 3.6 Globulin 4.2 Albumin/Globulin Ratio 0.9 Lipase 17 Urine Color Yellow Urine Clarity Clear Urine pH 7.0 Ur Specific [place] 1.005 Urine Protein 15 H Urine Glucose (UA) 100 H Urine Ketones Negative Urine Occult Blood 250 H Urine Nitrite Negative Urine Bilirubin Negative Urine Urobilinogen Normal Ur Leukocyte Esterase 25 H Urine RBC 25-50 SEEN Urine WBC 5-10 SEEN Ur Squamous Epith Cells 0-5 SEEN Urine Bacteria 0 SEEN Urine Mucus 0 SEEN Radiography Diagnostic Testing: Clinical Impression(s) from Imaging Studies Abdomen/Pelvis CT 01/10/24 16:11 IMPRESSION: Bilateral renal calculi. Right hydronephrosis with a stone noted near the right UPJ. Electronically Signed: Josemanuel Garcia DO at 17:51 EDT Reading Location ID and State: [address] [place] [address] Tel [phone], Service support , Discharge Plan Triage Chief Complaint: Abd Pain ED Provider: Edd Gilliland Dx/Rx/DC Orders Clinical Impression: Acute right flank pain, Kidney stone, History of diabetes mellitus Instructions: ED Kidney Stone with Pain Prescriptions: New oxycodone-acetaminophen [Percocet] 5-325 mg tablet 1 tab PO Q4H PRN (Reason: pain) 4 Days Qty: 16 0RF No Action sertraline 100 mg tablet 100 mg PO BID Patient Comments: depression ferrous sulfate 325 mg (65 mg iron) tablet 325 mg PO DAILY biotin 1 mg capsule 1 mg PO DAILY Eliquis 2.5 mg tablet 2.5 mg PO BID Prolia 60 mg/mL syringe 60 mg subcut [id number] cholecalciferol (vitamin D3) 25 mcg (1,000 unit) capsule 25 mcg PO DAILY albuterol sulfate 90 mcg/actuation aerosol powdr breath activated 1 inh inhalation Q4-6H PRN tramadol 50 mg tablet 50 mg PO QHS PRN amoxicillin 500 mg tablet 2,000 mg PO ONCE Qty: 1 12RF Rx Instructions: Take 4 tablets one hour prior to procedure (pt having multiple dental procedures) pantoprazole 40 mg tablet,delayed release (DR/EC) 40 mg PO QDAY levothyroxine 25 mcg tablet 50 mcg PO DAILY losartan-hydrochlorothiazide 50-12.5 mg Tablet 1 tab PO DAILY PreserVision AREDS-2 250-90-40-1 mg Capsule 1 tab PO BID metoprolol succinate 25 mg tablet extended release 24 hr 25 mg PO DAILY atorvastatin 20 mg Tablet 20 mg PO QHS glipizide 5 mg tablet 5 mg PO DAILY Ozempic 0.25 mg or 0.5 mg(2 mg/1.5 mL) pen injector 0.5 mg SUBCUT QWEEK insulin glargine [Lantus U-100 Insulin] 100 unit/mL solution 10 unit SUBCUT 1200 Primary Care Provider: Alonzo Collado Referrals: Alonzo Collado DO [Primary Care Provider] - Lai Manley MD [Med Staff - Active Staff] - As soon as possible Activity Restrictions/Additional Instructions: You have a 5 mm right-sided kidney stone. Plenty of fluids and rest. Percocet for pain. Plenty of fiber, fruits and vegetables and stool softener as needed to prevent constipation. Call and follow-up with the urologist Dr. Sid Manley. The stone should pass in the next 24 to 72 hours. If you have intractable pain, fever or vomiting return to the emergency department. Print Language: Telugu Disposition Disposition: Home, Self Care
[2024-01-10] MEDS: Morphine 4 MG/ML Syringe IV ×3 (16:47→18:56)
[2024-01-10] MEDS: 0.9% Normal Saline (1000mL) 1,000 ML 999 ML IV (16:47)
[2024-01-10] MEDS: Ondansetron 4 MG/2 ML Vial IV (16:47)
[2024-01-10 16:53] LABS: Red Blood Cells-Urine 25-50 SEEN /hpf (0-5)
[2024-01-10 16:54] LABS: Squamous Epithelial Cells - UA 0-5 SEEN /hpf (5-10); White Blood Cells 5-10 SEEN /hpf (0-5)
[2024-01-10 16:55] VITALS: BP 178/72; PULSE 60; RESP 16; O2SAT 97
[2024-01-10 18:00] VITALS: BP 177/69; PULSE 62; RESP 16; O2SAT 94
[2024-01-10 18:26] LABS: Lipase 17 U/L (13-75)
[2024-01-10 18:58] VITALS: BP 180/65; PULSE 60; RESP 18; TEMP 36.7; O2SAT 92
== END 2024-01-10 19:13 | disposition home or self-care (01) ==
PROVIDERS: Emergency Provider Emergency Medicine; PCP Family Medicine; Visit Provider Emergency Medicine
DX: N13.2 Hydronephrosis with renal and ureteral calculous obstruction (principal); E11.9 Type 2 diabetes mellitus without complications; Z86.718 Personal history of other venous thrombosis and embolism; Z87.891 Personal history of nicotine dependence
CPT/HCPCS: 74176; 80053; 81001; 83690; 85025; 87086; 87088; 96361; 96374; 96375; 96376; 99283; J7030; A4216; J2405

== ENCOUNTER 2024-01-13 10:11 | Observation (INO) | payer MEDICARE, SELFPAY ==
[2024-01-13] VITALS (9 sets, daily range): BP systolic 118–155; BP diastolic 56–86; PULSE 69–78; RESP 16–19; TEMP 36.2–37.1; O2SAT 95–99; BMI 21.2; BMI 22.1
--- NOTE | 2024-01-13 10:57 | CT_ITS ---
HISTORY: right flank pain. TECHNIQUE: Helically acquired images were obtained of the abdomen and pelvis without oral or IV contrast. A radiation dose optimization technique was used for this scan. 586 images. COMPARISON: 01/10/2024 FINDINGS: LOWER CHEST: Aortic valve replacement and mitral valvular calcifications again noted. Right pleural effusion with mild bibasilar atelectasis. BOWEL: Gastric bypass. Bowel nondilated. No periappendiceal inflammation. No focal pericolonic inflammatory change. PERITONEUM: No significant free fluid. LIVER: Small calcification at the dome. GALLBLADDER/BILIARY TREE: Cholecystectomy. SPLEEN: Nonenlarged. PANCREAS: Atrophic. ADRENAL GLANDS: No nodules. KIDNEYS AND URETERS: Increased mild right hydronephrosis secondary to a 5 mm ureterovesical junction calculus. Multiple small right renal calculi. Left renal atrophy and scarring with multiple nonobstructing renal calculi. VESSELS: No abdominal aortic aneurysm. Advanced atherosclerosis of the abdominal aorta and its major branches. PELVIC ORGANS: Unremarkable. ABDOMINAL WALL: Anterior postoperative change. BONES: Chronic L1 compression fracture. Degenerative change and mild scoliosis. ORIF chronic fracture of the left proximal femur CT/Abdomen/Pelvis without Cont IMPRESSION: Increased mild right hydronephrosis secondary to migration of the 5 mm calculus from the UPJ to the UVJ. Bilateral nephrolithiasis. Mild right pleural effusion. Electronically Signed: Lynne Lyman MD at 12:56 EDT ,
--- NOTE | 2024-01-13 10:57 | EX.ED.DYSGE1 ---
HPI History of Present Illness Chief Complaint: Flank Pain Detail of Chief Complaint: Right flank pain Informant: patient Narrative Narrative: Patient presents with right-sided flank pain that started 5 days ago. Patient diagnosed with a kidney stone 5 days ago at the right UPJ. She was sent home with oxycodone. She continues to complain of pain. She denies fevers or chills or sweats. She has had no vomiting. She was told to return if the pain did not resolve. [facility] Medical History Wears glasses Post-menopausal Alcohol use Insulin dependent diabetes mellitus Diabetes Uses wheelchair Ambulates with cane Arthritis History of renal disease Kidney stones High cholesterol Back pain Heartburn Former smoker Shortness of breath on exertion Cardiology follow-up encounter History of echocardiogram Hx of fracture of femur Anemia Iron deficiency anemia due to chronic blood loss Diarrhea Anemia HTN (hypertension) Supratherapeutic INR Acute GI bleeding Preop cardiovascular exam Diabetes mellitus, type II Small bowel intussusception Lupus anticoagulant disorder (1994) Nonrheumatic aortic (valve) stenosis with insufficiency Osteoporosis Vitamin B 12 deficiency Osteoarthritis Depression History of DVT (deep vein thrombosis) Hyperlipidemia Essential hypertension Home Medications ?Medication ?Instructions ?Recorded ?Last Taken ?Type sertraline 100 mg tablet 100 mg PO BID depression 03/15/19 04/07/22 10:00 History losartan 50 mg-hydrochlorothiazide 1 tab PO DAILY heart/BP 01/14/21 04/07/22 History 12.5 mg tablet metoprolol succinate 25 mg 25 mg PO DAILY HTN 01/14/21 08/07/22 History tablet,extended release 24 hr vit C 250 mg-vit E 90 mg-zinc 40 1 tab PO BID eyes 01/14/21 04/07/22 10:00 History mg-copper 1 [id number] capsule (PreserVision AREDS-2) atorvastatin 20 mg tablet 20 mg PO QHS CHOLESTEROL 04/09/21 04/06/22 History ferrous sulfate 325 mg (65 mg 325 mg PO DAILY supplement 06/07/21 04/07/22 History iron) tablet apixaban 2.5 mg tablet (Eliquis) 2.5 mg PO BID 07/04/22 Unknown History biotin 1 mg capsule 1 mg PO DAILY 07/04/22 Unknown History glipizide 5 mg tablet 5 mg PO DAILY DM 07/04/22 Unknown History semaglutide 0.25 mg or 0.5 mg (2 0.5 mg subcut QWEEK 08/05/22 Unknown History mg/1.5 mL) subcutaneous pen injector (Ozempic) denosumab 60 mg/mL subcutaneous 60 mg subcut [id number] 11/27/22 Unknown History syringe (Prolia) albuterol sulfate 90 mcg/actuation 1 inh inhalation Q4-6H PRN 05/26/23 Unknown History breath activated powder inhaler cholecalciferol (vitamin D3) 25 25 mcg PO DAILY 05/26/23 Unknown History mcg (1,000 unit) capsule amoxicillin 500 mg tablet 2,000 mg (4 x 500 mg) PO ONCE #1 09/05/23 Unknown Rx TAB levothyroxine 25 mcg tablet 50 mcg PO DAILY THYROID 12/22/23 Unknown History pantoprazole 40 mg tablet,delayed 40 mg PO QDAY 12/22/23 Unknown History release insulin glargine 100 unit/mL 10 unit subcut 1200 12/29/23 Unknown History subcutaneous solution (Lantus U-100 Insulin) tramadol 50 mg tablet 50 mg PO QHS PRN 12/29/23 Unknown History oxycodone-acetaminophen 5 mg-325 1 tab PO Q4H PRN pain 4 days #16 01/10/24 Unknown Rx mg tablet (Percocet) tabs Allergy/AdvReac Type Severity Reaction Status Date / Time codeine Allergy Intermediate itchy Verified 01/13/24 10:15 lisinopril Allergy Intermediate coughing Verified 01/13/24 10:15 Seasonal Allergies: Uncoded Allergy Other Verified 01/13/24 10:15 Family History Mother , Age 86 CAD (coronary artery disease) Alzheimers disease Myocardial infarction, Onset Age: 70 Father , Age 68 CAD (coronary artery disease) Alcoholism Hypertension Sister Diabetes Hypertension Breast cancer Sister , 46 No problems noted. Brother Cancer bladder and prostate Hypertension Heart disease Brother No problems noted. Surgical History Hx of aortic valve replacement History of cardiac catheterization Hx of colonoscopy History of esophagogastroduodenoscopy (EGD) Status post gastric bypass for obesity History of aortic valve replacement with bioprosthetic valve (02/15/19) History of right and left heart catheterization (11/30/18) History of gastric bypass History of tonsillectomy History of appendectomy History of section History of open reduction and internal fixation (ORIF) procedure (2009) History of elbow surgery (2011) Social History adopted: No household members: none housing: assisted living facility number of children: 2 current occupational status: retired current occupational exposures/hazards: No pets and animals: No leisure activities: reading and other history of recent travel: No sexually active: No Smoking Status: Former smoker Tobacco: How many years used: 8 how long ago did patient quit smokin years ago alcohol intake: current Alcohol type: wine details: wine substance use type: does not use diet: diabetic well-balanced diet: about half the time during the past year weight has: remained stable what type of physical activity do you participate in: none mitali/restorationism: Islam do you feel safe at home: Yes ROS ROS ED Review of Systems ROS Unobtainable: other Constitutional Constitutional ED: Reports lethargy; Denies chills, fever(s), sweats or weight loss Eyes Eyes: Denies blurry vision, change in vision or diplopia ENT ENT ED: Denies rhinorrhea or sore throat Cardiovascular Cardiovascular: Denies chest pain, orthopnea or racing heartbeat Respiratory/Chest Respiratory/Chest: Denies cough, dyspnea, dyspnea on exertion, orthopnea or sputum Gastrointestinal Gastrointestinal: Reports abdominal pain; Denies diarrhea, nausea or vomiting Genitourinary Genitourinary ED: Denies dysuria, hematuria or urinary frequency Musculoskeletal Musculoskeletal: Reports back pain; Denies arthralgias, myalgias or neck pain Integumentary Denies abscess, Abrasions or rash Neurologic Neurologic: Denies headache(s) or weakness Psychiatric Psychiatric: Denies anxiety, depression or suicidal thoughts Endocrine Endocrinology: Denies polydipsia, polyphagia or polyuria Hematologic/Lymphatic Hematologic/Lymphatic: Denies easy bleeding, easy bruising or lymphadenopathy Allergic/Immunologic Allergic/Immunologic ED: Denies mouth swelling, tongue swelling or urticaria EXAM Physical Exam Const Vital Signs: 01/13/24 10:12 01/13/24 12:12 Temperature 97.3 F L Temperature Source Temporal Pulse Rate 69 71 Respiratory Rate 19 H 18 Blood Pressure 141/61 H 136/64 H Blood Pressure Mean 87 88 Pulse Ox 99 98 Oxygen Delivery Method Room Air Positive well nourished and well developed General Appearance ED: well developed and NAD HEENT Reports TM's clear and moist mucous membranes normocephalic and atraumatic; Negative for trauma or tenderness Tympanic Membrane ED: Yes TM's clear Eyes PERRL and EOMs intact bilaterally General Eye ED: Negative for pale conjunctiva or scleral icterus Neck no lymphadenopathy, supple and no JVD General: Negative for tenderness Chest Wall inspection of chest normal and palpation of chest normal Chest: Negative for tenderness Resp normal respiratory effort and clear to auscultation bilaterally Effort and Inspection: Negative for respiratory distress or pain with movement Auscultation: Negative for rhonchi, wheezes or diminished lung sounds Cardio regular rate, regular rhythm, S1 normal heart sound, S2 normal heart sound and no murmurs Peripheral Pulses: pulses 2+ throughout GI normal to inspection, nondistended, normoactive bowel sounds, soft to palpation, non-distended and no masses GI Narrative: Mild tenderness over the right lower quadrant with some guarding. There is no rebound, rigidity, or peritoneal signs. No mass palpated. Back/Spine no thoracic nor lumbar tenderness; Negative for no CVA tenderness General Back: CVA tenderness right Extremity normal to inspection General Extremety ED: Negative for edema General Extremity: Negative for edema Neuro oriented x3, CN's II-XII intact bilaterally, no sensory deficits noted and gait normal Sensorium / Orientation: awake, alert, oriented to person, oriented to place and oriented to time Motor Exam: strength 5/5 throughout and strength abnormal Psych mental status grossly normal Skin no rashes or lesions noted and no wounds MDM MDM MDM Narrative Medical decision making narrative: Patient presents with known kidney stone on the right side with continued pain. IV line established. She was medicated with morphine and Zofran. CBC with differential count 12.9 with hemoglobin 12 and platelet count of 175. Chemistries unremarkable. BUN was elevated at 30 and creatinine 2.33 which is increased from 5 days ago. Urinalysis positive for infection. Urine culture will be sent. Patient started on Rocephin 1 g IV. Patient had a CT scan of the abdomen pelvis that showed a 5 mm stone now at the right UVJ with increased hydro-. Discussed case with urology on-call Dr. Rhonda Siddiqui who will admit patient for definitive care. Lab Data Attestation: I reviewed the patient's lab results. Labs: Laboratory Results - last 24 hr 01/13/24 01/13/24 10:55 12:25 WBC 12.9 H RBC 3.98 L Hgb 12.4 Hct 38.8 MCV 97.5 MCH 31.2 MCHC 32.0 RDW Std Deviation 52.2 H RDW Coeff of Adria 14.4 Plt Count 175 MPV 10.7 Immature Gran % (Auto) 0.700 Neut % (Auto) 78.7 H Lymph % (Auto) 6.9 L [place] % (Auto) 9.8 Eos % (Auto) 3.6 Baso % (Auto) 0.3 Absolute Neuts (auto) 10.2 H Absolute Lymphs (auto) 0.89 Nucleated RBC % 0 Differential Comment SCANNED Sodium 132 L Potassium 3.7 Chloride 97 L Carbon Dioxide 28.0 Anion Gap 7 BUN 30 H Creatinine 2.33 H Estim Creat Clear Calc 15.66 Est GFR (MDRD) Af Amer 26 L Est GFR (MDRD) Non-Af 21 L BUN/Creatinine Ratio 12.9 Glucose 124 H Calcium 9.3 Urine Color Straw Urine Clarity Clear Urine pH 6.5 Ur Specific [place] 1.010 Urine Protein 15 H Urine Glucose (UA) Normal Urine Ketones Negative Urine Occult Blood 150 H Urine Nitrite Negative Urine Bilirubin Negative Urine Urobilinogen Normal Ur Leukocyte Esterase 100 H Urine RBC > 100 SEEN Urine WBC >100 SEEN Ur Squamous Epith Cells 0 SEEN Urine Bacteria 2+ Urine Mucus 0 SEEN Radiography Diagnostic Testing: Clinical Impression(s) from Imaging Studies Abdomen/Pelvis CT 01/13/24 10:57 IMPRESSION: Increased mild right hydronephrosis secondary to migration of the 5 mm calculus from the UPJ to the UVJ. Bilateral nephrolithiasis. Mild right pleural effusion. Electronically Signed: Lynne Lyman MD at 12:56 EDT , Discharge Plan Triage Chief Complaint: Flank Pain ED Provider: Glynn Mackey Dx/Rx/DC Orders Clinical Impression: Urolithiasis, Acute UTI, NELSY (acute kidney injury) Prescriptions: No Action sertraline 100 mg tablet 100 mg PO BID Patient Comments: depression ferrous sulfate 325 mg (65 mg iron) tablet 325 mg PO DAILY biotin 1 mg capsule 1 mg PO DAILY Eliquis 2.5 mg tablet 2.5 mg PO BID Prolia 60 mg/mL syringe 60 mg subcut [id number] cholecalciferol (vitamin D3) 25 mcg (1,000 unit) capsule 25 mcg PO DAILY albuterol sulfate 90 mcg/actuation aerosol powdr breath activated 1 inh inhalation Q4-6H PRN tramadol 50 mg tablet 50 mg PO QHS PRN amoxicillin 500 mg tablet 2,000 mg PO ONCE Qty: 1 12RF Rx Instructions: Take 4 tablets one hour prior to procedure (pt having multiple dental procedures) pantoprazole 40 mg tablet,delayed release (DR/EC) 40 mg PO QDAY levothyroxine 25 mcg tablet 50 mcg PO DAILY losartan-hydrochlorothiazide 50-12.5 mg Tablet 1 tab PO DAILY PreserVision AREDS-2 250-90-40-1 mg Capsule 1 tab PO BID metoprolol succinate 25 mg tablet extended release 24 hr 25 mg PO DAILY atorvastatin 20 mg Tablet 20 mg PO QHS glipizide 5 mg tablet 5 mg PO DAILY Ozempic 0.25 mg or 0.5 mg(2 mg/1.5 mL) pen injector 0.5 mg SUBCUT QWEEK insulin glargine [Lantus U-100 Insulin] 100 unit/mL solution 10 unit SUBCUT 1200 oxycodone-acetaminophen [Percocet] 5-325 mg tablet 1 tab PO Q4H PRN (Reason: pain) 4 Days Qty: 16 0RF Primary Care Provider: Alonzo Collado Referrals: Alonzo Collado DO [Primary Care Provider] - Print Language: Cymro Disposition Disposition: Acute Care Hospital [facility]
[2024-01-13] MEDS: 0.9% Normal Saline (1000mL) 1,000 ML 150 ML IV (11:02)
[2024-01-13 11:05] LABS: Absolute Lymphocyte Count 0.89 X10^3/uL (0.83-4.51); Absolute Neutrophil Count 10.2 X10^3/uL (2.0-7.7); Basophil# 0.04 X10^3/uL; Basophil% 0.3 % (0-1); Eosinophil# 0.47 X10^3/uL; Eosinophils% 3.6 % (0-5); Hematocrit 38.8 % (37-47); Hemoglobin 12.4 g/dL (12.0-15.0); Lymphocyte # 0.89 X10^3/ul (0.83-4.51); Lymphocyte % 6.9 % (19-41); Mean Corpuscular Hgb 31.2 pg (27.0-32.0); Mean Corpuscular Volume 97.5 fL (81-99); Mean Platelet Vol. 10.7 fl (6.2-12.0); Monocyte# 1.27 X10^3/uL; Monocyte% 9.8 % (0-10); NRBC Flagged by Analyzer 0 % (0-5); Neutrophil # 10.18 X10^3/uL (2.7-7.7); Neutrophil % 78.7 % (47-70); POSITIVE MORPHOLOGY YES; Platelet Count 175 K/mm3 (150-450); RBC Distribution Width CV 14.4 % (11.6-14.6); RBC Distribution Width SD 52.2 fl (35.1-43.9); Red Blood Count 3.98 M/mm3 (4.2-5.4); White Blood Count 12.9 K/mm3 (4.4-11.0)
[2024-01-13 11:10] LABS: Differential Indicated SCAN CRITERIA MET
[2024-01-13 11:15] LABS: Anion Gap 7 (5-15); BUN 30 mg/dL (7-18); BUN/Creat Ratio 12.9 RATIO (10-20); Calcium,Total 9.3 mg/dL (8.5-10.1); Chloride 97 mmol/L (98-107); Creatinine, Serum 2.33 mg/dL (0.55-1.02); EST Glomerular Filtration Rate 21 mL/min (>60); Est Glom Filt Rate - Afr Amer 26 mL/min (>60); Estimated Creatinine Clearance 15.66 ml/min; Glucose 124 mg/dL (74-106); Potassium 3.7 mmol/L (3.5-5.1); Sodium Level 132 mmol/L (136-145)
[2024-01-13] MEDS: Morphine 4 MG/ML Syringe IV ×2 (11:21→13:23)
[2024-01-13] MEDS: Ondansetron 4 MG/2 ML Vial IV (11:21)
[2024-01-13 11:48] LABS: Differential Comment SCANNED
[2024-01-13 12:34] LABS: Mucous, Urine 0 SEEN /hpf (<or=2+); Squamous Epithelial Cells - UA 0 SEEN /hpf (5-10)
[2024-01-13 12:41] LABS: Color, Urine Straw (Yellow); Glucose, Dipstick Normal (Normal); Ketone-Dipstick Negative (Negative); Leukocyte Esterase-Dipstick 100 /ul (Negative); Nitrite-Dipstick Negative (Negative); Occult Blood-Urine 150 /ul (Negative); Protein-Dipstick 15 mg/dl (Negative); Urine Bilirubin Dipstick Negative (Negative); Urine Clarity Clear (Clear); Urine Urobilinogen Normal (Normal); Urine pH 6.5 (5.0 - 8.0)
[2024-01-13 12:50] LABS: Red Blood Cells-Urine > 100 SEEN /hpf (0-5); White Blood Cells >100 SEEN /hpf (0-5)
[2024-01-13 12:51] LABS: Bacteria 2+ /hpf (None Seen)
[2024-01-13] MEDS: Ceftriaxone 1 GM/50 ML BAG IV (13:23)
--- NOTE | 2024-01-13 14:34 | NURSING ---
CALLED [facility], LEFT MESSAGE ON CONFIDENTIAL LINE WITH INFO
[2024-01-13] MEDS: Lactated Ringers 1,000 ML 125 ML IV (17:35)
[2024-01-13] MEDS: 0.9% Saline Lock 10 ML Syringe IV (17:36)
[2024-01-13] MEDS: Multivitamin (Healthy Eyes) Capsule 1 CAP PO (21:00)
[2024-01-13] MEDS: Atorvastatin Calcium 20 MG Tablet PO (21:00)
[2024-01-13] MEDS: Acetaminophen 500 MG Tablet 1000 MG PO (21:00)
[2024-01-13] MEDS: APIXABAN 2.5 MG TABLET (WCH) PO (21:00)
[2024-01-13] MEDS: Sertraline 100 MG Tablet PO (21:00)
[2024-01-13] MEDS: Cefazolin 1 GM/50 ML BAG IV (21:05)
[2024-01-13] MEDS: MELATONIN 3 MG TABLET PO (23:04)
[2024-01-14] VITALS (13 sets, daily range): BP systolic 122–168; BP diastolic 49–73; PULSE 57–84; RESP 12–18; TEMP 36.3–37; O2SAT 94–100; BMI 22.1
[2024-01-14] MEDS: Lactated Ringers 1,000 ML 125 ML IV ×3 (01:46→17:06)
[2024-01-14] MEDS: oxyCODONE 5 MG Tablet PO (03:16)
[2024-01-14] MEDS: Morphine 2 MG/ML Syringe IV (04:34)
[2024-01-14] MEDS: 0.9% Saline Lock 10 ML Syringe IV (04:34)
[2024-01-14] MEDS: Levothyroxine 50 MCG Tablet PO (05:48)
[2024-01-14] MEDS: Acetaminophen 500 MG Tablet 1000 MG PO ×2 (05:48→13:59)
--- NOTE | 2024-01-14 05:55 | EKG12_ITS ---
Test Reason : AM EKG Blood Pressure : / mmHG Vent. Rate : 071 BPM Atrial Rate : 071 BPM P-R Int : 144 ms QRS Dur : 078 ms QT Int : 408 ms P-R-T Axes : 065 071 067 degrees QTc Int : 443 ms Normal sinus rhythm Possible Left atrial enlargement Borderline ECG When compared with ECG of 08-APR-2022 11:09, No significant change was found Confirmed by SENDY GERONIMO, ZOE ([id number]), manuscript editor SONG CAO ([id number]) on 01/14/2024 1:13:38 PM Referred By: RAJAT Confirmed By:ZOE KABA MD
[2024-01-14 07:13] LABS: Partial Thromboplast Time 57.9 Seconds (24.1-36.2)
[2024-01-14 07:23] LABS: Absolute Lymphocyte Count 0.86 X10^3/uL (0.83-4.51); Absolute Neutrophil Count 8.1 X10^3/uL (2.0-7.7); Basophil# 0.03 X10^3/uL; Basophil% 0.3 % (0-1); Eosinophil# 0.43 X10^3/uL; Eosinophils% 4.1 % (0-5); Hematocrit 37.3 % (37-47); Hemoglobin 11.9 g/dL (12.0-15.0); Lymphocyte # 0.86 X10^3/ul (0.83-4.51); Lymphocyte % 8.2 % (19-41); Mean Corp Hgb Conc 31.9 g/dL (32-36); Mean Corpuscular Hgb 31.3 pg (27.0-32.0); Mean Corpuscular Volume 98.2 fL (81-99); Mean Platelet Vol. 10.7 fl (6.2-12.0); Monocyte# 0.93 X10^3/uL; Monocyte% 8.9 % (0-10); NRBC Flagged by Analyzer 0 % (0-5); Neutrophil # 8.13 X10^3/uL (2.7-7.7); Neutrophil % 77.9 % (47-70); Platelet Count 195 K/mm3 (150-450); RBC Distribution Width CV 14.6 % (11.6-14.6); RBC Distribution Width SD 53.2 fl (35.1-43.9); White Blood Count 10.4 K/mm3 (4.4-11.0)
[2024-01-14 07:35] LABS: Anion Gap 9 (5-15); BUN 31 mg/dL (7-18); BUN/Creat Ratio 13.6 RATIO (10-20); Calcium,Total 8.8 mg/dL (8.5-10.1); Chloride 100 mmol/L (98-107); Creatinine, Serum 2.28 mg/dL (0.55-1.02); EST Glomerular Filtration Rate 22 mL/min (>60); Est Glom Filt Rate - Afr Amer 26 mL/min (>60); Estimated Creatinine Clearance 16.01 ml/min; Glucose 185 mg/dL (74-106); Potassium 3.7 mmol/L (3.5-5.1); Sodium Level 133 mmol/L (136-145)
[2024-01-14] MEDS: Lactated Ringers 1,000 ML 15 ML IV (07:37)
[2024-01-14 07:40] LABS: Hemoglobin A1c 6.9 % (3.8-5.6)
--- NOTE | 2024-01-14 07:41 | PCM.HP.STD ---
HPI - General General Date of Admission: 01/13/24 Date of Service: 01/14/24 Chief Complaint: Right flank pain HPI Narrative SONNY HOWARD, is a 83 F who presented to the emergency room with uncontrolled right flank pain and nausea. She had not been vomiting nor having fevers at home. She was diagnosed with a right ureteral calculus a few days ago and on repeat CT the stone had moved distally. She has a history of diabetes. She has a history of overactive bladder with voiding approximately hourly. Because of this it is hard to tell if she has any sensation of urinary tract infection, but there is no dysuria. [facility] Medical History (Updated 01/14/24 @ 07:[address] Ruth Mayer MD) Right ureteral calculus Wears glasses Post-menopausal Alcohol use Insulin dependent diabetes mellitus Diabetes Uses wheelchair Ambulates with cane Arthritis History of renal disease Kidney stones High cholesterol Back pain Heartburn Former smoker Shortness of breath on exertion Cardiology follow-up encounter History of echocardiogram Hx of fracture of femur Anemia Iron deficiency anemia due to chronic blood loss Diarrhea Anemia HTN (hypertension) Supratherapeutic INR Acute GI bleeding Preop cardiovascular exam Diabetes mellitus, type II Small bowel intussusception Lupus anticoagulant disorder (1994) Nonrheumatic aortic (valve) stenosis with insufficiency Osteoporosis Vitamin B 12 deficiency Osteoarthritis Depression History of DVT (deep vein thrombosis) Hyperlipidemia Essential hypertension Home Medications ?Medication ?Instructions ?Recorded ?Last Taken ?Type sertraline 100 mg tablet 100 mg PO BID depression 03/15/19 01/13/24 History losartan 50 mg-hydrochlorothiazide 1 tab PO DAILY heart/BP 01/14/21 01/13/24 History 12.5 mg tablet metoprolol succinate 25 mg 25 mg PO DAILY HTN 01/14/21 01/13/24 History tablet,extended release 24 hr vit C 250 mg-vit E 90 mg-zinc 40 1 tab PO BID eyes 01/14/21 01/13/24 History mg-copper 1 [id number] capsule (PreserVision AREDS-2) atorvastatin 20 mg tablet 20 mg PO QHS CHOLESTEROL 04/09/21 01/12/24 History ferrous sulfate 325 mg (65 mg 325 mg PO DAILY supplement 06/07/21 01/13/24 History iron) tablet apixaban 2.5 mg tablet (Eliquis) 2.5 mg PO BID 07/04/22 01/13/24 History biotin 1 mg capsule 1 mg PO DAILY 07/04/22 01/13/24 History glipizide 5 mg tablet 5 mg PO DAILY DM 07/04/22 01/13/24 History semaglutide 0.25 mg or 0.5 mg (2 0.5 mg subcut MO 08/05/22 01/05/24 History mg/1.5 mL) subcutaneous pen injector (Ozempic) denosumab 60 mg/mL subcutaneous 60 mg subcut [id number] 11/27/22 05/09/23 History syringe (Prolia) albuterol sulfate 90 mcg/actuation 1 inh inhalation Q4-6H PRN 05/26/23 Unknown History breath activated powder inhaler shortness of breath cholecalciferol (vitamin D3) 25 25 mcg PO BID 05/26/23 01/13/24 History mcg (1,000 unit) capsule amoxicillin 500 mg tablet 2,000 mg (4 x 500 mg) PO ONCE #1 09/05/23 Unknown Rx TAB pantoprazole 40 mg tablet,delayed 40 mg PO QDAY 12/22/23 01/13/24 History release insulin glargine 100 unit/mL 10 unit subcut 1200 12/29/23 01/12/24 History subcutaneous solution (Lantus U-100 Insulin) tramadol 50 mg tablet 50 mg PO QHS PRN pain 12/29/23 Unknown History oxycodone-acetaminophen 5 mg-325 1 tab PO Q4H PRN pain 4 days #16 01/10/24 01/13/24 Rx mg tablet (Percocet) tabs levothyroxine 50 mcg tablet 50 mcg PO DAILY 01/13/24 01/13/24 History Allergy/AdvReac Type Severity Reaction Status Date / Time codeine Allergy Intermediate itchy Verified 01/13/24 10:15 lisinopril Allergy Intermediate coughing Verified 01/13/24 10:15 Seasonal Allergies: Uncoded Allergy Other Verified 01/13/24 10:15 Family History Mother , Age 86 CAD (coronary artery disease) Alzheimers disease Myocardial infarction, Onset Age: 70 Father , Age 68 CAD (coronary artery disease) Alcoholism Hypertension Sister Diabetes Hypertension Breast cancer Sister , 46 No problems noted. Brother Cancer bladder and prostate Hypertension Heart disease Brother No problems noted. Surgical History Hx of aortic valve replacement History of cardiac catheterization Hx of colonoscopy History of esophagogastroduodenoscopy (EGD) Status post gastric bypass for obesity History of aortic valve replacement with bioprosthetic valve (02/15/19) History of right and left heart catheterization (11/30/18) History of gastric bypass History of tonsillectomy History of appendectomy History of section History of open reduction and internal fixation (ORIF) procedure (2009) History of elbow surgery (2011) Social History adopted: No household members: none housing: assisted living facility number of children: 2 current occupational status: retired current occupational exposures/hazards: No pets and animals: No leisure activities: reading and other history of recent travel: No sexually active: No Smoking Status: Former smoker Tobacco: How many years used: 8 how long ago did patient quit smokin years ago alcohol intake: current Alcohol type: wine details: wine substance use type: does not use diet: diabetic well-balanced diet: about half the time during the past year weight has: remained stable what type of physical activity do you participate in: none mitali/episcopal: [employer] do you feel safe at home: Yes ROS Constitutional Constitutional: Reports systems reviewed and no addt'l complaints, except as documented; Denies chills, fever(s) or weakness Eyes Eyes: Reports systems reviewed and no addt'l complaints, except as documented ENT HEENT: Reports systems reviewed and no addt'l complaints, except as documented Cardiovascular Cardiovascular: Reports systems reviewed and no addt'l complaints, except as documented Respiratory/Chest Respiratory/Chest: Reports systems reviewed and no addt'l complaints, except as documented Gastrointestinal Gastrointestinal: Reports abdominal pain and nausea Genitourinary Genitourinary: Reports flank pain, hematuria, urinary frequency and urinary urgency Musculoskeletal Musculoskeletal: Reports systems reviewed and no addt'l complaints, except as documented Integumentary Integumentary: Reports systems reviewed and no addt'l complaints, except as documented Neurologic Neurologic: Reports systems reviewed and no addt'l complaints, except as documented Psychiatric Psychiatric: Reports systems reviewed and no addt'l complaints, except as documented Endocrine Endocrinology: Reports systems reviewed and no addt'l complaints, except as documented Hematologic/Lymphatic Hematologic/Lymphatic: Reports systems reviewed and no addt'l complaints, except as documented Allergic/Immunologic Allergic/Immunologic: Reports systems reviewed and no addt'l complaints, except as documented Vital Signs Vital Signs Vital Signs: 01/13/24 10:12 01/13/24 12:12 01/13/24 13:54 Temperature 97.3 F L 98.4 F Temperature Source Temporal Pulse Rate 69 71 71 Respiratory Rate 19 H 18 18 Respiratory Effort Respiratory Depth Respiratory Pattern Blood Pressure 141/61 H 136/64 H 155/56 H Blood Pressure Mean 87 88 89 Blood Pressure Source Blood Pressure Position Blood Pressure Location Pulse Ox 99 98 95 Oxygen Delivery Method Room Air 01/13/24 14:00 01/13/24 16:00 01/13/24 16:35 Temperature 97.2 F L Temperature Source Temporal Pulse Rate 78 78 Respiratory Rate 18 16 Respiratory Effort Respiratory Depth Respiratory Pattern Blood Pressure 118/86 H 122/84 H 146/60 H Blood Pressure Mean 96 96 88 Blood Pressure Source Monitor Blood Pressure Position Semi-Fowlers Blood Pressure Location Left Arm Pulse Ox 98 97 Oxygen Delivery Method Room Air Room Air 01/13/24 17:12 01/13/24 19:47 01/13/24 20:09 Temperature Temperature Source Pulse Rate Respiratory Rate Respiratory Effort Normal Non-Labored Respiratory Depth Normal Respiratory Pattern Normal Blood Pressure Blood Pressure Mean Blood Pressure Source Blood Pressure Position Blood Pressure Location Pulse Ox 96 95 Oxygen Delivery Method Room Air Room Air Room Air 01/13/24 20:52 01/13/24 20:52 01/14/24 03:13 Temperature 98.7 F 98.7 F 98.3 F Temperature Source Oral Oral Oral Pulse Rate 77 77 74 Respiratory Rate 18 18 18 Respiratory Effort Respiratory Depth Respiratory Pattern Blood Pressure 142/61 H 142/61 H 168/61 H Blood Pressure Mean 88 88 96 Blood Pressure Source Monitor Monitor Blood Pressure Position Sitting Semi-Fowlers Blood Pressure Location Left Arm Left Arm Pulse Ox 97 97 97 Oxygen Delivery Method Room Air Room Air Room Air 01/14/24 03:13 01/14/24 03:19 01/14/24 04:30 Temperature 98.3 F Temperature Source Oral Pulse Rate 74 77 Respiratory Rate 18 Respiratory Effort Normal Non-Labored Respiratory Depth Normal Respiratory Pattern Normal Blood Pressure 168/61 H 161/61 H Blood Pressure Mean 96 94 Blood Pressure Source Monitor Blood Pressure Position Semi-Fowlers Blood Pressure Location Left Arm Pulse Ox 97 Oxygen Delivery Method Room Air Room Air 01/14/24 05:40 Temperature 98.5 F Temperature Source Oral Pulse Rate 72 Respiratory Rate 18 Respiratory Effort Respiratory Depth Respiratory Pattern Blood Pressure 138/51 H Blood Pressure Mean 80 Blood Pressure Source Monitor Blood Pressure Position Semi-Fowlers Blood Pressure Location Left Arm Pulse Ox 95 Oxygen Delivery Method Room Air Weight Weight: 56.7 kg Body Mass Index (BMI) 22.1 Physical Exam Const alert, oriented x3 and no apparent distress General Appearance: cooperative, comfortable and well kempt HEENT normocephalic, head/scalp atraumatic, hearing grossly normal bilaterally, external ears normal and external nose normal Eyes General Eye: normal appearance of both eyes Neck supple General: normal visual inspection and trachea midline Lymph Lymphatic: no lymphedema noted Chest inspection of chest normal Resp normal respiratory effort, normal air movement and no retractions Cardio regular rate GI normal to inspection, nondistended, normoactive bowel sounds Bladder / Kidney Exam: CVA tenderness right Extremity normal to inspection Skin no rashes or lesions noted, no jaundice, no petechiae and no mottling Neuro oriented x3, CN's II-XII intact bilaterally and moves all extremities Psych mental status grossly normal and thought process normal Results Lab / Micro Data 01/14/24 06:11 01/14/24 06:11 Labs: Laboratory Results - last 24 hr 01/13/24 10:55: WBC 12.9 H, RBC 3.98 L, Hgb 12.4, Hct 38.8, MCV 97.5, MCH 31.2, MCHC 32.0, RDW Std Deviation 52.2 H, RDW Coeff of Adria 14.4, Plt Count 175, MPV 10.7, Immature Gran % (Auto) 0.700, Neut % (Auto) 78.7 H, Lymph % (Auto) 6.9 L, [place]ws[place] % (Auto) 9.8, Eos % (Auto) 3.6, Baso % (Auto) 0.3, Absolute Neuts (auto) 10.2 H, Absolute Lymphs (auto) 0.89, Nucleated RBC % 0, Differential Comment SCANNED, Sodium 132 L, Potassium 3.7, Chloride 97 L, Carbon Dioxide 28.0, Anion Gap 7, BUN 30 H, Creatinine 2.33 H, Estim Creat Clear Calc 15.66, Est GFR (MDRD) Af Amer 26 L, Est GFR (MDRD) Non-Af 21 L, BUN/Creatinine Ratio 12.9, Glucose 124 H, Calcium 9.3 01/13/24 12:25: Urine Color Straw, Urine Clarity Clear, Urine pH 6.5, Ur Specific [place] 1.010, Urine Protein 15 H, Urine Glucose (UA) Normal, Urine Ketones Negative, Urine Occult Blood 150 H, Urine Nitrite Negative, Urine Bilirubin Negative, Urine Urobilinogen Normal, Ur Leukocyte Esterase 100 H, Urine RBC > 100 SEEN, Urine WBC >100 SEEN, Ur Squamous Epith Cells 0 SEEN, Urine Bacteria 2+, Urine Mucus 0 SEEN 01/14/24 06:11: WBC 10.4, RBC 3.80 L, Hgb 11.9 L, Hct 37.3, MCV 98.2, MCH 31.3, MCHC 31.9 L, RDW Std Deviation 53.2 H, RDW Coeff of Adria 14.6, Plt Count 195, MPV 10.7, Immature Gran % (Auto) 0.600, Neut % (Auto) 77.9 H, Lymph % (Auto) 8.2 L, [place]ws[place] % (Auto) 8.9, Eos % (Auto) 4.1, Baso % (Auto) 0.3, Absolute Neuts (auto) 8.1 H, Absolute Lymphs (auto) 0.86, Nucleated RBC % 0, APTT 57.9 H, Sodium 133 L, Potassium 3.7, Chloride 100, Carbon Dioxide 24.0, Anion Gap 9, BUN 31 H, Creatinine 2.28 H, Estim Creat Clear Calc 16.01, Est GFR (MDRD) Af Amer 26 L, Est GFR (MDRD) Non-Af 22 L, BUN/Creatinine Ratio 13.6, Glucose 185 H, Hemoglobin A1c 6.9 H, Calcium 8.8 Imaging Radiology Impression Abdomen/Pelvis CT 01/13/24 10:57 IMPRESSION: Increased mild right hydronephrosis secondary to migration of the 5 mm calculus from the UPJ to the UVJ. Bilateral nephrolithiasis. Mild right pleural effusion. Electronically Signed: Lynne Lyman MD at 12:56 EDT , Assessment & Plan Assessment/Plan (1) NELSY (acute kidney injury): (2) Acute UTI: (3) Right ureteral calculus: PLAN: Plan Continue antibiotics and supportive care Cystoscopy with right ureteral stent insertion this morning. The risks, benefits and alternatives were discussed and she agrees to proceed. All of her questions were answered. Await urine culture results Will need to proceed with definitive stone intervention in the next few weeks.
--- NOTE | 2024-01-14 07:42 | PCM.PRE.AN2 ---
ASA Classification* ASA Classification ASA Classification: 3 and E Assessment & Plan Anesthesia* Anesthesia Assessment Anesthesia Assessment: Discussed sedation and/or anesthesia options, risks, benefits, and alternatives with patient/parents/legal guardian/POA. Questions invited. The patient/parents/legal guardian/POA seems to understand and agrees to proceed with anesthesia plan. Reviewed the physical assessment, medical history, allergy history and patient home medications list prior to surgery/procedure/anesthetic and documented any changes. Performed airway and anesthesia risk assessments. Anesthesia Type Anesthesia Type: MAC (see written pre anesthesia record for full assessment) Anesthesia Focused Assessment* Temperature: 98.5 F Pulse Rate: 72 Blood Pressure: 138/51 Respiratory Rate: 18 Pulse Ox: 95 Airway Assessment Mouth opens: >3 cm Mallampati Score: II Focused Labs Anesthesia Preop lab: CBC WBC 10.4 K/mm3 (4.4-11.0) 01/14/24 06:11 RBC 3.80 M/mm3 (4.2-5.4) L 01/14/24 06:11 Hgb 11.9 g/dL (12.0-15.0) L 01/14/24 06:11 Hct 37.3 % (37-47) 01/14/24 06:11 Plt Count 195 K/mm3 (150-450) 01/14/24 06:11 CHEMISTRY Potassium 3.7 mmol/L (3.5-5.1) 01/14/24 06:11 Sodium 133 mmol/L (136-145) L 01/14/24 06:11 BUN 31 mg/dL (7-18) H 01/14/24 06:11 Creatinine 2.28 mg/dL (0.55-1.02) H 01/14/24 06:11 Glucose 185 mg/dL (74-106) H 01/14/24 06:11 POC Glucose 84 mg/dL (74-106) 08/07/22 06:05 TSH 3.48 uIU/mL (0.358-3.74) 01/17/21 06:05 COAG PT 15.4 SECONDS (11.7-14.9) H 04/08/22 05:13 Pre-Assessment Diagnosis/Proposed Procedure Planned Operative Procedure(s): cysto stent Anesthesia History Anesthesia History - software configuration manager: Anesthesia History - software configuration manager Hx Hospitalization Yes 08/05/22 14:13 Any Problems With Anesthesia No 01/14/24 04:43 Cholinesterase deficiency No 01/14/24 04:43 You/Your Family Experience No 01/14/24 04:43 fever (hyperthermia) with Relationship Recent Exposure to Contagious No 01/14/24 04:43 Disease Does patient have nerve No 01/14/24 04:43 stimulator Patient instructed to have device shut off --Does patient have Pacemaker or ICD? When Was Last Pacemaker Check QUESTION #4 FULL TEXT: You/Your Family Experience fever (hyperthermia) with Anesthesia Last Oral Intake Last Oral intake: Last Oral Intake NPO since 01:00 01/14/24 02:16 Meds taken in AM with sips of water? Meds patient instructed to take am of surgery PONV PONV - software configuration manager: PONV - software configuration manager Female HX of Motion Sickness HX of N/V After Surgery Non-Smoker Duration of Surgery greater than 60 minutes Number of Risk Factors PONV Score Height & Weight Height & Weight: Anesthesia: Height & Weight Height 5 ft 3 in 01/14/24 02:16 Weight: 56.7 kg 01/14/24 02:16 Body Mass Index (BMI) 22.1 01/14/24 02:16 Respiratory Assessment Respiratory Assessment - software configuration manager: Respiratory Tract Infection Hx - software configuration manager Hx Respiratory Tract Infection No 01/14/24 04:43 STOP Sleep Apnea STOP Sleep Apnea - software configuration manager: STOP Sleep Apnea - software configuration manager Hx Hypertension Yes 01/13/24 16:35 Hx Sleep Apnea No 01/13/24 16:35 CPAP No 08/05/22 14:13 BIPAP No 08/05/22 14:13 Do you snore loudly (louder No 01/13/24 16:35 than talking or can be heard Do you often feel tired/ No 01/13/24 16:35 fatigued/ sleepy during daytime? Has anyone observed you stop No 01/13/24 16:35 breathing during sleep? STOP Results Negative 01/13/24 16:35 QUESTION #5 FULL TEXT : Do you snore loudly (louder than talking or can be heard through closed doors)? Tobacco Use History Tobacco Use History - software configuration manager: Tobacco Use History - software configuration manager Tobacco Use Smoking Status Former smoker 01/13/24 16:35 Hx Tobacco Use No 01/13/24 16:35 Years Smoking Packs Smoked per Day Smoking Cessation Date was No - quit smoking greater 01/13/24 16:35 within the last 15 years than 15 years ago Hx Smoking Cessation Date 05/12/67 01/13/24 16:35 Hx Smoking Cessation Counseling Hematologic Medial History Hematologic Hx - software configuration manager: Hematologic Medical Hx - ticket clerk Hx of Blood Transfusion Yes 01/13/24 16:35 Hx of Transfusion in last 3 No 01/13/24 16:35 Months Date of Last Transfusion (if within last 3 months) Ever experience any problems No 01/13/24 16:35 with transfusion(s)? Specify any problems Hx of Preganancy in last 3 No 01/13/24 16:35 Months Nurse Filling Out Transfusion HAILEYAIKIMBERLY 01/13/24 16:35 & Questions: Date: 01/13/24 01/13/24 16:35 Time: 16:59 01/13/24 16:35 Patient unable to answer at this time (ie. confused, unrespo /Reproduction History /Reproductive History - software configuration manager: /Reproductive Hx- software configuration manager Hx Now No 01/14/24 04:43 Gestational Age (in weeks): EDC: Hx Hx Para Hx Section SAB No 01/14/24 04:43 Active Medications Active Medications: Current Medications Generic Name Dose Route Start Last Admin Trade Name Freq PRN Reason Stop Dose Admin Acetaminophen 1,000 mg 01/13/24 22:00 01/14/24 05:48 Acetaminophen 500 Mg Tablet PO 1,000 mg Q8 COLLINS Administration Albuterol Sulfate 2.5 mg 01/13/24 16:47 Albuterol 2.5 Mg/3 Ml Vial.Neb. INHALATION Q4H PRN shortness of breath Apixaban 2.5 mg 01/13/24 22:00 01/13/24 21:00 Apixaban 2.5 Mg Tablet (Wch) PO 2.5 mg BID COLLINS Administration Atorvastatin Calcium 20 mg 01/13/24 22:00 01/13/24 21:00 Atorvastatin Calcium 20 Mg Tablet PO 20 mg QHS COLLINS Administration Glipizide 5 mg 01/14/24 08:00 Glipizide 5 Mg Tablet PO DAILYCM COLLINS Glucagon 1 mg 01/13/24 16:31 Glucagon 1 Mg/Ml Syringe IM X1 PRN HYPOGLYCEMIA Protocol Hydrochlorothiazide 12.5 mg 01/14/24 10:00 Hydrochlorothiazide 12.5mg PO DAILY COLLINS Sodium Chloride 250 mls @ 15 mls/hr 01/13/24 16:37 IV .[id number] PRN Saline Flush Dextrose 250 mls @ 0 mls/hr 01/13/24 16:31 Dextrose 10%-Water IV .Q0M PRN HYPOGLYCEMIA Protocol As Directed Lactated Ringer's 1,000 mls @ 125 mls/hr 01/13/24 16:45 01/14/24 07:37 IV Infused .Q8H COLLINS Infusion Cefazolin Sodium 1 gm in 50 mls @ 100 mls/hr 01/13/24 22:00 01/13/24 22:03 IV Infused Q12 COLLINS Infusion Lactated Ringer's 1,000 mls @ 15 mls/hr 01/14/24 07:30 01/14/24 07:37 IV 15 mls/hr .Q48H COLLINS Administration Insulin Glargine 10 unit 01/14/24 12:00 Insulin Glargine-Yfgn 100 Unit/Ml Pen SC 1200 COLLINS Levothyroxine Sodium 50 mcg 01/14/24 06:00 01/14/24 05:48 Levothyroxine 50 Mcg Tablet PO 50 mcg DAILY@0600 COLLINS Administration Losartan Potassium 50 mg 01/14/24 10:00 Losartan Potassium 50 Mg Tablet PO DAILY [facility] Melatonin 3 mg 01/13/24 22:25 01/13/24 23:04 Melatonin 3 Mg Tablet PO 3 mg QHS COLLINS Administration Metoprolol Succinate 25 mg 01/14/24 10:00 Metoprolol(Xl)Succ 25 Mg Tablet PO DAILY [facility] Protocol Morphine Sulfate 2 mg 01/13/24 16:36 01/14/24 04:34 Morphine 2 Mg/Ml Syringe IV 2 mg Q3H PRN PRN Administration Pain Score 6-10 Multivitamins/Minerals 1 cap 01/13/24 22:00 01/13/24 21:00 Multivitamin (Healthy Eyes) Capsule PO 1 cap BID COLLINS Administration Ondansetron HCl 4 mg 01/13/24 16:36 Ondansetron 4 Mg/2 Ml Vial IV Q8H PRN PRN NAUSEA/VOMITING Oxycodone HCl 5 mg 01/13/24 16:36 01/14/24 03:16 Oxycodone 5 Mg Tablet PO 5 mg Q4H PRN PRN Administration Pain Score 4-10 Pantoprazole Sodium 40 mg 01/14/24 10:00 Pantoprazole Sodium 40 Mg Tablet PO DAILY COLLINS Sertraline HCl 100 mg 01/13/24 22:00 01/13/24 21:00 Sertraline 100 Mg Tablet PO 100 mg BID COLLINS Administration Sodium Chloride 10 - 40 ml 01/13/24 16:37 01/14/24 04:34 0.9% Saline Lock 10 Ml Syringe IV 10 ml UD PRN Administration [facility] Medical History Wears glasses Post-menopausal Alcohol use Insulin dependent diabetes mellitus Diabetes Uses wheelchair Ambulates with cane Arthritis History of renal disease Kidney stones High cholesterol Back pain Heartburn Former smoker Shortness of breath on exertion Cardiology follow-up encounter History of echocardiogram Hx of fracture of femur Anemia Iron deficiency anemia due to chronic blood loss Diarrhea Anemia HTN (hypertension) Supratherapeutic INR Acute GI bleeding Preop cardiovascular exam Diabetes mellitus, type II Small bowel intussusception Lupus anticoagulant disorder (1994) Nonrheumatic aortic (valve) stenosis with insufficiency Osteoporosis Vitamin B 12 deficiency Osteoarthritis Depression History of DVT (deep vein thrombosis) Hyperlipidemia Essential hypertension Home Medications ?Medication ?Instructions ?Recorded ?Last Taken ?Type sertraline 100 mg tablet 100 mg PO BID depression 03/15/19 01/13/24 History losartan 50 mg-hydrochlorothiazide 1 tab PO DAILY heart/BP 01/14/21 01/13/24 History 12.5 mg tablet metoprolol succinate 25 mg 25 mg PO DAILY HTN 01/14/21 01/13/24 History tablet,extended release 24 hr vit C 250 mg-vit E 90 mg-zinc 40 1 tab PO BID eyes 01/14/21 01/13/24 History mg-copper 1 [id number] capsule (PreserVision AREDS-2) atorvastatin 20 mg tablet 20 mg PO QHS CHOLESTEROL 04/09/21 01/12/24 History ferrous sulfate 325 mg (65 mg 325 mg PO DAILY supplement 06/07/21 01/13/24 History iron) tablet apixaban 2.5 mg tablet (Eliquis) 2.5 mg PO BID 07/04/22 01/13/24 History biotin 1 mg capsule 1 mg PO DAILY 07/04/22 01/13/24 History glipizide 5 mg tablet 5 mg PO DAILY DM 07/04/22 01/13/24 History semaglutide 0.25 mg or 0.5 mg (2 0.5 mg subcut MO 08/05/22 01/05/24 History mg/1.5 mL) subcutaneous pen injector (Ozempic) denosumab 60 mg/mL subcutaneous 60 mg subcut [id number] 11/27/22 05/09/23 History syringe (Prolia) albuterol sulfate 90 mcg/actuation 1 inh inhalation Q4-6H PRN 05/26/23 Unknown History breath activated powder inhaler shortness of breath cholecalciferol (vitamin D3) 25 25 mcg PO BID 05/26/23 01/13/24 History mcg (1,000 unit) capsule amoxicillin 500 mg tablet 2,000 mg (4 x 500 mg) PO ONCE #1 09/05/23 Unknown Rx TAB pantoprazole 40 mg tablet,delayed 40 mg PO QDAY 12/22/23 01/13/24 History release insulin glargine 100 unit/mL 10 unit subcut 1200 12/29/23 01/12/24 History subcutaneous solution (Lantus U-100 Insulin) tramadol 50 mg tablet 50 mg PO QHS PRN pain 12/29/23 Unknown History oxycodone-acetaminophen 5 mg-325 1 tab PO Q4H PRN pain 4 days #16 01/10/24 01/13/24 Rx mg tablet (Percocet) tabs levothyroxine 50 mcg tablet 50 mcg PO DAILY 01/13/24 01/13/24 History Allergy/AdvReac Type Severity Reaction Status Date / Time codeine Allergy Intermediate itchy Verified 01/13/24 10:15 lisinopril Allergy Intermediate coughing Verified 01/13/24 10:15 Seasonal Allergies: Uncoded Allergy Other Verified 01/13/24 10:15 Family History Mother , Age 86 CAD (coronary artery disease) Alzheimers disease Myocardial infarction, Onset Age: 70 Father , Age 68 CAD (coronary artery disease) Alcoholism Hypertension Sister Diabetes Hypertension Breast cancer Sister , 46 No problems noted. Brother Cancer bladder and prostate Hypertension Heart disease Brother No problems noted. Surgical History Hx of aortic valve replacement History of cardiac catheterization Hx of colonoscopy History of esophagogastroduodenoscopy (EGD) Status post gastric bypass for obesity History of aortic valve replacement with bioprosthetic valve (02/15/19) History of right and left heart catheterization (11/30/18) History of gastric bypass History of tonsillectomy History of appendectomy History of section History of open reduction and internal fixation (ORIF) procedure (2009) History of elbow surgery (2011) Social History adopted: No household members: none housing: assisted living facility number of children: 2 current occupational status: retired current occupational exposures/hazards: No pets and animals: No leisure activities: reading and other history of recent travel: No sexually active: No Smoking Status: Former smoker Tobacco: How many years used: 8 how long ago did patient quit smokin years ago alcohol intake: current Alcohol type: wine details: wine substance use type: does not use diet: diabetic well-balanced diet: about half the time during the past year weight has: remained stable what type of physical activity do you participate in: none mitali/amish: Scientology do you feel safe at home: Yes Review of Systems (Anesthesia) ROS Narrative System reviewed and no additional complaints, except as documented.
--- NOTE | 2024-01-14 07:46 | PCM.OPRPT ---
Report of Operation Date of Procedure: 01/14/24 Pre-Operative Diagnosis: Right ureteral calculus, urinary tract infection, acute renal insufficiency Post-Operative Diagnosis: Same Surgery/Procedure Performed:: Cystoscopy with right ureteral stent insertion Surgeon: Ruth Mayer Type of Anesthesia: MAC Specimen's removed: none Description of Procedure: The patient is an 83-year-old female with a right distal ureteral calculus with urinary tract infection and renal insufficiency. She presents for cystoscopy and right ureteral stent insertion. Informed consent was obtained. The patient was taken to the operating room and placed on the operating room table. Anesthesia monitored the head, neck, airway, IV access and vital signs throughout the case. Once anesthesia was appropriately administered, she was placed into the dorsolithotomy position and was prepped and draped in usual sterile fashion. The cystoscope was inserted through the urethra under direct visualization into the urinary bladder. The bladder mucosa was irritated and edematous but no mass was seen. The right ureter was identified and gently intubated with a 0.035 Glidewire. Purulent thick urine came from the ureter almost immediately. The wire was advanced into the renal pelvis as seen on fluoroscopy. A 6 [place] 24 cm JJ stent was placed over the wire with good positioning in the renal pelvis as well as the urinary bladder. Purulent urine continued to flow into the bladder and even more as the wire was removed from the stent. The bladder was then emptied. She was awakened and taken to the recovery room in good condition. There were no complications during this procedure. Grafts/Implants Used: 6Fr 24cm JJ stent Complications None Admit VTE Documentation VTE Present on Admission: Yes VTE Mechan Device Prophylaxis: SCD's VTE Pharm Prophylaxis ordered?: Yes
--- NOTE | 2024-01-14 08:17 | PCM.POST.ANE ---
Anesthesia: Postop Eval I Current Vital Signs Temperature: 97.5 F Pulse Rate: 83 Blood Pressure: 122/54 Respiratory Rate: 16 Pulse Ox: 95 Oxygen Delivery Method: Room Air Assessment Airway patent: Yes Spontaneous unlabored respirations: Yes Mental status: Awake and Calm nausea: No Vomiting: No Anesthesia Complication: No Fluid Hydration Crystalloid volume administer (ml): 300 Total IV fluid infused: 300 Progress Note Anesthesia document: Postop Eval 1 completed: Yes
--- NOTE | 2024-01-14 08:39 | DCINST_ITS ---
Discharge Instructions Diet Discharge Diet: No restrictions Activity Discharge Activity: Return to Normal Activity Dressing / Incision Call your doctor if you observe: Fever of 101 or Higher, Inability to urinate and Inability to have a bowel movement Follow Up Care Please Follow Up With: Ruth Mayer MD When: The office will call her to make follow up arrangements for stone management. Test Results: Test results from this visit will be discussed in further detail at your follow- up appointment, if applicable. Discharge Plan Admission Admit Date/Time: 01/13/24 16:31 Attending Provider: Ruth Mayer Primary Care Provider: Alonzo Collado Discharge Orders/Prescriptions Prescriptions: New cephalexin 250 mg capsule 250 mg PO TID 6 Days Qty: 18 0RF oxycodone-acetaminophen [Percocet] 5-325 mg tablet 1 tab PO Q8H PRN (Reason: pain) 3 Days Qty: 10 0RF Continued sertraline 100 mg tablet 100 mg PO BID Patient Comments: depression ferrous sulfate 325 mg (65 mg iron) tablet 325 mg PO DAILY biotin 1 mg capsule 1 mg PO DAILY Eliquis 2.5 mg tablet 2.5 mg PO BID Prolia 60 mg/mL syringe 60 mg subcut [id number] cholecalciferol (vitamin D3) 25 mcg (1,000 unit) capsule 25 mcg PO BID albuterol sulfate 90 mcg/actuation aerosol powdr breath activated 1 inh inhalation Q4-6H PRN (Reason: shortness of breath) tramadol 50 mg tablet 50 mg PO QHS PRN (Reason: pain) amoxicillin 500 mg tablet 2,000 mg PO ONCE Qty: 1 12RF Rx Instructions: Take 4 tablets one hour prior to procedure (pt having multiple dental procedures) pantoprazole 40 mg tablet,delayed release (DR/EC) 40 mg PO QDAY losartan-hydrochlorothiazide 50-12.5 mg Tablet 1 tab PO DAILY PreserVision AREDS-2 250-90-40-1 mg Capsule 1 tab PO BID metoprolol succinate 25 mg tablet extended release 24 hr 25 mg PO DAILY atorvastatin 20 mg Tablet 20 mg PO QHS glipizide 5 mg tablet 5 mg PO DAILY Ozempic 0.25 mg or 0.5 mg(2 mg/1.5 mL) pen injector 0.5 mg SUBCUT MO insulin glargine [Lantus U-100 Insulin] 100 unit/mL solution 10 unit SUBCUT 1200 oxycodone-acetaminophen [Percocet] 5-325 mg tablet 1 tab PO Q4H PRN (Reason: pain) 4 Days Qty: 16 0RF levothyroxine 50 mcg tablet 50 mcg PO DAILY Referrals / Follow Up: Alonzo Collado DO [Primary Care Provider] - Disposition Disposition (needs filled in before D/C Order can be placed): Home, Self Care
--- NOTE | 2024-01-14 09:24 | PCM.POSTANE2 ---
Anesthesia Postop Eval I Sum Postop Eval Completion status Anesthesia document: Postop Eval 1 completed: Yes Anesthesia Postop Eval I Summary Anesthesia Postop Eval I Summary: Anesthesia Postop Eval I: Assessment Summary Airway patent Yes 01/14/24 08:23 Spontaneous unlabored Yes 01/14/24 08:23 respirations Mental status Awake,Calm 01/14/24 08:23 nausea No 01/14/24 08:23 Vomiting No 01/14/24 08:23 Anesthesia Postop Eval I: Fluid Summary Crystalloid volume administer 300 01/14/24 08:23 (ml) Colloids volume administered ( ml) Blood Product volume administered (ml) Total IV fluid infused 300 01/14/24 08:23 Anesthesia Postop Eval I: Summary Notes Anesthesia Complication No 01/14/24 08:23 Anesthesia Complication Comment: Post-operative progress note Anesthesia: Postop Eval II Evaluation Mental status: Awake Pain Level: 0 nausea: No Vomiting: No
[2024-01-14] MEDS: glipiZIDE 5 MG Tablet PO (10:14)
[2024-01-14] MEDS: Cefazolin 1 GM/50 ML BAG IV (10:14)
[2024-01-14] MEDS: Multivitamin (Healthy Eyes) Capsule 1 CAP PO (10:15)
[2024-01-14] MEDS: Pantoprazole Sodium 40 MG Tablet PO (10:15)
[2024-01-14] MEDS: Metoprolol(XL)Succ 25 MG Tablet PO (10:15)
[2024-01-14] MEDS: hydroCHLOROthiazide 12.5mg 12.5 MG PO (10:15)
[2024-01-14] MEDS: Losartan Potassium 50 MG Tablet PO (10:15)
[2024-01-14] MEDS: Sertraline 100 MG Tablet PO (10:16)
[2024-01-14] MEDS: APIXABAN 2.5 MG TABLET (WCH) PO (10:16)
[2024-01-14] MEDS: Insulin Glargine-YFGN 100 UNIT/ML Pen 10 UNIT SC (12:21)
--- NOTE | 2024-01-14 16:13 | CASEMGMT ---
Met with patient to complete ANDERSEN form. ANDERSEN form explained to patient who voiced understanding and signed form. Original form placed in pt?s chart and copy provided to patient. Heaven Perry, Discharge Planning Asst
--- NOTE | 2024-01-14 19:27 | PN.URO_ITS ---
Subjective Subjective Pain is resolved. No nausea or vomiting. Ate dinner without any issues. Feeling ok to go home tonight. Objective Data Objective Data Vital Signs: Vital Signs Temp Pulse Resp BP Pulse Ox O2 Del Method 97.7 F L 57 L 12 131/58 H 95 Room Air 01/14/24 16:17 01/14/24 16:17 01/14/24 16:17 01/14/24 16:17 01/14/24 16:17 01/14/24 16:17 Oxygen Delivery Method Room Air Weight: 56.7 kg Body Mass Index (BMI) 22.1 Intake & Output: Intake and Output for Last 24 Hours 01/12/24 01/13/24 01/14/24 23:59 23:59 23:59 Intake Total 1656.25 / 1656.25 2755.75 / 2755.75 Output Total 800 / 800 Balance 1656.25 / 1656.25 1955.75 / 1955.75 Lab / Micro Data 01/14/24 06:11 01/14/24 06:11 Labs: Laboratory Results - last 24 hr 01/14/24 06:11: WBC 10.4, RBC 3.80 L, Hgb 11.9 L, Hct 37.3, MCV 98.2, MCH 31.3, MCHC 31.9 L, RDW Std Deviation 53.2 H, RDW Coeff of Adria 14.6, Plt Count 195, MPV 10.7, Immature Gran % (Auto) 0.600, Neut % (Auto) 77.9 H, Lymph % (Auto) 8.2 L, [place] % (Auto) 8.9, Eos % (Auto) 4.1, Baso % (Auto) 0.3, Absolute Neuts (auto) 8.1 H, Absolute Lymphs (auto) 0.86, Nucleated RBC % 0, APTT 57.9 H, Sodium 133 L , Potassium 3.7, Chloride 100, Carbon Dioxide 24.0, Anion Gap 9, BUN 31 H, C reatinine 2.28 H, Estim Creat Clear Calc 16.01, Est GFR (MDRD) Af Amer 26 L, Est GFR (MDRD) Non-Af 22 L, BUN/Creatinine Ratio 13.6, Glucose 185 H, Hemoglobin A1c 6.9 H, Calcium 8.8 Micro: Microbiology 01/13/24 12:25 Urine, Clean Catch Urine Culture - Preliminary Culture exhibits no growth. Physical Exam Const alert, oriented x3 and no apparent distress Resp normal respiratory effort and normal air movement Cardio regular rate GI soft to palpation, non-tender and non-distended Assessment & Plan Assessment/Plan (1) Right ureteral calculus: (2) NELSY (acute kidney injury): (3) Acute UTI: PLAN: Plan home on antibiotics will plan for follow up for surgical intervention for her stone
[2024-01-14] MEDS: Cephalexin 250 MG Capsule PO (19:49)
--- NOTE | 2024-01-14 22:04 | NURSING ---
Pt was discharged and left unit via wheeled chair assisted by ROTARY SWAGING MACHINE OPERATOR and accompanied by daughter @ [id number].
--- NOTE | 2024-01-14 22:13 | NURSING ---
Pt left discharge instructions in room after leaving unit. This RN called pt to let them know and pt stated she would not pick up operator the paperwork and it was okay to shred them. This RN notified charge nurse.
== END 2024-01-14 21:10 | disposition home or self-care (01) ==
LOC: ED 15:06 → PCU 17:00
PROVIDERS: Anesthesiology; Admitting Provider Urology; Emergency Provider Emergency Medicine; PCP Family Medicine; Visit Provider Urology
PROC: (CPT 52332; principal; 2024-01-14 08:40)
DX: N13.6 Pyonephrosis (principal); Z79.4 Long term (current) use of insulin; E11.9 Type 2 diabetes mellitus without complications; N17.9 Acute kidney failure, unspecified; I10 Essential (primary) hypertension; Z79.85 Long-term (current) use of injectable non-insulin antidiabetic drugs; Z87.891 Personal history of nicotine dependence; E78.00 Pure hypercholesterolemia, unspecified; Z79.84 Long term (current) use of oral hypoglycemic drugs; D50.0 Iron deficiency anemia secondary to blood loss (chronic); Z79.01 Long term (current) use of anticoagulants; Z79.899 Other long term (current) drug therapy; Z98.84 Bariatric surgery status; N32.81 Overactive bladder
CPT/HCPCS: 52332; 00910; 36415; 74176; 76000; 80048; 81001; 83036; 85025; 85730; 87086; 93005; 94668; 94762; 96361; 96365; 96366; 96367; 96375; 96376; 99221; 99284; J7030; J7120; A4216; C2617; G0378; J2405

== ENCOUNTER 2024-02-05 07:44 | Day surgery (SDC) | payer MEDICARE, SELFPAY ==
[2024-02-05 08:14] VITALS: BP 178/70; PULSE 66; RESP 16; TEMP 36.1; O2SAT 100; BMI 20.5
--- NOTE | 2024-02-05 08:14 | PRE.ANES_ITS ---
ASA Classification* ASA Classification ASA Classification: 3 Assessment & Plan Anesthesia* Anesthesia Assessment Anesthesia Assessment: Discussed sedation and/or anesthesia options, risks, benefits, and alternatives with patient/parents/legal guardian/POA. Questions invited. The patient/parents/legal guardian/POA seems to understand and agrees to proceed with anesthesia plan. Reviewed the physical assessment, medical history, allergy history and patient home medications list prior to surgery/procedure/anesthetic and documented any changes. Performed airway and anesthesia risk assessments. Anesthesia Type Anesthesia Type: General (see written pre anesthesia record for full assessment) Anesthesia Focused Assessment* Airway Assessment Mouth opens: >3 cm Mallampati Score: II Focused Labs Anesthesia Preop lab: CBC WBC 10.4 K/mm3 (4.4-11.0) 01/14/24 06:11 RBC 3.80 M/mm3 (4.2-5.4) L 01/14/24 06:11 Hgb 11.9 g/dL (12.0-15.0) L 01/14/24 06:11 Hct 37.3 % (37-47) 01/14/24 06:11 Plt Count 195 K/mm3 (150-450) 01/14/24 06:11 CHEMISTRY Potassium 3.7 mmol/L (3.5-5.1) 01/14/24 06:11 Sodium 133 mmol/L (136-145) L 01/14/24 06:11 BUN 31 mg/dL (7-18) H 01/14/24 06:11 Creatinine 2.28 mg/dL (0.55-1.02) H 01/14/24 06:11 Glucose 185 mg/dL (74-106) H 01/14/24 06:11 POC Glucose 84 mg/dL (74-106) 08/07/22 06:05 TSH 3.48 uIU/mL (0.358-3.74) 01/17/21 06:05 COAG PT 15.4 SECONDS (11.7-14.9) H 04/08/22 05:13 Pre-Assessment Diagnosis/Proposed Procedure Planned Operative Procedure(s): RIGHT URETEROSCOPY, LASER STONE BASKET, RIGHT STENT CHANGE Anesthesia History Anesthesia History - browning processor: Anesthesia History - browning processor Hx Hospitalization Yes: [facility] 2024 02/03/24 15:29 Any Problems With Anesthesia No 02/03/24 15:29 Cholinesterase deficiency No 02/03/24 15:29 You/Your Family Experience No 02/03/24 15:29 fever (hyperthermia) with Relationship Recent Exposure to Contagious No 01/14/24 04:43 Disease Does patient have nerve No 02/03/24 15:29 stimulator Patient instructed to have device shut off --Does patient have Pacemaker or ICD? When Was Last Pacemaker Check QUESTION #4 FULL TEXT: You/Your Family Experience fever (hyperthermia) with Anesthesia Last Oral Intake Last Oral intake: Last Oral Intake NPO since Meds taken in AM with sips of water? Meds patient instructed to take am of surgery PONV PONV - browning processor: PONV - browning processor Female Yes 02/03/24 15:29 HX of Motion Sickness No 02/03/24 15:29 HX of N/V After Surgery No 02/03/24 15:29 Non-Smoker Yes 02/03/24 15:29 Duration of Surgery greater No 02/03/24 15:29 than 60 minutes Number of Risk Factors 2 02/03/24 15:29 PONV Score Moderate Risk 02/03/24 15:29 Height & Weight Height & Weight: Anesthesia: Height & Weight Height 5 ft 3 in 01/14/24 02:16 Respiratory Assessment Respiratory Assessment - browning processor: Respiratory Tract Infection Hx - browning processor Hx Respiratory Tract Infection No 02/03/24 15:29 STOP Sleep Apnea STOP Sleep Apnea - browning processor: STOP Sleep Apnea - browning processor Hx Hypertension Yes 02/03/24 15:29 Hx Sleep Apnea No 02/03/24 15:29 CPAP No 01/14/24 08:17 BIPAP No 08/05/22 14:13 Do you snore loudly (louder No 02/03/24 15:29 than talking or can be heard Do you often feel tired/ No 02/03/24 15:29 fatigued/ sleepy during daytime? Has anyone observed you stop No 02/03/24 15:29 breathing during sleep? STOP Results Negative 02/03/24 15:29 QUESTION #5 FULL TEXT : Do you snore loudly (louder than talking or can be heard through closed doors)? Tobacco Use History Tobacco Use History - browning processor: Tobacco Use History - browning processor Tobacco Use Smoking Status Former smoker 02/03/24 15:29 Hx Tobacco Use No 02/03/24 15:29 Years Smoking Packs Smoked per Day Smoking Cessation Date was No - quit smoking greater 02/03/24 15:29 within the last 15 years than 15 years ago Hx Smoking Cessation Date 05/12/67 02/03/24 15:29 Hx Smoking Cessation Counseling Hematologic Medial History Hematologic Hx - browning processor: Hematologic Medical Hx - clinical documentation spec Hx of Blood Transfusion Yes 02/03/24 15:29 Hx of Transfusion in last 3 No 02/03/24 15:29 Months Date of Last Transfusion (if within last 3 months) Ever experience any problems No 02/03/24 15:29 with transfusion(s)? Specify any problems Hx of Preganancy in last 3 No 02/03/24 15:29 Months Nurse Filling Out Transfusion [email or web address] 02/03/24 15:29 & Questions: Date: 02/03/24 02/03/24 15:29 Time: 15:36 02/03/24 15:29 Patient unable to answer at this time (ie. confused, unrespo /Reproduction History /Reproductive History - browning processor: /Reproductive Hx- browning processor Hx Now Gestational Age (in weeks): EDC: Hx Hx Para Hx Section SAB No 02/03/24 15:29 Active Medications Active Medications: Current Medications Generic Name Dose Route Start Last Admin Trade Name Freq PRN Reason Stop Dose Admin Lactated Ringer's 1,000 mls @ 15 mls/hr 02/05/24 08:00 IV .Q48H COLLINS Cefazolin Sodium 2 gm/ Sodium 110 mls @ 150 mls/hr 02/05/24 08:00 Chloride IV 02/05/24 08:43 PREOP ONE PFSH Medical History Thyroid disease Right ureteral calculus Wears glasses Post-menopausal Alcohol use Insulin dependent diabetes mellitus Diabetes Uses wheelchair Ambulates with cane Arthritis History of renal disease Kidney stones High cholesterol Back pain Heartburn Former smoker Shortness of breath on exertion Cardiology follow-up encounter History of echocardiogram Hx of fracture of femur Anemia Iron deficiency anemia due to chronic blood loss Diarrhea Anemia HTN (hypertension) Supratherapeutic INR Acute GI bleeding Preop cardiovascular exam Diabetes mellitus, type II Small bowel intussusception Lupus anticoagulant disorder (1994) Nonrheumatic aortic (valve) stenosis with insufficiency Osteoporosis Vitamin B 12 deficiency Osteoarthritis Depression History of DVT (deep vein thrombosis) Hyperlipidemia Essential hypertension Home Medications ?Medication ?Instructions ?Recorded ?Last Taken ?Type sertraline 100 mg tablet 100 mg PO BID depression 03/15/19 02/05/24 History losartan 50 mg-hydrochlorothiazide 1 tab PO DAILY heart/BP 01/14/21 01/13/24 History 12.5 mg tablet metoprolol succinate 25 mg 25 mg PO DAILY HTN 01/14/21 02/05/24 06:30 History tablet,extended release 24 hr vit C 250 mg-vit E 90 mg-zinc 40 1 tab PO BID eyes 01/14/21 01/13/24 History mg-copper 1 [id number] capsule (PreserVision AREDS-2) atorvastatin 20 mg tablet 20 mg PO QHS CHOLESTEROL 04/09/21 01/12/24 History ferrous sulfate 325 mg (65 mg 325 mg PO DAILY supplement 06/07/21 01/13/24 History iron) tablet apixaban 2.5 mg tablet (Eliquis) 2.5 mg PO BID for anticoagulant 07/04/22 02/04/24 History biotin 1 mg capsule 1 mg PO DAILY vitamin supplement 07/04/22 01/13/24 History glipizide 5 mg tablet 5 mg PO DAILY DM 07/04/22 01/13/24 History semaglutide 0.25 mg or 0.5 mg (2 0.5 mg subcut MO 08/05/22 01/05/24 History mg/1.5 mL) subcutaneous pen injector (Ozempic) denosumab 60 mg/mL subcutaneous 60 mg subcut [id number] 11/27/22 05/09/23 History syringe (Prolia) albuterol sulfate 90 mcg/actuation 1 inh inhalation Q4-6H PRN 05/26/23 Unknown History breath activated powder inhaler shortness of breath cholecalciferol (vitamin D3) 25 25 mcg PO BID vitamin 05/26/23 01/13/24 History mcg (1,000 unit) capsule amoxicillin 500 mg tablet 2,000 mg (4 x 500 mg) PO ONCE #1 09/05/23 Unknown Rx TAB insulin glargine 100 unit/mL 10 unit subcut 1200 12/29/23 01/12/24 History subcutaneous solution (Lantus U-100 Insulin) tramadol 50 mg tablet 50 mg PO QHS PRN pain 12/29/23 Unknown History levothyroxine 50 mcg tablet 50 mcg PO DAILY thyroid 01/13/24 02/05/24 History Allergy/AdvReac Type Severity Reaction Status Date / Time codeine Allergy Intermediate itchy Verified 02/05/24 08:12 lisinopril Allergy Intermediate coughing Verified 02/05/24 08:12 Seasonal Allergies: Uncoded Allergy Other Verified 02/05/24 08:12 Family History Mother , Age 86 CAD (coronary artery disease) Alzheimers disease Myocardial infarction, Onset Age: 70 Father , Age 68 CAD (coronary artery disease) Alcoholism Hypertension Sister Diabetes Hypertension Breast cancer Sister , 46 No problems noted. Brother Cancer bladder and prostate Hypertension Heart disease Brother No problems noted. Surgical History Hx of aortic valve replacement History of cardiac catheterization Hx of colonoscopy History of esophagogastroduodenoscopy (EGD) Status post gastric bypass for obesity History of aortic valve replacement with bioprosthetic valve (02/15/19) History of right and left heart catheterization (11/30/18) History of gastric bypass History of tonsillectomy History of appendectomy History of section History of open reduction and internal fixation (ORIF) procedure (2009) History of elbow surgery (2011) Social History adopted: No household members: none housing: assisted living facility number of children: 2 current occupational status: retired current occupational exposures/hazards: No pets and animals: No leisure activities: reading and other history of recent travel: No sexually active: No Smoking Status: Former smoker Tobacco: How many years used: 8 how long ago did patient quit smokin years ago alcohol intake: current Alcohol type: wine details: wine substance use type: does not use diet: diabetic well-balanced diet: about half the time during the past year weight has: remained stable what type of physical activity do you participate in: none mitali/bahai: Presybeterian do you feel safe at home: Yes Review of Systems (Anesthesia) ROS Narrative System reviewed and no additional complaints, except as documented.
[2024-02-05] MEDS: Lactated Ringers 1,000 ML 15 ML IV (08:26)
[2024-02-05 08:48] LABS: Bedside Glucose 131 mg/dL (74-106)
[2024-02-05] MEDS: Cefazolin 2 GM in 0.9% Normal Saline (100mL Bag) 100 ML IV (09:00)
--- NOTE | 2024-02-05 09:20 | CALC_PTH ---
PATIENT: SONNY HOWARD LOC: [facility] [place] U#:[id number] AGE/SX: 83/F ROOM: RE02/05/[address]: Dr. Ruth Mayer MD : 1940 BED: DIS: 02/05/2024 SPEC #: [id number] RECD: 02/05/24 09:59 STATUS: KALINA MULLEN #: [id number] CAREY: 02/05/24 09:[address]: Ruth Mayer DEPT: SURGICAL PATHOLOGY RECD BY: Keila Cuevas ENTERED: 02/05/24 11:32 SP TYPE: Calculi OTHR DR: Dr. Alonzo Collado DO Tissues: CALCULI Procedures: Surgery Specimen Level I HEADER OPERATION: Right ureteroscopy, laser stone basket, right stent change PRE-OP DIAGNOSIS: Right ureteral calculi TISSUE SUBMITTED: Right calculi for analysis GROSS DIAGNOSIS Fragments of stone, clinically right calculi (gross only). 02/05/2024 COMMENT The calculus is submitted in its entirety for chemical stone analysis. The results from this study will be reported separately. GROSS DESCRIPTION Received without fixative labeled with the patient's name and designated right calculi for analysis. The specimen consists of multiple fragments of brownish-black stone measuring in aggregate 0.5 x 0.5 x 0.2 cm. The entire specimen is submitted for stone analysis. 02/05/2024 CPT: 15103
[2024-02-05 09:35] VITALS: BP 169/78; BP 178/70; PULSE 63; RESP 18; TEMP 36.3; O2SAT 97
--- NOTE | 2024-02-05 09:36 | PCM.POST.ANE ---
Anesthesia: Postop Eval I Current Vital Signs Temperature: 97.3 F Pulse Rate: 64 Blood Pressure: 169/78 Respiratory Rate: 16 Pulse Ox: 96 Oxygen Delivery Method: Room Air Assessment Airway patent: Yes Spontaneous unlabored respirations: Yes Mental status: Awake and Calm nausea: No Vomiting: No Anesthesia Complication: No Fluid Hydration Crystalloid volume administer (ml): 500 Total IV fluid infused: 500 Progress Note Anesthesia document: Postop Eval 1 completed: Yes
[2024-02-05 09:40] VITALS: BP 165/79; BP 178/70; PULSE 67; RESP 18; O2SAT 95
[2024-02-05 09:45] VITALS: BP 160/74; BP 169/78; BP 178/70; PULSE 64; PULSE 65; RESP 16; RESP 18; TEMP 36.3; O2SAT 93; O2SAT 96
--- NOTE | 2024-02-05 09:47 | POSTOPAN2_ITS ---
Anesthesia Postop Eval I Sum Postop Eval Completion status Anesthesia document: Postop Eval 1 completed: Yes Anesthesia Postop Eval I Summary Anesthesia Postop Eval I Summary: Anesthesia Postop Eval I: Assessment Summary Airway patent Yes 02/05/24 09:45 ATHLETIC TEAM [email or web address] Spontaneous unlabored Yes 02/05/24 09:45 ATHLETIC TEAM PHYSICIAN.[email or web address] respirations Mental status Awake,Calm 02/05/24 09:45 ATHLETIC TEAM PHYSICIAN.GDOTT nausea No 02/05/24 09:45 ATHLETIC TEAM PHYSICIAN.GDOTT Vomiting No 02/05/24 09:45 ATHLETIC TEAM [email or web address].[email or web address] Anesthesia Postop Eval I: Fluid Summary Crystalloid volume administer 500 02/05/24 09:45 ATHLETIC TEAM [email or web address].[email or web address] (ml) Colloids volume administered ( ml) Blood Product volume administered (ml) Total IV fluid infused 500 02/05/24 09:45 ATHLETIC TEAM PHYSICIAN.GDOTT Anesthesia Postop Eval I: Summary Notes Anesthesia Complication No 02/05/24 09:45 ATHLETIC TEAM PHYSICIAN.[email or web address] Anesthesia Complication Comment: Post-operative progress note Anesthesia: Postop Eval II Evaluation Mental status: Awake Pain Level: 0 nausea: No Vomiting: No
--- NOTE | 2024-02-05 09:47 | PCM.POSTANE2 ---
Anesthesia Postop Eval I Sum Postop Eval Completion status Anesthesia document: Postop Eval 1 completed: Yes Anesthesia Postop Eval I Summary Anesthesia Postop Eval I Summary: Anesthesia Postop Eval I: Assessment Summary Airway patent Yes 02/05/24 09:45 ECONOMIC [email or web address] Spontaneous unlabored Yes 02/05/24 09:45 ECONOMIC MANAGER.[email or web address] respirations Mental status Awake,Calm 02/05/24 09:45 ECONOMIC MANAGER.GDOTT nausea No 02/05/24 09:45 ECONOMIC MANAGER.GDOTT Vomiting No 02/05/24 09:45 ECONOMIC MANAGER.[email or web address] Anesthesia Postop Eval I: Fluid Summary Crystalloid volume administer 500 02/05/24 09:45 ECONOMIC MANAGER.GDOTT (ml) Colloids volume administered ( ml) Blood Product volume administered (ml) Total IV fluid infused 500 02/05/24 09:45 ECONOMIC MANAGER.GDOTT Anesthesia Postop Eval I: Summary Notes Anesthesia Complication No 02/05/24 09:45 ECONOMIC MANAGER.GDOTT Anesthesia Complication Comment: Post-operative progress note Anesthesia: Postop Eval II Evaluation Mental status: Awake Pain Level: 0 nausea: No Vomiting: No
--- NOTE | 2024-02-05 09:48 | EX.PCM.DISCH ---
Discharge Instructions Diet Discharge Diet: No restrictions Activity Discharge Activity: Return to Normal Activity Dressing / Incision Call your doctor if you observe: Fever of 101 or Higher, Inability to urinate and Inability to have a bowel movement Follow Up Care Please Follow Up With: Ruth Mayer MD When: The office will call to make arrangements for stent removal. Test Results: Test results from this visit will be discussed in further detail at your follow-up appointment, if applicable. Discharge Plan Admission Attending Provider: Ruth Mayer Primary Care Provider: Alonzo Collado Instructions Print Language: South African Discharge Orders/Prescriptions Prescriptions: New cephalexin 250 mg capsule 250 mg PO TID Qty: 9 0RF oxycodone-acetaminophen [Percocet] 5-325 mg tablet 1 tab PO Q8H PRN (Reason: pain) 2 Days Qty: 6 0RF Continued sertraline 100 mg tablet 100 mg PO BID Patient Comments: depression ferrous sulfate 325 mg (65 mg iron) tablet 325 mg PO DAILY biotin 1 mg capsule 1 mg PO DAILY Eliquis 2.5 mg tablet 2.5 mg PO BID Prolia 60 mg/mL syringe 60 mg subcut [id number] cholecalciferol (vitamin D3) 25 mcg (1,000 unit) capsule 25 mcg PO BID albuterol sulfate 90 mcg/actuation aerosol powdr breath activated 1 inh inhalation Q4-6H PRN (Reason: shortness of breath) tramadol 50 mg tablet 50 mg PO QHS PRN (Reason: pain) amoxicillin 500 mg tablet 2,000 mg PO ONCE Qty: 1 12RF Rx Instructions: Take 4 tablets one hour prior to procedure (pt having multiple dental procedures) losartan-hydrochlorothiazide 50-12.5 mg Tablet 1 tab PO DAILY PreserVision AREDS-2 250-90-40-1 mg Capsule 1 tab PO BID metoprolol succinate 25 mg tablet extended release 24 hr 25 mg PO DAILY atorvastatin 20 mg Tablet 20 mg PO QHS glipizide 5 mg tablet 5 mg PO DAILY Ozempic 0.25 mg or 0.5 mg(2 mg/1.5 mL) pen injector 0.5 mg SUBCUT MO Patient Comments: HAS BEEN OFF FOR APPROX 1 MONTH insulin glargine [Lantus U-100 Insulin] 100 unit/mL solution 10 unit SUBCUT 1200 levothyroxine 50 mcg tablet 50 mcg PO DAILY Referrals / Follow Up: Alonzo Collado DO [Primary Care Provider] - Disposition Disposition (needs filled in before D/C Order can be placed): Home, Self Care
[2024-02-05 09:50] VITALS: BP 159/66; BP 178/70; PULSE 65; RESP 18; TEMP 36.3; O2SAT 94
--- NOTE | 2024-02-05 09:54 | PCM.OPRPT ---
Report of Operation Date of Procedure: 02/05/24 Pre-Operative Diagnosis: Right ureteral Calculus Post-Operative Diagnosis: Same Surgery/Procedure Performed:: Cystoscopy, right ureteroscopy, thulium laser lithotripsy, stone basket extraction, right ureteral stent change Surgeon: Ruth Mayer Type of Anesthesia: General Specimen's removed: Right ureteral calculus fragments Description of Procedure: The patient is an 83-year-old female with a right ureteral stent presenting for management of her distal ureteral calculus. Informed consent has been obtained. She was taken to the operating room and placed on the operating room table. Anesthesia monitored the head, neck, airway, IV access and vital signs throughout the case. Once anesthesia was appropriate administered, she was placed into dorsolithotomy position was prepped and draped in usual sterile fashion. The cystoscope was inserted through the urethra under direct visualization into the urinary bladder where the stent was easily observed. A 0.035 Glidewire was passed alongside the stent into the renal pelvis as seen on fluoroscopy. Using grasping forceps, the ureteral stent was then removed. A semirigid ureteroscope was then used to intubate the right ureter and advanced until the level of the stone. The thulium laser fiber 200 ?m in size was utilized to break the stone into small pieces which were removed with a basket. After all of the visible pieces of the stone were removed, using the safety wire, a 6 Pal[place] 24 cm JJ stent was then placed with good positioning in the renal pelvis as well as the urinary bladder. The bladder was emptied and the cystoscope was removed. She was awakened and taken to the recovery room in good condition. There were no complications during this procedure. Grafts/Implants Used: 6 Palau[place] by 24 cm JJ stent Complications None Admit VTE Documentation VTE Present on Admission: Yes VTE Mechan Device Prophylaxis: SCD's VTE Pharm Prophylaxis ordered?: Yes
[2024-02-05] MEDS: Phenazopyridine 95 MG Tablet PO (10:02)
[2024-02-05 10:42] VITALS: BP 178/70
[2024-02-15 14:08] LABS: Ca Oxalate, Dihydrate 20 % (.); Ca Oxalate, Monohydrate 80 % (.); Size 4x3 mm (.)
== END 2024-02-05 10:53 | disposition home or self-care (01) ==
LOC: SDC 07:46 → AC 07:51
PROVIDERS: PCP Family Medicine; Referring Provider Urology; Visit Provider Urology
PROC: (CPT 52356; principal; 2024-02-05 09:10)
DX: N20.1 Calculus of ureter (principal); Z79.4 Long term (current) use of insulin; E11.9 Type 2 diabetes mellitus without complications; E78.00 Pure hypercholesterolemia, unspecified; I10 Essential (primary) hypertension; F32.A Depression, unspecified; Z79.51 Long term (current) use of inhaled steroids; Z79.899 Other long term (current) drug therapy; Z79.01 Long term (current) use of anticoagulants; Z79.84 Long term (current) use of oral hypoglycemic drugs; Z87.891 Personal history of nicotine dependence; Z86.718 Personal history of other venous thrombosis and embolism
CPT/HCPCS: 52356; 76000; 82360; 82962; 88300; J7120; C2617; J2405

== ENCOUNTER 2024-10-03 18:01 | Inpatient (IN) | payer MEDICARE, SELFPAY ==
[2024-10-03 18:03] VITALS: BP 117/54; PULSE 107; RESP 16; TEMP 36.6; O2SAT 96
--- NOTE | 2024-10-03 19:46 | CT_ITS ---
PROCEDURE: ABDOMEN/PELVIS WITHOUT CONT 10/03/2024 REASON FOR EXAM: LOW BACK PAIN, CHILLS TECHNIQUE: Abdomen and pelvis CT without intravenous contrast. Noncontrast technique limits evaluation of the abdominal and pelvic viscera. Coronal and Sagittal reconstruction series were provided. One or more dose reduction techniques were used (e.g., Automated exposure control, adjustment of the mA and/or kV according to patient size, use of iterative reconstruction technique). PATIENT PREPARATION: Per protocol ORAL CONTRAST TYPE: None. COMPARISON: None. FINDINGS: Visualization is limited without the use of IV contrast. Lung bases: Partially visualized TAVR. Severe mitral annular calcifications. Severe coronary artery calcification/prior stenting. Pacemaker wires partially visualized. Mild cardiomegaly. Bibasilar atelectasis/scarring. Liver: The unopacified liver is normal in size. No biliary ductal dilation. Gallbladder: Prior cholecystectomy. Spleen: Normal size. Pancreas: The unopacified pancreas is atrophic. Adrenals: No adrenal mass. Kidneys: Mild symmetric renal cortical atrophy. Bilateral nephrolithiasis, the largest within the left lower renal pole measuring 0.7 cm (coronal image 60). No hydronephrosis. Bladder: Visualization of the pelvis is limited by streak artifact. The urinary bladder is minimally distended and grossly unremarkable. Reproductive Organs: Atrophic uterus. Bowel: Prior Lea-en-Y gastric bypass. The bowel loops are normal caliber. No ascites or free air. Prior appendectomy. Lymph nodes: Visualization is limited without the use of IV contrast. No suspicious lymph node enlargement. Vasculature: Severe calcific plaque of the aortoiliac vessels. Bones/soft tissues: Numerous surgical clips along the ventral midline abdominal wall. Prior left femoral ORIF. Severe thoracolumbar spondylosis. Moderate chronic appearing L1 vertebral body compression fracture deformity. Chronic left posterior rib fracture deformities. CT/Abdomen/Pelvis without Cont IMPRESSION: 1. No acute abdominopelvic finding. 2. Bilateral nephrolithiasis without hydronephrosis. Reading Location: [id number]
--- NOTE | 2024-10-03 19:50 | EDS_ITS ---
HPI History of Present Illness Chief Complaint: Flank Pain Informant: patient and family Narrative Narrative: Patient is 83-year-old female present with her daughter for evaluation of 2 days of chills and low back pain. Patient states it has been occurring interm ittently. States today when she woke up she thought maybe things were getting better. She went to a bridal shower and then her children back pain came back. She has chronic urinary incontinence and frequency but noted today that there is a small amount of blood with wiping with urination. She is not been able to urinate since being in the hospital which she thinks is very abnormal for her. She states her stomachs been feeling mildly gassy but she denies any associated reece pain. States the pain is in her bilateral lower back. She does have a history of a kidney stone and thinks this does feel similar. Has had some associated nausea and dry heaves over the past 2 days as well. Denies any change in her bowel movements. Does not report any fever. Has had multiple abdominal surgeries including hysterectomy, appendectomy and cholecystectomy as well as gastric bypass. Daughter states that both her and the patient's granddaughter had 2-day viral syndrome with associated fever and chills and they live with the patient. They are not sure if this could be the cause of her symptoms as well. [facility] Medical History Thyroid disease Right ureteral calculus Wears glasses Post-menopausal Alcohol use Insulin dependent diabetes mellitus Diabetes Uses wheelchair Ambulates with cane Arthritis History of renal disease Kidney stones High cholesterol Back pain Heartburn Former smoker Shortness of breath on exertion Cardiology follow-up encounter History of echocardiogram Hx of fracture of femur Anemia Iron deficiency anemia due to chronic blood loss Diarrhea Anemia HTN (hypertension) Supratherapeutic INR Acute GI bleeding Preop cardiovascular exam Diabetes mellitus, type II Small bowel intussusception Lupus anticoagulant disorder (1994) Nonrheumatic aortic (valve) stenosis with insufficiency Osteoporosis Vitamin B 12 deficiency Osteoarthritis Depression History of DVT (deep vein thrombosis) Hyperlipidemia Essential hypertension Home Medications ?Medication ?Instructions ?Recorded ?Last Taken ?Type sertraline 100 mg tablet 100 mg PO BID depression 08/2802/05/24 History losartan 50 mg-hydrochlorothiazide 1 tab PO DAILY hear t/BP 01/14/21 01/13/24 History 12.5 mg tablet metoprolol succinate 25 mg 25 mg PO DAILY HTN 01/14/21 02/05/24 06:30 History tablet,extended release 24 hr vit C 250 mg-vit E 90 mg-zinc 40 1 tab PO BID eyes 09/2901/13/24 History mg-copper 1 [id number] capsule (PreserVision AREDS-2) ferrous sulfate 325 mg (65 mg 325 mg PO DAILY suppleme nt 06/07/21 01/13/24 History iron) tablet apixaban 2.5 mg tablet (Eliquis) 2.5 mg PO BID for ant icoagulant 07/04/22 02/04/24 History biotin 1 mg capsule 1 mg PO DAILY vitamin supple ment 07/04/22 01/13/24 History glipizide 5 mg tablet 5 mg PO DAILY DM 07/04/22 History semaglutide 0.25 mg or 0.5 mg (2 0.5 mg subcut MO 07/1101/05/24 History mg/1.5 mL) subcutaneous pen injector (Ozempic) denosumab 60 mg/mL subcutaneous 60 mg subcut [id number] 11/27/22 05/09/23 History syringe (Prolia) albuterol sulfate 90 mcg/actuation 1 inh inhalation Q4 -6H PRN 05/26/23 Unknown History breath activated powder inhaler shortness of breath cholecalciferol (vitamin D3) 25 25 mcg PO BID vitamin 05/26/23 01/13/24 History mcg (1,000 unit) capsule amoxicillin 500 mg tablet 2,000 mg (4 x 500 mg) PO ONC E #1 09/05/23 Unknown Rx TAB insulin glargine 100 unit/mL 10 unit subcut 1200 12/2801/12/24 History subcutaneous solution (Lantus U-100 Insulin) tramadol 50 mg tablet 50 mg PO QHS PRN pain Unknown History levothyroxine 50 mcg tablet 50 mcg PO DAILY thyroid 02/05/24 History cephalexin 250 mg capsule 250 mg PO TID #9 caps Unknown Rx oxycodone-acetaminophen 5 mg-325 1 tab PO Q8H PRN pain 2 days #6 09/26/24 Unknown Rx mg tablet (Percocet) tabs atorvastatin 20 mg tablet 20 mg PO QHS CHOLESTEROL Unknown History flash glucose sensor (FreeStyle #1 ea 09/22/24 Unknown History Jeremias 2 Sensor kit) Allergy/AdvReac Type Severity Reaction Status Date / Time codeine Allergy Intermediate itchy Verified 10/03/24 18:06 lisinopril Allergy Intermediate coughing Verified 10/03/24 18:06 Seasonal Allergies: Uncoded Allergy Other Verified 10/03/24 18:06 Family History Mother , Age 86 CAD (coronary artery disease) Alzheimers disease Myocardial infarction, Onset Age: 70 Father , Age 68 CAD (coronary artery disease) Alcoholism Hypertension Sister Diabetes Hypertension Breast cancer Sister , 46 No problems noted. Brother Cancer bladder and prostate Hypertension Heart disease Brother No problems noted. Surgical History Hx of aortic valve replacement History of cardiac catheterization Hx of colonoscopy History of esophagogastroduodenoscopy (EGD) Status post gastric bypass for obesity History of aortic valve replacement with bioprosthetic valve (02/15/19) History of right and left heart catheterization (11/30/18) History of gastric bypass History of tonsillectomy History of appendectomy History of section History of open reduction and internal fixation (ORIF) procedure (2009) History of elbow surgery (2011) Social History adopted: No household members: none housing: assisted living facility number of children: 2 current occupational status: retired current occupational exposures/hazards: No pets and animals: No leisure activities: reading and other history of recent travel: No sexually active: No Smoking Status: Former smoker Tobacco: How many years used: 8 how long ago did patient quit smokin years ago alcohol intake: current Alcohol type: wine details: wine substance use type: does not use diet: diabetic well-balanced diet: about half the time during the past year weight has: remained stable what type of physical activity do you participate in: none mitali/catholic: [employer] do you feel safe at home: Yes ROS ROS ED Constitutional Constitutional ED: Reports chills; Denies fever(s) Eyes Eyes: Denies change in vision ENT ENT ED: Denies rhinorrhea or sore throat Cardiovascular Cardiovascular: Denies chest pain Respiratory/Chest Respiratory/Chest: Denies cough Gastrointestinal Gastrointestinal: Reports nausea and other Details: Reports some dry heaves ; Denies abdominal pain, constipation, diarrhea or vomiting Genitourinary Genitourinary ED: Reports hematuria and other Details: Reports chronic urinary incontinence ; Denies dysuria Musculoskeletal Musculoskeletal: Reports back pain; Denies myalgias Integumentary Denies rash Neurologic Neurologic: Denies headache(s) or weakness Hematologic/Lymphatic Hematologic/Lymphatic: Reports easy bleeding, easy bruising and other Details: On Eliquis EXAM Physical Exam Const Vital Signs: 10/03/24 18:03 10/03/24 20:01 10/03/24 22:00 Temperature 97.8 F 98.8 F Temperature Source Oral Oral Pulse Rate 107 H 96 96 Pulse Rate [Lying] Pulse Rate [Sitting (for 1 minute prior to obtaining)] Pulse Rate [Standing (for 1 minute prior to obtaining)] Respiratory Rate 16 16 16 Blood Pressure 117/54 L 97/59 L 98/55 L Blood Pressure [Lying] Blood Pressure [Sitting (for 1 minute prior to obtaining)] Blood Pressure [Standing (for 1 minute prior to obtaining)] Blood Pressure Mean 75 71 69 Blood Pressure Mean [Lying] Blood Pressure Mean [Sitting (for 1 minute prior to obtaining)] Blood Pressure Mean [Standing (for 1 minute prior to obtaining)] Pulse Ox 96 97 97 Oxygen Delivery Method Room Air Room Air Room Air 10/03/24 23:35 10/04/24 00:06 Temperature Temperature Source Pulse Rate 96 Pulse Rate [Lying] 96 Pulse Rate [Sitting (for 1 minute prior to obtaining)] 97 Pulse Rate [Standing (for 1 minute prior to obtaining)] 99 Respiratory Rate Blood Pressure 100/56 L Blood Pressure [Lying] 94/51 L Blood Pressure [Sitting (for 1 minute prior to obtaining)] 92/52 L Blood Pressure [Standing (for 1 minute prior to obtaining)] 86/48 L Blood Pressure Mean 70 Blood Pressure Mean [Lying] 65 Blood Pressure Mean [Sitting (for 1 minute prior to obtaining)] 65 Blood Pressure Mean [Standing (for 1 minute prior to obtaining)] 60 Pulse Ox Oxygen Delivery Method Positive well nourished and well developed General Appearance ED: well developed and NAD HEENT Reports moist mucous membranes Neck supple Chest Wall inspection of chest normal and palpation of chest normal Resp normal respiratory effort and clear to auscultation bilaterally Cardio regular rate and regular rhythm GI normal to inspection, nondistended, normoactive bowel sounds and non-tender Auscultation: normoactive bowel sounds Palpation: soft; Negative for tender or guarding Back/Spine no CVA tenderness Back/Spine Narrative: No tenderness to palpation of the lumbar paraspinal/lower back diffusely Lumbar Spine / Lower Back: Negative for lumbar spinal tenderness Extremity normal to inspection General Extremety ED: Negative for edema General Extremity: Negative for edema Neuro oriented x3 Sensorium / Orientation: alert Motor Exam: Negative for general weakness Psych mental status grossly normal Skin no rashes or lesions noted MDM MDM MDM Narrative Medical decision making narrative: Patient evaluated for 2 days of intermittent chills as well as low back pain. Differential includes renal colic, urinary tract infection, pyelonephritis and diverticulitis. Will obtain urinalysis, bladder scan as patient now feels that she is not able to urinate which is atypical for her to see if she needs either IV fluids or straight cath. Will also obtain CT abdomen pelvis without contrast and basic labs including CBC and BMP. She is tachycardic upon arrival so will obtain lactate as well in case this is more of a sepsis picture. Patient is a leukopenia with white blood cell count of 3.0. Hemoglobin normal. Lactate normal at 1.7. BMP shows chronic elevation of her creatinine of 2.19 b ut this is stable. CT of the abdomen and pelvis that contrast does not show any acute process. Patient is given a liter of fluid and ultimately urinalysis is obtained. Urinalysis highly consistent with infection with 500 leukocyte esterase, greater than 100 white blood cells and 1+ bacteria. While in the ER despite receiving fluids her blood pressure is mildly downtrending. She states she generally just feels weak. Orthostatic vital signs obtained after liter of IV fluids and she is positive. Blood pressure starts at 94/51 but ends at 86/48. Heart rate remained stable. Given downtrending blood pressure in the setting of 83-year-old female with urinary tract infection and SIRS criteria I do think she would benefit from admission for at least observation overnight while antibiotics are started. Patient is agreeable especially stating how weak she feels. Case will be discussed with the hospitalist. Patient started on Rocephin and urine culture as well as blood cultures are obtained. Lab Data Attestation: I reviewed the patient's lab results. Labs: Laboratory Results - last 24 hr 10/03/24 10/03/24 10/03/24 18:55 20:15 22:39 WBC 3.0 L RBC 4.00 L Hgb 12.9 Hct 38.6 MCV 96.5 MCH 32.3 H MCHC 33.4 RDW Std Deviation 52.5 H RDW Coeff of Adria 14.6 Plt Count 111 L MPV 10.7 Immature Gran % (Auto) 0.700 Neut % (Auto) 91.4 H Lymph % (Auto) 5.3 L [place] % (Auto) 0.3 Eos % (Auto) 2.0 Baso % (Auto) 0.3 Absolute Neuts (auto) 2.8 Absolute Lymphs (auto) 0.16 L Nucleated RBC % 0 Platelet Estimate MOD DEC RBC Morphology NORM C+C Sodium 134 Potassium 3.4 Chloride 101 Carbon Dioxide 17.9 L Anion Gap 16 H BUN 46 H Creatinine 2.19 H Estim Creat Clear Calc 16.67 L Est GFR (MDRD) Non-Af 22 L BUN/Creatinine Ratio 21.2 H Glucose 97 Lactic Acid 1.7 Calcium 8.2 Urine Color Yellow Urine Clarity Sl. Cloudy Urine pH 6.0 Ur Specific [place] 1.010 Urine Protein 100 H Urine Glucose (UA) Normal Urine Ketones Negative Urine Occult Blood 250 H Urine Nitrite Negative Urine Bilirubin Negative Urine Urobilinogen 1 H Ur Leukocyte Esterase 500 H Urine RBC 10-25 SEEN Urine WBC >100 SEEN Ur Squamous Epith Cells 0-5 SEEN Urine Bacteria 1+ Urine Mucus 0 SEEN Radiography Diagnostic Testing: Clinical Impression(s) from Imaging Studies Abdomen/Pelvis CT 10/03/24 19:46 IMPRESSION: 1. No acute abdominopelvic finding. 2. Bilateral nephrolithiasis without hydronephrosis. Reading Location: [id number] Discharge Plan Triage Chief Complaint: Flank Pain ED Provider: Jeanine Ch Dx/Rx/DC Orders Clinical Impression: Acute UTI, Chills without fever, Low back pain, Leukopenia, CKD (chronic kidney disease) Prescriptions: No Action sertraline 100 mg tablet 100 mg PO BID Patient Comments: depression ferrous sulfate 325 mg (65 mg iron) tablet 325 mg PO DAILY biotin 1 mg capsule 1 mg PO DAILY Eliquis 2.5 mg tablet 2.5 mg PO BID Prolia 60 mg/mL syringe 60 mg subcut [id number] cholecalciferol (vitamin D3) 25 mcg (1,000 unit) capsule 25 mcg PO BID albuterol sulfate 90 mcg/actuation aerosol powdr breath activated 1 inh inhalation Q4-6H PRN (Reason: shortness of breath) tramadol 50 mg tablet 50 mg PO QHS PRN (Reason: pain) amoxicillin 500 mg tablet 2,000 mg PO ONCE Qty: 1 12RF Rx Instructions: Take 4 tablets one hour prior to procedure (pt having multiple dental procedures) (DME) [facility] Jeremias 2 Sensor Kit See Rx Instructions .ROUTE .MEDSUPPLY Qty: 1 Patient Comments: #2 PER MONTH. E11.65 Rx Instructions: As directed losartan-hydrochlorothiazide 50-12.5 mg Tablet 1 tab PO DAILY PreserVision AREDS-2 250-90-40-1 mg Capsule 1 tab PO BID metoprolol succinate 25 mg tablet extended release 24 hr 25 mg PO DAILY glipizide 5 mg tablet 5 mg PO DAILY atorvastatin 20 mg tablet 20 mg PO QHS Ozempic 0.25 mg or 0.5 mg(2 mg/1.5 mL) pen injector 0.5 mg SUBCUT MO Patient Comments: HAS BEEN OFF FOR APPROX 1 MONTH insulin glargine [Lantus U-100 Insulin] 100 unit/mL solution 10 unit SUBCUT 1200 cephalexin 250 mg capsule 250 mg PO TID Qty: 9 0RF oxycodone-acetaminophen [Percocet] 5-325 mg tablet 1 tab PO Q8H PRN (Reason: pain) 2 Days Qty: 6 0RF levothyroxine 50 mcg tablet 50 mcg PO DAILY [facility] Referrals: Alonzo Collado DO [Non-Staff] - Print Language: British Disposition Disposition: Acute Care Hospital [facility]
[2024-10-03 20:01] VITALS: BP 97/59; PULSE 96; RESP 16; O2SAT 97
[2024-10-03 20:30] LABS: Absolute Lymphocyte Count 0.16 X10^3/uL (0.83-4.51); Absolute Neutrophil Count 2.8 X10^3/uL (2.0-7.7); Basophil# 0.01 X10^3/uL; Basophil% 0.3 % (0-1); Eosinophil# 0.06 X10^3/uL; Hematocrit 38.6 % (37-47); Hemoglobin 12.9 g/dL (12.0-15.0); Lymphocyte # 0.16 X10^3/ul (0.83-4.51); Lymphocyte % 5.3 % (19-41); Mean Corp Hgb Conc 33.4 g/dL (32-36); Mean Corpuscular Hgb 32.3 pg (27.0-32.0); Mean Corpuscular Volume 96.5 fL (81-99); Mean Platelet Vol. 10.7 fl (6.2-12.0); Monocyte# 0.01 X10^3/uL; Monocyte% 0.3 % (0-10); NRBC Flagged by Analyzer 0 % (0-5); Neutrophil # 2.76 X10^3/uL (2.7-7.7); Neutrophil % 91.4 % (47-70); POSITIVE DIFFERENTIAL YES; POSITIVE MORPHOLOGY YES; Platelet Count 111 K/mm3 (150-450); RBC Distribution Width CV 14.6 % (11.6-14.6); RBC Distribution Width SD 52.5 fl (35.1-43.9)
[2024-10-03 20:42] VITALS: BMI 21.4
[2024-10-03 20:44] LABS: Anion Gap 16 (5-15); BUN 46 mg/dL (4-19); BUN/Creat Ratio 21.2 RATIO (10-20); Calcium,Total 8.2 mg/dL (7.6-11.0); Carbon Dioxide 17.9 mmol/L (21.0-32.0); Chloride 101 mmol/L (98-108); Creatinine, Serum 2.19 mg/dL (0.70-1.20); EST Glomerular Filtration Rate 22 (>60); Estimated Creatinine Clearance 16.67 ml/min (50-250); Glucose 97 mg/dL (70-99); Potassium 3.4 mmol/L (3.3-5.1); Sodium Level 134 mmol/L (133-145)
[2024-10-03 20:44] LABS: Lactic Acid 1.7 mmol/L (0.0-2.0)
[2024-10-03 20:57] LABS: Differential Indicated SCAN CRITERIA MET
[2024-10-03] MEDS: 0.9% Normal Saline (1000mL) 1,000 ML 999 ML IV (21:05)
[2024-10-03 21:08] LABS: Platelet Estimate MOD DEC (ADEQ); Red Cell Morphology NORM C+C NORMAL (NORM C&C)
[2024-10-03 22:00] VITALS: BP 98/55; PULSE 96; RESP 16; TEMP 37.1; O2SAT 97
[2024-10-03 22:45] LABS: Mucous, Urine 0 SEEN /hpf (<or=2+)
[2024-10-03 22:48] LABS: Color, Urine Yellow (Yellow); Glucose, Dipstick Normal (Normal); Ketone-Dipstick Negative (Negative); Leukocyte Esterase-Dipstick 500 /ul (Negative); Nitrite-Dipstick Negative (Negative); Occult Blood-Urine 250 /ul (Negative); Protein-Dipstick 100 mg/dl (Negative); Urine Bilirubin Dipstick Negative (Negative); Urine Clarity Sl. Cloudy (Clear); Urine Urobilinogen 1 mg/dl (Normal)
[2024-10-03 23:04] LABS: Bacteria 1+ /hpf (None Seen); Squamous Epithelial Cells - UA 0-5 SEEN /hpf (5-10); White Blood Cells >100 SEEN /hpf (0-5)
[2024-10-03 23:05] LABS: Red Blood Cells-Urine 10-25 SEEN /hpf (0-5)
[2024-10-03 23:35] VITALS: BP 86/48; BP 92/52; BP 94/51; PULSE 96; PULSE 97; PULSE 99
[2024-10-04] VITALS (12 sets, daily range): BP systolic 100–152; BP diastolic 56–68; PULSE 75–96; RESP 16–18; TEMP 36.6–37.4; O2SAT 91–100; BMI 22.5
[2024-10-04] MEDS: 0.9% Normal Saline (1000mL) 1,000 ML 100 ML IV ×3 (00:24→16:50)
[2024-10-04] MEDS: Ceftriaxone 1 GM/50 ML BAG IV ×2 (00:24→21:03)
--- NOTE | 2024-10-04 01:05 | PCM.HP.STD ---
[facility] General Date of Admission: 10/04/24 Date of Service: 10/04/24 Chief Complaint: Flank Pain and Chills. 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; on apixaban, history of nonrheumatic aortic valve stenosis with insufficiency; s/p bioprosthetic aortic valve replacement (2018), CKD; stage IV, history of small bowel intussusception, history of hysterectomy, history of appendectomy, history of cholecystectomy, history of gastric bypass; on semaglutide monthly, history of B12 deficiency, RAINA; on ferrous sulfate history of renal calculi, depression; on sertraline, osteoporosis: on denosumab plus supplemental vitamin D and OA; with history of femur fracture; s/p ORIF (2009) and chronic back pain on as needed nightly tramadol who presents to [facility] complaining of flank pain and chills. Ms. Reyes reports her symptoms began approximately 3 days prior to admission with the abrupt-onset of chills and low back pain. She states her symptoms admit occurring intermittently and today when she woke up in the morning she thought things would be better than she went to a bridal shower and then her back pain returned tenderness. She has chronic urinary incontinence and urinary frequency but then they noted a small amount of blood with wiping with urination. The ER physician noted she was unable to urinate in the ER which she stated was abnormal for her. She also informed the ER physician that her symptoms were similar to her previous kidney stones with associated nausea and dry heaves over the past 2 days. She admits to recent sick contacts with both her daughter and granddaughter having a 2-day viral syndrome with associated fever and chills that she was exposed to because they live with her. She denies associated fever, constipation, diarrhea, shortness of breath, cough, runny nose, sore throat, headache or rash. In the ER she was noted to have a urinalysis consistent with Acute Cystitis; with gross hematuria due at least in part to Adverse Drug Reaction to DOAC with Leukopenia of 3K and moderate Thrombocytopenia of 111K present on admission complicated by laboratory evidence of mild Dehydration with a BUN/creatinine ratio of 21.2 present on admission all culminating because hypotension of 94/51 mmHg noted shortly after admission and she was then admitted to the PCU for ongoing care for stay that is expected to extend beyond 2 midnights. [facility] Medical History Thyroid disease Right ureteral calculus Wears glasses Post-menopausal Alcohol use Insulin dependent diabetes mellitus Diabetes Uses wheelchair Ambulates with cane Arthritis History of renal disease Kidney stones High cholesterol Back pain Heartburn Former smoker Shortness of breath on exertion Cardiology follow-up encounter History of echocardiogram Hx of fracture of femur Anemia Iron deficiency anemia due to chronic blood loss Diarrhea Anemia HTN (hypertension) Supratherapeutic INR Acute GI bleeding Preop cardiovascular exam Diabetes mellitus, type II Small bowel intussusception Lupus anticoagulant disorder (1994) Nonrheumatic aortic (valve) stenosis with insufficiency Osteoporosis Vitamin B 12 deficiency Osteoarthritis Depression History of DVT (deep vein thrombosis) Hyperlipidemia Essential hypertension Home Medications ?Medication ?Instructions ?Recorded ?Last Taken ?Type sertraline 100 mg tablet 100 mg PO BID depression 03/15/19 02/05/24 History losartan 50 mg-hydrochlorothiazide 1 tab PO DAILY heart/BP 01/14/21 01/13/24 History 12.5 mg tablet metoprolol succinate 25 mg 25 mg PO DAILY HTN 01/14/21 02/05/24 06:30 History tablet,extended release 24 hr vit C 250 mg-vit E 90 mg-zinc 40 1 tab PO BID eyes 01/14/21 01/13/24 History mg-copper 1 [id number] capsule (PreserVision AREDS-2) ferrous sulfate 325 mg (65 mg 325 mg PO DAILY supplement 06/07/21 01/13/24 History iron) tablet apixaban 2.5 mg tablet (Eliquis) 2.5 mg PO BID for anticoagulant 07/04/22 02/04/24 History biotin 1 mg capsule 1 mg PO DAILY vitamin supplement 07/04/22 01/13/24 History glipizide 5 mg tablet 5 mg PO DAILY DM 07/04/22 01/13/24 History semaglutide 0.25 mg or 0.5 mg (2 0.5 mg subcut MO 08/05/22 01/05/24 History mg/1.5 mL) subcutaneous pen injector (Ozempic) denosumab 60 mg/mL subcutaneous 60 mg subcut [id number] 11/27/22 05/09/23 History syringe (Prolia) albuterol sulfate 90 mcg/actuation 1 inh inhalation Q4-6H PRN 05/26/23 Unknown History breath activated powder inhaler shortness of breath cholecalciferol (vitamin D3) 25 25 mcg PO BID vitamin 05/26/23 01/13/24 History mcg (1,000 unit) capsule amoxicillin 500 mg tablet 2,000 mg (4 x 500 mg) PO ONCE #1 09/05/23 Unknown Rx TAB insulin glargine 100 unit/mL 10 unit subcut 1200 12/29/23 01/12/24 History subcutaneous solution (Lantus U-100 Insulin) tramadol 50 mg tablet 50 mg PO QHS PRN pain 12/29/23 Unknown History levothyroxine 50 mcg tablet 50 mcg PO DAILY thyroid 01/13/24 02/05/24 History atorvastatin 20 mg tablet 20 mg PO QHS CHOLESTEROL 09/22/24 Unknown History flash glucose sensor (FreeStyle #1 ea 09/22/24 Unknown History Jeremias 2 Sensor kit) acetaminophen 500 mg capsule 1,000 mg PO Q6H PRN pain 10/04/24 Unknown History Allergy/AdvReac Type Severity Reaction Status Date / Time codeine Allergy Intermediate itchy Verified 10/03/24 18:06 lisinopril Allergy Intermediate coughing Verified 10/03/24 18:06 Seasonal Allergies: Uncoded Allergy Other Verified 10/03/24 18:06 Family History Mother , Age 86 CAD (coronary artery disease) Alzheimers disease Myocardial infarction, Onset Age: 70 Father , Age 68 CAD (coronary artery disease) Alcoholism Hypertension Sister Diabetes Hypertension Breast cancer Sister , 46 No problems noted. Brother Cancer bladder and prostate Hypertension Heart disease Brother No problems noted. Surgical History Hx of aortic valve replacement History of cardiac catheterization Hx of colonoscopy History of esophagogastroduodenoscopy (EGD) Status post gastric bypass for obesity History of aortic valve replacement with bioprosthetic valve (02/15/19) History of right and left heart catheterization (11/30/18) History of gastric bypass History of tonsillectomy History of appendectomy History of section History of open reduction and internal fixation (ORIF) procedure (2009) History of elbow surgery (2011) Social History adopted: No household members: none housing: assisted living facility number of children: 2 current occupational status: retired current occupational exposures/hazards: No pets and animals: No leisure activities: reading and other history of recent travel: No sexually active: No Smoking Status: Former smoker Tobacco: How many years used: 8 how long ago did patient quit smokin years ago alcohol intake: current Alcohol type: wine details: wine substance use type: does not use diet: diabetic well-balanced diet: about half the time during the past year weight has: remained stable what type of physical activity do you participate in: none mitali/methodist: Sabianist do you feel safe at home: Yes ROS ROS Narrative Review of Systems: Constitutional: Patient admits to chills but denies fever. Eyes: Patient denies change in vision or discharge from eyes. ENT: Patient denies runny nose, sore throat or ear pain. Resp: Patient denies shortness of breath or cough. CV: Patient denies chest pain, palpitations, heart racing or lower extremity edema. : Patient admits to hematuria and chronic urinary incontinence but she denies dysuria as per HPI. MSK: Patient admits to back pain but she denies myalgias. Skin: Patient denies rash, abscess, wounds or jaundice. Psych: Patient denies symptoms uncontrolled depression or anxiety. Neuro: Patient denies headache, paresthesias or focal neurologic deficits. Allergy: Patient denies lip swelling, tongue swelling or urticaria. Hematology: Patient admits to easy bleeding and easy bruisability on Eliquis with newly developed hematuria. Endocrinology: Patient denies polyuria, polydipsia, polyphagia or heat/cold intolerance. 14 point ROS otherwise negative save for positives noted above in HPI. Vital Signs Vital Signs Vital Signs: 10/03/24 18:03 10/03/24 20:01 10/03/24 22:00 Temperature 97.8 F 98.8 F Temperature Source Oral Oral Pulse Rate 107 H 96 96 Pulse Rate [Lying] Pulse Rate [Sitting (for 1 minute prior to obtaining)] Pulse Rate [Standing (for 1 minute prior to obtaining)] Respiratory Rate 16 16 16 Blood Pressure 117/54 L 97/59 L 98/55 L Blood Pressure [Lying] Blood Pressure [Sitting (for 1 minute prior to obtaining)] Blood Pressure [Standing (for 1 minute prior to obtaining)] Blood Pressure Mean 75 71 69 Blood Pressure Mean [Lying] Blood Pressure Mean [Sitting (for 1 minute prior to obtaining)] Blood Pressure Mean [Standing (for 1 minute prior to obtaining)] Pulse Ox 96 97 97 Oxygen Delivery Method Room Air Room Air Room Air 10/03/24 23:35 10/04/24 00:06 10/04/24 00:28 Temperature 98.0 F Temperature Source Pulse Rate 96 95 Pulse Rate [Lying] 96 Pulse Rate [Sitting (for 1 minute prior to obtaining)] 97 Pulse Rate [Standing (for 1 minute prior to obtaining)] 99 Respiratory Rate 18 Blood Pressure 100/56 L 102/57 L Blood Pressure [Lying] 94/51 L Blood Pressure [Sitting (for 1 minute prior to obtaining)] 92/52 L Blood Pressure [Standing (for 1 minute prior to obtaining)] 86/48 L Blood Pressure Mean 70 72 Blood Pressure Mean [Lying] 65 Blood Pressure Mean [Sitting (for 1 minute prior to obtaining)] 65 Blood Pressure Mean [Standing (for 1 minute prior to obtaining)] 60 Pulse Ox 93 Oxygen Delivery Method 10/04/24 00:29 Temperature 98.0 F Temperature Source Oral Pulse Rate 94 Pulse Rate [Lying] Pulse Rate [Sitting (for 1 minute prior to obtaining)] Pulse Rate [Standing (for 1 minute prior to obtaining)] Respiratory Rate 18 Blood Pressure 102/57 L Blood Pressure [Lying] Blood Pressure [Sitting (for 1 minute prior to obtaining)] Blood Pressure [Standing (for 1 minute prior to obtaining)] Blood Pressure Mean 72 Blood Pressure Mean [Lying] Blood Pressure Mean [Sitting (for 1 minute prior to obtaining)] Blood Pressure Mean [Standing (for 1 minute prior to obtaining)] Pulse Ox 94 Oxygen Delivery Method Room Air Weight Weight: 121 lb 4.068 oz Body Mass Index (BMI) 21.4 Physical Exam Const alert, oriented x3, no apparent distress and average body habitus General Appearance: cooperative HEENT normocephalic, head/scalp atraumatic, hearing grossly normal bilaterally and moist oral mucous membranes Eyes PERRL and EOMs intact bilaterally Neck no lymphadenopathy, supple and no JVD Resp normal respiratory effort, no retractions, no use of accessory muscles and clear to auscultation bilaterally Cardio regular rate and regular rhythm GI normal to inspection, nondistended, normoactive bowel sounds, soft to palpation, non-tender and non-distended Extremity normal to inspection, full ROM and no clubbing, cyanosis or edema Skin Skin Narrative: Patient denies rash, abscess, wounds or jaundice. Neuro oriented x3, CN's II-XII intact bilaterally, moves all extremities and no focal motor deficits Sensorium / Orientation: awake, alert, oriented to person, oriented to place and oriented to time Speech: speech normal Psych affect normal Results Medical Records Data Attestation: I reviewed the patient's medical records Lab / Micro Data Attestation: I reviewed the patient's lab results. 10/04/24 04:11 10/03/24 18:55 Labs: Laboratory Results - last 24 hr 10/03/24 18:55: WBC 3.0 L, RBC 4.00 L, Hgb 12.9, Hct 38.6, MCV 96.5, MCH 32.3 H, MCHC 33.4, RDW Std Deviation 52.5 H, RDW Coeff of Adria 14.6, Plt Count 111 L, MPV 10.7, Immature Gran % (Auto) 0.700, Neut % (Auto) 91.4 H, Lymph % (Auto) 5.3 L, [place] % (Auto) 0.3, Eos % (Auto) 2.0, Baso % (Auto) 0.3, Absolute Neuts (auto) 2.8, Absolute Lymphs (auto) 0.16 L, Nucleated RBC % 0, Platelet Estimate MOD DEC, RBC Morphology NORM C+C, Sodium 134, Potassium 3.4, Chloride 101, Carbon Dioxide 17.9 L, Anion Gap 16 H, BUN 46 H, Creatinine 2.19 H, Estim Creat Clear Calc 16.67 L, Est GFR (MDRD) Non-Af 22 L, BUN/Creatinine Ratio 21.2 H, Glucose 97, Calcium 8.2 10/03/24 20:15: Lactic Acid 1.7 10/03/24 22:39: Urine Color Yellow, Urine Clarity Sl. Cloudy, Urine pH 6.0, Ur Specific [place] 1.010, Urine Protein 100 H, Urine Glucose (UA) Normal, Urine Ketones Negative, Urine Occult Blood 250 H, Urine Nitrite Negative, Urine Bilirubin Negative, Urine Urobilinogen 1 H, Ur Leukocyte Esterase 500 H, Urine RBC 10-25 SEEN, Urine WBC >100 SEEN, Ur Squamous Epith Cells 0-5 SEEN, Urine Bacteria 1+, Urine Mucus 0 SEEN Imaging Radiology Impression Abdomen/Pelvis CT 10/03/24 19:46 IMPRESSION: 1. No acute abdominopelvic finding. 2. Bilateral nephrolithiasis without hydronephrosis. Reading Location: [id number] Assessment & Plan Assessment/Plan (1) Acute cystitis with hematuria: (2) Adverse drug reaction: QUALIFIERS: Encounter type: initial encounter Qualified Code(s): T50.905A - Adverse effect of unspecified drugs, medicaments and biological substances, initial encounter (3) Leukopenia: QUALIFIERS: Leukopenia type: other Qualified Code(s): D72.818 - Other decreased white blood cell count (4) Thrombocytopenia: (5) Dehydration: (6) Hypotension: QUALIFIERS: Hypotension type: unspecified hypotension type Qualified Code(s): I95.9 - Hypotension, unspecified PLAN: Plan 1. Acute Cystitis; with mild gross hematuria plus Leukopenia of 3K and moderate Thrombocytopenia of 111K present on admission but with no fever, lactic acidosis or other signs of sepsis at this time - Admit to PCU. Continue treatment with IV ceftriaxone begun in ER and await culture and sensitivity data. Serialize CBC daily to follow trend. Give acetaminophen as needed for pain or fever. 2. Adverse Drug Reaction to DOAC suspected to be at least contributing to bleeding outlined in #1 in the setting of a known history of renal calculi with possible recently passed stone - Hold DOAC until further notice in an effort to allow hematuria to resolve. 3. Mild Dehydration with a BUN/creatinine ratio of 21.2 present on admission in the setting of known CKD; stage IV complicating #1 & #2 - Volume resuscitate and recheck renal indices daily to follow trend. 4. Hypotension of 94/51 mmHg noted shortly after admission attributable to #1 - #3 - Patient treated with normal saline IV fluid followed by IV albumin with good result. 5. Recent sick contacts with both her daughter and granddaughter having a 2-day viral syndrome with associated fever and chills that she was exposed to because they live with her attending to the medical complexity of #1 - #4 - Noted. Check viral respiratory panel. 6. History of lupus anticoagulant disorder (1994) with DVT; on apixaban - Noted. 7. History of nonrheumatic aortic valve stenosis with insufficiency; s/p bioprosthetic aortic valve replacement (2018) - Noted. 8. History of gastric bypass; on semaglutide monthly - Noted. 9. Essential hypertension; on losartan-hydrochlorothiazide and metoprolol - Hold scheduled antihypertensives in light of #3 & #4. 10. Hyperlipidemia; on atorvastatin - Hold statin for now until patent's condition improves. 11. Hypothyroidism; on levothyroxine - Resume levothyroxine and check TSH. 12. DM-2; of unknown control on glipizide and insulin glargine 10 units subcu at noon - ADA diet. FSBS q. AC/HS plus SSI. Check HgbA1c to objectively evaluate quality of diabetic control. 13. Former tobacco abuse - Noted. 14. History of small bowel intussusception - Noted. 15. History of hysterectomy - Noted for the sake of completeness. 16. History of appendectomy - Noted. 17. History of cholecystectomy - Noted. 18. History of B12 deficiency - Check B12 and Folate levels to evaluate for potential underlying deficiency. 19. RAINA; on ferrous sulfate - Stable with hemoglobin of 12.9 g/dL and MCV of 96.5 fL present on admission. 20. Depression; on sertraline - Current treatment to be maintained. 21. Osteoporosis: on denosumab plus supplemental vitamin D - Resume vitamin D but restart denosumab as outpatient. 22. OA; with history of femur fracture; s/p ORIF (2009) and chronic back pain on as needed nightly tramadol - Give tramadol prn for severe (level 6-10/10) pain. 23. DVT prophylaxis - SCD's only in light of #1. Total time: Approximately (but not less than) 75 minutes. Charges/Coding Visit Charges Inpatient E&M: 50792 Init Hosp L3
[2024-10-04] MEDS: 0.9% Saline Lock 10 ML Syringe IV (03:20)
[2024-10-04] MEDS: Albumin Human 25% (100 mL) 25 GM/100 ML BAG IV (03:20)
[2024-10-04 03:24] LABS: Hemoglobin A1c 6.9 % (<=5.6)
[2024-10-04] MEDS: Levothyroxine 50 MCG Tablet PO (03:26)
[2024-10-04] MEDS: MELATONIN 3 MG TABLET PO ×2 (03:26→21:04)
[2024-10-04 05:03] LABS: Absolute Lymphocyte Count 0.44 X10^3/uL (0.83-4.51); Absolute Neutrophil Count 9.3 X10^3/uL (2.0-7.7); Basophil# 0.02 X10^3/uL; Basophil% 0.2 % (0-1); Eosinophil# 0.03 X10^3/uL; Eosinophils% 0.3 % (0-5); Hemoglobin 10.2 g/dL (12.0-15.0); Lymphocyte # 0.44 X10^3/ul (0.83-4.51); Lymphocyte % 4.1 % (19-41); Mean Corp Hgb Conc 32.9 g/dL (32-36); Mean Corpuscular Hgb 31.8 pg (27.0-32.0); Mean Corpuscular Volume 96.6 fL (81-99); Mean Platelet Vol. 11.3 fl (6.2-12.0); Monocyte# 0.45 X10^3/uL; Monocyte% 4.2 % (0-10); NRBC Flagged by Analyzer 0 % (0-5); Neutrophil # 9.29 X10^3/uL (2.7-7.7); Neutrophil % 87.3 % (47-70); POSITIVE COUNT YES; POSITIVE DIFFERENTIAL YES; POSITIVE MORPHOLOGY YES; Platelet Count 94 K/mm3 (150-450); RBC Distribution Width CV 14.8 % (11.6-14.6); RBC Distribution Width SD 52.9 fl (35.1-43.9); Red Blood Count 3.21 M/mm3 (4.2-5.4); White Blood Count 10.6 K/mm3 (4.4-11.0)
[2024-10-04 05:05] LABS: Differential Indicated SCAN CRITERIA MET
[2024-10-04 05:39] LABS: Phosphorus 3.5 mg/dL (2.7-4.5); Vitamin B12 603 pg/mL (180-914)
[2024-10-04 06:58] LABS: Atypical Lymphocyte 1+ %; Differential Comment SCANNED
[2024-10-04 06:59] LABS: Platelet Estimate SLT DEC (ADEQ)
[2024-10-04 07:12] LABS: Bedside Glucose 78 mg/dL (74-106)
--- NOTE | 2024-10-04 07:48 | PN.HOSP_ITS ---
Reason for Visit Reason for Visit: Diagnoses Thrombocytopenia, unspecified (10/04/24) Other decreased white blood cell count (10/04/24) Dehydration (10/04/24) Hypotension, unspecified (10/04/24) Acute cystitis with hematuria (10/04/24) Adverse effect of unspecified drugs, medicaments and biological substances, initial encounter (10/04/24) Subjective Subjective Patient is an 83-year-old lady who presented with bilateral flank pain with some hematuria. Presented to the emergency department diagnosed with acute cystitis Objective Data Objective Data Vital Signs: Vital Signs Temp Pulse Resp BP Pulse Ox O2 Del Method 99.4 F H 77 16 107/60 97 Room Air 10/04/24 05:08 10/04/24 05:08 10/04/24 05:08 10/04/24 05:08 10/04/24 05:08 10/04/24 05:08 Oxygen Delivery Method Room Air Weight: 55.8 kg Body Mass Index (BMI) 22.5 Intake & Output: Intake and Output for Last 24 Hours 10/02/24 10/03/24 10/04/24 23:59 23:59 23:59 Intake Total 1000 / 1000 1150 / 1150 Output Total 0 / 0 Balance 1000 / 1000 1150 / 1150 Lab / Micro Data 10/04/24 04:11 10/03/24 18:55 Labs: Laboratory Results - last 24 hr 10/03/24 18:55: WBC 3.0 L, RBC 4.00 L, Hgb 12.9, Hct 38.6, MCV 96.5, MCH 32.3 H, MCHC 33.4, RDW Std Deviation 52.5 H, RDW Coeff of Adria 14.6, Plt Count 111 L, MPV 10.7, Immature Gran % (Auto) 0.700, Neut % (Auto) 91.4 H, Lymph % (Auto) 5.3 L, [place] % (Auto) 0.3, Eos % (Auto) 2.0, Baso % (Auto) 0.3, Absolute Neuts (auto) 2.8, Absolute Lymphs (auto) 0.16 L, Nucleated RBC % 0, Platelet Estimate MOD DEC, RBC Morphology NORM C+C, Sodium 134, Potassium 3.4, Chloride 101, Carbon Dioxide 17.9 L, Anion Gap 16 H, BUN 46 H, Creatinine 2.19 H, Estim Creat Clear Calc 16.67 L, Est GFR (MDRD) Non-Af 22 L, BUN/Creatinine Ratio 21.2 H, Glucose 97, Hemoglobin A1c 6.9 H, Calcium 8.2, Magnesium 2.0, Serum Folate 11.10 10/03/24 20:15: Lactic Acid 1.7 10/03/24 22:39: Urine Color Yellow, Urine Clarity Sl. Cloudy, Urine pH 6.0, Ur Specific [place] 1.010, Urine Protein 100 H, Urine Glucose (UA) Normal, Urine Ketones Negative, Urine Occult Blood 250 H, Urine Nitrite Negative, Urine Bilirubin Negative, Urine Urobilinogen 1 H, Ur Leukocyte Esterase 500 H, Urine RBC 10-25 SEEN, Urine WBC >100 SEEN, Ur Squamous Epith Cells 0-5 SEEN, Urine Bacteria 1+, Urine Mucus 0 SEEN 10/04/24 04:11: WBC 10.6, RBC 3.21 L, Hgb 10.2 L, Hct 31.0 L, MCV 96.6, MCH 31.8, MCHC 32.9, RDW Std Deviation 52.9 H, RDW Coeff of Adria 14.8 H, Plt Count 94 L, MPV 11.3, Immature Gran % (Auto) 3.900 H, Neut % (Auto) 87.3 H, Lymph % (Auto) 4.1 L, [place] % (Auto) 4.2, Eos % (Auto) 0.3, Baso % (Auto) 0.2, Absolute Neuts (auto) 9.3 H, Absolute Lymphs (auto) 0.44 L, Nucleated RBC % 0, Differential Comment SCANNED, Atypical Lymphocytes 1+, Platelet Estimate SLT DEC, Phosphorus 3.5, Vitamin B12 603, TSH 1.140 10/04/24 06:17: POC Glucose 78 Radiography Diagnostic Testing: Radiology Impression Abdomen/Pelvis CT 10/03/24 19:46 IMPRESSION: 1. No acute abdominopelvic finding. 2. Bilateral nephrolithiasis without hydronephrosis. Reading Location: [facility] Physical Exam Narrative GENERAL: cooperative HEENT: Atraumatic; normocephalic EYES; Anicteric, Normal Conjunctiva NECK; supple, normal thyroid, RESPIRATORY: Diminished to auscultation CARDIOVASCULAR: Regular S1 S2, GI: soft, normoactive bowel sounds, : No Renal angle tenderness; EXTREMITIES: No edema, no clubbing, MUSCULOSKELETAL: no muscle wasting NEURO: Awake; no lateralizing signs. SKIN: No Rash PSYCH; Flat affect Assessment & Plan Assessment/Plan (1) Acute cystitis with hematuria: PLAN: Plan Patient is an 83-year-old lady who presented with bilateral flank pain with some hematuria. Presented to the emergency department diagnosed with acute cystitis 1. Acute complicated cystitis with hematuria ? Patient has been admitted to regular nursing floor started on ceftriaxone urine culture sent 2. Hematuria ? Secondary to cystitis exacerbated by the use of systemic anticoagulant?apixaban as well as patient thrombocytopenia. 3. Nephrolithiasis ? Imaging studies obtained on admission did show Bilateral nephrolithiasis without hydronephrosis. Patient informed of the result plans for patient to follow-up with primary care physician for subsequent 4. Essential hypertension ? Patient blood pressure was on the low side on admission antihypertensives subsequently held 5. Depression with anxiety ? Patient is on sertraline 6. Diabetes mellitus type II -patient's oral hypoglycemics held. Placed on long acting insulin, Accu-Cheks a.c. and at bedtime and covered with sliding scale insulin 7. Hypercoagulable state ? With history of lupus anticoagulant disorder with previous DVT. Patient is on apixaban held given above 8. Valvular heart disease ? With previous history of bioprosthetic aortic valve replacement 9. Dyslipidemia ?Patient is on statin therapy, continued at home dose 10. Previous history of gastric bypass 11. Thrombocytopenia ? Patient platelet count from 01/14/2024 was 195 her platelet count on admission was 111. Daily monitoring with CBC with differential ordered the patient apparently has history of chronic liver disease subsequently ordered LFTs 12. Anemia ? Secondary to chronic disorder as well as acute blood loss anemia from thrombocytopenia monitoring H&H and transfuse if patient becomes symptomatic or hemoglobin falls below 7 13. Chronic kidney disease stage IV ? Patient creatinine from 01/13/2024 was 2.33 creatinine on admission was 2.28 daily monitoring with BMP ordered 14. Hypothyroidism ? Patient is on levothyroxine home dose continued 15. Chronic osteoarthritis with chronic back pain pain meds as needed 16. DVT prophylaxis ? Bilateral SCDs for now. Avoiding chemoprophylaxis given patient's thrombocytopenia as well as hematuria Advance planning; did discuss with the patient regarding advanced directives as well as CODE STATUS. Did explain the various scenarios involved ( FULL CODE, DNR CCA, DNR CCA with no intubation, and DNR CC and what each meant) patient elected to to remain full code with CPR and intubation if warranted. Discussion was held in the presence of patient's nurse. Order was placed. Time spent on discussion 16 minutes. Charges/Coding Multi Select Codes Visit Charges Visit Charges: 52088 [facility] Hospitalists' Procedures Procedures: 36790 Advncd Care Plan 30 Min
[2024-10-04] MEDS: Acetaminophen 325 MG Tablet 650 MG PO ×2 (07:54→21:04)
[2024-10-04] MEDS: traMADol 50 MG Tablet PO ×2 (07:55→21:14)
[2024-10-04 10:44] LABS: AST(SGOT) 239 U/L (<=31); Alanine Aminotransfer ALT/SGPT 82 U/L (<=34); Albumin, Serum 3.4 g/dL (3.4-4.8); Alkaline Phosphatase 117 U/L (35-104); Globulin 2.6 g/dL (2.2-4.2); Total Bilirubin 0.55 mg/dL (0.00-1.30)
[2024-10-04] MEDS: Sertraline 100 MG Tablet PO ×2 (10:57→21:06)
[2024-10-04] MEDS: Lactobacillis Acidophilus 1 CAP PO ×4 (10:57→21:05)
[2024-10-04] MEDS: Cholecalciferol (VIT D3) 25 MCG TABLET (1,000 UNITS) PO ×2 (10:57→21:06)
[2024-10-04] MEDS: Ferrous Sulfate 325 MG Tablet PO (11:54)
[2024-10-04 12:14] LABS: Bedside Glucose 68 mg/dL (74-106)
[2024-10-04] MEDS: Glycerin/Hypromellose/PEG400 15 ml Bottle 1 DRP EACH EYE (18:00)
[2024-10-04] MEDS: Multivitamin (Healthy Eyes) Capsule 1 CAP PO (21:05)
[2024-10-04] MEDS: Atorvastatin Calcium 20 MG Tablet PO (21:14)
[2024-10-05] VITALS (14 sets, daily range): BP systolic 120–157; BP diastolic 55–78; PULSE 83–140; RESP 16–18; TEMP 36.8–38.2; O2SAT 95–100; BMI 22.9
[2024-10-05 00:21] LABS: Bedside Glucose 111 mg/dL (74-106)
[2024-10-05] MEDS: Metoprolol(XL)Succ 25 MG Tablet PO ×2 (02:08→20:43)
[2024-10-05] MEDS: 0.9% Normal Saline (1000mL) 1,000 ML 100 ML IV (03:00)
[2024-10-05] MEDS: Levothyroxine 50 MCG Tablet PO (05:24)
[2024-10-05] MEDS: Acetaminophen 325 MG Tablet 650 MG PO ×2 (06:36→20:58)
[2024-10-05 07:00] LABS: Bedside Glucose 114 mg/dL (74-106)
[2024-10-05 07:16] LABS: Hematocrit 35.2 % (37-47); Hemoglobin 11.9 g/dL (12.0-15.0); Mean Corp Hgb Conc 33.8 g/dL (32-36); Mean Corpuscular Hgb 31.8 pg (27.0-32.0); Mean Corpuscular Volume 94.1 fL (81-99); Mean Platelet Vol. 11.8 fl (6.2-12.0); POSITIVE COUNT YES; POSITIVE MORPHOLOGY YES; Platelet Count 105 K/mm3 (150-450); RBC Distribution Width CV 15.3 % (11.6-14.6); RBC Distribution Width SD 53.1 fl (35.1-43.9); Red Blood Count 3.74 M/mm3 (4.2-5.4); White Blood Count 14.1 K/mm3 (4.4-11.0)
--- NOTE | 2024-10-05 07:33 | PCM.PN.HOSP ---
Reason for Visit Reason for Visit: Diagnoses Thrombocytopenia, unspecified (10/04/24) Other decreased white blood cell count (10/04/24) Dehydration (10/04/24) Hypotension, unspecified (10/04/24) Acute cystitis with hematuria (10/04/24) Adverse effect of unspecified drugs, medicaments and biological substances, initial encounter (10/04/24) Subjective Subjective Patient urine and blood cultures so far positive for gram-negative rods final identification and sensitivities pending patient seen complains of feeling weak. Objective Data Objective Data Vital Signs: Vital Signs Temp Pulse Resp BP Pulse Ox O2 Del Method 100.7 F H 99 16 157/78 H 100 Room Air 10/05/24 06:26 10/05/24 05:22 10/05/24 05:22 10/05/24 05:22 10/05/24 05:22 10/05/24 05:22 Oxygen Delivery Method Room Air Weight: 56.9 kg Body Mass Index (BMI) 22.9 Intake & Output: Intake and Output for Last 24 Hours 10/03/24 10/04/24 10/05/24 23:59 23:59 23:59 Intake Total 1000 / 1000 3140 / 3340 1250 / 1250 Output Total 0 / 0 650 / 950 650 / 650 Balance 1000 / 1000 2490 / 2390 600 / 600 Lab / Micro Data 10/05/24 06:42 10/05/24 06:42 Labs: Laboratory Results - last 24 hr 10/04/24 04:11: Total Bilirubin 0.55, Direct Bilirubin 0.40 H, AST 239 H, ALT 82 H, Alkaline Phosphatase 117 H, Total Protein 6.0, Albumin 3.4, Globulin 2.6 10/04/24 11:52: POC Glucose 68 L 10/05/24 00:02: POC Glucose 111 H 10/05/24 06:36: POC Glucose 114 H Micro: Microbiology 10/04/24 00:20 Blood Culture (Wb) - Anticubital Right Blood Culture - Preliminary 10/04/24 00:26 Blood Culture (Wb) - Left Hand Blood Culture - Preliminary 10/03/24 22:39 Urine, Clean Catch Urine Culture - Preliminary GNR lactose manager new product 10/04/24 08:00 Mucosa - Nasopharyngeal Respiratory Panel (PCR) - Final Physical Exam Narrative GENERAL: cooperative HEENT: Atraumatic; normocephalic EYES; Anicteric, Normal Conjunctiva NECK; supple, normal thyroid, RESPIRATORY: Diminished to auscultation CARDIOVASCULAR: Regular S1 S2, GI: soft, normoactive bowel sounds, : No Renal angle tenderness; EXTREMITIES: No edema, no clubbing, MUSCULOSKELETAL: no muscle wasting NEURO: Awake; no lateralizing signs. SKIN: No Rash PSYCH; Flat affect Assessment & Plan Assessment/Plan (1) Acute cystitis with hematuria: PLAN: Plan Patient is an 83-year-old lady who presented with bilateral flank pain with some hematuria. Presented to the emergency department diagnosed with acute cystitis 1. Acute complicated cystitis with hematuria ? Patient has been admitted to regular nursing floor started on ceftriaxone urine culture sent 2. Hematuria ? Secondary to cystitis exacerbated by the use of systemic anticoagulant?apixaban as well as patient thrombocytopenia. 3. Nephrolithiasis ? Imaging studies obtained on admission did show Bilateral nephrolithiasis without hydronephrosis. Patient informed of the result plans for patient to follow-up with primary care physician for subsequent 4. Essential hypertension ? Patient blood pressure was on the low side on admission antihypertensives subsequently held 5. Depression with anxiety ? Patient is on sertraline 6. Diabetes mellitus type II -patient's oral hypoglycemics held. Placed on long acting insulin, Accu-Cheks a.c. and at bedtime and covered with sliding scale insulin 7. Hypercoagulable state ? With history of lupus anticoagulant disorder with previous DVT. Patient is on apixaban held given above 8. Valvular heart disease ? With previous history of bioprosthetic aortic valve replacement 9. Dyslipidemia ?Patient is on statin therapy, continued at home dose 10. Previous history of gastric bypass 11. Thrombocytopenia ? Patient platelet count from 01/14/2024 was 195 her platelet count on admission was 111. Daily monitoring with CBC with differential ordered the patient apparently has history of chronic liver disease subsequently ordered LFTs ? 10/05/2024; patient was cytopenia secondary to chronic liver disease possibly from alcohol use. Will continue with monitoring 12. Anemia ? Secondary to chronic disorder as well as acute blood loss anemia from thrombocytopenia monitoring H&H and transfuse if patient becomes symptomatic or hemoglobin falls below 7 13. Acute kidney injury superimposed chronic kidney disease stage IV ? Patient creatinine from 01/13/2024 was 2.33 creatinine on admission was 2.28 daily monitoring with BMP ordered ? 10/05/2024 patient creatinine down to 1.8 with IV hydration 14. Hypothyroidism ? Patient is on levothyroxine home dose continued 15. Chronic osteoarthritis with chronic back pain pain meds as needed 16. DVT prophylaxis ? Bilateral SCDs for now. Avoiding chemoprophylaxis given patient's thrombocytopenia as well as hematuria 17. Chronic alcohol use ? Counseled on cessation Charges/Coding Multi Select Codes Visit Charges Visit Charges: 04363 Subs Hosp L2
[2024-10-05 07:47] LABS: Anion Gap 15 (5-15); BUN 41 mg/dL (4-19); BUN/Creat Ratio 22.7 RATIO (10-20); Calcium,Total 7.5 mg/dL (7.6-11.0); Carbon Dioxide 12.7 mmol/L (21.0-32.0); Chloride 106 mmol/L (98-108); EST Glomerular Filtration Rate 28 (>60); Estimated Creatinine Clearance 19.39 ml/min (50-250); Glucose 121 mg/dL (70-99); Phosphorus 3.2 mg/dL (2.7-4.5); Potassium 4.3 mmol/L (3.3-5.1); Sodium Level 134 mmol/L (133-145)
--- NOTE | 2024-10-05 07:50 | NURSING ---
Addendum entered by Nicole Robins 10/05/24 07:58: Removed (silver) ring from pt's left 4th finger, blanching redness noted to knuckle area. Pt denies pain, discomfort, tingling at this time. Cap refill <3 seconds bilateral hands. Original Note: Pt complains of occasional tingling to right hand during the night. Mild edema noted to hand, ring is in place to right index finger. Removed ring, and per pt request, placed in red purse. Pt denies pain and discomfort to right hand.
[2024-10-05 08:59] LABS: Differential Indicated MANUAL DIFF
[2024-10-05] MEDS: Sertraline 100 MG Tablet PO ×2 (09:14→20:43)
[2024-10-05] MEDS: Lactobacillis Acidophilus 1 CAP PO ×4 (09:15→20:43)
[2024-10-05] MEDS: Multivitamin (Healthy Eyes) Capsule 1 CAP PO ×2 (09:15→20:45)
[2024-10-05] MEDS: Cholecalciferol (VIT D3) 25 MCG TABLET (1,000 UNITS) PO ×2 (09:15→20:45)
[2024-10-05 10:44] LABS: Lymphocyte 3 % (19-41); Metamyelocyte 3 % (0-1); Monocyte 3 % (0-10); Neutrophil-Band 7 % (0-5); Neutrophil-Segmented 84 % (47-70); Total Cells Counted 100 (MANUAL DIFF)
[2024-10-05 10:46] LABS: Toxic Granulation 1+; Vacuolated Cells 1+
[2024-10-05 10:48] LABS: Platelet Estimate SLT (ADEQ); Polychromasia 1+; Red Cell Morphology NORM C+C NORMAL (NORM C&C)
[2024-10-05 10:49] LABS: Absolute Lymphocyte Count 0.42 X10^3/uL (0.83-4.51); Absolute Neutrophil Count 12.9 X10^3/uL (2.0-7.7)
--- NOTE | 2024-10-05 11:09 | EKG12_ITS ---
Test Reason : Blood Pressure : */* mmHG Vent. Rate : 136 BPM Atrial Rate : * BPM P-R Int : * ms QRS Dur : 92 ms QT Int : 310 ms P-R-T Axes : * 22 55 degrees QTcB Int : 466 ms Atrial fibrillation with rapid ventricular response Nonspecific ST abnormality Abnormal ECG When compared with ECG of 05-Oct-2024 11:10, MANUAL COMPARISON REQUIRED DATA IS UNCONFIRMED Confirmed by Matthew Miranda ([id number]), manuscript editor PHILL MURRIETA ([id number]) on 10/11/2024 1:19:41 PM Referred By: Confirmed By: Matthew Miranda
--- NOTE | 2024-10-05 12:07 | CASEMGMT ---
AMINA SAUCEDO Assessment Face to Face with patient for initial transition planning/care coordination assessment. AMINA SAUCEDO introduced self and role at [facility], pt voices understanding. Pt is A&Ox4 and is resting comfortably in the chair and is calm. Care providers, pharmacy, and demographics verified. Admitting dx: UTI, Hematuria, Mild Dehydration LACE Strata: 2 PCP: JESSIE Mac and Dr[facility] Alonzo Collado [facility] Specialists: Podiatry through the [place] Preferred Pharmacy: [facility] Insurance: [employer] [facility] Prescription Benefit: Yes LNOK: Deyanira (Daughter), Ayaan (Son) Living Arrangements: Pt reports that she lives at [facility] x 2 years but since have moved in with her daughter, Deyanira, in a 2 story home with a FFSU and 1 small step to enter ADLs/IADLs: Pt is independent and was cleared by PT Transportation: Deyanira. Denies concerns DME: CBGM, sensors, pen needs, backup regular glucometer with sufficient supplies, cane, FWW, and shower chair HHC/SNF: Denies HH history. History at [facility] as mentioned above ([place] only) Pt?s goal: Home Plan: Home with pt's daughter, anticipate no additional needs at this time. Pt states that she feels safe returning home with her daughter at the time of DC. PT is not recommending any additional therapy. Pt denies further questions, concerns, or needs at this time. Chrystal Andino RN, CM
[2024-10-05] MEDS: Ferrous Sulfate 325 MG Tablet PO (12:19)
[2024-10-05] MEDS: Insulin Glargine-YFGN 100 UNIT/ML Pen 6 UNIT SC (12:21)
[2024-10-05 12:45] LABS: Bedside Glucose 136 mg/dL (74-106)
--- NOTE | 2024-10-05 15:15 | ECHOD_ITS ---
Reason For Study Reason For Study: ARRHYTHMIA Procedure This was a 2D Doppler, Color Flow transthoracic echocardiogram. Myocardial strain analysis was performed in this exam to aid in the assessment of cardiac function. Exam performed portable in patient room. Left Ventricle Moderate concentric left ventricular hypertrophy. The estimated ejection fraction is 60-65 %. Right Ventricle Normal right ventricle. Normal systolic function. Atria The left atrium is mildly enlarged. The right atrium is mildly enlarged. Mitral Valve The mitral valve is structurally normal. No prolapse or stenosis seen. Mild- Moderate (1-2+) mitral valve insufficiency. Tricuspid Valve Normal tricuspid valve. Mild to moderate (1-2+) tricuspid valve insufficiency. Aortic Valve Normal function of AV bioprothesis. Pulmonic Valve The pulmonic valve is not well visualized. Great Vessels The aortic root is not well visualized. Pericardium/Pleural No pericardial effusion. MMode/2D Measurements & Calculations LVIDd: 3.1 cm IVSd: 1.7 cm LVOT diam: 1.9 cm LVIDs: 1.8 cm LVPWd: 1.2 cm LVOT area: 2.7 cm2 RVDd: 3.6 cm FS: 42.1 % asc Aorta Diam: 3.6 cm LAV(MOD-bp): 47.8 ml LVAd ap4: 16.6 cm2 LAV(MOD-bp) Indexed: 30.5 ml/m2 LVLd ap4: 6.4 cm LAV(MOD-sp2): 50.5 ml EDV(MOD-sp4): 35.7 ml LAV(MOD-sp4): 45.7 ml EDV(sp4-el): 36.5 ml LVAs ap4: 7.5 cm2 LVLs ap4: 5.0 cm ESV(MOD-sp4): 9.8 ml ESV(sp4-el): 9.5 ml EF(MOD-sp4): 72.5 % EF(sp4-el): 73.9 % LVAd ap2: 17.4 cm2 SV(MOD-sp4): 25.9 ml SV(MOD-sp2): 23.3 ml LVLd ap2: 7.2 cm SI(MOD-sp4): 16.5 ml/m2 SI(MOD-sp2): 14.9 ml/m2 EDV(MOD-sp2): 35.6 ml EDV(sp2-el): 36.0 ml LVAs ap2: 9.0 cm2 LVLs ap2: 5.9 cm ESV(MOD-sp2): 12.3 ml ESV(sp2-el): 11.7 ml EF(MOD-sp2): 65.4 % SV(sp4-el): 27.0 ml Ao sinus diam: 2.7 cm LA A4 area: 17.8 cm2 LA dimension(2D): 3.6 cm RA A4 area: 14.3 cm2 TAPSE: 1.8 cm Time Measurements MV dec time: 0.26 sec Doppler Measurements & Calculations MV E max sam: 128.1 cm/sec Lat Peak E' Sam: 8.7 cm/sec Med Peak E' Sam: 7.6 cm/sec MV A max sam: 140.8 cm/sec E/E' lat: 14.8 E/E' med: 16.9 MV E/A: 0.91 MV V2 max: 158.2 cm/sec Ao V2 max: 149.7 cm/sec MV max P.0 mmHg MV dec slope: 485.8 cm/sec2 Ao max P.0 mmHg MV V2 mean: 102.7 cm/sec Ao V2 mean: 114.8 cm/sec MV mean P.6 mmHg Ao mean P.6 mmHg MV V2 VTI: 42.5 cm Ao V2 VTI: 30.5 cm AV (velocity ratio): 0.74 MVA(VTI): 1.5 cm2 KAMERON(I,D): 2.0 cm2 KAMERON(V,D): 1.9 cm2 LV V1 max: 104.3 cm/sec SV(LVOT): 61.8 ml PA V2 max: 64.7 cm/sec LV V1 max P.4 mmHg LV V1 mean P.7 mmHg LV V1 mean: 78.6 cm/sec LV V1 VTI: 22.6 cm TR max sam: 276.2 cm/sec TR max P.5 mmHg ECHO/Echo Complete Interpretation Summary The estimated ejection fraction is 60-65 %. Normal function of AV bioprothesis. Ordering Physician: Tu De Oliveira Performed By: Deysi Khan RDCS
[2024-10-05] MEDS: dilTIAZem 30 MG Tablet PO ×2 (16:10→20:43)
[2024-10-05 16:44] LABS: Bedside Glucose 80 mg/dL (74-106)
[2024-10-05] MEDS: Insulin Lispro 100 UNIT/ML INSULN.PEN SC ×2 (16:51→20:44)
[2024-10-05 17:25] LABS: Bedside Glucose 159 mg/dL (74-106)
[2024-10-05] MEDS: 0.9% Saline Lock 10 ML Syringe IV (20:34)
[2024-10-05] MEDS: Atorvastatin Calcium 20 MG Tablet PO (20:44)
[2024-10-05] MEDS: Ceftriaxone 1 GM/50 ML BAG IV (20:44)
[2024-10-05] MEDS: traMADol 50 MG Tablet PO (20:58)
[2024-10-05] MEDS: MELATONIN 3 MG TABLET PO (20:59)
[2024-10-05] MEDS: 0.9% Normal Saline (250mL Bag) 250 ML 15 ML IV (20:59)
[2024-10-05 23:30] LABS: Bedside Glucose 183 mg/dL (74-106)
[2024-10-06 00:15] VITALS: PULSE 63
[2024-10-06] MEDS: dilTIAZem 30 MG Tablet PO ×3 (01:00→11:31)
[2024-10-06 01:05] VITALS: BP 112/62; PULSE 67; RESP 16; TEMP 36.1; O2SAT 96
[2024-10-06 04:17] VITALS: PULSE 62
[2024-10-06 04:49] VITALS: BMI 22.9
[2024-10-06 05:30] VITALS: BP 144/70; PULSE 64; RESP 16; TEMP 37.1; O2SAT 99
[2024-10-06] MEDS: Levothyroxine 50 MCG Tablet PO (05:34)
[2024-10-06 06:06] LABS: Absolute Lymphocyte Count 0.63 X10^3/uL (0.83-4.51); Absolute Neutrophil Count 7.5 X10^3/uL (2.0-7.7); Basophil# 0.03 X10^3/uL; Basophil% 0.3 % (0-1); Eosinophil# 0.18 X10^3/uL; Hematocrit 31.6 % (37-47); Hemoglobin 10.8 g/dL (12.0-15.0); Lymphocyte # 0.63 X10^3/ul (0.83-4.51); Mean Corp Hgb Conc 34.2 g/dL (32-36); Mean Corpuscular Hgb 31.5 pg (27.0-32.0); Mean Corpuscular Volume 92.1 fL (81-99); Mean Platelet Vol. 11.2 fl (6.2-12.0); Monocyte# 0.62 X10^3/uL; Monocyte% 6.9 % (0-10); NRBC Flagged by Analyzer 0 % (0-5); Neutrophil # 7.51 X10^3/uL (2.7-7.7); Neutrophil % 83.5 % (47-70); POSITIVE MORPHOLOGY YES; Platelet Count 101 K/mm3 (150-450); RBC Distribution Width CV 15.2 % (11.6-14.6); RBC Distribution Width SD 51.7 fl (35.1-43.9); Red Blood Count 3.43 M/mm3 (4.2-5.4)
[2024-10-06 06:28] LABS: Anion Gap 12 (5-15); BUN 39 mg/dL (4-19); BUN/Creat Ratio 24.3 RATIO (10-20); Calcium,Total 7.4 mg/dL (7.6-11.0); Carbon Dioxide 16.1 mmol/L (21.0-32.0); Chloride 103 mmol/L (98-108); Creatinine, Serum 1.62 mg/dL (0.70-1.20); EST Glomerular Filtration Rate 32 (>60); Estimated Creatinine Clearance 21.54 ml/min (50-250); Glucose 131 mg/dL (70-99); Potassium 3.9 mmol/L (3.3-5.1); Sodium Level 131 mmol/L (133-145)
[2024-10-06 06:33] LABS: Bedside Glucose 116 mg/dL (74-106)
[2024-10-06 06:53] LABS: Differential Indicated SCAN CRITERIA MET
[2024-10-06 06:54] LABS: Differential Comment SCANNED
[2024-10-06] MEDS: Lactobacillis Acidophilus 1 CAP PO (08:35)
[2024-10-06] MEDS: Multivitamin (Healthy Eyes) Capsule 1 CAP PO (08:35)
[2024-10-06 08:36] VITALS: PULSE 71
[2024-10-06] MEDS: Cholecalciferol (VIT D3) 25 MCG TABLET (1,000 UNITS) PO (08:36)
[2024-10-06] MEDS: Sertraline 100 MG Tablet PO (08:36)
[2024-10-06] MEDS: Metoprolol(XL)Succ 25 MG Tablet PO (08:36)
--- NOTE | 2024-10-06 10:16 | PCM.DC.SUM ---
Providers Date of Admission: 10/04/24 Date of Discharge: 10/06/24 Primary Care Physician: [facility] Reason For Visit: UTI, HEMATURIA, ADR TO DOAC, MILD DEHYDRATION AND Diagnosis Discharge Diagnosis (1) Acute cystitis with hematuria: Status: Acute Code(s): N30.01 - Acute cystitis with hematuria Plan Patient is an 83-year-old lady who presented with bilateral flank pain with some hematuria. Presented to the emergency department diagnosed with acute cystitis 1. Acute complicated cystitis with hematuria with E. coli ? Patient has been admitted to regular nursing floor started on ceftriaxone urine culture sent ? Patient urine and blood cultures came back positive for E. coli with patient being bacteremic decision was made to treat for total of 2 weeks 2. Hematuria ? Secondary to cystitis exacerbated by the use of systemic anticoagulant?apixaban as well as patient thrombocytopenia. ? Resolved 3. Nephrolithiasis ? Imaging studies obtained on admission did show Bilateral nephrolithiasis without hydronephrosis. Patient informed of the result plans for patient to follow-up with primary care physician for subsequent 4. Essential hypertension ? Patient blood pressure was on the low side on admission antihypertensives subsequently held 5. Depression with anxiety ? Patient is on sertraline 6. Diabetes mellitus type II -patient's oral hypoglycemics held. Placed on long acting insulin, Accu-Cheks a.c. and at bedtime and covered with sliding scale insulin 7. Hypercoagulable state ? With history of lupus anticoagulant disorder with previous DVT. Patient is on apixaban held given above ? Resumed on discharge 8. Valvular heart disease ? With previous history of bioprosthetic aortic valve replacement 9. Dyslipidemia ?Patient is on statin therapy, continued at home dose 10. Previous history of gastric bypass 11. Thrombocytopenia ? Patient platelet count from 01/14/2024 was 195 her platelet count on admission was 111. Daily monitoring with CBC with differential ordered the patient apparently has history of chronic liver disease subsequently ordered LFTs ? 10/05/2024; patient was cytopenia secondary to chronic liver disease possibly from alcohol use. Will continue with monitoring 12. Anemia ? Secondary to chronic disorder as well as acute blood loss anemia from thrombocytopenia monitoring H&H and transfuse if patient becomes symptomatic or hemoglobin falls below 7 13. Acute kidney injury superimposed chronic kidney disease stage IV ? Patient creatinine from 01/13/2024 was 2.33 creatinine on admission was 2.28 daily monitoring with BMP ordered ? 10/05/2024 patient creatinine down to 1.8 with IV hydration ? 10/06/2024; patient creatinine was down to 1.6 at the time of discharge 14. Hypothyroidism ? Patient is on levothyroxine home dose continued 15. Chronic osteoarthritis with chronic back pain pain meds as needed 16. DVT prophylaxis ? Bilateral SCDs for now. Avoiding chemoprophylaxis given patient's thrombocytopenia as well as hematuria 17. Chronic alcohol use ? Counseled on cessation 18 paroxysmal atrial fibrillation ? Cardizem was added to patient treatment. 2D echo obtained did show The estimated ejection fraction is 60-65 %.Normal function of AV bioprothesis. Medications at Discharge Home Medications sertraline 100 mg tablet 100 mg PO BID depression 03/15/19 vit C 250 mg-vit E 90 mg-zinc 40 mg-copper 1 he-iscjna-elblhc capsule (PreserVision AREDS-2) 1 tab PO BID eyes 01/14/21 ferrous sulfate 325 mg (65 mg iron) tablet 325 mg PO DAILY supplement 06/07/21 apixaban 2.5 mg tablet (Eliquis) 2.5 mg PO BID for anticoagulant 07/04/22 biotin 1 mg capsule 1 mg PO DAILY vitamin supplement 07/04/22 glipizide 5 mg tablet 5 mg PO DAILY DM 07/04/22 semaglutide 0.25 mg or 0.5 mg (2 mg/1.5 mL) subcutaneous pen injector (Ozempic) 0.5 mg subcut MO 08/05/22 denosumab 60 mg/mL subcutaneous syringe (Prolia) 60 mg subcut [id number] 11/27/22 albuterol sulfate 90 mcg/actuation breath activated powder inhaler 1 inh inhalation Q4-6H PRN shortness of breath 05/26/23 cholecalciferol (vitamin D3) 25 mcg (1,000 unit) capsule 25 mcg PO BID vitamin 05/26/23 amoxicillin 500 mg tablet 2,000 mg (4 x 500 mg) PO ONCE #1 TAB 09/05/23 insulin glargine 100 unit/mL subcutaneous solution (Lantus U-100 Insulin) 10 unit subcut 1200 12/29/23 tramadol 50 mg tablet 50 mg PO QHS PRN pain 12/29/23 levothyroxine 50 mcg tablet 50 mcg PO DAILY thyroid 01/13/24 atorvastatin 20 mg tablet 20 mg PO QHS CHOLESTEROL 09/22/24 flash glucose sensor (FreeStyle Jeremias 2 Sensor kit) #1 ea 09/22/24 acetaminophen 500 mg capsule 1,000 mg PO Q6H PRN pain 10/04/24 L.acidophil,salivari-Bifido bifidum-Strep thermoph 175 mg capsule 1 cap PO 2XD #60 caps 10/06/24 ciprofloxacin HCl 250 mg tablet 250 mg PO BID #20 tabs 10/06/24 diltiazem HCl 120 mg capsule,extended release 24 hr (Cartia XT) 120 mg PO BID 60 days #120 caps 10/06/24 metoprolol succinate 25 mg tablet,extended release 24 hr 25 mg PO BIDCM HTN #60 tabs 10/06/24 Hospital Course Summary of Care Provided Minutes Spent on Discharge: 35 Physical Exam Narrative GENERAL: cooperative HEENT: Atraumatic; normocephalic EYES; Anicteric, Normal Conjunctiva NECK; supple, normal thyroid, RESPIRATORY: Diminished to auscultation CARDIOVASCULAR: Regular S1 S2, GI: soft, normoactive bowel sounds, : No Renal angle tenderness; EXTREMITIES: No edema, no clubbing, MUSCULOSKELETAL: no muscle wasting NEURO: Awake; no lateralizing signs. SKIN: No Rash PSYCH; Flat affect Weight / BMI Weight Weight: 57 kg Body Mass Index (BMI) 22.9 ABG / Lab / Microbiology Data 10/06/24 04:59 10/06/24 04:59 Laboratory: Laboratory Results - last 24 hr 10/04/24 16:56: POC Glucose 80 10/05/24 06:42: Absolute Neuts (auto) 12.9 H, Absolute Lymphs (auto) 0.42 L, Total Counted 100, Neutrophils % (Manual) 84 H, Band Neutrophils % 7 H, Lymphocytes % (Manual) 3 L, Monocytes % (Manual) 3, Metamyelocytes % 3 H, Diff Path Review May foll, Toxic Granulation 1+, Toxic Vacuolation 1+, Platelet Estimate SLT, RBC Morphology NORM C+C, Polychromasia 1+, TSH 1.910 10/05/24 12:18: POC Glucose 136 H 10/05/24 16:37: POC Glucose 159 H 10/05/24 20:39: POC Glucose 183 H 10/06/24 04:59: WBC 9.0, RBC 3.43 L, Hgb 10.8 L, Hct 31.6 L, MCV 92.1, MCH 31.5, MCHC 34.2, RDW Std Deviation 51.7 H, RDW Coeff of Adria 15.2 H, Plt Count 101 L, MPV 11.2, Immature Gran % (Auto) 0.300, Neut % (Auto) 83.5 H, Lymph % (Auto) 7.0 L, Park % (Auto) 6.9, Eos % (Auto) 2.0, Baso % (Auto) 0.3, Absolute Neuts (auto) 7.5, Absolute Lymphs (auto) 0.63 L, Nucleated RBC % 0, Differential Comment SCANNED, Sodium 131 L, Potassium 3.9, Chloride 103, Carbon Dioxide 16.1 L, Anion Gap 12, BUN 39 H, Creatinine 1.62 H, Estim Creat Clear Calc 21.54 L, Est GFR (MDRD) Non-Af 32 L, BUN/Creatinine Ratio 24.3 H, Glucose 131 H, Calcium 7.4 L 10/06/24 06:14: POC Glucose 116 H Microbiology: Microbiology 10/04/24 00:26 Blood Culture (Wb) - Left Hand Blood Culture - Final GNR lactose directory clerk 10/04/24 00:20 Blood Culture (Wb) - Anticubital Right Blood Culture - Final Escherichia coli 10/03/24 22:39 Urine, Clean Catch Urine Culture - Final Escherichia coli 10/04/24 08:00 Mucosa - Nasopharyngeal Respiratory Panel (PCR) - Final Radiography Diagnostic Testing: Radiology Impression Echocardiogram 10/05/24 15:15 Interpretation Summary The estimated ejection fraction is 60-65 %. Normal function of AV bioprothesis. Ordering Physician: Tu De Oliveira Performed By: Deysi Khan RDCS D/C Instructions Discharge Diet: No restrictions Discharge Activity: Return to Normal Activity Call your doctor if you observe: Fever of 101 or Higher, Shortness of breath, Fainting spells and Chest pain DC O2, CPAP, BIPAP Needs Home O2 Discharge instructions: No Meaningful Use Info Meaningful Use Meaningful Use Diagnoses (Choose all that apply): None applicable Ischemic Stroke Statin Dosing Therapy Reference: STATIN DOSE THERAPY REFERENCE: * Patients > 75 years receive moderate or high dose statin therapy. * Patients 75 years or YOUNGER should receive HIGH intensity statin dose unless contraindicated. You will be required to document reason for non-treatment if statin daily dose does not meet guidelines. HIGH DOSE STATIN THERAPY DAILY Atorvastatin > than or = to 40 mg Rosuvastatin > than or = to 20 mg Amlodipine + Atorvastatin > than or = to 2.5/40 mg Ezetimibe + Simvastatin 10/80 mg Simvastatin 80mg Discharge Plan Admission Admit Date/Time: 10/04/24 01:38 Attending Provider: Tu De Oliveira Primary Care Provider: [facility] Consulting Providers: Alonzo Collado; Tu Mendiola Discharge Orders/Prescriptions Prescriptions: Tex Reynabif-S.therm 175 mg Capsule 1 cap PO 2XD Qty: 60 0RF diltiazem HCl [Cartia XT] 120 mg capsule,extended release 24hr 120 mg PO BID 60 Days Qty: 120 0RF ciprofloxacin HCl 250 mg tablet 250 mg PO BID Qty: 20 0RF Continued sertraline 100 mg tablet 100 mg PO BID Patient Comments: depression ferrous sulfate 325 mg (65 mg iron) tablet 325 mg PO DAILY biotin 1 mg capsule 1 mg PO DAILY Eliquis 2.5 mg tablet 2.5 mg PO BID Prolia 60 mg/mL syringe 60 mg subcut [id number] Patient Comments: about 2 weeks ago around Sep 13 2024 cholecalciferol (vitamin D3) 25 mcg (1,000 unit) capsule 25 mcg PO BID albuterol sulfate 90 mcg/actuation aerosol powdr breath activated 1 inh inhalation Q4-6H PRN (Reason: shortness of breath) tramadol 50 mg tablet 50 mg PO QHS PRN (Reason: pain) amoxicillin 500 mg tablet 2,000 mg PO ONCE Qty: 1 12RF Rx Instructions: Take 4 tablets one hour prior to procedure (pt having multiple dental procedures) (DME) Localize Direct Jeremias 2 Sensor Kit See Rx Instructions .ROUTE .MEDSUPPLY Qty: 1 Patient Comments: #2 PER MONTH. E11.65 Rx Instructions: As directed PreserVision AREDS-2 250-90-40-1 mg Capsule 1 tab PO BID glipizide 5 mg tablet 5 mg PO DAILY atorvastatin 20 mg tablet 20 mg PO QHS Ozempic 0.25 mg or 0.5 mg(2 mg/1.5 mL) pen injector 0.5 mg SUBCUT MO Patient Comments: had beginning of september insulin glargine [Lantus U-100 Insulin] 100 unit/mL solution 10 unit SUBCUT 1200 levothyroxine 50 mcg tablet 50 mcg PO DAILY acetaminophen 500 mg capsule 1,000 mg PO Q6H PRN (Reason: pain) Changed metoprolol succinate 25 mg tablet extended release 24 hr 25 mg PO BIDCM Qty: 60 0RF Discontinued losartan-hydrochlorothiazide 50-12.5 mg Tablet 1 tab PO DAILY Referrals / Follow Up: Alonzo Collado DO [Non-Staff] - Ulysses Parker DO [Med Staff - Active Staff] - Within 1 Month (Recurrent dysphagia) [facility] [Primary Care Provider] - Within 2 Weeks Disposition Disposition (needs filled in before D/C Order can be placed): Home, Self Care Charges/Coding Visit Charges Inpatient E&M: 65882 Disch Hosp >30min
[2024-10-06] MEDS: Glucerna Shake 120 ML LIQUID PO (11:30)
[2024-10-06] MEDS: Insulin Lispro 100 UNIT/ML INSULN.PEN SC (11:31)
[2024-10-06] MEDS: Ferrous Sulfate 325 MG Tablet PO (11:31)
[2024-10-06] MEDS: Insulin Glargine-YFGN 100 UNIT/ML Pen 6 UNIT SC (11:32)
--- NOTE | 2024-10-06 11:41 | PHA.DC_ITS ---
Pharmacy [facility] Counseling Pharmacy Service has performed discharge medication reconciliation and counseling for this patient. 1. CIPROFLOXACIN 250MG PO BID X 10 DAYS 2. DILTIAZEM CD 120MG PO BID 3. LACTOBACILLUS 1C PO BID 3. STOP LOSARTAN/HCTZ 4. METOPROLOL INCREASED TO BID The patient's discharge medication list was reviewed for discrepancies and discrepancies were resolved. The patient was counseled on the following discharge medications and changes in medications for homegoing were reviewed. The Reason for Use, instructions for use, and potential side effects were reviewed for all new medications. The patient's questions regarding all of their medications were answered. The patient was able to verbally demonstrate an understanding of their discharge medications. Medications at Discharge Home Medications sertraline 100 mg tablet 100 mg PO BID depression 03/15/19 vit C 250 mg-vit E 90 mg-zinc 40 mg-copper 1 qc-mppmor-eddnpn capsule (PreserVision AREDS-2) 1 tab PO BID eyes 01/14/21 ferrous sulfate 325 mg (65 mg iron) tablet 325 mg PO DAILY supplement 06/07/21 apixaban 2.5 mg tablet (Eliquis) 2.5 mg PO BID for anticoagulant 07/04/22 biotin 1 mg capsule 1 mg PO DAILY vitamin supplement 07/04/22 glipizide 5 mg tablet 5 mg PO DAILY DM 07/04/22 semaglutide 0.25 mg or 0.5 mg (2 mg/1.5 mL) subcutaneous pen injector (Ozempic) 0.5 mg subcut MO 08/05/22 denosumab 60 mg/mL subcutaneous syringe (Prolia) 60 mg subcut [id number] 11/27/22 albuterol sulfate 90 mcg/actuation breath activated powder inhaler 1 inh inhalation Q4-6H PRN shortness of breath 05/26/23 cholecalciferol (vitamin D3) 25 mcg (1,000 unit) capsule 25 mcg PO BID vitamin 05/26/23 amoxicillin 500 mg tablet 2,000 mg (4 x 500 mg) PO ONCE #1 TAB 09/05/23 insulin glargine 100 unit/mL subcutaneous solution (Lantus U-100 Insulin) 10 unit subcut 1200 12/29/23 tramadol 50 mg tablet 50 mg PO QHS PRN pain 12/29/23 levothyroxine 50 mcg tablet 50 mcg PO DAILY thyroid 01/13/24 atorvastatin 20 mg tablet 20 mg PO QHS CHOLESTEROL 09/22/24 flash glucose sensor (FreeStyle Jeremias 2 Sensor kit) #1 ea 09/22/24 acetaminophen 500 mg capsule 1,000 mg PO Q6H PRN pain 10/04/24 L.acidophil,salivari-Bifido bifidum-Strep thermoph 175 mg capsule 1 cap PO 2XD #60 caps 10/06/24 ciprofloxacin HCl 250 mg tablet 250 mg PO BID #20 tabs 10/06/24 diltiazem HCl 120 mg capsule,extended release 24 hr (Cartia XT) 120 mg PO BID 60 days #120 caps 10/06/24 metoprolol succinate 25 mg tablet,extended release 24 hr 25 mg PO BIDCM HTN #60 tabs 10/06/24 pantoprazole 40 mg tablet,delayed release (Protonix) 40 mg PO DAILY #90 tabs 10/06/24
[2024-10-06 11:54] LABS: Bedside Glucose 197 mg/dL (74-106)
[2024-10-06 13:09] VITALS: BP 129/95; PULSE 79; RESP 16; TEMP 36.4; O2SAT 97
[2024-10-13 10:30] LABS: Pathologist Review Reviewed
== END 2024-10-06 14:00 | disposition home or self-care (01) | DRG 683 ==
LOC: ED 10-04 00:36 → PCU 10-04 01:58
PROVIDERS: Admitting Provider Internal Medicine; Emergency Provider Emergency Medicine; Visit Provider Internal Medicine
DX: N17.9 Acute kidney failure, unspecified (principal); N30.01 Acute cystitis with hematuria; D68.32 Hemorrhagic disorder due to extrinsic circulating anticoagulants; D62 Acute posthemorrhagic anemia; D68.59 Other primary thrombophilia; D63.1 Anemia in chronic kidney disease; E86.0 Dehydration; D69.6 Thrombocytopenia, unspecified; I48.0 Paroxysmal atrial fibrillation; N18.4 Chronic kidney disease, stage 4 (severe); E11.22 Type 2 diabetes mellitus with diabetic chronic kidney disease; E03.9 Hypothyroidism, unspecified; I12.9 Hypertensive chronic kidney disease with stage 1 through stage 4 chronic kidney disease, or unspecified chronic kidney disease; K70.9 Alcoholic liver disease, unspecified; Z95.3 Presence of xenogenic heart valve; D72.819 Decreased white blood cell count, unspecified; F41.8 Other specified anxiety disorders; Z79.4 Long term (current) use of insulin; M19.90 Unspecified osteoarthritis, unspecified site; I95.9 Hypotension, unspecified; E78.00 Pure hypercholesterolemia, unspecified; D75.9 Disease of blood and blood-forming organs, unspecified; I35.0 Nonrheumatic aortic (valve) stenosis; Z79.84 Long term (current) use of oral hypoglycemic drugs; R68.83 Chills (without fever); Z87.891 Personal history of nicotine dependence; Z86.718 Personal history of other venous thrombosis and embolism; Z82.49 Family history of ischemic heart disease and other diseases of the circulatory system; Z83.3 Family history of diabetes mellitus; N20.0 Calculus of kidney; Z98.84 Bariatric surgery status; B96.20 Unspecified Escherichia coli [E. coli] as the cause of diseases classified elsewhere; Z79.890 Hormone replacement therapy
CPT/HCPCS: 36415; 74176; 80048; 80076; 81001; 82607; 82746; 82962; 83036; 83605; 83735; 84100; 84443; 85025; 87040; 87077; 87086; 87088; 87186; 87633; 92526; 92610; 93005; 93306; 94668; 97162; 97165; 97530; 99285; P9047; A4216